=== PATIENT | female | born 1960 | race Caucasian/White ===

== ENCOUNTER 2022-03-31 12:00 | Inpatient (IN) | payer MEDICARE ==
[2022-03-31] MEDS ORDERED: SODIUM CHLORIDE 0.9% 1,000 ML IV STA (12:16)
--- NOTE | 2022-03-31 12:26 | ED ---
SOB HPI - General Chief Complaint: Shortness of Breath Stated Complaint: SOB Time Seen by Provider: 03/31/22 12:00 Source: patient, EMS, RN notes reviewed Mode of arrival: EMS Limitations: no limitations - History of Present Illness Initial Comments: 62-year-old female history of CHF COPD lymphedema of her lower extremities who started developing shortness of breath today. There are people in her household have it once and pneumonia. She also had a fever today. She was brought in by EMS she was given oral steroids as well as nebulizer treatment. She feels slightly better. She was noted be hypoxemic per paramedics. No overt chest pain no other complains modifying factors at this time MD Complaint: shortness of breath, cough - Related Data Home Medications Medication Instructions Recorded Confirmed Aspirin EC [Ecotrin Low Dose] 81 mg PO DAILY 03/31/22 03/31/22 Cholecalciferol [Vitamin D3 (25 25 mcg PO DAILY 03/31/22 03/31/22 Mcg = 1000 Iu)] Cinnamon Bark [Cinnamon] 500 mg PO BID 03/31/22 03/31/22 Clopidogrel [Plavix] 75 mg PO DAILY 03/31/22 03/31/22 Cyclobenzaprine [Flexeril] 5 mg PO BID 03/31/22 03/31/22 Furosemide [Lasix] 40 mg PO BID 03/31/22 03/31/22 HYDROcodone/APAP 10-325MG [[place] 1 tab PO TID 03/31/22 03/31/22 10-325] Losartan [Cozaar] 25 mg PO DAILY 03/31/22 03/31/22 Metoprolol Tartrate [Lopressor] 25 mg PO BID 03/31/22 03/31/22 Stacy-3 Fatty Acids [Stacy-3] 1,000 mg PO TID 03/31/22 03/31/22 Pioglitazone [Actos] 30 mg PO DAILY 03/31/22 03/31/22 Potassium Chloride ER [K-Dur 20] 20 meq PO DAILY 03/31/22 03/31/22 glipiZIDE [Glucotrol] 5 mg PO BID 03/31/22 03/31/22 traMADol HCL [traMADol HCL ER] 200 mg PO DAILY 03/31/22 03/31/22 Allergies Allergy/AdvReac Type Severity Reaction Status Date / Time latex Allergy Rash/Hives Verified 12/22/22 13:47 Penicillins Allergy Rash/Hives Verified 03/31/22 13:47 Sulfa (Sulfonamide Allergy Rash/Hives Verified 03/31/22 13:47 Antibiotics) Review of Systems ROS Statement: Those systems with pertinent positive or pertinent negative responses have been documented in the HPI. ROS Other: All systems not noted in ROS Statement are negative. Past Medical History Past Medical History: Heart Failure, COPD, Hypertension, Osteoarthritis (OA), Skin Disorder Additional Past Medical History / Comment(s): CHF, Chrohn's Disease, Chronic Hives History of Any Multi-Drug Resistant Organisms: MRSA Additional Past Surgical History / Comment(s): Fistula in buttocks, twice. Past Psychological History: No Psychological Hx Reported Smoking Status: Former smoker Past Alcohol Use History: None Reported Past Drug Use History: None Reported General Exam - General Exam Comments Initial Comments: This is a well-developed well-nourished awake alert oriented 3 female she is demonstrating evidence of respiratory distress with tachypnea Limitations: no limitations General appearance: alert, in distress Head exam: Present: atraumatic, normocephalic, normal inspection Eye exam: Present: normal appearance, PERRL, EOMI. Absent: scleral icterus, conjunctival injection, periorbital swelling ENT exam: Present: mucous membranes dry Neck exam: Present: normal inspection, full ROM, other (Stridor JVD or bruits). Absent: tenderness, meningismus, lymphadenopathy Respiratory exam: Present: normal lung sounds bilaterally. Absent: respiratory distress, wheezes, rales, rhonchi, stridor Cardiovascular Exam: Present: normal rhythm, tachycardia, normal heart sounds. Absent: systolic murmur, diastolic murmur, rubs, gallop, clicks GI/Abdominal exam: Present: soft, normal bowel sounds. Absent: distended, tenderness, guarding, rebound, rigid Extremities exam: Present: full ROM, normal capillary refill, pedal edema. Absent: tenderness, joint swelling, calf tenderness Back exam: Present: normal inspection Neurological exam: Present: alert, oriented X3, CN II-XII intact Psychiatric exam: Present: normal affect, normal mood Skin exam: Present: warm, dry, intact, normal color. Absent: rash Course Vital Signs 03/31/22 03/31/22 03/31/22 12:08 12:10 14:08 Temperature 100.3 F H 100.4 F H Pulse Rate 133 H 131 H Respiratory 24 26 H 22 Rate Blood Pressure 146/70 109/56 O2 Sat by Pulse 100 97 Oximetry Fraction of Inspired Oxygen (FIO2) 03/31/22 03/31/22 03/31/22 14:58 15:06 15:30 Temperature 101.3 F H Pulse Rate 120 H 158 H Respiratory 22 28 H Rate Blood Pressure 119/64 121/61 O2 Sat by Pulse 100 68 L Oximetry Fraction of Inspired Oxygen (FIO2) 03/31/22 03/31/22 03/31/22 15:35 15:44 15:56 Temperature Pulse Rate 156 H 149 H Respiratory 18 Rate Blood Pressure 183/121 179/92 O2 Sat by Pulse 97 88 L Oximetry Fraction of 100 Inspired Oxygen (FIO2) 03/31/22 03/31/22 03/31/22 16:09 16:23 16:32 Temperature Pulse Rate 140 H 135 H 133 H Respiratory 20 16 16 Rate Blood Pressure 125/92 122/56 110/67 O2 Sat by Pulse 97 97 96 Oximetry Fraction of Inspired Oxygen (FIO2) 03/31/22 03/31/22 16:33 16:34 Temperature Pulse Rate Respiratory Rate Blood Pressure O2 Sat by Pulse Oximetry Fraction of 100 100 Inspired Oxygen (FIO2) - Reevaluation(s) Reevaluation #1: 03/31/22 16:42 Reevaluation the patient reveals that she is having increased dyspnea and does demonstrate hypoxemia and impending respiratory failure. Patient will require oral tracheal intubation. Procedures - Intubation Paralytic: Succinylcholine Mg Given: 150 Laryngoscope: fiber optic video scope Size: 4 ET Tube Size: 8 ET Tube Uncuffed: No (cuffed) Tube Secured Depth (cm): 23 Tube Secured Location: lips Patient Tolerated Procedure: well Intubation Complications: difficult intubation Medical Decision Making - Medical Decision Making Patient did present with complaints of shortness of breath fever with known exposure to influenza pneumonia. Patient during her stay in the emergency department decompensated became more dyspneic hypoxemic with impending respiratory failure. She will require oral tracheal intubation which was performed by me. I did discuss the case initially with Dr. Brown later with Dr. Hatch. Patient will be admitted to the intensive care unit he respiratory failure influenza type A febrile illness respiratory failure she'll be placed on antibiotics as well as Tamiflu. - Lab Data Result diagrams: 03/31/22 12:42 03/31/22 12:42 Lab Results 03/31/22 03/31/22 03/31/22 Range/Units 12:42 12:42 12:42 WBC 5.3 (3.8-10.6) k/uL RBC 2.65 L (3.80-5.40) m/uL Hgb 8.5 L (11.4-16.0) gm/dL Hct 26.1 L (34.0-46.0) % MCV 98.7 (80.0-100.0) fL MCH 32.0 (25.0-35.0) pg MCHC 32.4 (31.0-37.0) g/dL RDW 17.3 H (11.5-15.5) % Plt Count 183 (150-450) k/uL MPV 7.5 Neutrophils % 87 % Lymphocytes % 5 % Monocytes % 4 % Eosinophils % 2 % Basophils % 1 % Neutrophils # 4.6 (1.3-7.7) k/uL Lymphocytes # 0.2 L (1.0-4.8) k/uL Monocytes # 0.2 (0-1.0) k/uL Eosinophils # 0.1 (0-0.7) k/uL Basophils # 0.0 (0-0.2) k/uL Hypochromasia Moderate Poikilocytosis Marked Anisocytosis Slight Macrocytosis Slight PT 10.3 (9.0-12.0) sec INR 1.0 (<1.2) APTT 25.4 (22.0-30.0) sec D-Dimer 1.04 H (<0.60) mg/L FEU Sodium 137 (137-145) mmol/L Potassium 3.6 (3.5-5.1) mmol/L Chloride 95 L (98-107) mmol/L Carbon Dioxide 40 H (22-30) mmol/L Anion Gap 2 mmol/L BUN 21 H (7-17) mg/dL Creatinine 0.76 (0.52-1.04) mg/dL Est GFR (CKD-EPI)AfAm >90 (>60 ml/min/1.73 sqM) Est GFR (CKD-EPI)NonAf 84 (>60 ml/min/1.73 sqM) Glucose 139 H (74-99) mg/dL Plasma Lactic Acid Jameson (0.7-2.0) mmol/L Calcium 8.5 (8.4-10.2) mg/dL Magnesium 1.5 L (1.6-2.3) mg/dL Total Bilirubin 0.8 (0.2-1.3) mg/dL AST 17 (14-36) U/L ALT 15 (4-34) U/L Alkaline Phosphatase 74 (38-126) U/L Troponin I (0.000-0.034) ng/mL NT-Pro-B Natriuret Pep pg/mL Total Protein 6.3 (6.3-8.2) g/dL Albumin 3.5 (3.5-5.0) g/dL Coronavirus (PCR) (Not Detectd) Influenza Type A RNA (Not Detectd) Influenza Type B (PCR) (Not Detectd) 03/31/22 03/31/22 03/31/22 Range/Units 12:42 12:42 12:42 WBC (3.8-10.6) k/uL RBC (3.80-5.40) m/uL Hgb (11.4-16.0) gm/dL Hct (34.0-46.0) % MCV (80.0-100.0) fL MCH (25.0-35.0) pg MCHC (31.0-37.0) g/dL RDW (11.5-15.5) % Plt Count (150-450) k/uL MPV Neutrophils % % Lymphocytes % % Monocytes % % Eosinophils % % Basophils % % Neutrophils # (1.3-7.7) k/uL Lymphocytes # (1.0-4.8) k/uL Monocytes # (0-1.0) k/uL Eosinophils # (0-0.7) k/uL Basophils # (0-0.2) k/uL Hypochromasia Poikilocytosis Anisocytosis Macrocytosis PT (9.0-12.0) sec INR (<1.2) APTT (22.0-30.0) sec D-Dimer (<0.60) mg/L FEU Sodium (137-145) mmol/L Potassium (3.5-5.1) mmol/L Chloride (98-107) mmol/L Carbon Dioxide (22-30) mmol/L Anion Gap mmol/L BUN (7-17) mg/dL Creatinine (0.52-1.04) mg/dL Est GFR (CKD-EPI)AfAm (>60 ml/min/1.73 sqM) Est GFR (CKD-EPI)NonAf (>60 ml/min/1.73 sqM) Glucose (74-99) mg/dL Plasma Lactic Acid Jameson 0.9 (0.7-2.0) mmol/L Calcium (8.4-10.2) mg/dL Magnesium (1.6-2.3) mg/dL Total Bilirubin (0.2-1.3) mg/dL AST (14-36) U/L ALT (4-34) U/L Alkaline Phosphatase (38-126) U/L Troponin I 0.015 (0.000-0.034) ng/mL NT-Pro-B Natriuret Pep 892 pg/mL Total Protein (6.3-8.2) g/dL Albumin (3.5-5.0) g/dL Coronavirus (PCR) (Not Detectd) Influenza Type A RNA (Not Detectd) Influenza Type B (PCR) (Not Detectd) 03/31/22 03/31/22 Range/Units 12:42 12:42 WBC (3.8-10.6) k/uL RBC (3.80-5.40) m/uL Hgb (11.4-16.0) gm/dL Hct (34.0-46.0) % MCV (80.0-100.0) fL MCH (25.0-35.0) pg MCHC (31.0-37.0) g/dL RDW (11.5-15.5) % Plt Count (150-450) k/uL MPV Neutrophils % % Lymphocytes % % Monocytes % % Eosinophils % % Basophils % % Neutrophils # (1.3-7.7) k/uL Lymphocytes # (1.0-4.8) k/uL Monocytes # (0-1.0) k/uL Eosinophils # (0-0.7) k/uL Basophils # (0-0.2) k/uL Hypochromasia Poikilocytosis Anisocytosis Macrocytosis PT (9.0-12.0) sec INR (<1.2) APTT (22.0-30.0) sec D-Dimer (<0.60) mg/L FEU Sodium (137-145) mmol/L Potassium (3.5-5.1) mmol/L Chloride (98-107) mmol/L Carbon Dioxide (22-30) mmol/L Anion Gap mmol/L BUN (7-17) mg/dL Creatinine (0.52-1.04) mg/dL Est GFR (CKD-EPI)AfAm (>60 ml/min/1.73 sqM) Est GFR (CKD-EPI)NonAf (>60 ml/min/1.73 sqM) Glucose (74-99) mg/dL Plasma Lactic Acid Jameson (0.7-2.0) mmol/L Calcium (8.4-10.2) mg/dL Magnesium (1.6-2.3) mg/dL Total Bilirubin (0.2-1.3) mg/dL AST (14-36) U/L ALT (4-34) U/L Alkaline Phosphatase (38-126) U/L Troponin I (0.000-0.034) ng/mL NT-Pro-B Natriuret Pep pg/mL Total Protein (6.3-8.2) g/dL Albumin (3.5-5.0) g/dL Coronavirus (PCR) Not Detected (Not Detectd) Influenza Type A RNA Detected H (Not Detectd) Influenza Type B (PCR) Not Detected (Not Detectd) - Radiology Data Interpreted by me: I did evaluate interpreted the x-ray shows evidence of increased vomiting or vascular congestion. Critical Care Time Critical Care Time: Yes Total Critical Care Time: 45 Critical Care Time: Crackle care time includes initial presentation with discussed with paramedics on arrival history physical labs x-rays multiple reevaluation the patient to responsive therapy. This does not include the intubation time. This does include discussion multiple physicians as well as admission orders and documen tation the above. Disposition Clinical Impression: Acute respiratory failure, Influenza due to influenza virus, type A, human, Febrile illness, acute, Hypomagnesemia, Chronic anemia Disposition: ADMITTED IP TO THIS [facility] Condition: Critical Referrals: Vernell Bernal DO [Primary Care Provider] - 1-2 days Decision Date: 03/31/22 Decision Time: 16:00
--- NOTE | 2022-03-31 12:44 | XR ---
EXAMINATION TYPE: XR chest 2V DATE OF EXAM: 03/31/2022 COMPARISON: NONE HISTORY: Shortness of breath TECHNIQUE: Frontal and lateral views of the chest are obtained. FINDINGS: Scattered senescent parenchymal changes noted. Cardiomegaly with pulmonary venous congestion and perihilar infiltrates as well as interstitial proctor es likely reflective of congestive failure although no sizable effusion seen. Infiltrates of other et iology difficult to exclude. Correlate clinically. Mediastinal structures are stable and grossly unremarkable. No evidence for hilar prominence. Degenerative changes dorsal spine. IMPRESSION: 1. Cardiomegaly with pulmonary venous congestion and perihilar infiltrates as well as interstitial ch anges likely reflective of congestive failure although no sizable effusion seen. Infiltrates of other etiology difficult to exclude. Correlate clinically.
[2022-03-31 13:00] LABS: Anisocytosis Slight; Basophils % (A) 1 %; Eosinophils # (A) 0.1 k/uL (0-0.7); Eosinophils % (A) 2 %; HCT 26.1 % (34.0-46.0); HGB 8.5 gm/dL (11.4-16.0); Hypochromasia Moderate; Lymphocytes # (A) 0.2 k/uL (1.0-4.8); Lymphocytes % (A) 5 %; MCHC 32.4 g/dL (31.0-37.0); MCV 98.7 fL (80.0-100.0); Macrocytosis Slight; Mean Platelet Volume 7.5; Monocytes # (A) 0.2 k/uL (0-1.0); Monocytes % (A) 4 %; Neutrophils # (A) 4.6 k/uL (1.3-7.7); Neutrophils % (A) 87 %; Platelet Count 183 k/uL (150-450); Poikilocytosis Marked; RBC 2.65 m/uL (3.80-5.40); RDW 17.3 % (11.5-15.5); WBC 5.3 k/uL (3.8-10.6)
[2022-03-31 13:11] LABS: ALT 15 U/L (4-34); AST 17 U/L (14-36); African American GFR (CKD) >90 (>60 ml/min/1.73 sqM); Albumin 3.5 g/dL (3.5-5.0); Alkaline Phosphatase 74 U/L (38-126); Anion Gap 2 mmol/L; Blood Urea Nitrogen 21 mg/dL (7-17); Calcium 8.5 mg/dL (8.4-10.2); Carbon Dioxide 40 mmol/L (22-30); Chloride 95 mmol/L (98-107); Glucose 139 mg/dL (74-99); Magnesium 1.5 mg/dL (1.6-2.3); Non-African American GFR(CKD) 84 (>60 ml/min/1.73 sqM); Potassium 3.6 mmol/L (3.5-5.1); Sodium 137 mmol/L (137-145); Total Bilirubin 0.8 mg/dL (0.2-1.3); Total Protein 6.3 g/dL (6.3-8.2)
[2022-03-31 13:22] LABS: Partial Thromboplastin Time 25.4 sec (22.0-30.0); Prothrombin Time 10.3 sec (9.0-12.0)
[2022-03-31] MEDS ORDERED: ACETAMINOPHEN TAB 325 MG TAB PO STA (14:10)
[2022-03-31] MEDS ORDERED: HYDROmorphone 1 MG/ML 1 ML SYRINGE IVP STA (14:36)
[2022-03-31] MEDS ORDERED: IPRATROPIUM-ALBUTEROL 3 ML NEB INHALATION STA (15:28)
[2022-03-31] MEDS ORDERED: LORazepam 2 MG/ML INJ IV STA (15:33)
[2022-03-31] MEDS ORDERED: FUROSEMIDE 10 MG/ML 4 ML VIAL IV STA (15:35)
[2022-03-31] MEDS ORDERED: Potassium Replacement Protocol 1 EACH MISC MISCELLANE PRN (15:48)
[2022-03-31] MEDS ORDERED: Magnesium Replacement Protocol 1 EACH MISC MISCELLANE PRN (15:48)
[2022-03-31] MEDS ORDERED: NON FORMULARY DRUG (Omega-3 Fatty Acids [Omega-3] 1,000 MG Capsule) PO SCH (16:00)
[2022-03-31] MEDS: HYDROcodone/APAP 10-325MG 1 EACH TAB PO SCH ×2 (16:01→21:09)
[2022-03-31] MEDS ORDERED: SUCCINYLCHOLINE CHLORIDE 200 MG/10 ML VIAL IV ONE (16:11)
[2022-03-31] MEDS ORDERED: MIDAZOLAM 1 MG/ML 5 ML VIAL IV STA (16:45)
[2022-03-31] MEDS ORDERED: NALOXONE 0.4 MG/ML 1 ML VIAL IV PRN (16:52)
[2022-03-31] MEDS ORDERED: cefTRIAXone IN SWFI 1,000 MG/10 ML SYRINGE IVP STA (16:54)
[2022-03-31] MEDS ORDERED: AZITHROMYCIN 500 MG in SODIUM CHLORIDE 0.9% 250 ML IVPB STA (16:55)
[2022-03-31 17:03] LABS: ABG Base Excess 6.5 mmol/L; ABG HCO3 35 mmol/L (21-25); ABG Oxygen Saturation 99.8 % (94-97); ABG PO2 164 mmHg (83-108); ABG TCO2 38 mmol/L (19-24); Allen Test Performed? Yes
[2022-03-31 17:10] LABS: Anisocytosis Slight; Basophils % (A) 0 %; Eosinophils % (A) 0 %; HCT 30.6 % (34.0-46.0); HGB 9.9 gm/dL (11.4-16.0); Hypochromasia Marked; Lymphocytes # (A) 0.2 k/uL (1.0-4.8); Lymphocytes % (A) 2 %; MCH 32.8 pg (25.0-35.0); MCHC 32.4 g/dL (31.0-37.0); MCV 101.2 fL (80.0-100.0); Macrocytosis Slight; Mean Platelet Volume 7.3; Monocytes # (A) 0.2 k/uL (0-1.0); Monocytes % (A) 1 %; Neutrophils # (A) 11.1 k/uL (1.3-7.7); Neutrophils % (A) 96 %; Platelet Count 236 k/uL (150-450); Poikilocytosis Moderate; RBC 3.02 m/uL (3.80-5.40); RDW 16.8 % (11.5-15.5); WBC 11.5 k/uL (3.8-10.6)
[2022-03-31] MEDS: MAGNESIUM SULFATE-D5W PMX 1 GM in DEXTROSE/WATER 1 100ML.BAG IVPB SCH ×2 (17:13→20:56)
[2022-03-31 17:14] LABS: ABG PCO2 93 mmHg (35-45); ABG PH 7.18 (7.35-7.45)
[2022-03-31 17:15] LABS: Appearance,Urine Cloudy (Clear); Bilirubin,Urine Negative (Negative); Blood,Urine Negative (Negative); Color,Urine Yellow; Glucose,Urine (UA) Negative (Negative); Ketones,Urine 1+ (Negative); Leukocyte Esterase,Urine Negative (Negative); Mucus,Urine Moderate /hpf; Nitrite,Urine Negative (Negative); PH, Urine 5.5 (5.0-8.0); Protein,Urine 1+ (Negative); RBC,Urine 2 /hpf (0-5); Specific Gravity,Urine 1.023 (1.001-1.035); Squamous Epithelial Cell,Urine <1 /hpf (0-4); Urobilinogen,Urine <2.0 mg/dL (<2.0); WBC,Urine 3 /hpf (0-5)
[2022-03-31 17:21] LABS: Calcium 8.6 mg/dL (8.4-10.2); Potassium 4.7 mmol/L (3.5-5.1)
--- NOTE | 2022-03-31 17:47 | XR ---
EXAMINATION TYPE: XR chest 1V confirm line [place] DATE OF EXAM: 03/31/2022 COMPARISON: 03/31/2022 earlier exam INDICATION: ET and OG tube placement TECHNIQUE: Single frontal view of the chest is obtained. FINDINGS: The heart size is moderately prominent. The pulmonary vasculature is prominent. Diffuse increased lung opacification is present bilaterally greater on the right mid and lower lung f ield. Correlate for pulmonary edema. Pneumonia should be considered. Follow-up is recommended. Endotracheal tube is in place with the tip 5 centimeters above the paola. Nasogastric tube transvers es the field of view. IMPRESSION: 1. Worsening bilateral lung infiltrates greater at the right perihilar region. 2. Placement of a nasogastric tube and endotracheal tube discussed above
[2022-03-31] MEDS ORDERED: SODIUM CHLORIDE 0.9% 500 ML 500 ML IV ONE (17:50)
--- NOTE | 2022-03-31 18:00 | CT ---
CT CHEST FOR PULMONARY EMBOLISM. EXAMINATION TYPE: CT angio chest DATE OF EXAM: 03/31/2022 INDICATION: SOB, COPD, CHF CT DLP: 1062.3 mGycm, Automated exposure control for dose reduction was used. CONTRAST: Patient injected with 100 mL of Isovue 370. COMPARISON: None TECHNIQUE: CT of the chest is performed on a spiral scan at 2 mm thick sections. Study is performed with intravenous contrast timed for evaluation for pulmonary embolism. This will limit additional po rtions of the evaluation. 3-D MIP images reconstructed by the technologist are reviewed on the compu ter in the coronal and sagittal planes. Beam hardening artifact is present due to patient body habitu s. FINDINGS: Patient is intubated, with tip of the endotracheal tube is above the paola. Nasogastric tu be is present and transverses the thorax with the tip in the left upper quadrant of the abdomen. No persistent filling defects are evident to suggest an acute pulmonary embolism. No mediastinal or hilar adenopathy enlarged by CT criteria is evident. The ascending aorta diameter at the level of the main pulmonary artery is 3.9 cm. The main pulmonary artery diameter at the bifur cation is 4.2 cm. Correlate for pulmonary hypertension. Moderate pericardial effusion is present. Small bilateral pleural effusions are present. Compressive atelectasis or bibasilar pneumonia may be present. Limited CT section through the upper abdomen are unremarkable. IMPRESSIONS: 1. No definite pulmonary embolism. Exam is limited due to patient habitus. 2. Small bilateral pleural effusions. Bibasilar atelectasis or pneumonia may be present. 3. Moderate pericardial effusion
[2022-03-31] MEDS ORDERED: SODIUM CHLORIDE 0.9% 1,000 ML IV ONE (19:12)
[2022-03-31] MEDS: OSELTAMIVIR 60 MG/10 ML ORAL SYRINGE OG-TUBE SCH (19:13)
[2022-03-31 19:49] LABS: Glucose,Whole Blood 334 mg/dL (70-110)
[2022-03-31] MEDS: CHLORHEXIDINE GLUCONATE 15 ML CUP MUCOUS MEM SCH (20:56)
[2022-03-31] MEDS: HEPARIN SODIUM,PORCINE/PF 5,000 UNIT/0.5 ML SYRINGE SQ SCH (20:56)
[2022-03-31] MEDS: glipiZIDE 5 MG TAB PO SCH (20:57)
[2022-03-31] MEDS: METOPROLOL TARTRATE 25 MG TAB PO SCH (20:57)
[2022-03-31] MEDS: CYCLOBENZAPRINE 5 MG TAB PO SCH (20:57)
[2022-03-31] MEDS ORDERED: NON FORMULARY DRUG (Cinnamon Bark [Cinnamon] 500 MG Capsule) PO SCH (21:00)
[2022-03-31] MEDS ORDERED: DEXTROSE 50% SYRINGE 50 ML IVP PRN ×2 (21:00)
[2022-03-31] MEDS ORDERED: INSULIN ASPART (NovoLOG) 100 UNIT/ML VIAL SQ SCH (21:00)
[2022-03-31] MEDS ORDERED: IPRATROPIUM-ALBUTEROL 3 ML NEB INHALATION PRN (21:09)
--- NOTE | 2022-03-31 21:58 | XR ---
EXAMINATION TYPE: XR abdomen 1V DATE OF EXAM: 03/31/2022 COMPARISON: None INDICATION: Nasogastric tube placement TECHNIQUE: Single view abdomen supine view FINDINGS: Nasogastric tube transverses the thorax with the tip in the midline. Note is made of cardiomegaly. Sm all effusion may be present on the left. Abdomen is limited evaluation. IMPRESSION: 1. Nasogastric tube tip within the midline of the abdomen
[2022-03-31] MEDS: ACETAMINOPHEN TAB 500 MG TAB PO PRN (22:22)
[2022-03-31] MEDS: ALPRAZolam 0.25 MG TAB PO PRN (22:23)
--- NOTE | 2022-03-31 23:29 | HP ---
HISTORY AND PHYSICAL CHIEF COMPLAINT: Shortness of breath. HISTORY OF PRESENT ILLNESS: This 62-year-old woman with a past medical history of COPD, hypertension, and multiple medical problems, was complaining of cough and sputum, multiple children at the household is positive for flu according to her, and the patient came to [facility], was found to have flu A positive and also some perihilar infiltrate also. There is no history of any fever, rigors, or chills. There is no history of any headache, loss of consciousness, or seizures. PAST MEDICAL HISTORY: Reviewed and include COPD. The rest of the history and rest of the chart is also reviewed. HOME MEDICATIONS: Reviewed and include omega-3. Dose and rest of medications reviewed. ALLERGIES: Reviewed and include latex. FAMILY HISTORY: No history of heart disease or strokes in the family. SOCIAL HISTORY: Previous history of smoking. REVIEW OF SYSTEMS: A 14-point review of systems is negative except as mentioned earlier. PHYSICAL EXAMINATION: VITAL SIGNS: Pulse is 158, blood pressure 120/66, respirations 28. HEENT: Conjunctivae normal. NECK: No JVD. CARDIOVASCULAR: S1, S2. Tachycardic. RESPIRATION: Breath sounds diminished at the bases. Bilateral scattered rhonchi and crackles. ABDOMEN: Soft, obese, nontender. LEGS: No edema. NERVOUS SYSTEM: Nonfocal. SKIN: No ulcer, rash, or bleeding. JOINTS: No active deforming arthropathy. LABORATORY DATA: Hemoglobin 8.2. The rest of the labs are noted. ASSESSMENT: 1. Acute influenza A with acute influenza pneumonia, bilateral. 2. Elevated D-dimer. 3. Chronic obstructive pulmonary disease. 4. Hypertension. 5. Degenerative joint disease. 6. Tachycardia. RECOMMENDATIONS: In this 62-year-old woman, who presented with multiple complex medical issues, we will monitor the patient closely. Continue with current medications and symptomatic treatment. We will initiate Tamiflu, broad-spectrum antibiotics. Infectious Disease and Pulmonary consultations. Bronchodilators. Prognosis is guarded because of multiple complex medical issues. Further recommendations to follow. CT angio of the chest also will be obtained. The patient is extremely sick and will require more than 24 hours of hospital stay. See orders for further details. DVT prophylaxis and proton pump inhibitors also will be ordered. MMODL / IJN: [id number] /
[2022-03-31 23:31] LABS: Glucose,Whole Blood 262 mg/dL (70-110)
[2022-03-31] MEDS: FUROSEMIDE 10 MG/ML 4 ML VIAL IV SCH (23:42)
[2022-03-31] MEDS: INSULIN ASPART (NovoLOG) 100 UNIT/ML VIAL SQ SCH (23:42)
[2022-04-01] MEDS: IPRATROPIUM-ALBUTEROL 3 ML NEB INHALATION SCH ×6 (00:55→20:01)
[2022-04-01] MEDS: HYDROcodone/APAP 5-325MG 1 EACH TAB PO PRN (01:40)
[2022-04-01 04:22] LABS: Anisocytosis Slight; Basophils % (A) 0 %; Eosinophils # (A) 0.1 k/uL (0-0.7); Eosinophils % (A) 1 %; HCT 23.7 % (34.0-46.0); Hypochromasia Moderate; Lymphocytes # (A) 0.2 k/uL (1.0-4.8); Lymphocytes % (A) 3 %; MCH 34.1 pg (25.0-35.0); MCHC 34.9 g/dL (31.0-37.0); MCV 97.8 fL (80.0-100.0); Macrocytosis Slight; Mean Platelet Volume 7.5; Monocytes # (A) 0.3 k/uL (0-1.0); Monocytes % (A) 4 %; Neutrophils # (A) 7.7 k/uL (1.3-7.7); Neutrophils % (A) 92 %; Platelet Count 195 k/uL (150-450); Poikilocytosis Moderate; RBC 2.43 m/uL (3.80-5.40); RDW 16.7 % (11.5-15.5); WBC 8.4 k/uL (3.8-10.6)
[2022-04-01 04:37] LABS: Calcium 8.3 mg/dL (8.4-10.2); Magnesium 2.1 mg/dL (1.6-2.3); Potassium 3.5 mmol/L (3.5-5.1)
[2022-04-01 04:53] LABS: HGB 8.3 gm/dL (11.4-16.0)
[2022-04-01] MEDS: NOREPINEPHRINE 4 MG in SODIUM CHLORIDE 0.9% 250 ML IV SCH ×2 (05:04→22:29)
[2022-04-01 05:50] LABS: ABG Base Excess 13.6 mmol/L; ABG HCO3 38 mmol/L (21-25); ABG Oxygen Saturation 96.8 % (94-97); ABG PCO2 60 mmHg (35-45); ABG PH 7.41 (7.35-7.45); ABG PO2 76 mmHg (83-108); ABG TCO2 40 mmol/L (19-24); Allen Test Performed? Yes
[2022-04-01 06:00] LABS: Glucose,Whole Blood 106 mg/dL (70-110)
[2022-04-01] MEDS: INSULIN ASPART (NovoLOG) 100 UNIT/ML VIAL SQ SCH ×3 (06:01→18:04)
[2022-04-01] MEDS: ACETAMINOPHEN TAB 500 MG TAB PO PRN (06:02)
[2022-04-01] MEDS: POTASSIUM BICARBONATE/CIT AC 20 MEQ TABLET.EFF NG-TUBE SCH ×2 (06:02→06:40)
[2022-04-01] MEDS: PANTOPRAZOLE 40 MG TABLET PO SCH (06:02)
[2022-04-01] MEDS: traMADol 50 MG TAB PO SCH ×4 (06:03→22:45)
[2022-04-01] MEDS: OSELTAMIVIR 60 MG/10 ML ORAL SYRINGE OG-TUBE SCH (06:39)
[2022-04-01] MEDS: FUROSEMIDE 10 MG/ML 4 ML VIAL IV SCH ×3 (08:26→22:44)
[2022-04-01] MEDS: HEPARIN SODIUM,PORCINE/PF 5,000 UNIT/0.5 ML SYRINGE SQ SCH ×2 (08:26→20:05)
[2022-04-01] MEDS: CHLORHEXIDINE GLUCONATE 15 ML CUP MUCOUS MEM SCH (08:26)
[2022-04-01] MEDS: HYDROcodone/APAP 10-325MG 1 EACH TAB PO SCH ×3 (08:27→22:44)
[2022-04-01] MEDS: CLOPIDOGREL 75 MG TAB PO SCH (08:27)
[2022-04-01] MEDS: CYCLOBENZAPRINE 5 MG TAB PO SCH ×2 (08:27→20:05)
[2022-04-01] MEDS: glipiZIDE 5 MG TAB PO SCH ×2 (08:27→20:05)
[2022-04-01] MEDS: CHOLECALCIFEROL 25 MCG (1000 IU) TABLET PO SCH (08:28)
[2022-04-01] MEDS: ASPIRIN 81 MG PO SCH (08:29)
[2022-04-01] MEDS: POTASSIUM CHLORIDE ER 20 MEQ TAB.ER PO SCH (08:29)
[2022-04-01] MEDS: PIOGLITAZONE 30 MG TAB PO SCH (08:29)
[2022-04-01] MEDS: METOPROLOL TARTRATE 25 MG TAB PO SCH ×2 (08:29→20:05)
--- NOTE | 2022-04-01 08:38 | XR ---
EXAMINATION TYPE: XR chest 1V portable DATE OF EXAM: 04/01/2022 COMPARISON: NONE HISTORY: SOB, Follow Up FINDINGS: Indwelling tubes and catheters are unchanged. Interval improvement in perihilar and basilar infiltrates. Continued cardiomegaly with pulmonary veno us congestion. Stable appearance of the cardio-mediastinal structures at this time. Pleural effusion unchanged. IMPRESSION: 1. Interval improvement as noted above. Correlate for improving congestive failure and/or pneumonia.
[2022-04-01] MEDS: LOSARTAN 25 MG TAB PO SCH (08:50)
[2022-04-01] MEDS ORDERED: FUROSEMIDE 40 MG TAB PO SCH (09:00)
--- NOTE | 2022-04-01 09:44 | P.CRDCN ---
History of Present Illness History of present illness: HISTORY OF PRESENTING ILLNESS Patient is a pleasant 62-year-old female with history of COPD hypertension congestive heart failure diabetes mellitus type 2 obesity, lymphedema. Patient currently intubated and sedated and history is supplied by chart. Patient apparently had been at [facility] for heart failure and COPD and had been intubated. He was discharged home and then unfortunately was exposed to family members with influenza and brought to the emergency department with increased shortness of breath and was intubated and sedated. There were no complaints of any chest pain or pressure. She was intubated and sedated and is on low-dose norepinephrine appears more related to sedation. Has been receiving metoprolol. Overnight had brief runs of SVT for Chest CTA showed no definitive pulmonary embolism with small bilateral pleural effusions and mention of moderate pericardial effusion. EKG read out as atrial flutter/tachycardia however appears to be sinus tachycardia with normal axis with nonspecific ST depressions lateral leads. REVIEW OF SYSTEMS At the time of my exam: Unable to perform PHYSICAL EXAMINATION Vital signs reviewed. CONSTITUTIONAL: No apparent distress, sedated and intubated. HEENT: Head is normocephalic. Pupils are equal, round. Sclerae anicteric. Mucous membranes of the mouth are moist. No JVD. No carotid bruit. CHEST EXAMINATION: Lungs are clear to auscultation. No chest wall tenderness is noted on palpation or with deep breathing. HEART EXAMINATION: Regular rate and rhythm. S1, S2 heard. No murmurs, gallops or rub. ABDOMEN: Soft, nontender. Positive bowel sounds. EXTREMITIES: 2+ peripheral pulses, no lower extremity edema and no calf tenderness. NEUROLOGIC EXAMINATION: Patient is sedated ASSESSMENT 1. Acute on chronic respiratory failure 2. Acute on chronic diastolic heart failure 3. Influenza A pneumonia 4. History of COPD 5. Non-STEMI likely type II mechanism related to influenza 6. Report of moderate pericardial effusion by CT 7. Diabetes mellitus type 2 8. History of hypertension, mildly hypotensive on mild vasopressors likely related to sedation, sepsis 9. Brief runs of SVT, asymptomatic PLAN Patient's main decompensation appears related to influenza. Continue Lasix and monitor response. Continue aspirin for non-STEMI however monitor hemoglobin closely. Check 2-D echo for pericardial effusion as well as for left ventricular function given non-STEMI Continue beta zhane as able with mild hypotension. Past Medical History Past Medical History: Heart Failure, COPD, Diabetes Mellitus, Hypertension, Osteoarthritis (OA), Skin Disorder Additional Past Medical History / Comment(s): CHF, Chrohn's Disease, Chronic Hives History of Any Multi-Drug Resistant Organisms: None Reported Additional Past Surgical History / Comment(s): Fistula in buttocks. Past Anesthesia/Blood Transfusion Reactions: No Reported Reaction Past Psychological History: No Psychological Hx Reported Smoking Status: Former smoker Past Alcohol Use History: None Reported Past Drug Use History: None Reported Medications and Allergies Home Medications Medication Instructions Recorded Confirmed Type Aspirin EC [Ecotrin Low Dose] 81 mg PO DAILY 03/31/22 03/31/22 History Cholecalciferol [Vitamin D3 (25 25 mcg PO DAILY 03/31/22 03/31/22 History Mcg = 1000 Iu)] Cinnamon Bark [Cinnamon] 500 mg PO BID 03/31/22 03/31/22 History Clopidogrel [Plavix] 75 mg PO DAILY 03/31/22 03/31/22 History Cyclobenzaprine [Flexeril] 5 mg PO BID 03/31/22 03/31/22 History Furosemide [Lasix] 40 mg PO BID 03/31/22 03/31/22 History HYDROcodone/APAP 10-325MG [[place] 1 tab PO TID 03/31/22 03/31/22 History 10-325] Losartan [Cozaar] 25 mg PO DAILY 03/31/22 03/31/22 History Metoprolol Tartrate [Lopressor] 25 mg PO BID 03/31/22 03/31/22 History [place]-3 Fatty Acids [[place]-3] 1,000 mg PO TID 03/31/22 03/31/22 History Pioglitazone [Actos] 30 mg PO DAILY 03/31/22 03/31/22 History Potassium Chloride ER [K-Dur 20] 20 meq PO DAILY 03/31/22 03/31/22 History glipiZIDE [Glucotrol] 5 mg PO BID 03/31/22 03/31/22 History traMADol HCL [traMADol HCL ER] 200 mg PO DAILY 03/31/22 03/31/22 History Allergies Allergy/AdvReac Type Severity Reaction Status Date / Time latex Allergy Rash/Hives Verified 03/31/22 13:47 Penicillins Allergy Rash/Hives Verified 03/31/22 13:47 Sulfa (Sulfonamide Allergy Rash/Hives Verified 03/31/22 13:47 Antibiotics) Physical Exam Vitals: Vital Signs Temp Pulse Pulse Resp BP BP Pulse Ox 04/01/22 09:25 04/01/22 09:15 93 24 110/53 98 04/01/22 09:00 101 H 24 107/48 98 04/01/22 08:45 102 H 24 104/49 98 04/01/22 08:30 103 H 24 110/47 98 04/01/22 08:15 105 H 24 108/52 98 04/01/22 08:00 99.6 F 102 H 92 24 104/54 98 04/01/22 07:45 105 H 24 108/48 98 04/01/22 07:30 110 H 24 106/50 99 04/01/22 07:15 111 H 24 107/46 99 04/01/22 07:00 110 H 24 97/53 99 04/01/22 06:45 111 H 24 109/54 98 04/01/22 06:30 107 H 27 H 118/53 100 04/01/22 06:15 101 H 24 118/54 100 04/01/22 06:00 105 H 24 124/65 100 04/01/22 05:45 98 24 105/59 94 L 04/01/22 05:30 105 H 24 94/56 94 L 04/01/22 05:15 94 24 96 04/01/22 05:00 99 24 91/45 92 L 04/01/22 04:16 04/01/22 04:00 99.6 F 100 24 99/47 96 04/01/22 03:00 99 24 109/57 97 04/01/22 02:00 99 24 109/57 95 04/01/22 01:10 88 04/01/22 01:00 85 24 104/58 96 04/01/22 00:55 87 04/01/22 00:51 04/01/22 00:00 99.0 F 87 24 109/60 98 03/31/22 23:00 90 24 121/65 100 03/31/22 22:00 89 24 95/52 100 03/31/22 21:42 98.5 F 92 24 95/52 100 03/31/22 21:00 91 24 109/62 98 03/31/22 20:00 98.5 F 95 24 112/63 98 03/31/22 19:26 93 18 107/62 99 03/31/22 19:23 03/31/22 19:11 97.7 F 93 18 107/50 100 03/31/22 18:59 03/31/22 18:55 102 H 18 99/50 100 03/31/22 18:30 105 H 18 95/40 98 03/31/22 18:19 106 H 20 94/44 98 03/31/22 17:48 106 H 22 89/39 98 03/31/22 17:44 109 H 24 105/41 99 03/31/22 17:30 111 H 20 90/43 98 03/31/22 17:00 98.0 F 119 H 16 102/40 97 03/31/22 16:45 118 H 17 112/44 97 03/31/22 16:34 03/31/22 16:32 133 H 16 110/67 96 03/31/22 16:23 135 H 16 122/56 97 03/31/22 16:09 140 H 20 125/92 97 03/31/22 15:56 149 H 18 179/92 88 L 03/31/22 15:44 156 H 183/121 97 03/31/22 15:35 03/31/22 15:30 158 H 28 H 121/61 68 L 03/31/22 15:06 101.3 F H 03/31/22 14:58 120 H 22 119/64 100 03/31/22 14:08 100.4 F H 131 H 22 109/56 97 03/31/22 12:10 26 H 03/31/22 12:08 100.3 F H 133 H 24 146/70 100 FiO2 04/01/22 09:25 60 04/01/22 09:15 04/01/22 09:00 04/01/22 08:45 04/01/22 08:30 04/01/22 08:15 04/01/22 08:00 60 04/01/22 07:45 04/01/22 07:30 04/01/22 07:15 04/01/22 07:00 04/01/22 06:45 04/01/22 06:30 04/01/22 06:15 04/01/22 06:00 04/01/22 05:45 04/01/22 05:30 04/01/22 05:15 04/01/22 05:00 04/01/22 04:16 60 04/01/22 04:00 60 04/01/22 03:00 04/01/22 02:00 04/01/22 01:10 04/01/22 01:00 04/01/22 00:55 04/01/22 00:51 60 04/01/22 00:00 60 03/31/22 23:00 70 03/31/22 22:00 03/31/22 21:42 80 03/31/22 21:00 03/31/22 20:00 80 03/31/22 19:26 03/31/22 19:23 80 03/31/22 19:11 03/31/22 18:59 80 03/31/22 18:55 03/31/22 18:30 03/31/22 18:19 03/31/22 17:48 03/31/22 17:44 03/31/22 17:30 03/31/22 17:00 03/31/22 16:45 03/31/22 16:34 100 03/31/22 16:32 03/31/22 16:23 03/31/22 16:09 03/31/22 15:56 03/31/22 15:44 03/31/22 15:35 100 03/31/22 15:30 03/31/22 15:06 03/31/22 14:58 03/31/22 14:08 03/31/22 12:10 03/31/22 12:08 Intake and Output 03/31/22 04/01/22 04/01/22 22:59 06:59 14:59 Intake Total 167.469 511.369 184.17 Output Total 530 655 120 Balance -362.531 -143.631 64.17 Intake: IV 60 140 60 Sodium Chloride 0.9% 1, 60 140 60 000 ml @ 20 mls/hr IV . Q24H [facility] Rx#:[id number] Intake, IV Titration 107.469 271.369 124.17 Amount Norepinephrine 4 mg In 40.34 Sodium Chloride 0.9% 250 ml @ 0.03 MCG/KG/MIN 17. 797 mls/hr IV .[id number] [facility] Rx#:[id number] propofoL 1,000 mg In 107.469 271.369 83.83 Empty Bag 1 bag @ 15 MCG/ KG/MIN 13.594 mls/hr IV . Q7H22M [facility] Rx#:[id number] Other 100 Output: Urine 530 655 120 Other: Voiding Method Indwelling Catheter Indwelling Catheter Indwelling Catheter Weight 151.046 kg 155.7 kg 155.7 kg Results 04/01/22 03:59 04/01/22 03:59 Cardiac Enzymes 03/31/22 03/31/22 04/01/22 Range/Units 12:42 12:42 06:07 AST 17 (14-36) U/L Troponin I 0.015 0.298 H* (0.000-0.034) ng/mL Coagulation 03/31/22 Range/Units 12:42 PT 10.3 (9.0-12.0) sec APTT 25.4 (22.0-30.0) sec CBC 03/31/22 03/31/22 04/01/22 Range/Units 12:42 16:42 03:59 WBC 5.3 11.5 H 8.4 (3.8-10.6) k/uL RBC 2.65 L 3.02 L 2.43 L (3.80-5.40) m/uL Hgb 8.5 L 9.9 L 8.3 L D (11.4-16.0) gm/dL Hct 26.1 L 30.6 L 23.7 L (34.0-46.0) % Plt Count 183 236 195 (150-450) k/uL Comprehensive Metabolic Panel 03/31/22 03/31/22 04/01/22 Range/Units 12:42 16:42 03:59 Sodium 137 135 L 136 L (137-145) mmol/L Potassium 3.6 4.7 3.5 (3.5-5.1) mmol/L Chloride 95 L 94 L 96 L (98-107) mmol/L Carbon Dioxide 40 H 34 H 35 H (22-30) mmol/L BUN 21 H 24 H 26 H (7-17) mg/dL Creatinine 0.76 0.92 0.82 (0.52-1.04) mg/dL Glucose 139 H 348 H 119 H (74-99) mg/dL Calcium 8.5 8.6 8.3 L (8.4-10.2) mg/dL AST 17 (14-36) U/L ALT 15 (4-34) U/L Alkaline Phosphatase 74 (38-126) U/L Total Protein 6.3 (6.3-8.2) g/dL Albumin 3.5 (3.5-5.0) g/dL Current Medications Generic Name Dose Route Start Last Admin Trade Name Freq PRN Reason Stop Dose Admin Acetaminophen 500 mg 03/31/22 15:36 04/01/22 06:02 Acetaminophen Tab 500 Mg Tab PO 500 mg Q6HR PRN Administration Fever and/ or Pain Hydrocodone Bitart/Acetaminophen 1 each 03/31/22 15:36 04/01/22 01:40 Hydrocodone/Apap 5-325mg 1 Each Tab PO 1 each Q6HR PRN Administration Pain Hydrocodone Bitart/Acetaminophen 1 each 03/31/22 16:00 04/01/22 08:27 Hydrocodone/Apap 10-325mg 1 Each Tab PO 1 each TID [facility] Administration Albuterol/Ipratropium 3 ml 03/31/22 21:09 Ipratropium-Albuterol 3 Ml Neb INHALATION RT-Q2H PRN Shortness Of Breath Or Wheezing Albuterol/Ipratropium 3 ml 04/01/22 00:00 04/01/22 09:30 Ipratropium-Albuterol 3 Ml Neb INHALATION 3 ml RT-Q4H [facility] Administration Alprazolam 0.25 mg 03/31/22 15:36 03/31/22 22:23 Alprazolam 0.25 Mg Tab PO 0.25 mg TID PRN Administration Anxiety Aspirin 81 mg 04/01/22 09:00 04/01/22 08:29 Aspirin 81 Mg PO 81 mg DAILY [facility] Administration Chlorhexidine Gluconate 15 ml 03/31/22 21:00 04/01/22 08:26 Chlorhexidine Gluconate 15 Ml Cup MUCOUS MEM 15 ml BID [facility] Administration Cholecalciferol 25 mcg 04/01/22 09:00 04/01/22 08:28 Cholecalciferol 25 Mcg (1000 Iu) Tablet PO 25 mcg DAILY [facility] Administration Clopidogrel Bisulfate 75 mg 04/01/22 09:00 04/01/22 08:27 Clopidogrel 75 Mg Tab PO 75 mg DAILY [facility] Administration Cyclobenzaprine HCl 5 mg 03/31/22 21:00 04/01/22 08:27 Cyclobenzaprine 5 Mg Tab PO 5 mg BID [facility] Administration Dextrose/Water 25 ml 03/31/22 21:00 Dextrose 50% Syringe 50 Ml IVP PER PROTOCOL PRN Hypoglycemia Protocol Dextrose/Water 50 ml 03/31/22 21:00 Dextrose 50% Syringe 50 Ml IVP PER PROTOCOL PRN Hypoglycemia Protocol Furosemide 40 mg 04/01/22 00:00 04/01/22 08:26 Furosemide 10 Mg/Ml 4 Ml Vial IV 40 mg Q8HR [facility] Administration Glipizide 5 mg 03/31/22 21:00 04/01/22 08:27 Glipizide 5 Mg Tab PO 5 mg BID [facility] Administration Heparin Sodium (Porcine) 5,000 unit 03/31/22 21:00 04/01/22 08:26 Heparin Sodium,Porcine/Pf 5,000 Unit/0.5 Ml Syringe SQ 5,000 unit Q12HR [facility] Administration Sodium Chloride 1,000 mls @ 20 mls/hr 03/31/22 12:16 03/31/22 12:46 Saline 0.9% IV 04/01/22 12:15 20 mls/hr .Q24H [facility] Administration Propofol 1,000 mg/ IV Solution 100 mls @ 13.594 mls/hr 03/31/22 16:30 04/01/22 09:22 IV 15 mcg/kg/min .Q7H22M [facility] 13.594 mls/hr Titration Protocol 15 MCG/KG/MIN Norepinephrine Bitartrate 4 mg 254 mls @ 17.797 mls/hr 04/01/22 05:00 04/01/22 07:20 / Sodium Chloride IV 0.02 mcg/kg/min .[id number] [facility] 11.864 mls/hr Titration Protocol 0.03 MCG/KG/MIN Ceftriaxone Sodium 2 gm/ 50 mls @ 100 mls/hr 04/01/22 17:00 Sodium Chloride IVPB Q24H [facility] Protocol Azithromycin 500 mg/ Sodium 250 mls @ 250 mls/hr 04/01/22 18:00 Chloride IVPB 04/03/22 18:59 Q24H [facility] Protocol Insulin Aspart 0 unit 04/01/22 00:00 04/01/22 06:01 Insulin Aspart (Novolog) 100 Unit/Ml Vial SQ Not Given Q6H [facility] Protocol Losartan Potassium 25 mg 04/01/22 09:00 04/01/22 08:50 Losartan 25 Mg Tab PO 25 mg DAILY [facility] Administration Metoprolol Tartrate 25 mg 03/31/22 21:00 04/01/22 08:29 Metoprolol Tartrate 25 Mg Tab PO 25 mg BID [facility] Administration Miscellaneous Information 1 each 03/31/22 15:48 Magnesium Replacement Protocol 1 Each Misc MISCELLANE DAILY PRN Per Protocol Protocol Miscellaneous Information 1 each 03/31/22 15:48 Potassium Replacement Protocol 1 Each Misc MISCELLANE DAILY PRN Per Protocol Protocol Naloxone HCl 0.2 mg 03/31/22 16:52 Naloxone 0.4 Mg/Ml 1 Ml Vial IV Q2M PRN Opioid Reversal Oseltamivir Phosphate 75 mg 03/31/22 17:30 04/01/22 06:39 Oseltamivir 60 Mg/10 Ml Oral Syringe OG-TUBE 04/05/22 07:31 75 mg AC-BID [facility] Administration Protocol Pantoprazole Sodium 40 mg 04/01/22 07:30 04/01/22 06:02 Pantoprazole 40 Mg Tablet PO 40 mg [id number] [facility] Administration Pioglitazone HCl 30 mg 04/01/22 09:00 04/01/22 08:29 Pioglitazone 30 Mg Tab PO 30 mg DAILY [facility] Administration Potassium Chloride 20 meq 04/01/22 09:00 04/01/22 08:29 Potassium Chloride Er 20 Meq Tab.Er PO 20 meq DAILY [facility] Administration Tramadol HCl 50 mg 04/01/22 07:00 04/01/22 06:03 Tramadol 50 Mg Tab PO 50 mg Q6HR [facility] Administration Intake and Output 03/31/22 04/01/22 04/01/22 22:59 06:59 14:59 Intake Total 167.469 511.369 184.17 Output Total 530 655 120 Balance -362.531 -143.631 64.17 Intake: IV 60 140 60 Sodium Chloride 0.9% 1, 60 140 60 000 ml @ 20 mls/hr IV . Q24H [facility] Rx#:[id number] Intake, IV Titration 107.469 271.369 124.17 Amount Norepinephrine 4 mg In 40.34 Sodium Chloride 0.9% 250 ml @ 0.03 MCG/KG/MIN 17. 797 mls/hr IV .[id number] [facility] Rx#:[id number] propofoL 1,000 mg In 107.469 271.369 83.83 Empty Bag 1 bag @ 15 MCG/ KG/MIN 13.594 mls/hr IV . Q7H22M [facility] Rx#:[id number] Other 100 Output: Urine 530 655 120 Other: Voiding Method Indwelling Catheter Indwelling Catheter Indwelling Catheter Weight 151.046 kg 155.7 kg 155.7 kg Patient Weight 04/02/22 06:59 Weight 155.7 kg 04/01/22 03:59 04/01/22 03:59
[2022-04-01] MEDS: ALPRAZolam 0.25 MG TAB PO PRN (11:00)
--- NOTE | 2022-04-01 12:07 | P.CNPUL ---
History of Present Illness Consult date: 04/01/22 Requesting physician: Chuck Brown Reason for consult: other (Acute hypoxic and hypercapnic respiratory failure) Chief complaint: Shortness of breath and fever History of present illness: This is a 62-year-old female with history of morbid obesity, COPD, hypertension, previous smoking history, patient presented to the ER yesterday with a few days' history of increased shortness of breath, productive cough with thick yellow phlegm, apparently the patient had multiple children in the household with similar symptoms. Upon arrival to the ER, patient was hypoxic, and she was placed on a nonrebreather mask. She tested positive for influenza A, and the patient was started on Tamiflu. Chest x-ray showed evidence of cardiomegaly, pulmonary venous congestion, diffuse perihilar infiltrates, findings are suspicious for congestive heart failure or viral type of pneumonia. CT angiogram of the chest showed no evidence of pulmonary embolism, bilateral pleural effusions, and moderate pericardial effusion as well as interstitial infiltrates bilaterally while in the ER, the patient seems to have decompensated, and developed significant worsening shortness of breath, and she required intubation and mechanical ventilation by the ER physician. Immediate ABG post intubation showed a pO2 of 164, pCO2 of 93 pH of 7.18, implying that the patient was developing significant worsening hypercapnic respiratory failure requiring intubation and mechanical ventilation. Follow-up ABG showed a pO2 of 76 he CO2 of 60 pH of 7.41, continues to have hypercapnia with metabolic compensation for her respiratory acidosis, and that implies that the patient does have chronic hypercapnia. At any rate patient was intubated, placed on mechanical ventilation and I was made aware of this patient, transfer patient to the ICU at night. While in the ICU the patient has been receiving antibiotics empirically, Tamiflu, and she was also receiving diuretics. Patient received significant amount of fluid boluses while in the ER because of relatively low blood pressure. During my evaluation, the patient was on assist control rate of 24 tidal volume of 400 FiO2 40% and PEEP of 5. ABG showed a pO2 of 76 pCO2 of 60 pH of 7.41. Patient was kept on norepinephrine at 0.02 mcg/kg/m for now, I gave the patient a weaning trial while I was at bedside, patient was given a trial of pressure support of 10 and CPAP, and she tolerated that quite well for about one hour hence I recommended extubating the patient to BiPAP. IV fluid is cut down to KVO, patient has been receiving Lasix early this morning, and she is responding well to diuretics. Review of Systems ROS unobtainable: due to endotracheal tube Past Medical History Past Medical History: Heart Failure, COPD, Diabetes Mellitus, Hypertension, Osteoarthritis (OA), Skin Disorder Additional Past Medical History / Comment(s): CHF, Chrohn's Disease, Chronic Hives History of Any Multi-Drug Resistant Organisms: None Reported Additional Past Surgical History / Comment(s): Fistula in buttocks. Past Anesthesia/Blood Transfusion Reactions: No Reported Reaction Past Psychological History: No Psychological Hx Reported Smoking Status: Former smoker Past Alcohol Use History: None Reported Past Drug Use History: None Reported Medications and Allergies Home Medications Medication Instructions Recorded Confirmed Type Aspirin EC [Ecotrin Low Dose] 81 mg PO DAILY 03/31/22 03/31/22 History Cholecalciferol [Vitamin D3 (25 25 mcg PO DAILY 03/31/22 03/31/22 History Mcg = 1000 Iu)] Cinnamon Bark [Cinnamon] 500 mg PO BID 03/31/22 03/31/22 History Clopidogrel [Plavix] 75 mg PO DAILY 03/31/22 03/31/22 History Cyclobenzaprine [Flexeril] 5 mg PO BID 03/31/22 03/31/22 History Furosemide [Lasix] 40 mg PO BID 03/31/22 03/31/22 History HYDROcodone/APAP 10-325MG [[place] 1 tab PO TID 03/31/22 03/31/22 History 10-325] Losartan [Cozaar] 25 mg PO DAILY 03/31/22 03/31/22 History Metoprolol Tartrate [Lopressor] 25 mg PO BID 03/31/22 03/31/22 History [place]-3 Fatty Acids [[place]-3] 1,000 mg PO TID 03/31/22 03/31/22 History Pioglitazone [Actos] 30 mg PO DAILY 03/31/22 03/31/22 History Potassium Chloride ER [K-Dur 20] 20 meq PO DAILY 03/31/22 03/31/22 History glipiZIDE [Glucotrol] 5 mg PO BID 03/31/22 03/31/22 History traMADol HCL [traMADol HCL ER] 200 mg PO DAILY 03/31/22 03/31/22 History Allergies Allergy/AdvReac Type Severity Reaction Status Date / Time latex Allergy Rash/Hives Verified 03/31/22 13:47 Penicillins Allergy Rash/Hives Verified 03/31/22 13:47 Sulfa (Sulfonamide Allergy Rash/Hives Verified 03/31/22 13:47 Antibiotics) Physical Exam Vitals: Vital Signs Temp Pulse Pulse Resp BP BP Pulse Ox 04/01/22 11:33 92 L 04/01/22 11:32 04/01/22 11:15 92 21 99/45 97 04/01/22 11:00 93 24 95/48 94 L 04/01/22 10:45 89 15 97/44 97 04/01/22 10:30 92 17 91/46 96 04/01/22 10:15 89 15 105/46 95 04/01/22 10:00 88 18 101/44 94 L 04/01/22 09:50 04/01/22 09:46 87 04/01/22 09:45 88 21 96/50 91 L 04/01/22 09:30 86 24 116/75 98 04/01/22 09:25 04/01/22 09:15 93 24 110/53 98 04/01/22 09:00 101 H 24 107/48 98 04/01/22 08:45 102 H 24 104/49 98 04/01/22 08:30 103 H 24 110/47 98 04/01/22 08:15 105 H 24 108/52 98 04/01/22 08:00 99.6 F 102 H 92 24 104/54 98 04/01/22 07:45 105 H 24 108/48 98 04/01/22 07:30 110 H 24 106/50 99 04/01/22 07:15 111 H 24 107/46 99 04/01/22 07:00 110 H 24 97/53 99 04/01/22 06:45 111 H 24 109/54 98 04/01/22 06:30 107 H 27 H 118/53 100 04/01/22 06:15 101 H 24 118/54 100 04/01/22 06:00 105 H 24 124/65 100 04/01/22 05:45 98 24 105/59 94 L 04/01/22 05:30 105 H 24 94/56 94 L 04/01/22 05:15 94 24 96 04/01/22 05:00 99 24 91/45 92 L 04/01/22 04:16 04/01/22 04:00 99.6 F 100 24 99/47 96 04/01/22 03:00 99 24 109/57 97 04/01/22 02:00 99 24 109/57 95 04/01/22 01:10 88 04/01/22 01:00 85 24 104/58 96 04/01/22 00:55 87 04/01/22 00:51 04/01/22 00:00 99.0 F 87 24 109/60 98 03/31/22 23:00 90 24 121/65 100 03/31/22 22:00 89 24 95/52 100 03/31/22 21:42 98.5 F 92 24 95/52 100 03/31/22 21:00 91 24 109/62 98 03/31/22 20:00 98.5 F 95 24 112/63 98 03/31/22 19:26 93 18 107/62 99 03/31/22 19:23 03/31/22 19:11 97.7 F 93 18 107/50 100 03/31/22 18:59 03/31/22 18:55 102 H 18 99/50 100 03/31/22 18:30 105 H 18 95/40 98 03/31/22 18:19 106 H 20 94/44 98 03/31/22 17:48 106 H 22 89/39 98 03/31/22 17:44 109 H 24 105/41 99 03/31/22 17:30 111 H 20 90/43 98 03/31/22 17:00 98.0 F 119 H 16 102/40 97 03/31/22 16:45 118 H 17 112/44 97 03/31/22 16:34 03/31/22 16:32 133 H 16 110/67 96 03/31/22 16:23 135 H 16 122/56 97 03/31/22 16:09 140 H 20 125/92 97 03/31/22 15:56 149 H 18 179/92 88 L 03/31/22 15:44 156 H 183/121 97 03/31/22 15:35 03/31/22 15:30 158 H 28 H 121/61 68 L 03/31/22 15:06 101.3 F H 03/31/22 14:58 120 H 22 119/64 100 03/31/22 14:08 100.4 F H 131 H 22 109/56 97 03/31/22 12:10 26 H 03/31/22 12:08 100.3 F H 133 H 24 146/70 100 FiO2 04/01/22 11:33 28 04/01/22 11:32 28 04/01/22 11:15 04/01/22 11:00 04/01/22 10:45 04/01/22 10:30 04/01/22 10:15 04/01/22 10:00 04/01/22 09:50 40 04/01/22 09:46 04/01/22 09:45 04/01/22 09:30 04/01/22 09:25 40 04/01/22 09:15 04/01/22 09:00 04/01/22 08:45 04/01/22 08:30 04/01/22 08:15 04/01/22 08:00 60 04/01/22 07:45 04/01/22 07:30 04/01/22 07:15 04/01/22 07:00 04/01/22 06:45 04/01/22 06:30 04/01/22 06:15 04/01/22 06:00 04/01/22 05:45 04/01/22 05:30 04/01/22 05:15 04/01/22 05:00 04/01/22 04:16 60 04/01/22 04:00 60 04/01/22 03:00 04/01/22 02:00 04/01/22 01:10 04/01/22 01:00 04/01/22 00:55 04/01/22 00:51 60 04/01/22 00:00 60 03/31/22 23:00 70 03/31/22 22:00 03/31/22 21:42 80 03/31/22 21:00 03/31/22 20:00 80 03/31/22 19:26 03/31/22 19:23 80 03/31/22 19:11 03/31/22 18:59 80 03/31/22 18:55 03/31/22 18:30 03/31/22 18:19 03/31/22 17:48 03/31/22 17:44 03/31/22 17:30 03/31/22 17:00 03/31/22 16:45 03/31/22 16:34 100 03/31/22 16:32 03/31/22 16:23 03/31/22 16:09 03/31/22 15:56 03/31/22 15:44 03/31/22 15:35 100 03/31/22 15:30 03/31/22 15:06 03/31/22 14:58 03/31/22 14:08 03/31/22 12:10 03/31/22 12:08 Intake and Output 03/31/22 04/01/22 04/01/22 22:59 06:59 14:59 Intake Total 167.469 511.369 269.361 Output Total 530 655 545 Balance -362.531 -143.631 -275.639 Intake: IV 60 140 100 Sodium Chloride 0.9% 1, 60 140 100 000 ml @ 20 mls/hr IV . Q24H [facility] Rx#:[id number] Intake, IV Titration 107.469 271.369 169.361 Amount Norepinephrine 4 mg In 76.921 Sodium Chloride 0.9% 250 ml @ 0.03 MCG/KG/MIN 17. 797 mls/hr IV .[id number] [facility] Rx#:[id number] propofoL 1,000 mg In 107.469 271.369 92.44 Empty Bag 1 bag @ 15 MCG/ KG/MIN 13.594 mls/hr IV . Q7H22M [facility] Rx#:[id number] Other 100 Output: Urine 530 655 545 Other: Voiding Method Indwelling Catheter Indwelling Catheter Indwelling Catheter Weight 151.046 kg 155.7 kg 155.7 kg CONSTITUTIONAL: Revealed a 62-year-old female, obese, intubated, mechanically ventilated, however the patient is awake, follows simple instructions and she is on 10 mcg/kg off propofol. Head: Atraumatic, normocephalic. Endotracheal tube and orogastric tube are intact. HEENT: Pupils are equal, round. Sclerae anicteric. Mucous membranes of the mouth are moist. No JVD. No carotid bruit. CHEST EXAMINATION: Symmetrical chest expansion, crackles at the bases no rhonchi no wheezes. HEART EXAMINATION: Distant S1 and S2, no S3 gallop, no murmur ABDOMEN: Obese, Soft, nontender. Positive bowel sounds. EXTREMITIES: No clubbing edema or cyanosis, good pulses bilaterally. NEUROLOGIC EXAMINATION: Patient is on propofol, however she is arousable, follows simple instructions, no gross focal neurologic deficits. Psychiatric: Normal mood, affect and normal mental status examination. Skin: No rashes. Results - Laboratory Findings CBC and BMP: 04/01/22 03:59 04/01/22 03:59 ABG ABG pH 7.41 (7.35-7.45) 04/01/22 05:45 ABG pCO2 60 mmHg (35-45) H 04/01/22 05:45 ABG pO2 76 mmHg (83-108) L 04/01/22 05:45 ABG O2 Saturation 96.8 % (94-97) 04/01/22 05:45 PT/INR, D-dimer PT 10.3 sec (9.0-12.0) 03/31/22 12:42 INR 1.0 (<1.2) 03/31/22 12:42 D-Dimer 1.04 mg/L FEU (<0.60) H 03/31/22 12:42 Abnormal lab findings: Abnormal Labs 03/31/22 03/31/22 03/31/22 12:42 12:42 12:42 WBC RBC 2.65 L Hgb 8.5 L Hct 26.1 L MCV RDW 17.3 H Neutrophils # Lymphocytes # 0.2 L D-Dimer 1.04 H ABG pH ABG pCO2 ABG pO2 ABG HCO3 ABG Total CO2 ABG O2 Saturation Sodium Chloride 95 L Carbon Dioxide 40 H BUN 21 H Glucose 139 H POC Glucose (mg/dL) Calcium Magnesium 1.5 L Troponin I Urine Appearance Urine Protein Urine Ketones Urine Mucus Influenza Type A RNA 03/31/22 03/31/22 03/31/22 12:42 16:42 16:42 WBC 11.5 H RBC 3.02 L Hgb 9.9 L Hct 30.6 L MCV 101.2 H RDW 16.8 H Neutrophils # 11.1 H Lymphocytes # 0.2 L D-Dimer ABG pH ABG pCO2 ABG pO2 ABG HCO3 ABG Total CO2 ABG O2 Saturation Sodium 135 L Chloride 94 L Carbon Dioxide 34 H BUN 24 H Glucose 348 H POC Glucose (mg/dL) Calcium Magnesium Troponin I Urine Appearance Urine Protein Urine Ketones Urine Mucus Influenza Type A RNA Detected H 03/31/22 03/31/22 03/31/22 16:42 17:00 19:47 WBC RBC Hgb Hct MCV RDW Neutrophils # Lymphocytes # D-Dimer ABG pH 7.18 L* ABG pCO2 93 H* ABG pO2 164 H ABG HCO3 35 H ABG Total CO2 38 H ABG O2 Saturation 99.8 H Sodium Chloride Carbon Dioxide BUN Glucose POC Glucose (mg/dL) 334 H Calcium Magnesium Troponin I Urine Appearance Cloudy H Urine Protein 1+ H Urine Ketones 1+ H Urine Mucus Moderate H Influenza Type A RNA 03/31/22 04/01/22 04/01/22 23:30 03:59 03:59 WBC RBC 2.43 L Hgb 8.3 L D Hct 23.7 L MCV RDW 16.7 H Neutrophils # Lymphocytes # 0.2 L D-Dimer ABG pH ABG pCO2 ABG pO2 ABG HCO3 ABG Total CO2 ABG O2 Saturation Sodium 136 L Chloride 96 L Carbon Dioxide 35 H BUN 26 H Glucose 119 H POC Glucose (mg/dL) 262 H Calcium 8.3 L Magnesium Troponin I Urine Appearance Urine Protein Urine Ketones Urine Mucus Influenza Type A RNA 04/01/22 04/01/22 05:45 06:07 WBC RBC Hgb Hct MCV RDW Neutrophils # Lymphocytes # D-Dimer ABG pH ABG pCO2 60 H ABG pO2 76 L ABG HCO3 38 H ABG Total CO2 40 H ABG O2 Saturation Sodium Chloride Carbon Dioxide BUN Glucose POC Glucose (mg/dL) Calcium Magnesium Troponin I 0.298 H* Urine Appearance Urine Protein Urine Ketones Urine Mucus Influenza Type A RNA - Diagnostic Findings Chest x-ray: image reviewed (Chest x-ray as noted in HPI) Additional studies: CT angiogram of the chest as noted in HPI Assessment and Plan Assessment: Impression: Acute hypoxic and acute on chronic hypercapnic respiratory failure, multifactorial. Acute on chronic diastolic heart failure Influenza A pneumonia/infection Acute exacerbation of COPD Possible superimposed bacterial pneumonia Acute non-ST elevation myocardial infarction with elevated troponin, being addressed by cardiology. Moderate pericardial effusion seen on CT of the chest, echocardiogram is pending Benign essential hypertension Paroxysmal supraventricular tachycardia History of underlying COPD Morbid obesity Sepsis, possible septic shock. With hypotension requiring norepinephrine after no response noted to fluid bolus History of degenerative joint disease. Elevated d-dimer but negative CT angiogram of the chest. Recommendation: Continue ventilatory support for now, however considering the patient's clinical status at this point, I am inclined to consider a weaning trial and possibly extubate the patient to BiPAP. Continue empiric antibiotics. Patient is on Levaquin. She has ALLERGIES to sulfa and penicillin. Continue bronchodilators. Continue steroids. Continue Tamiflu. Continue diuretics. Titrate and possibly discontinue norepinephrine. Continue GI and DVT prophylaxis. Consider enteral feeding if the patient is not extubated. Hemodynamic support as needed. Cut down IV fluids to KVO and diurese the patient. Will continue to follow. Critical care time is over 30 minutes Time with Patient: Greater than 30
[2022-04-01 12:24] LABS: African American GFR (CKD) >90 (>60 ml/min/1.73 sqM); Anion Gap 4 mmol/L; Blood Urea Nitrogen 26 mg/dL (7-17); Calcium 8.2 mg/dL (8.4-10.2); Carbon Dioxide 36 mmol/L (22-30); Chloride 96 mmol/L (98-107); Glucose 113 mg/dL (74-99); Non-African American GFR(CKD) 82 (>60 ml/min/1.73 sqM); Potassium 3.6 mmol/L (3.5-5.1); Sodium 136 mmol/L (137-145)
[2022-04-01 12:30] LABS: Glucose,Whole Blood 120 mg/dL (70-110)
--- NOTE | 2022-04-01 16:52 | CDI ---
Documentation Clarification Form Date: 04/01/2022 From: Adri Negron RN, CCDS Admit Date: 03/31/2022 04:52:00 PM Patient Name: Sheela Echeverria Visit Number: [id number] Discharge Date: ATTENTION: The Clinical Documentation Specialists (CDI) and [facility] Coding Staff appreciate your assistance in clarifying documentation. Please respond to the clarification below the line at the bottom and electronically sign. The CDI & [facility] Coding staff will review the response and follow-up if needed. Please note: Queries are made part of the Legal Health Record. If you have any questions, please contact the author of this message via ITS. Dr. Chuck Brown The patient presented with the following clinical indicators. Additional clarification regarding the etiology/cause of the clinical indicators is requested. 04/01 Cardiology consult: Increased shortness of breath intubated and sedated. History of hypertension, mildly hypotensive on mild vasopressors likely related to sedation, sepsis 04/01 Pulmonary consult: Sepsis, possible septic shock. With hypotension requiring norepinephrine after no response noted to fluid bolus. History/Risk Factors: Heart failure, COPD, Hypertension, Crohn's Disease Clinical Indicators: 62-year-old female present with shortness of breath, fever, evidence of respiratory distress with tachypnea. 03/31 Vital signs: 146/70 133 24 100.3, 109 131 22 100.4 03/31@17:44 90/43 111 20 Mechanical ventilation Labs: WBC 5.3, HGB 8.5 HCT 26.1, CO2 40, BUN 21, CR 0.76 Troponin I 0.015, BNP 892, Influenza A Detected 03/31 CXR: Cardiomegaly with pulmonary venous congestion and perihilar infiltrate, interstitial changes likely reflective of congestive failure 03/31 Lactic acid: 0.9 03/31 Blood cultures: Pending, No growth after 24 hours Treatment: ICU/Telemetry monitoring Antibiotics: Azithromycin 500MG IVBP Q 24 HRS, Rocephin 2 GM IVPB Q 24HRS 03/31 IV Bolus: .9NS 1, 00 ML, 500 ML 03/31 Levophed drip 4 MG IV (per orders) 03/31 Lasix 40MG IV Q8 HRS In your professional opinion, please clarify if these findings signify one of the following conditions: [ ] Sepsis POA [ ] Sepsis ruled out [ ] Septic Shock [ ] Other, please specify [ ] Unable to determine SIRS Criteria: 2 or more of the following may indicate SIRS -Temperature < 96.8F (36C) or > 101.0F (38.3C) -Heart Rate > 90 bpm -Respiratory Rate > 20 breaths/min or PaCO2 < 32 mmHg -White Blood Cell Count > 12,000 or < 4,000 cells/mm3 or > 10% bands (Template Last Reviewed: May 2020) Unable to determine MTDD
[2022-04-01] MEDS: OSELTAMIVIR 75 MG CAP PO SCH (17:55)
[2022-04-01] MEDS: AZITHROMYCIN 500 MG in SODIUM CHLORIDE 0.9% 250 ML IVPB SCH (17:55)
[2022-04-01 18:04] LABS: Glucose,Whole Blood 118 mg/dL (70-110)
[2022-04-01 19:58] LABS: Glucose,Whole Blood 225 mg/dL (70-110)
--- NOTE | 2022-04-01 21:44 | P.CONS ---
History of Present Illness - Reason for Consult Consult date: 04/01/22 flu, pneumonia Requesting physician: Chuck Brown - History of Present Illness Patient is a 62-year-old female with multiple comorbidities including COPD hypertension morbid obesity presenting to the ER yesterday for evaluation of increasing shortness of breath apparent has been getting worse for the last few days before presentation to the hospital patient did have worsening respiratory distress and the patient up getting intubated in the ER and was subsequently admitted to ICU, patient of presentation hospital did have a fever of 101F, patient did have a positive influenza A PCR covid testing was negative, Patient did have a normal white count on presentation subsequently white count was 11.5 with a left shift, the patient creatinine was normal. Liver enzymes were normal troponin is mildly elevated pro calcitonin was mildly elevated patient did have a chest x-ray mostly currently medically with the pulmonary vascular congestion and interstitial infiltrate, patient did have a CT angiogram of the chest that was negative for PE did show small bilateral effusion and bibasilar atelectasis or pneumonia patient was started on Tamiflu Rocephin and Zithromax infectious disease was consulted for further management of antibiotic therapy patient has been extubated this morning and is currently on a BiPAP making communication slightly harder so most information has been obtained from review the chart and talking nursing staff Review of Systems Positive points has been mentioned in HPI complete review could not be obtained because of his underlying mental status Past Medical History Past Medical History: Heart Failure, COPD, Diabetes Mellitus, Hypertension, Osteoarthritis (OA), Skin Disorder Additional Past Medical History / Comment(s): CHF, Chrohn's Disease, Chronic Hives History of Any Multi-Drug Resistant Organisms: None Reported Additional Past Surgical History / Comment(s): Fistula in buttocks. Past Anesthesia/Blood Transfusion Reactions: No Reported Reaction Past Psychological History: No Psychological Hx Reported Smoking Status: Former smoker Past Alcohol Use History: None Reported Past Drug Use History: None Reported Medications and Allergies Home Medications Medication Instructions Recorded Confirmed Type Aspirin EC [Ecotrin Low Dose] 81 mg PO DAILY 03/31/22 03/31/22 History Cholecalciferol [Vitamin D3 (25 25 mcg PO DAILY 03/31/22 03/31/22 History Mcg = 1000 Iu)] Cinnamon Bark [Cinnamon] 500 mg PO BID 03/31/22 03/31/22 History Clopidogrel [Plavix] 75 mg PO DAILY 03/31/22 03/31/22 History Cyclobenzaprine [Flexeril] 5 mg PO BID 03/31/22 03/31/22 History Furosemide [Lasix] 40 mg PO BID 03/31/22 03/31/22 History HYDROcodone/APAP 10-325MG [[place] 1 tab PO TID 03/31/22 03/31/22 History 10-325] Losartan [Cozaar] 25 mg PO DAILY 03/31/22 03/31/22 History Metoprolol Tartrate [Lopressor] 25 mg PO BID 03/31/22 03/31/22 History [place]-3 Fatty Acids [[place]-3] 1,000 mg PO TID 03/31/22 03/31/22 History Pioglitazone [Actos] 30 mg PO DAILY 03/31/22 03/31/22 History Potassium Chloride ER [K-Dur 20] 20 meq PO DAILY 03/31/22 03/31/22 History glipiZIDE [Glucotrol] 5 mg PO BID 03/31/22 03/31/22 History traMADol HCL [traMADol HCL ER] 200 mg PO DAILY 03/31/22 03/31/22 History Allergies Allergy/AdvReac Type Severity Reaction Status Date / Time latex Allergy Rash/Hives Verified 03/31/22 13:47 Penicillins Allergy Rash/Hives Verified 03/31/22 13:47 Sulfa (Sulfonamide Allergy Rash/Hives Verified 03/31/22 13:47 Antibiotics) Physical Exam Vitals: Vital Signs Temp Pulse Pulse Resp BP BP Pulse Ox 04/01/22 11:19 04/01/22 11:15 92 21 99/45 97 04/01/22 11:00 93 24 95/48 94 L 04/01/22 10:45 89 15 97/44 97 04/01/22 10:30 92 17 91/46 96 04/01/22 10:15 89 15 105/46 95 04/01/22 10:00 88 18 101/44 94 L 04/01/22 09:50 04/01/22 09:46 87 04/01/22 09:45 88 21 96/50 91 L 04/01/22 09:30 86 24 116/75 98 04/01/22 09:25 04/01/22 09:15 93 24 110/53 98 04/01/22 09:00 101 H 24 107/48 98 04/01/22 08:45 102 H 24 104/49 98 04/01/22 08:30 103 H 24 110/47 98 04/01/22 08:15 105 H 24 108/52 98 04/01/22 08:00 99.6 F 102 H 92 24 104/54 98 04/01/22 07:45 105 H 24 108/48 98 04/01/22 07:30 110 H 24 106/50 99 04/01/22 07:15 111 H 24 107/46 99 04/01/22 07:00 110 H 24 97/53 99 04/01/22 06:45 111 H 24 109/54 98 04/01/22 06:30 107 H 27 H 118/53 100 04/01/22 06:15 101 H 24 118/54 100 04/01/22 06:00 105 H 24 124/65 100 04/01/22 05:45 98 24 105/59 94 L 04/01/22 05:30 105 H 24 94/56 94 L 04/01/22 05:15 94 24 96 04/01/22 05:00 99 24 91/45 92 L 04/01/22 04:16 04/01/22 04:00 99.6 F 100 24 99/47 96 04/01/22 03:00 99 24 109/57 97 04/01/22 02:00 99 24 109/57 95 04/01/22 01:10 88 04/01/22 01:00 85 24 104/58 96 04/01/22 00:55 87 04/01/22 00:51 04/01/22 00:00 99.0 F 87 24 109/60 98 03/31/22 23:00 90 24 121/65 100 03/31/22 22:00 89 24 95/52 100 03/31/22 21:42 98.5 F 92 24 95/52 100 03/31/22 21:00 91 24 109/62 98 03/31/22 20:00 98.5 F 95 24 112/63 98 03/31/22 19:26 93 18 107/62 99 03/31/22 19:23 03/31/22 19:11 97.7 F 93 18 107/50 100 03/31/22 18:59 03/31/22 18:55 102 H 18 99/50 100 03/31/22 18:30 105 H 18 95/40 98 03/31/22 18:19 106 H 20 94/44 98 03/31/22 17:48 106 H 22 89/39 98 03/31/22 17:44 109 H 24 105/41 99 03/31/22 17:30 111 H 20 90/43 98 03/31/22 17:00 98.0 F 119 H 16 102/40 97 03/31/22 16:45 118 H 17 112/44 97 03/31/22 16:34 03/31/22 16:32 133 H 16 110/67 96 03/31/22 16:23 135 H 16 122/56 97 03/31/22 16:09 140 H 20 125/92 97 03/31/22 15:56 149 H 18 179/92 88 L 03/31/22 15:44 156 H 183/121 97 03/31/22 15:35 03/31/22 15:30 158 H 28 H 121/61 68 L 03/31/22 15:06 101.3 F H 03/31/22 14:58 120 H 22 119/64 100 03/31/22 14:08 100.4 F H 131 H 22 109/56 97 03/31/22 12:10 26 H 03/31/22 12:08 100.3 F H 133 H 24 146/70 100 FiO2 04/01/22 11:19 40 04/01/22 11:15 04/01/22 11:00 04/01/22 10:45 04/01/22 10:30 04/01/22 10:15 04/01/22 10:00 04/01/22 09:50 40 04/01/22 09:46 04/01/22 09:45 04/01/22 09:30 04/01/22 09:25 40 04/01/22 09:15 04/01/22 09:00 04/01/22 08:45 04/01/22 08:30 04/01/22 08:15 04/01/22 08:00 60 04/01/22 07:45 04/01/22 07:30 04/01/22 07:15 04/01/22 07:00 04/01/22 06:45 04/01/22 06:30 04/01/22 06:15 04/01/22 06:00 04/01/22 05:45 04/01/22 05:30 04/01/22 05:15 04/01/22 05:00 04/01/22 04:16 60 04/01/22 04:00 60 04/01/22 03:00 04/01/22 02:00 04/01/22 01:10 04/01/22 01:00 04/01/22 00:55 04/01/22 00:51 60 04/01/22 00:00 60 03/31/22 23:00 70 03/31/22 22:00 03/31/22 21:42 80 03/31/22 21:00 03/31/22 20:00 80 03/31/22 19:26 03/31/22 19:23 80 03/31/22 19:11 03/31/22 18:59 80 03/31/22 18:55 03/31/22 18:30 03/31/22 18:19 03/31/22 17:48 03/31/22 17:44 03/31/22 17:30 03/31/22 17:00 03/31/22 16:45 03/31/22 16:34 100 03/31/22 16:32 03/31/22 16:23 03/31/22 16:09 03/31/22 15:56 03/31/22 15:44 03/31/22 15:35 100 03/31/22 15:30 03/31/22 15:06 03/31/22 14:58 03/31/22 14:08 03/31/22 12:10 03/31/22 12:08 Intake and Output 03/31/22 04/01/22 04/01/22 22:59 06:59 14:59 Intake Total 167.469 511.369 269.361 Output Total 530 655 545 Balance -362.531 -143.631 -275.639 Intake: IV 60 140 100 Sodium Chloride 0.9% 1, 60 140 100 000 ml @ 20 mls/hr IV . Q24H STA Rx#:[id number] Intake, IV Titration 107.469 271.369 169.361 Amount Norepinephrine 4 mg In 76.921 Sodium Chloride 0.9% 250 ml @ 0.03 MCG/KG/MIN 17. 797 mls/hr IV .[id number] [facility]ERY Rx#:[id number] propofoL 1,000 mg In 107.469 271.369 92.44 Empty Bag 1 bag @ 15 MCG/ KG/MIN 13.594 mls/hr IV . Q7H22M [facility]ERY Rx#:[id number] Other 100 Output: Urine 530 655 545 Other: Voiding Method Indwelling Catheter Indwelling Catheter Indwelling Catheter Weight 151.046 kg 155.7 kg 155.7 kg GENERAL DESCRIPTION: Middle-aged female lying in bed on a BiPAP. No tachypnea or accessory muscle of respiration use. HEENT: Shows Pallor , no scleral icterus. Oral mucous membrane is dry. NECK: Trachea central, no thyromegaly. LUNGS: Unlabored breathing. decreased intensity of breath sounds No wheeze or crackle. HEART: S1, S2, regular rate and rhythm. No loud murmur ABDOMEN: Soft, no tenderness , guarding or rigidity, no organomegaly EXTREMITIES: No edema of feet. SKIN: No rash, no masses palpable. NEUROLOGICAL: The patient is awake, alert, mood and affect normal. Results CBC & Chem 7: 04/01/22 03:59 04/01/22 11:40 Labs: Abnormal Lab Results - Last 24 Hours (Table) 03/31/22 03/31/22 03/31/22 Range/Units 12:42 12:42 12:42 WBC (3.8-10.6) k/uL RBC 2.65 L (3.80-5.40) m/uL Hgb 8.5 L (11.4-16.0) gm/dL Hct 26.1 L (34.0-46.0) % MCV (80.0-100.0) fL RDW 17.3 H (11.5-15.5) % Neutrophils # (1.3-7.7) k/uL Lymphocytes # 0.2 L (1.0-4.8) k/uL D-Dimer 1.04 H (<0.60) mg/L FEU ABG pH (7.35-7.45) ABG pCO2 (35-45) mmHg ABG pO2 (83-108) mmHg ABG HCO3 (21-25) mmol/L ABG Total CO2 (19-24) mmol/L ABG O2 Saturation (94-97) % Sodium (137-145) mmol/L Chloride 95 L (98-107) mmol/L Carbon Dioxide 40 H (22-30) mmol/L BUN 21 H (7-17) mg/dL Glucose 139 H (74-99) mg/dL POC Glucose (mg/dL) (70-110) mg/dL Calcium (8.4-10.2) mg/dL Magnesium 1.5 L (1.6-2.3) mg/dL Troponin I (0.000-0.034) ng/mL Urine Appearance (Clear) Urine Protein (Negative) Urine Ketones (Negative) Urine Mucus (None) /hpf Influenza Type A RNA (Not Detectd) 03/31/22 03/31/22 03/31/22 Range/Units 12:42 16:42 16:42 WBC 11.5 H (3.8-10.6) k/uL RBC 3.02 L (3.80-5.40) m/uL Hgb 9.9 L (11.4-16.0) gm/dL Hct 30.6 L (34.0-46.0) % MCV 101.2 H (80.0-100.0) fL RDW 16.8 H (11.5-15.5) % Neutrophils # 11.1 H (1.3-7.7) k/uL Lymphocytes # 0.2 L (1.0-4.8) k/uL D-Dimer (<0.60) mg/L FEU ABG pH (7.35-7.45) ABG pCO2 (35-45) mmHg ABG pO2 (83-108) mmHg ABG HCO3 (21-25) mmol/L ABG Total CO2 (19-24) mmol/L ABG O2 Saturation (94-97) % Sodium 135 L (137-145) mmol/L Chloride 94 L (98-107) mmol/L Carbon Dioxide 34 H (22-30) mmol/L BUN 24 H (7-17) mg/dL Glucose 348 H (74-99) mg/dL POC Glucose (mg/dL) (70-110) mg/dL Calcium (8.4-10.2) mg/dL Magnesium (1.6-2.3) mg/dL Troponin I (0.000-0.034) ng/mL Urine Appearance (Clear) Urine Protein (Negative) Urine Ketones (Negative) Urine Mucus (None) /hpf Influenza Type A RNA Detected H (Not Detectd) 03/31/22 03/31/22 03/31/22 Range/Units 16:42 17:00 19:47 WBC (3.8-10.6) k/uL RBC (3.80-5.40) m/uL Hgb (11.4-16.0) gm/dL Hct (34.0-46.0) % MCV (80.0-100.0) fL RDW (11.5-15.5) % Neutrophils # (1.3-7.7) k/uL Lymphocytes # (1.0-4.8) k/uL D-Dimer (<0.60) mg/L FEU ABG pH 7.18 L* (7.35-7.45) ABG pCO2 93 H* (35-45) mmHg ABG pO2 164 H (83-108) mmHg ABG HCO3 35 H (21-25) mmol/L ABG Total CO2 38 H (19-24) mmol/L ABG O2 Saturation 99.8 H (94-97) % Sodium (137-145) mmol/L Chloride (98-107) mmol/L Carbon Dioxide (22-30) mmol/L BUN (7-17) mg/dL Glucose (74-99) mg/dL POC Glucose (mg/dL) 334 H (70-110) mg/dL Calcium (8.4-10.2) mg/dL Magnesium (1.6-2.3) mg/dL Troponin I (0.000-0.034) ng/mL Urine Appearance Cloudy H (Clear) Urine Protein 1+ H (Negative) Urine Ketones 1+ H (Negative) Urine Mucus Moderate H (None) /hpf Influenza Type A RNA (Not Detectd) 03/31/22 04/01/22 04/01/22 Range/Units 23:30 03:59 03:59 WBC (3.8-10.6) k/uL RBC 2.43 L (3.80-5.40) m/uL Hgb 8.3 L D (11.4-16.0) gm/dL Hct 23.7 L (34.0-46.0) % MCV (80.0-100.0) fL RDW 16.7 H (11.5-15.5) % Neutrophils # (1.3-7.7) k/uL Lymphocytes # 0.2 L (1.0-4.8) k/uL D-Dimer (<0.60) mg/L FEU ABG pH (7.35-7.45) ABG pCO2 (35-45) mmHg ABG pO2 (83-108) mmHg ABG HCO3 (21-25) mmol/L ABG Total CO2 (19-24) mmol/L ABG O2 Saturation (94-97) % Sodium 136 L (137-145) mmol/L Chloride 96 L (98-107) mmol/L Carbon Dioxide 35 H (22-30) mmol/L BUN 26 H (7-17) mg/dL Glucose 119 H (74-99) mg/dL POC Glucose (mg/dL) 262 H (70-110) mg/dL Calcium 8.3 L (8.4-10.2) mg/dL Magnesium (1.6-2.3) mg/dL Troponin I (0.000-0.034) ng/mL Urine Appearance (Clear) Urine Protein (Negative) Urine Ketones (Negative) Urine Mucus (None) /hpf Influenza Type A RNA (Not Detectd) 04/01/22 04/01/22 Range/Units 05:45 06:07 WBC (3.8-10.6) k/uL RBC (3.80-5.40) m/uL Hgb (11.4-16.0) gm/dL Hct (34.0-46.0) % MCV (80.0-100.0) fL RDW (11.5-15.5) % Neutrophils # (1.3-7.7) k/uL Lymphocytes # (1.0-4.8) k/uL D-Dimer (<0.60) mg/L FEU ABG pH (7.35-7.45) ABG pCO2 60 H (35-45) mmHg ABG pO2 76 L (83-108) mmHg ABG HCO3 38 H (21-25) mmol/L ABG Total CO2 40 H (19-24) mmol/L ABG O2 Saturation (94-97) % Sodium (137-145) mmol/L Chloride (98-107) mmol/L Carbon Dioxide (22-30) mmol/L BUN (7-17) mg/dL Glucose (74-99) mg/dL POC Glucose (mg/dL) (70-110) mg/dL Calcium (8.4-10.2) mg/dL Magnesium (1.6-2.3) mg/dL Troponin I 0.298 H* (0.000-0.034) ng/mL Urine Appearance (Clear) Urine Protein (Negative) Urine Ketones (Negative) Urine Mucus (None) /hpf Influenza Type A RNA (Not Detectd) Microbiology - Last 24 Hours (Table) 03/31/22 16:42 Sputum Culture - Preliminary Sputum Assessment and Plan (1) Febrile illness, acute Current Visit: Yes Status: Acute Code(s): R50.9 - FEVER, UNSPECIFIED SNOMED Code(s): 892917484 (2) Influenza due to influenza virus, type A, human Current Visit: Yes Status: Acute Code(s): J10.1 - FLU DUE TO OTH IDENT INFLUENZA VIRUS W OTH RESP MANIFEST SNOMED Code(s): 306681751 Plan: 1patient presented to hospital with acute respiratory failure which is likely multifactorial in this patient tested positive for acute influenza A and possible component of COPD the patient with regular bronchitis versus early pneumonia. 2Patient with multiple antibiotic ALLERGIES that would limit the number of antibiotic safe to use. 3patient to continue with the Tamiflu Rocephin and Zithromax while waiting for the condition to stabilize and cultures to finalize. We will follow on clinical condition and cultures to further adjust medication if needed Thank you for this consultation will follow this patient with you
[2022-04-02] MEDS: IPRATROPIUM-ALBUTEROL 3 ML NEB INHALATION SCH ×6 (00:27→20:20)
[2022-04-02] MEDS: INSULIN ASPART (NovoLOG) 100 UNIT/ML VIAL SQ SCH ×4 (01:21→17:34)
[2022-04-02 05:29] LABS: Glucose,Whole Blood 105 mg/dL (70-110)
--- NOTE | 2022-04-02 06:30 | XR ---
EXAMINATION TYPE: XR chest 1V portable DATE OF EXAM: 04/02/2022 CLINICAL HISTORY: Difficulty breathing progress study. TECHNIQUE: Single AP portable upright view of the chest is obtained. COMPARISON: Chest x-ray from one day earlier and older studies. FINDINGS: Interval extubation with removal of endotracheal and orogastric tubes. Persistent cardiomegaly with persistent but improved central vascular congestion. Small bilateral ple ural effusions redemonstrated. Osseous structures are intact. IMPRESSION: Interval extubation. Cardiomegaly with small bilateral pleural effusions and mild interst itial edema consistent with CHF exacerbation remains present. Findings slightly improved from one day earlier.
[2022-04-02] MEDS: traMADol 50 MG TAB PO SCH ×4 (06:44→23:34)
[2022-04-02] MEDS: OSELTAMIVIR 75 MG CAP PO SCH ×2 (06:46→18:29)
[2022-04-02] MEDS: PANTOPRAZOLE 40 MG TABLET PO SCH (06:46)
[2022-04-02 07:08] LABS: Anisocytosis Slight; Basophils % (A) 0 %; Eosinophils # (A) 0.1 k/uL (0-0.7); Eosinophils % (A) 3 %; HCT 22.9 % (34.0-46.0); HGB 7.6 gm/dL (11.4-16.0); Hypochromasia Marked; Lymphocytes # (A) 0.4 k/uL (1.0-4.8); Lymphocytes % (A) 9 %; MCHC 33.2 g/dL (31.0-37.0); MCV 99.4 fL (80.0-100.0); Macrocytosis Slight; Mean Platelet Volume 7.6; Monocytes # (A) 0.3 k/uL (0-1.0); Monocytes % (A) 6 %; Neutrophils # (A) 3.4 k/uL (1.3-7.7); Neutrophils % (A) 80 %; Platelet Count 174 k/uL (150-450); Poikilocytosis Marked; RDW 16.9 % (11.5-15.5); WBC 4.3 k/uL (3.8-10.6)
--- NOTE | 2022-04-02 07:24 | PN ---
PROGRESS NOTE DATE OF SERVICE: 04/01/2022 SUBJECTIVE: This 62-year-old woman, who was admitted with acute influenza A with possible acute bilateral influenza pneumonia, The patient mechanically intubated and continue to monitored at this time. The chest x-ray this morning, which was personally reviewed by me showed some interval improvement. Multiple consults following the patient closely. The patient is on empiric antibiotics and as well as Tamiflu. PAST MEDICAL HISTORY: Reviewed. REVIEW OF SYSTEMS: Could not be taken, the patient on mechanical ventilation patient is much more awake. CURRENT MEDICATIONS: Reviewed include Tylenol doses are reviewed. PHYSICAL EXAMINATION: VITAL SIGNS: Pulse is 86, blood pressure respirations 16. HEENT: Conjunctivae normal. NECK: No JVD. CARDIOVASCULAR: S1, S2. RESPIRATION:n ABDOMEN: Soft nontender Mechanical vent settings are noted. LABS: Reviewed personally. Troponin ntd and 0.181. ASSESSMENT: 1. Acute influenza A with acute influenza pneumonia bilateral. 2. Troponin 0.128. 3. Elevated D-dimer. 4. Chronic obstructive pulmonary disease. 5. Hypertension. 6. Degenerative joint disease. 7. Tachycardia. DISCUSSION AND RECOMMENDATIONS: I recommend to continue current medications. Otherwise, I would also recommend cardiologic evaluation, 2D echo with Doppler. Other than that, continue the rest of the medications and the prognosis guarded because of multiple medical problems and further weaning and vent management per Dr. SANTAMARIA / ADEOLA: [id number] / [facility]
[2022-04-02 07:25] LABS: ALT 13 U/L (4-34); AST 18 U/L (14-36); African American GFR (CKD) >90 (>60 ml/min/1.73 sqM); Alkaline Phosphatase 56 U/L (38-126); Anion Gap 3 mmol/L; Blood Urea Nitrogen 26 mg/dL (7-17); Calcium 7.8 mg/dL (8.4-10.2); Carbon Dioxide 39 mmol/L (22-30); Chloride 94 mmol/L (98-107); Glucose 101 mg/dL (74-99); Non-African American GFR(CKD) 82 (>60 ml/min/1.73 sqM); Potassium 3.5 mmol/L (3.5-5.1); Sodium 136 mmol/L (137-145); Total Bilirubin 0.6 mg/dL (0.2-1.3); Total Protein 5.8 g/dL (6.3-8.2)
[2022-04-02] MEDS: FUROSEMIDE 10 MG/ML 4 ML VIAL IV SCH ×3 (08:21→23:34)
[2022-04-02] MEDS: CYCLOBENZAPRINE 5 MG TAB PO SCH ×2 (08:22→21:14)
[2022-04-02] MEDS: POTASSIUM CHLORIDE ER 20 MEQ TAB.ER PO SCH ×3 (08:22→10:56)
[2022-04-02] MEDS: ASPIRIN 81 MG PO SCH (08:22)
[2022-04-02] MEDS: CHOLECALCIFEROL 25 MCG (1000 IU) TABLET PO SCH (08:22)
[2022-04-02] MEDS: CLOPIDOGREL 75 MG TAB PO SCH (08:22)
[2022-04-02] MEDS: HYDROcodone/APAP 10-325MG 1 EACH TAB PO SCH ×3 (08:23→21:14)
[2022-04-02] MEDS: glipiZIDE 5 MG TAB PO SCH ×2 (08:23→21:14)
[2022-04-02] MEDS: LOSARTAN 25 MG TAB PO SCH (08:23)
[2022-04-02] MEDS: HEPARIN SODIUM,PORCINE/PF 5,000 UNIT/0.5 ML SYRINGE SQ SCH ×2 (08:23→21:13)
[2022-04-02] MEDS: PIOGLITAZONE 30 MG TAB PO SCH (08:23)
[2022-04-02] MEDS: METOPROLOL TARTRATE 25 MG TAB PO SCH ×2 (08:23→21:14)
[2022-04-02] MEDS: NOREPINEPHRINE 4 MG in SODIUM CHLORIDE 0.9% 250 ML IV SCH (09:31)
--- NOTE | 2022-04-02 11:42 | CA ---
Transthoracic Echo Report Name: Sheela Echeverria Age: 62 Gender: F : 1960 Exam Date: 04/02/2022 09:43 Exam Location: [facility] Ht (in): 66 Wt (lb): 341 Ordering Physician: Chuck Brown MD Attending/Referring Phys: [employer] Operator Yomaira Mir RDCS Procedure CPT: Indications: high trops Cardiac Hx: Technical Quality: Fair Contrast 1: Total Dose (mL): Contrast 2: Total Dose (mL): MEASUREMENTS (Male / Female) Normal Values 2D ECHO LV Diastolic Diameter PLAX 4.4 cm 4.2 - 5.9 / 3.9 - 5.3 cm LV Systolic Diameter PLAX 3.2 cm IVS Diastolic Thickness 1.7 cm 0.6 - 1.0 / 0.6 - 0.9 cm LVPW Diastolic Thickness 1.6 cm 0.6 - 1.0 / 0.6 - 0.9 cm LV Relative Wall Thickness 0.8 LVOT Diameter 2.1 cm M-MODE Aortic Root Diameter MM 3.4 cm LA Systolic Diameter MM 4.9 cm LA Ao Ratio MM 1.4 AV Cusp Separation MM 1.4 cm DOPPLER AV Peak Velocity 290.8 cm/s AV Peak Gradient 33.8 mmHg AV Mean Velocity 208.0 cm/s AV Mean Gradient 19.6 mmHg AV Velocity Time Integral 60.9 cm LVOT Peak Velocity 167.1 cm/s LVOT Peak Gradient 11.2 mmHg LVOT Velocity Time Integral 31.2 cm LVOT Stroke Volume 104.0 cm??? LVOT Stroke Volume Index 41.4 ml/m??? LVOT Cardiac Index 3626.7 cm???/min???m??? AV Area Cont Eq vti 1.7 cm??? AV Area Cont Eq pk 1.9 cm??? MV Peak Velocity 161.7 cm/s MV Peak Gradient 10.5 mmHg MV Mean Velocity 123.6 cm/s MV Mean Gradient 6.5 mmHg MV Velocity Time Integral 42.3 cm MV Area PHT 2.5 cm??? Mitral E Point Velocity 139.0 cm/s Mitral A Point Velocity 166.9 cm/s Mitral E to A Ratio 0.8 MV Deceleration Time 240.5 ms TR Peak Velocity 320.9 cm/s TR Peak Gradient 41.2 mmHg Right Ventricular Systolic Press 46.2 mmHg FINDINGS Left Ventricle Severely increased septal wall thickness. Severely increased posterior wall thickness. Normal left ventricular systolic function with no obvious regional wall motion abnormalities. Left ventricular ejection fraction is estimated at 55 %. Right Ventricle Normal right ventricular size and function. Mild pulmonary hypertension. Right Atrium Normal right atrial size. Left Atrium Mildly increased left atrial area. Mitral Valve Moderate mitral annular calcification. Mild mitral stenosis. Aortic Valve No aortic regurgitation. Mild aortic stenosis with a peak gradient of 34 mmHg and a mean gradient of 20 mmHg. Tricuspid Valve Structurally normal tricuspid valve. [id number] tricuspid regurgitation. Pulmonic Valve Pulmonic valve not well visualized. Pericardium Small pericardial effusion. Aorta Normal size aortic root and proximal ascending aorta. CONCLUSIONS Concentric left ventricular hypertrophy with normal LV systolic function with an ejection fraction of 55% Moderate aortic stenosis Mild to moderate tricuspid regurgitation Previewed by: Dr. Ming Stern MD (Electronically Signed) Final Date: 02 April 2022 11:41
[2022-04-02 11:47] LABS: Glucose,Whole Blood 232 mg/dL (70-110)
--- NOTE | 2022-04-02 12:24 | PN ---
PROGRESS NOTE HISTORY OF PRESENT ILLNESS: Sheela is a 62-year-old lady with history of pneumonia, respiratory failure, hypertension, congestive heart failure, chronic lymphedema, who presented to hospital with acute respiratory failure and had to be intubated and vented. The patient apparently has recently been discharged from [facility] who was exposed to family members with flu and developed flu herself and had been intubated. She had a CT scan of the chest that is negative for pulmonary embolism. This morning she is extubated, remains in sinus rhythm and hemodynamically stable. CURRENT MEDICATIONS: 1. Aspirin. 2. Antibiotics. 3. Plavix. 4. Lasix. 5. Cozaar. 6. Lopressor 25 b.i.d. 7. Tamiflu. 8. Protonix. 9. Actos. 10.K-Dur. PHYSICAL EXAMINATION: GENERAL: On exam, comfortable at rest. VITAL SIGNS: Stable. NECK: There is no jugular venous distention. Carotid upstroke is normal. There is no bruit. CHEST: Reveals diminished air entry at the bases. I do not hear any crackles or rhonchi. HEART: Reveals first and second heart sounds. No gallop, no murmur. ABDOMEN: Soft. EXTREMITIES: Reveal bilateral nonpitting edema. LABORATORY DATA: Labs show a hemoglobin of 7.6, platelet count is 174, potassium is 3.5, creatinine is 0.78. Echocardiogram that I reviewed at bedside, showed normal LV systolic function with mild aortic stenosis and mild mitral regurgitation. ASSESSMENT AND PLAN: 1. Respiratory failure. 2. Acute exacerbation of chronic diastolic heart failure. 3. Influenza A. 4. Non-STEMI type 2 mechanism. 5. Small pericardial effusion. PLAN: I will continue the patient on current medications. MMODL / IJN: [id number] /
--- NOTE | 2022-04-02 12:38 | P.PN ---
Subjective Progress Note Date: 04/02/22 Principal diagnosis: Acute hypoxic and acute on chronic hypercapnic respiratory failure, multifactorial. This is a 62-year-old female with history of morbid obesity, COPD, hypertension, previous smoking history, patient presented to the ER yesterday with a few days' history of increased shortness of breath, productive cough with thick yellow phlegm, apparently the patient had multiple children in the household with similar symptoms. Upon arrival to the ER, patient was hypoxic, and she was placed on a nonrebreather mask. She tested positive for influenza A, and the patient was started on Tamiflu. Chest x-ray showed evidence of cardiomegaly, pulmonary venous congestion, diffuse perihilar infiltrates, findings are suspicious for congestive heart failure or viral type of pneumonia. CT angiogram of the chest showed no evidence of pulmonary embolism, bilateral pleural effusions, and moderate pericardial effusion as well as interstitial infiltrates bilaterally while in the ER, the patient seems to have decompensated, and developed significant worsening shortness of breath, and she required intubation and mechanical ventilation by the ER physician. Immediate ABG post intubation showed a pO2 of 164, pCO2 of 93 pH of 7.18, implying that the patient was developing significant worsening hypercapnic respiratory failure requiring intubation and mechanical ventilation. Follow-up ABG showed a pO2 of 76 he CO2 of 60 pH of 7.41, continues to have hypercapnia with metabolic compensation for her respiratory acidosis, and that implies that the patient does have chronic hypercapnia. At any rate patient was intubated, placed on mechanical ventilation and I was made aware of this patient, transfer patient to the ICU at night. While in the ICU the patient has been receiving antibiotics empirically, Tamiflu, and she was also receiving diuretics. Patient received s ignificant amount of fluid boluses while in the ER because of relatively low blood pressure. During my evaluation, the patient was on assist control rate of 24 tidal volume of 400 FiO2 40% and PEEP of 5. ABG showed a pO2 of 76 pCO2 of 60 pH of 7.41. Patient was kept on norepinephrine at 0.02 mcg/kg/m for now, I gave the patient a weaning trial while I was at bedside, patient was given a trial of pressure support of 10 and CPAP, and she tolerated that quite well for about one hour hence I recommended extubating the patient to BiPAP. IV fluid is cut down to KVO, patient has been receiving Lasix early this morning, and she is responding well to diuretics. Reevaluated today on 03/29/22, patient remains in the ICU, she tolerated extubation well, I saw this lady yesterday, and she was extubated to BiPAP. Eventually the patient was transitioned to a nasal cannula, and she remains on nasal cannula at present she is on 5 L/m, does not seem to be in distress, she is having intermittent cough, able to clear secretions.chest x-ray today continues to show evidence of interstitial edema, however it is improved compared to the chest x-ray on her admission and from yesterday.WBC count today is 4.3 hemoglobin 7.6 electrolytes are normal renal profile is normal bicarb is 39, blood sugar is 232 Objective - Vital Signs Vital signs: Vital Signs Temp 98.0 F 04/02/22 08:00 Pulse 88 04/02/22 11:39 Resp 16 04/02/22 11:39 BP 121/63 04/02/22 11:00 Pulse Ox 96 04/02/22 11:00 FiO2 28 04/02/22 08:42 Intake & Output 04/01/22 04/02/22 04/02/22 18:59 06:59 18:59 Intake Total 538.388 455.833 400 Output Total 1445 1360 370 Balance -906.612 -904.167 30 Weight 155 kg 155.5 kg Intake: IV 240 0 Sodium Chloride 0.9% 1, 240 0 000 ml @ 20 mls/hr IV . Q24H [facility] Rx#:[id number] Intake, IV Titration 298.388 5.833 Amount Norepinephrine 4 mg In 205.948 5.833 Sodium Chloride 0.9% 250 ml @ 0.03 MCG/KG/MIN 17. 797 mls/hr IV .[id number] [facility] Rx#:[id number] propofoL 1,000 mg In 92.44 Empty Bag 1 bag @ 15 MCG/ KG/MIN 13.594 mls/hr IV . Q7H22M [facility] Rx#:[id number] Oral 450 400 Output: Urine 1445 1360 370 Other: Voiding Method Indwelling Catheter Indwelling Catheter Indwelling Catheter - Exam CONSTITUTIONAL: Revealed a 62-year-old female, obese,in no distress, sitting in her recliner,on nasal cannula at 3 L, O2 sats is 96% Head: Atraumatic, normocephalic. HEENT: Pupils are equal, round. Sclerae anicteric. Mucous membranes of the mouth are moist. No JVD. No carotid bruit. CHEST EXAMINATION: Symmetrical chest expansion, minimal crackles persist at the bases. HEART EXAMINATION: Distant S1 and S2, no S3 gallop, no murmur ABDOMEN: Obese, Soft, nontender. Positive bowel sounds. EXTREMITIES: No clubbing edema or cyanosis, good pulses bilaterally. NEUROLOGIC EXAMINATION: alert and oriented 3 focal neurologic deficits. Psychiatric: Normal mood, affect and normal mental status examination. Skin: No rashes. - Labs CBC & Chem 7: 04/02/22 06:40 04/02/22 06:40 Labs: Abnormal Lab Results - Last 24 Hours (Table) 03/31/22 04/01/22 04/01/22 Range/Units 16:42 11:35 18:02 RBC (3.80-5.40) m/uL Hgb (11.4-16.0) gm/dL Hct (34.0-46.0) % RDW (11.5-15.5) % Lymphocytes # (1.0-4.8) k/uL Sodium (137-145) mmol/L Chloride (98-107) mmol/L Carbon Dioxide (22-30) mmol/L BUN (7-17) mg/dL Glucose (74-99) mg/dL POC Glucose (mg/dL) 118 H (70-110) mg/dL Calcium (8.4-10.2) mg/dL Troponin I 0.181 H* (0.000-0.034) ng/mL Total Protein (6.3-8.2) g/dL Albumin (3.5-5.0) g/dL Procalcitonin 0.11 H (0.02-0.09) ng/mL 04/01/22 04/02/22 04/02/22 Range/Units 19:57 06:40 06:40 RBC 2.30 L (3.80-5.40) m/uL Hgb 7.6 L (11.4-16.0) gm/dL Hct 22.9 L (34.0-46.0) % RDW 16.9 H (11.5-15.5) % Lymphocytes # 0.4 L (1.0-4.8) k/uL Sodium 136 L (137-145) mmol/L Chloride 94 L (98-107) mmol/L Carbon Dioxide 39 H (22-30) mmol/L BUN 26 H (7-17) mg/dL Glucose 101 H (74-99) mg/dL POC Glucose (mg/dL) 225 H (70-110) mg/dL Calcium 7.8 L (8.4-10.2) mg/dL Troponin I (0.000-0.034) ng/mL Total Protein 5.8 L (6.3-8.2) g/dL Albumin 3.0 L (3.5-5.0) g/dL Procalcitonin (0.02-0.09) ng/mL 04/02/22 Range/Units 11:45 RBC (3.80-5.40) m/uL Hgb (11.4-16.0) gm/dL Hct (34.0-46.0) % RDW (11.5-15.5) % Lymphocytes # (1.0-4.8) k/uL Sodium (137-145) mmol/L Chloride (98-107) mmol/L Carbon Dioxide (22-30) mmol/L BUN (7-17) mg/dL Glucose (74-99) mg/dL POC Glucose (mg/dL) 232 H (70-110) mg/dL Calcium (8.4-10.2) mg/dL Troponin I (0.000-0.034) ng/mL Total Protein (6.3-8.2) g/dL Albumin (3.5-5.0) g/dL Procalcitonin (0.02-0.09) ng/mL Microbiology - Last 24 Hours (Table) 03/31/22 16:42 Gram Stain - Final Sputum Sputum Culture - Final 03/31/22 16:42 Blood Culture - Preliminary Blood No Growth after 24 hours 03/31/22 12:42 Blood Culture - Preliminary Blood No Growth after 24 hours Assessment and Plan Assessment: Impression: Acute hypoxic and acute on chronic hypercapnic respiratory failure, multifactorial. Acute on chronic diastolic heart failure Influenza A pneumonia/infection Acute exacerbation of COPD Possible superimposed bacterial pneumonia Acute non-ST elevation myocardial infarction with elevated troponin, being addressed by cardiology. Moderate pericardial effusion seen on CT of the chest, echocardiogram is pending Benign essential hypertension Paroxysmal supraventricular tachycardia History of underlying COPD Morbid obesity Sepsis, possible septic shock. With hypotension requiring norepinephrine after no response noted to fluid bolus History of degenerative joint disease. Elevated d-dimer but negative CT angiogram of the chest. Recommendation: patient was extubated uneventfully on 04/01/22, tolerated the extubation well. She is now on nasal cannula. Continue empiric antibiotics.patient is on Rocephin and Zithromax.her pro calcitonin level wasminimally elevated, will likely discontinue antibiotics S1 as a chest x-ray shows further improvement Continue bronchodilators. Continue steroids. Continue Tamiflu. Continue diuretics. Continue GI and DVT prophylaxis. advanced diet as tolerated. we'll continue to monitor in the ICU for the next 24 hours. Repeat chest x-ray in a.m. Will continue to follow. Time with Patient: Less than 30
--- NOTE | 2022-04-02 13:17 | P.PN ---
Subjective Progress Note Date: 04/02/22 Principal diagnosis: Flu and pneumonia Patient is a 62-year-old female with multiple comorbidities including COPD hypertension morbid obesity presenting to the ER yesterday for evaluation of increasing shortness of breath apparent has been getting worse for the last few days before presentation to the hospital patient did have worsening respiratory distress and the patient up getting intubated in the ER and was subsequently admitted to ICU, patient has been subsequently extubated on 04/01/2022 On today's evaluation that is 04/02/2022, the patient denies having any fever or any chills, the patient is breathing comfortably on nasal cannula oxygen, the patient denies having any chest pain she did have some cough occasionally hemoptysis no abdominal pain no diarrhea Objective - Vital Signs Vital signs: Vital Signs Temp 98.0 F 04/02/22 08:00 Pulse 88 04/02/22 11:39 Resp 16 04/02/22 11:39 BP 121/63 04/02/22 11:00 Pulse Ox 96 04/02/22 11:00 FiO2 28 04/02/22 08:42 Intake & Output 04/01/22 04/02/22 04/02/22 18:59 06:59 18:59 Intake Total 538.388 455.833 400 Output Total 1445 1360 370 Balance -906.612 -904.167 30 Weight 155 kg 155.5 kg Intake: IV 240 0 Sodium Chloride 0.9% 1, 240 0 000 ml @ 20 mls/hr IV . Q24H [facility] Rx#:[id number] Intake, IV Titration 298.388 5.833 Amount Norepinephrine 4 mg In 205.948 5.833 Sodium Chloride 0.9% 250 ml @ 0.03 MCG/KG/MIN 17. 797 mls/hr IV .[id number] [facility] Rx#:[id number] propofoL 1,000 mg In 92.44 Empty Bag 1 bag @ 15 MCG/ KG/MIN 13.594 mls/hr IV . Q7H22M [facility] Rx#:[id number] Oral 450 400 Output: Urine 1445 1360 370 Other: Voiding Method Indwelling Catheter Indwelling Catheter Indwelling Catheter - Exam GENERAL DESCRIPTION: A middle-age female up in the chair in no distress RESPIRATORY SYSTEM: Unlabored breathing , coarse breath sounds bilaterally HEART: S1 S2 regular rate and rhythm , ABDOMEN: Soft , no tenderness EXTREMITIES: No edema feet - Labs CBC & Chem 7: 04/02/22 06:40 04/02/22 06:40 Labs: Abnormal Lab Results - Last 24 Hours (Table) 03/31/22 04/01/22 04/01/22 Range/Units 16:42 11:35 18:02 RBC (3.80-5.40) m/uL Hgb (11.4-16.0) gm/dL Hct (34.0-46.0) % RDW (11.5-15.5) % Lymphocytes # (1.0-4.8) k/uL Sodium (137-145) mmol/L Chloride (98-107) mmol/L Carbon Dioxide (22-30) mmol/L BUN (7-17) mg/dL Glucose (74-99) mg/dL POC Glucose (mg/dL) 118 H (70-110) mg/dL Calcium (8.4-10.2) mg/dL Troponin I 0.181 H* (0.000-0.034) ng/mL Total Protein (6.3-8.2) g/dL Albumin (3.5-5.0) g/dL Procalcitonin 0.11 H (0.02-0.09) ng/mL 04/01/22 04/02/22 04/02/22 Range/Units 19:57 06:40 06:40 RBC 2.30 L (3.80-5.40) m/uL Hgb 7.6 L (11.4-16.0) gm/dL Hct 22.9 L (34.0-46.0) % RDW 16.9 H (11.5-15.5) % Lymphocytes # 0.4 L (1.0-4.8) k/uL Sodium 136 L (137-145) mmol/L Chloride 94 L (98-107) mmol/L Carbon Dioxide 39 H (22-30) mmol/L BUN 26 H (7-17) mg/dL Glucose 101 H (74-99) mg/dL POC Glucose (mg/dL) 225 H (70-110) mg/dL Calcium 7.8 L (8.4-10.2) mg/dL Troponin I (0.000-0.034) ng/mL Total Protein 5.8 L (6.3-8.2) g/dL Albumin 3.0 L (3.5-5.0) g/dL Procalcitonin (0.02-0.09) ng/mL 04/02/22 Range/Units 11:45 RBC (3.80-5.40) m/uL Hgb (11.4-16.0) gm/dL Hct (34.0-46.0) % RDW (11.5-15.5) % Lymphocytes # (1.0-4.8) k/uL Sodium (137-145) mmol/L Chloride (98-107) mmol/L Carbon Dioxide (22-30) mmol/L BUN (7-17) mg/dL Glucose (74-99) mg/dL POC Glucose (mg/dL) 232 H (70-110) mg/dL Calcium (8.4-10.2) mg/dL Troponin I (0.000-0.034) ng/mL Total Protein (6.3-8.2) g/dL Albumin (3.5-5.0) g/dL Procalcitonin (0.02-0.09) ng/mL Microbiology - Last 24 Hours (Table) 03/31/22 16:42 Gram Stain - Final Sputum Sputum Culture - Final 03/31/22 16:42 Blood Culture - Preliminary Blood No Growth after 24 hours 03/31/22 12:42 Blood Culture - Preliminary Blood No Growth after 24 hours Assessment and Plan (1) Febrile illness, acute Current Visit: Yes Status: Acute Code(s): R50.9 - FEVER, UNSPECIFIED SNOMED Code(s): 604090931 (2) Influenza due to influenza virus, type A, human Current Visit: Yes Status: Acute Code(s): J10.1 - FLU DUE TO OTH IDENT INFLUENZA VIRUS W OTH RESP MANIFEST SNOMED Code(s): 700471857 Plan: 1patient presented to hospital with acute respiratory failure which is likely multifactorial in this patient tested positive for acute influenza A and possible component of COPD the patient with regular bronchitis versus early pneumonia. 2Patient with multiple antibiotic ALLERGIES that would limit the number of antibiotic safe to use. 3patient to continue with the Tamiflu Rocephin and Zithromax while waiting for cultures to finalize and monitor clinical course closely. Time with Patient: Less than 30
[2022-04-02 17:35] LABS: Glucose,Whole Blood 91 mg/dL (70-110)
[2022-04-02] MEDS: AZITHROMYCIN 500 MG in SODIUM CHLORIDE 0.9% 250 ML IVPB SCH (18:23)
[2022-04-02 23:21] LABS: Glucose,Whole Blood 114 mg/dL (70-110)
[2022-04-03 02:19] LABS: Glucose,Whole Blood 122 mg/dL (70-110)
[2022-04-03 04:18] LABS: Anisocytosis Slight; Basophils % (A) 1 %; Eosinophils # (A) 0.2 k/uL (0-0.7); Eosinophils % (A) 6 %; HCT 23.1 % (34.0-46.0); HGB 7.7 gm/dL (11.4-16.0); Hypochromasia Marked; Lymphocytes # (A) 0.4 k/uL (1.0-4.8); Lymphocytes % (A) 12 %; MCH 32.6 pg (25.0-35.0); MCHC 33.2 g/dL (31.0-37.0); MCV 98.3 fL (80.0-100.0); Macrocytosis Slight; Mean Platelet Volume 7.6; Monocytes # (A) 0.2 k/uL (0-1.0); Monocytes % (A) 5 %; Neutrophils # (A) 2.5 k/uL (1.3-7.7); Neutrophils % (A) 74 %; Platelet Count 179 k/uL (150-450); Poikilocytosis Marked; RBC 2.35 m/uL (3.80-5.40); RDW 16.9 % (11.5-15.5); WBC 3.4 k/uL (3.8-10.6)
[2022-04-03 04:34] LABS: Calcium 8.1 mg/dL (8.4-10.2); Potassium 4.1 mmol/L (3.5-5.1)
[2022-04-03 06:27] LABS: Glucose,Whole Blood 96 mg/dL (70-110)
[2022-04-03] MEDS: traMADol 50 MG TAB PO SCH ×4 (06:36→23:50)
[2022-04-03] MEDS: OSELTAMIVIR 75 MG CAP PO SCH ×2 (06:37→18:19)
[2022-04-03] MEDS: PANTOPRAZOLE 40 MG TABLET PO SCH (06:37)
[2022-04-03] MEDS: INSULIN ASPART (NovoLOG) 100 UNIT/ML VIAL SQ SCH ×5 (06:38→23:59)
[2022-04-03] MEDS ORDERED: diphenhydrAMINE 50 MG CAP PO PRN (06:48)
[2022-04-03] MEDS: ASPIRIN 81 MG PO SCH (08:42)
[2022-04-03] MEDS: CLOPIDOGREL 75 MG TAB PO SCH (08:42)
[2022-04-03] MEDS: HEPARIN SODIUM,PORCINE/PF 5,000 UNIT/0.5 ML SYRINGE SQ SCH ×2 (08:42→20:39)
[2022-04-03] MEDS: IPRATROPIUM-ALBUTEROL 3 ML NEB INHALATION SCH ×4 (08:42→20:41)
[2022-04-03] MEDS: CHOLECALCIFEROL 25 MCG (1000 IU) TABLET PO SCH (08:42)
[2022-04-03] MEDS: METOPROLOL TARTRATE 25 MG TAB PO SCH ×2 (08:43→20:39)
[2022-04-03] MEDS: LOSARTAN 25 MG TAB PO SCH (08:43)
[2022-04-03] MEDS: FUROSEMIDE 10 MG/ML 4 ML VIAL IV SCH ×3 (08:43→23:50)
[2022-04-03] MEDS: HYDROcodone/APAP 10-325MG 1 EACH TAB PO SCH ×3 (08:43→22:18)
[2022-04-03] MEDS: CYCLOBENZAPRINE 5 MG TAB PO SCH ×2 (08:44→20:38)
[2022-04-03] MEDS: glipiZIDE 5 MG TAB PO SCH ×2 (08:44→20:38)
[2022-04-03] MEDS: PIOGLITAZONE 30 MG TAB PO SCH (08:44)
[2022-04-03] MEDS: POTASSIUM CHLORIDE ER 20 MEQ TAB.ER PO SCH (08:44)
--- NOTE | 2022-04-03 09:08 | XR ---
EXAMINATION TYPE: XR chest 1V portable DATE OF EXAM: 04/03/2022 Comparison: 04/02/2022 Clinical History: 62-year-old female Tube placement Findings: Ongoing moderate cardiomegaly. Diffuse interstitial densities persist along with trace pleural effusi ons. Impression: Ongoing moderate cardiomegaly with interstitial pulmonary edema and trace effusions. No tubes seen.
--- NOTE | 2022-04-03 11:26 | P.PN ---
Subjective Progress Note Date: 04/03/22 Principal diagnosis: Acute hypoxic and acute on chronic hypercapnic respiratory failure, multifactorial. This is a 62-year-old female with history of morbid obesity, COPD, hypertension, previous smoking history, patient presented to the ER yesterday with a few days' history of increased shortness of breath, productive cough with thick yellow phlegm, apparently the patient had multiple children in the household with similar symptoms. Upon arrival to the ER, patient was hypoxic, and she was placed on a nonrebreather mask. She tested positive for influenza A, and the patient was started on Tamiflu. Chest x-ray showed evidence of cardiomegaly, pulmonary venous congestion, diffuse perihilar infiltrates, findings are suspicious for congestive heart failure or viral type of pneumonia. CT angiogram of the chest showed no evidence of pulmonary embolism, bilateral pleural effusions, and moderate pericardial effusion as well as interstitial infiltrates bilaterally while in the ER, the patient seems to have decompensated, and developed significant worsening shortness of breath, and she required intubation and mechanical ventilation by the ER physician. Immediate ABG post intubation showed a pO2 of 164, pCO2 of 93 pH of 7.18, implying that the patient was developing significant worsening hypercapnic respiratory failure requiring intubation and mechanical ventilation. Follow-up ABG showed a pO2 of 76 he CO2 of 60 pH of 7.41, continues to have hypercapnia with metabolic compensation for her respiratory acidosis, and that implies that the patient does have chronic hypercapnia. At any rate patient was intubated, placed on mechanical ventilation and I was made aware of this patient, transfer patient to the ICU at night. While in the ICU the patient has been receiving antibiotics empirically, Tamiflu, and she was also receiving diuretics. Patient received s ignificant amount of fluid boluses while in the ER because of relatively low blood pressure. During my evaluation, the patient was on assist control rate of 24 tidal volume of 400 FiO2 40% and PEEP of 5. ABG showed a pO2 of 76 pCO2 of 60 pH of 7.41. Patient was kept on norepinephrine at 0.02 mcg/kg/m for now, I gave the patient a weaning trial while I was at bedside, patient was given a trial of pressure support of 10 and CPAP, and she tolerated that quite well for about one hour hence I recommended extubating the patient to BiPAP. IV fluid is cut down to KVO, patient has been receiving Lasix early this morning, and she is responding well to diuretics. Reevaluated today on 03/29/22, patient remains in the ICU, she tolerated extubation well, I saw this lady yesterday, and she was extubated to BiPAP. Eventually the patient was transitioned to a nasal cannula, and she remains on nasal cannula at present she is on 5 L/m, does not seem to be in distress, she is having intermittent cough, able to clear secretions.chest x-ray today continues to show evidence of interstitial edema, however it is improved compared to the chest x-ray on her admission and from yesterday.WBC count today is 4.3 hemoglobin 7.6 electrolytes are normal renal profile is normal bicarb is 39, blood sugar is 232 Reevaluated today on 04/03/22, patient continues to do well, continues to tolerate the extubation well, she is now on few liters nasal cannula, sitting in a bedside chair, doing great, relatively asymptomatic, chest x-ray is showing significant improvement.WBC count is 3.4 hemoglobin 7.7. Electrolytes and renal profile are normal bicarb is 39.chest x-ray continues to show mild interstitial edema and trace of the effusions. But improved compared to her initial chest x- ray on admission. Objective - Vital Signs Vital signs: Vital Signs Temp 97.8 F 04/03/22 08:00 Pulse 90 04/03/22 09:00 Resp 14 04/03/22 09:00 BP 129/53 04/03/22 09:00 Pulse Ox 98 04/03/22 08:00 FiO2 28 04/02/22 08:42 Intake & Output 04/02/22 04/03/22 04/03/22 18:59 06:59 18:59 Intake Total 650 250 250 Output Total 1250 865 90 Balance -600 -615 160 Weight 155.5 kg Intake: Intake, IV Titration 50 250 Amount Azithromycin 500 mg In 250 Sodium Chloride 0.9% 250 ml @ 250 mls/hr IVPB Q24H [facility] Rx#:[id number] cefTRIAXone 2 gm In 50 Sodium Chloride 0.9% 50 ml @ 100 mls/hr IVPB Q24H [facility] Rx#:[id number] Oral 600 250 Output: Urine 1250 865 90 Other: Voiding Method Indwelling Catheter Indwelling Catheter Indwelling Catheter # Bowel Movements 1 - Exam CONSTITUTIONAL: Revealed a 62-year-old female, obese,in no distress, sitting in her recliner,on nasal cannula at 3 L, O2 sats is 96% Head: Atraumatic, normocephalic. HEENT: Pupils are equal, round. Sclerae anicteric. Mucous membranes of the mouth are moist. No JVD. No carotid bruit. CHEST EXAMINATION: Symmetrical chest expansion, minimal crackles persist at the bases. HEART EXAMINATION: Distant S1 and S2, no S3 gallop, no murmur ABDOMEN: Obese, Soft, nontender. Positive bowel sounds. EXTREMITIES: No clubbing edema or cyanosis, good pulses bilaterally. NEUROLOGIC EXAMINATION: alert and oriented 3 focal neurologic deficits. Psychiatric: Normal mood, affect and normal mental status examination. Skin: No rashes. - Labs CBC & Chem 7: 04/03/22 03:42 04/03/22 03:42 Labs: Abnormal Lab Results - Last 24 Hours (Table) 04/02/22 04/02/22 04/03/22 Range/Units 11:45 23:18 02:18 WBC (3.8-10.6) k/uL RBC (3.80-5.40) m/uL Hgb (11.4-16.0) gm/dL Hct (34.0-46.0) % RDW (11.5-15.5) % Lymphocytes # (1.0-4.8) k/uL Sodium (137-145) mmol/L Chloride (98-107) mmol/L Carbon Dioxide (22-30) mmol/L BUN (7-17) mg/dL Glucose (74-99) mg/dL POC Glucose (mg/dL) 232 H 114 H 122 H (70-110) mg/dL Calcium (8.4-10.2) mg/dL 04/03/22 04/03/22 Range/Units 03:42 03:42 WBC 3.4 L (3.8-10.6) k/uL RBC 2.35 L (3.80-5.40) m/uL Hgb 7.7 L (11.4-16.0) gm/dL Hct 23.1 L (34.0-46.0) % RDW 16.9 H (11.5-15.5) % Lymphocytes # 0.4 L (1.0-4.8) k/uL Sodium 136 L (137-145) mmol/L Chloride 93 L (98-107) mmol/L Carbon Dioxide 39 H (22-30) mmol/L BUN 29 H (7-17) mg/dL Glucose 106 H (74-99) mg/dL POC Glucose (mg/dL) (70-110) mg/dL Calcium 8.1 L (8.4-10.2) mg/dL Microbiology - Last 24 Hours (Table) 03/31/22 16:42 Blood Culture - Preliminary Blood No Growth after 48 hours 03/31/22 12:42 Blood Culture - Preliminary Blood No Growth after 48 hours 03/31/22 16:42 Gram Stain - Final Sputum Sputum Culture - Final Assessment and Plan Assessment: Impression: Acute hypoxic and acute on chronic hypercapnic respiratory failure, multifactorial. Acute on chronic diastolic heart failure Influenza A pneumonia/infection Acute exacerbation of COPD Possible superimposed bacterial pneumonia Acute non-ST elevation myocardial infarction with elevated troponin, being addressed by cardiology. small pericardial effusion noted on echocardiogram Benign essential hypertension Paroxysmal supraventricular tachycardia History of underlying COPD Morbid obesity Sepsis, possible septic shock.resolved. History of degenerative joint disease. Elevated d-dimer but negative CT angiogram of the chest. Recommendation: continue oxygen and titrate accordingly Transfer patient out of the ICU to regular medical floor/cardiac floor procalcitonin is borderline, could consider stopping antibiotics. Continue bronchodilators. Continue steroids. Continue Tamiflu. Continue diuretics. Continue GI and DVT prophylaxis. advanced diet as tolerated. Will continue to follow. Time with Patient: Less than 30
--- NOTE | 2022-04-03 11:43 | PN ---
PROGRESS NOTE DATE OF SERVICE: 04/02/2022 SUBJECTIVE: This is a 62-year-old woman who was admitted with influenza A and assess possible acute interstitial pneumonia, also suspected to have CHF. Also the patient is closely monitored. Chest x-ray was reviewed personally by me. The 2D echo read by Cardiology showed ejection fraction 55% and moderate aortic stenosis and also, the patient is extubated, sitting near the bedside at this time. Dr. Hatch in Cardiology is following the patient closely. PAST MEDICAL HISTORY: Reviewed. REVIEW OF SYSTEMS: A 14-point review is negative as mentioned earlier. CURRENT MEDICATIONS: Reviewed include DuoNeb, dose and rest of medications noted. PHYSICAL EXAMINATION: VITAL SIGNS: Pulse is 85, blood pressure 120/60, and respirations 18. HEENT: Conjunctivae normal. NECK: No jugular venous distention. CARDIOVASCULAR: S1, S2 muffled. RESPIRATIONS: A few scattered rhonchi, no crackles. ABDOMEN: Soft. NERVOUS SYSTEM: No focal deficits. LABS: Hemoglobin 7.6, rest of the labs reviewed. ASSESSMENT: 1. Acute influenza A with acute influenza pneumonia bilateral. 2. Congestive heart failure acute exacerbation, acute on chronic diastolic dysfunction, on mechanical ventilation with acute hypoxic respiratory failure. 3. Moderate aortic stenosis. 4. Troponin 0.128. 5. Elevated D-dimer. 6. Chronic obstructive pulmonary disease. 7. Hypertension. 8. Degenerative joint disease. 9. Tachycardia. 10.Multiple medical issues. RECOMMENDATIONS: Recommended to continue current symptomatic treatment, otherwise at this time I recommend to continue the bronchodilators, continue with Tamiflu. Continue with cautious diuretics. The patient is on Lasix 40 IV q.8. We will monitor the CBC, BMP, creatinine, and ensure oxygenation. Closely follow with multiple consultants. Further recommendations to follow. Prognosis guarded. MMODL / IJN: [id number] /
[2022-04-03 12:04] LABS: Glucose,Whole Blood 170 mg/dL (70-110)
--- NOTE | 2022-04-03 13:59 | P.PN ---
Subjective Progress Note Date: 04/03/22 Principal diagnosis: Flu and pneumonia Patient is a 62-year-old female with multiple comorbidities including COPD hypertension morbid obesity presenting to the ER yesterday for evaluation of increasing shortness of breath apparent has been getting worse for the last few days before presentation to the hospital patient did have worsening respiratory distress and the patient up getting intubated in the ER and was subsequently admitted to ICU, patient has been subsequently extubated on 04/01/2022 On today's evaluation that is 04/03/2022, the patient remains to be afebrile, the patient is breathing comfortably on 3 L nasal cannula oxygen, the patient denies having any chest pain , the patient continued to have a cough and no worsening occasional sputum no nausea no vomiting no abdominal pain no diarrhea Objective - Vital Signs Vital signs: Vital Signs Temp 98.2 F 04/03/22 12:00 Pulse 84 04/03/22 13:13 Resp 19 04/03/22 12:00 BP 114/59 04/03/22 12:00 Pulse Ox 95 04/03/22 12:00 FiO2 28 04/02/22 08:42 Intake & Output 04/02/22 04/03/22 04/03/22 18:59 06:59 18:59 Intake Total 650 250 500 Output Total 9212 848 3710 Balance -600 -615 -690 Weight 155.5 kg Intake: Intake, IV Titration 50 250 Amount Azithromycin 500 mg In 250 Sodium Chloride 0.9% 250 ml @ 250 mls/hr IVPB Q24H [facility] Rx#:[id number] cefTRIAXone 2 gm In 50 Sodium Chloride 0.9% 50 ml @ 100 mls/hr IVPB Q24H [facility] Rx#:[id number] Oral 600 500 Output: Urine 5844 164 9334 Other: Voiding Method Indwelling Catheter Indwelling Catheter Indwelling Catheter # Bowel Movements 1 - Exam GENERAL DESCRIPTION: A middle-age female up in the chair in no distress RESPIRATORY SYSTEM: Unlabored breathing , coarse breath sounds at the bases bilaterally HEART: S1 S2 regular rate and rhythm , ABDOMEN: Soft , no tenderness EXTREMITIES: No edema feet - Labs CBC & Chem 7: 04/03/22 03:42 04/03/22 03:42 Labs: Abnormal Lab Results - Last 24 Hours (Table) 04/02/22 04/03/22 04/03/22 Range/Units 23:18 02:18 03:42 WBC 3.4 L (3.8-10.6) k/uL RBC 2.35 L (3.80-5.40) m/uL Hgb 7.7 L (11.4-16.0) gm/dL Hct 23.1 L (34.0-46.0) % RDW 16.9 H (11.5-15.5) % Lymphocytes # 0.4 L (1.0-4.8) k/uL Sodium (137-145) mmol/L Chloride (98-107) mmol/L Carbon Dioxide (22-30) mmol/L BUN (7-17) mg/dL Glucose (74-99) mg/dL POC Glucose (mg/dL) 114 H 122 H (70-110) mg/dL Calcium (8.4-10.2) mg/dL 04/03/22 04/03/22 Range/Units 03:42 11:52 WBC (3.8-10.6) k/uL RBC (3.80-5.40) m/uL Hgb (11.4-16.0) gm/dL Hct (34.0-46.0) % RDW (11.5-15.5) % Lymphocytes # (1.0-4.8) k/uL Sodium 136 L (137-145) mmol/L Chloride 93 L (98-107) mmol/L Carbon Dioxide 39 H (22-30) mmol/L BUN 29 H (7-17) mg/dL Glucose 106 H (74-99) mg/dL POC Glucose (mg/dL) 170 H (70-110) mg/dL Calcium 8.1 L (8.4-10.2) mg/dL Microbiology - Last 24 Hours (Table) 03/31/22 16:42 Blood Culture - Preliminary Blood No Growth after 48 hours 03/31/22 12:42 Blood Culture - Preliminary Blood No Growth after 48 hours 03/31/22 16:42 Gram Stain - Final Sputum Sputum Culture - Final Assessment and Plan (1) Febrile illness, acute Current Visit: Yes Status: Acute Code(s): R50.9 - FEVER, UNSPECIFIED SNOMED Code(s): 490303918 (2) Influenza due to influenza virus, type A, human Current Visit: Yes Status: Acute Code(s): J10.1 - FLU DUE TO OTH IDENT INFLUENZA VIRUS W OTH RESP MANIFEST SNOMED Code(s): 855512597 Plan: 1patient presented to hospital with acute respiratory failure which is likely multifactorial in this patient tested positive for acute influenza A and possible component of COPD the patient with regular bronchitis versus early pneumonia. 2Patient with multiple antibiotic ALLERGIES that would limit the number of antibiotic safe to use. 3patient seemed to have shown clinical improvement, patient will continue with the Tamiflu Rocephin and Zithromax and monitor clinical course closely. Time with Patient: Less than 30
[2022-04-03 17:19] LABS: Glucose,Whole Blood 208 mg/dL (70-110)
[2022-04-03] MEDS: AZITHROMYCIN 500 MG in SODIUM CHLORIDE 0.9% 250 ML IVPB SCH (20:38)
--- NOTE | 2022-04-03 21:55 | PN ---
PROGRESS NOTE SUBJECTIVE: Sheela is a 62-year-old lady with history of pneumonia, respiratory failure, hypertension, and chronic lymphedema, who was admitted to hospital with acute onset respiratory failure, intubated and vented. This morning, she is feeling much better. OBJECTIVE: VITAL SIGNS: Heart rate is 90 beats per minute, blood pressure is 130/50, respiratory rate is 18. CHEST: Reveals diminished air entry at the bases. HEART: Reveals first and second heart sounds. No gallop. EXTREMITIES: Exam of extremities reveals bilateral nonpitting edema. MEDICATIONS: She is currently on: 1. Lasix 40 IV q.8. 2. Losartan. 3. Lopressor. 4. Aspirin. 5. Antibiotics. 6. K-Dur. ASSESSMENT: 1. Acute respiratory failure, probably related to influenza. 2. Chronic obstructive pulmonary disease and congestive heart failure exacerbations. PLAN: I will continue the patient on IV Lasix. The patient will be transferred out of ICU. HINA / ADEOLA: [id number] /
[2022-04-03] MEDS: HYDROcodone/APAP 5-325MG 1 EACH TAB PO PRN (22:10)
[2022-04-03] MEDS: diphenhydrAMINE 25 MG CAP PO PRN (22:14)
[2022-04-03 23:43] LABS: Glucose,Whole Blood 193 mg/dL (70-110)
[2022-04-04 01:27] LABS: Glucose,Whole Blood 133 mg/dL (70-110)
--- NOTE | 2022-04-04 02:40 | PN ---
PROGRESS NOTE DATE OF SERVICE: 04/03/2022 SUBJECTIVE: This is a 62-year-old woman, who was admitted with acute influenza A, also has possible acute interstitial pneumonia. The patient had acute respiratory failure. The patient is mechanically intubated, extubated. The patient is feeling slightly better. The patient monitored in ICU. Chest x-ray which was personally reviewed by me showed ongoing cardiomegaly and interstitial pulmonary lesions also. PAST MEDICAL HISTORY: Reviewed. REVIEW OF SYSTEMS: A 14-point review is negative except as mentioned earlier. CURRENT MEDICATIONS: Reviewed include DuoNeb, dose and rest of medications noted. PHYSICAL EXAMINATION: VITAL SIGNS: Pulse is 90, blood pressure 114/59, respirations 19. HEENT: Conjunctivae normal. NECK: No jugular venous distention. CARDIOVASCULAR: S1 and S2 muffled. RESPIRATORY: Breath sounds diminished at the bases. ABDOMEN: Soft. NERVOUS SYSTEM: No focal deficits. LABORATORY DATA: Hemoglobin 7.7. ASSESSMENT: 1. Acute influenza A with acute influenza pneumonia, bilateral. 2. Congestive heart failure acute exacerbation, acute on chronic diastolic dysfunction, status post mechanical ventilation, acute hypoxic respiratory failure. 3. Moderate aortic stenosis. 4. Troponin 0.128. 5. Elevated D-dimer. 6. Leukopenia. 7. Anemia. 8. Chronic obstructive pulmonary disease. 9. Hypertension. 10.Degenerative joint disease. 11.Tachycardia. 12.Multiple medical issues. RECOMMENDATIONS: Recommend to continue current medications, continue symptomatic treatment. Repeat labs. Otherwise, continue with antibiotics, antivirals. Prognosis guarded because of multiple complex medical issues. Further recommendations to follow. See orders for further details. MMODL / IJN: [id number] /
[2022-04-04 04:56] LABS: Anisocytosis Slight; Basophils % (A) 1 %; Eosinophils # (A) 0.2 k/uL (0-0.7); Eosinophils % (A) 6 %; HCT 23.2 % (34.0-46.0); HGB 7.6 gm/dL (11.4-16.0); Hypochromasia Marked; Lymphocytes # (A) 0.4 k/uL (1.0-4.8); Lymphocytes % (A) 10 %; MCH 31.5 pg (25.0-35.0); MCHC 32.7 g/dL (31.0-37.0); MCV 96.3 fL (80.0-100.0); Macrocytosis Slight; Mean Platelet Volume 7.7; Monocytes # (A) 0.2 k/uL (0-1.0); Monocytes % (A) 4 %; Neutrophils # (A) 2.9 k/uL (1.3-7.7); Neutrophils % (A) 76 %; Platelet Count 202 k/uL (150-450); Poikilocytosis Marked; RBC 2.41 m/uL (3.80-5.40); RDW 17.1 % (11.5-15.5); WBC 3.8 k/uL (3.8-10.6)
[2022-04-04 05:24] LABS: Calcium 8.8 mg/dL (8.4-10.2); Potassium 4.3 mmol/L (3.5-5.1)
[2022-04-04] MEDS: INSULIN ASPART (NovoLOG) 100 UNIT/ML VIAL SQ SCH ×4 (05:56→20:35)
--- NOTE | 2022-04-04 07:02 | XR ---
EXAMINATION TYPE: XR chest 1V portable DATE OF EXAM: 04/04/2022 6:31 AM COMPARISON: Chest radiograph from one day prior. TECHNIQUE: XR chest 1V portable Portable AP radiograph of the chest. CLINICAL INDICATION:Female, 62 years old with history of Tube placement; FINDINGS: Lungs/Pleura: There is no evidence of pleural effusion, focal consolidation, or pneumothorax. Pulmonary vascularity: Mild pulmonary vascular congestion. Heart/mediastinum: Cardiomediastinal silhouette is enlarged and stable. Musculoskeletal: No acute osseous pathology. Other findings: None Lines/Tubes: No evidence of endotracheal tube. IMPRESSION: Multifocal airspace opacities concerning for pneumonia.
[2022-04-04] MEDS: traMADol 50 MG TAB PO SCH ×3 (07:15→18:06)
[2022-04-04] MEDS: IPRATROPIUM-ALBUTEROL 3 ML NEB INHALATION SCH ×4 (07:56→20:22)
[2022-04-04] MEDS: CLOPIDOGREL 75 MG TAB PO SCH (10:36)
[2022-04-04] MEDS: PANTOPRAZOLE 40 MG TABLET PO SCH (10:36)
[2022-04-04] MEDS: HYDROcodone/APAP 10-325MG 1 EACH TAB PO SCH ×2 (10:36→16:22)
[2022-04-04] MEDS: FUROSEMIDE 10 MG/ML 4 ML VIAL IV SCH ×2 (10:36→20:33)
[2022-04-04] MEDS: HEPARIN SODIUM,PORCINE/PF 5,000 UNIT/0.5 ML SYRINGE SQ SCH ×2 (10:36→20:34)
[2022-04-04] MEDS: ASPIRIN 81 MG PO SCH (10:36)
[2022-04-04] MEDS: CHOLECALCIFEROL 25 MCG (1000 IU) TABLET PO SCH (10:36)
[2022-04-04] MEDS: OSELTAMIVIR 75 MG CAP PO SCH ×2 (10:37→18:06)
[2022-04-04] MEDS: POTASSIUM CHLORIDE ER 20 MEQ TAB.ER PO SCH (10:40)
[2022-04-04] MEDS: METOPROLOL TARTRATE 25 MG TAB PO SCH ×2 (10:40→20:33)
[2022-04-04] MEDS: LOSARTAN 25 MG TAB PO SCH (10:41)
[2022-04-04] MEDS: CYCLOBENZAPRINE 5 MG TAB PO SCH ×2 (10:41→20:33)
[2022-04-04] MEDS: glipiZIDE 5 MG TAB PO SCH ×2 (10:41→20:33)
[2022-04-04] MEDS: PIOGLITAZONE 30 MG TAB PO SCH (10:41)
[2022-04-04 11:24] LABS: Glucose,Whole Blood 222 mg/dL (70-110)
--- NOTE | 2022-04-04 13:01 | PN ---
PROGRESS NOTE SUBJECTIVE: This is a 62-year-old lady with history of pneumonia, respiratory failure, chronic lymphedema, and aortic stenosis. She has been extubated, remains in sinus rhythm, feeling better, and denies any symptoms. She is waiting to be transferred out of ICU. OBJECTIVE: GENERAL: Comfortable at rest. VITAL SIGNS: Stable. CHEST: Reveals diffuse bilateral rhonchi. HEART: Reveals first and second heart sounds. Grade 3/6 ejection systolic murmur in the aortic area. ABDOMEN: Soft. EXTREMITIES: Exam of extremities reveals bilateral nonpitting edema. ASSESSMENT: 1. Vent-requiring respiratory failure secondary to pneumonia. 2. Moderate aortic stenosis. 3. Acute exacerbation of chronic diastolic heart failure. PLAN: The patient is doing better. I will switch the Lasix to p.o. HINA / ESEN: [id number] /
--- NOTE | 2022-04-04 13:16 | P.PN ---
Subjective Progress Note Date: 04/04/22 Principal diagnosis: Acute hypoxic and acute on chronic hypercapnic respiratory failure, multifactorial. This is a 62-year-old female with history of morbid obesity, COPD, hypertension, previous smoking history, patient presented to the ER yesterday with a few days' history of increased shortness of breath, productive cough with thick yellow phlegm, apparently the patient had multiple children in the household with similar symptoms. Upon arrival to the ER, patient was hypoxic, and she was placed on a nonrebreather mask. She tested positive for influenza A, and the patient was started on Tamiflu. Chest x-ray showed evidence of cardiomegaly, pulmonary venous congestion, diffuse perihilar infiltrates, findings are suspicious for congestive heart failure or viral type of pneumonia. CT angiogram of the chest showed no evidence of pulmonary embolism, bilateral pleural effusions, and moderate pericardial effusion as well as interstitial infiltrates bilaterally while in the ER, the patient seems to have decompensated, and developed significant worsening shortness of breath, and she required intubation and mechanical ventilation by the ER physician. Immediate ABG post intubation showed a pO2 of 164, pCO2 of 93 pH of 7.18, implying that the patient was developing significant worsening hypercapnic respiratory failure requiring intubation and mechanical ventilation. Follow-up ABG showed a pO2 of 76 he CO2 of 60 pH of 7.41, continues to have hypercapnia with metabolic compensation for her respiratory acidosis, and that implies that the patient does have chronic hypercapnia. At any rate patient was intubated, placed on mechanical ventilation and I was made aware of this patient, transfer patient to the ICU at night. While in the ICU the patient has been receiving antibiotics empirically, Tamiflu, and she was also receiving diuretics. Patient received s ignificant amount of fluid boluses while in the ER because of relatively low blood pressure. During my evaluation, the patient was on assist control rate of 24 tidal volume of 400 FiO2 40% and PEEP of 5. ABG showed a pO2 of 76 pCO2 of 60 pH of 7.41. Patient was kept on norepinephrine at 0.02 mcg/kg/m for now, I gave the patient a weaning trial while I was at bedside, patient was given a trial of pressure support of 10 and CPAP, and she tolerated that quite well for about one hour hence I recommended extubating the patient to BiPAP. IV fluid is cut down to KVO, patient has been receiving Lasix early this morning, and she is responding well to diuretics. Reevaluated today on 03/29/22, patient remains in the ICU, she tolerated extubation well, I saw this lady yesterday, and she was extubated to BiPAP. Eventually the patient was transitioned to a nasal cannula, and she remains on nasal cannula at present she is on 5 L/m, does not seem to be in distress, she is having intermittent cough, able to clear secretions.chest x-ray today continues to show evidence of interstitial edema, however it is improved compared to the chest x-ray on her admission and from yesterday.WBC count today is 4.3 hemoglobin 7.6 electrolytes are normal renal profile is normal bicarb is 39, blood sugar is 232 Reevaluated today on 04/03/22, patient continues to do well, continues to tolerate the extubation well, she is now on few liters nasal cannula, sitting in a bedside chair, doing great, relatively asymptomatic, chest x-ray is showing significant improvement.WBC count is 3.4 hemoglobin 7.7. Electrolytes and renal profile are normal bicarb is 39.chest x-ray continues to show mild interstitial edema and trace of the effusions. But improved compared to her initial chest x- ray on admission. Reevaluated today on 04/04/22, patient remains in the ICU, she is doing well. She tolerated the extubation a few days ago, continues to do well remains on Lasix 40 mg 3 times a day and I cut down to 40 mg twice a day. Patient had a negative fluid balance of 1.2 L in the last 24 hours. She is now on nasal cannula at 3 L/m, overall the patient is doing better than expected. Hence I plan to transfer the patient out of the ICU to a monitor bed on .WBC count is 3.8 hemoglobin is 7.6, basic metabolic profile is normal, renal profile is normal, bicarb is 40.chest x-ray continues to show multifocal airspace opacities, but significantly improved compared to her initial baseline chest x- ray when she was intubated upon presentation. Objective - Vital Signs Vital signs: Vital Signs Temp 98.1 F 04/04/22 10:00 Pulse 112 H 04/04/22 10:00 Resp 17 04/04/22 10:00 BP 109/50 04/04/22 10:00 Pulse Ox 97 04/04/22 10:00 FiO2 28 04/02/22 08:42 Intake & Output 04/03/22 04/04/22 04/04/22 18:59 06:59 18:59 Intake Total 500 200 Output Total 1190 Balance -690 200 Weight 155.7 kg Intake: Oral 500 200 Output: Urine 1190 Other: Voiding Method Indwelling Catheter Toilet Toilet # Voids 1 - Exam CONSTITUTIONAL: Revealed a 62-year-old female, obese,in no distress, sitting in her recliner,on nasal cannula at 3 L, O2 sats is 96% Head: Atraumatic, normocephalic. HEENT: Pupils are equal, round. Sclerae anicteric. Mucous membranes of the mouth are moist. No JVD. No carotid bruit. CHEST EXAMINATION: Symmetrical chest expansion, minimal crackles persist at the bases. HEART EXAMINATION: Distant S1 and S2, no S3 gallop, no murmur ABDOMEN: Obese, Soft, nontender. Positive bowel sounds. EXTREMITIES: No clubbing edema or cyanosis, good pulses bilaterally. NEUROLOGIC EXAMINATION: alert and oriented 3 focal neurologic deficits. Psychiatric: Normal mood, affect and normal mental status examination. Skin: No rashes. - Labs CBC & Chem 7: 04/04/22 04:31 04/04/22 04:31 Labs: Abnormal Lab Results - Last 24 Hours (Table) 04/03/22 04/03/22 04/04/22 Range/Units 17:18 23:41 01:25 RBC (3.80-5.40) m/uL Hgb (11.4-16.0) gm/dL Hct (34.0-46.0) % RDW (11.5-15.5) % Lymphocytes # (1.0-4.8) k/uL Sodium (137-145) mmol/L Chloride (98-107) mmol/L Carbon Dioxide (22-30) mmol/L BUN (7-17) mg/dL POC Glucose (mg/dL) 208 H 193 H 133 H (70-110) mg/dL 04/04/22 04/04/22 04/04/22 Range/Units 04:31 04:31 11:22 RBC 2.41 L (3.80-5.40) m/uL Hgb 7.6 L (11.4-16.0) gm/dL Hct 23.2 L (34.0-46.0) % RDW 17.1 H (11.5-15.5) % Lymphocytes # 0.4 L (1.0-4.8) k/uL Sodium 135 L (137-145) mmol/L Chloride 93 L (98-107) mmol/L Carbon Dioxide 40 H (22-30) mmol/L BUN 31 H (7-17) mg/dL POC Glucose (mg/dL) 222 H (70-110) mg/dL Microbiology - Last 24 Hours (Table) 03/31/22 16:42 Blood Culture - Preliminary Blood No Growth after 72 hours 03/31/22 12:42 Blood Culture - Preliminary Blood No Growth after 72 hours Assessment and Plan Assessment: Impression: Acute hypoxic and acute on chronic hypercapnic respiratory failure, multifact orial. Acute on chronic diastolic heart failure Influenza A pneumonia/infection Acute exacerbation of COPD Possible superimposed bacterial pneumonia Acute non-ST elevation myocardial infarction with elevated troponin, being addressed by cardiology. small pericardial effusion noted on echocardiogram Benign essential hypertension Paroxysmal supraventricular tachycardia History of underlying COPD Morbid obesity Sepsis, possible septic shock.resolved. History of degenerative joint disease. Elevated d-dimer but negative CT angiogram of the chest. Recommendation: continue oxygen and titrate accordingly Will transfer the patient to a monitor bed on selective today. procalcitonin is borderline, could consider stopping antibiotics. Continue bronchodilators. Continue steroids. Continue Tamiflu. Continue diuretics.however I'm cutting down Lasix to 40 mg twice a day instead of 3 times a day. Continue GI and DVT prophylaxis. Will continue to follow. Time with Patient: Less than 30
--- NOTE | 2022-04-04 13:51 | P.PN ---
Subjective Progress Note Date: 04/04/22 Principal diagnosis: Flu and pneumonia Patient is a 62-year-old female with multiple comorbidities including COPD hypertension morbid obesity presenting to the ER yesterday for evaluation of increasing shortness of breath apparent has been getting worse for the last few days before presentation to the hospital patient did have worsening respiratory distress and the patient up getting intubated in the ER and was subsequently admitted to ICU, patient has been subsequently extubated on 04/01/2022 On today's evaluation that is 04/04/2022, the patient continues to be afebrile, the patient is breathing comfortably on 3 L nasal cannula oxygen, the patient denies having any chest pain , the patient cough is decreased intensity and no worsening sputum production or hemoptysis, no abdominal pain no diarrhea Objective - Vital Signs Vital signs: Vital Signs Temp 98.1 F 04/04/22 10:00 Pulse 112 H 04/04/22 10:00 Resp 17 04/04/22 10:00 BP 109/50 04/04/22 10:00 Pulse Ox 97 04/04/22 10:00 FiO2 28 04/02/22 08:42 Intake & Output 04/03/22 04/04/22 04/04/22 18:59 06:59 18:59 Intake Total 500 200 Output Total 1190 Balance -690 200 Weight 155.7 kg Intake: Oral 500 200 Output: Urine 1190 Other: Voiding Method Indwelling Catheter Toilet Toilet # Voids 1 - Exam GENERAL DESCRIPTION: A middle-age female up in the chair in no distress RESPIRATORY SYSTEM: Unlabored breathing , coarse breath sounds at the bases bilaterally HEART: S1 S2 regular rate and rhythm , ABDOMEN: Soft , no tenderness EXTREMITIES: No edema feet - Labs CBC & Chem 7: 04/04/22 04:31 04/04/22 04:31 Labs: Abnormal Lab Results - Last 24 Hours (Table) 04/03/22 04/03/22 04/04/22 Range/Units 17:18 23:41 01:25 RBC (3.80-5.40) m/uL Hgb (11.4-16.0) gm/dL Hct (34.0-46.0) % RDW (11.5-15.5) % Lymphocytes # (1.0-4.8) k/uL Sodium (137-145) mmol/L Chloride (98-107) mmol/L Carbon Dioxide (22-30) mmol/L BUN (7-17) mg/dL POC Glucose (mg/dL) 208 H 193 H 133 H (70-110) mg/dL 04/04/22 04/04/22 04/04/22 Range/Units 04:31 04:31 11:22 RBC 2.41 L (3.80-5.40) m/uL Hgb 7.6 L (11.4-16.0) gm/dL Hct 23.2 L (34.0-46.0) % RDW 17.1 H (11.5-15.5) % Lymphocytes # 0.4 L (1.0-4.8) k/uL Sodium 135 L (137-145) mmol/L Chloride 93 L (98-107) mmol/L Carbon Dioxide 40 H (22-30) mmol/L BUN 31 H (7-17) mg/dL POC Glucose (mg/dL) 222 H (70-110) mg/dL Microbiology - Last 24 Hours (Table) 03/31/22 16:42 Blood Culture - Preliminary Blood No Growth after 72 hours 03/31/22 12:42 Blood Culture - Preliminary Blood No Growth after 72 hours Assessment and Plan (1) Febrile illness, acute Current Visit: Yes Status: Acute Code(s): R50.9 - FEVER, UNSPECIFIED SNOMED Code(s): 401201874 (2) Influenza due to influenza virus, type A, human Current Visit: Yes Status: Acute Code(s): J10.1 - FLU DUE TO OTH IDENT INFLUENZA VIRUS W OTH RESP MANIFEST SNOMED Code(s): 375409896 Plan: 1patient presented to hospital with acute respiratory failure which is likely multifactorial in this patient tested positive for acute influenza A and possible component of COPD the patient with regular bronchitis versus early pneumonia. 2Patient with multiple antibiotic ALLERGIES that would limit the number of antibiotic safe to use. 3patient has shown clinical improvement chest x-ray still show multifocal infiltrate , patientsputum has been negative for resistant pathogen blood culture negative continue with Rocephin and monitor clinical course closely Time with Patient: Less than 30
[2022-04-04 16:36] LABS: Glucose,Whole Blood 178 mg/dL (70-110)
[2022-04-04 20:18] LABS: Glucose,Whole Blood 192 mg/dL (70-110)
[2022-04-05] MEDS: traMADol 50 MG TAB PO SCH ×5 (00:37→23:45)
[2022-04-05] MEDS: HYDROcodone/APAP 10-325MG 1 EACH TAB PO SCH ×4 (00:38→21:11)
--- NOTE | 2022-04-05 01:07 | PN ---
PROGRESS NOTE DATE OF SERVICE: 04/04/2022 SUBJECTIVE: This is a 62-year-old woman who was admitted with acute influenza A, also had CHF exacerbation, extubated. The patient is feeling much better. Multiple consultants are following the patient closely. PAST MEDICAL HISTORY: Reviewed. REVIEW OF SYSTEMS: A 14-point review is negative except as mentioned earlier. CURRENT MEDICATIONS: Reviewed include [place]. Dose and rest of medication noted. PHYSICAL EXAMINATION: VITAL SIGNS: Pulse is 94, blood pressure 115/68, respirations 21. HEENT: Conjunctivae normal. NECK: No JVD. CARDIOVASCULAR: S1, S2. RESPIRATIONS: A few scattered rhonchi and crackles. ABDOMEN: Soft. LEGS: No edema. LABORATORY DATA: Reviewed. ASSESSMENT: 1. Acute influenza A with acute influenza pneumonia, bilateral. 2. Congestive heart failure with acute exacerbation, acute on chronic diastolic dysfunction, status post mechanical ventilation with acute hypoxic respiratory failure. 3. Moderate aortic stenosis. 4. Troponin 0.128. 5. Elevated D-dimer. 6. Leukopenia. 7. Anemia. 8. Chronic obstructive pulmonary disease. 9. Hypertension. 10.Degenerative joint disease. 11.Tachycardia. 12.Multiple medical issues. RECOMMENDATIONS: Recommend to continue current medications and treatment. Otherwise closely follow up with Cardiology, Pulmonology and monitor closely. Antibiotics per Infectious Disease. See orders for details. Further recommendations to follow. MMODL / IJN: [id number] /
[2022-04-05 02:22] LABS: Glucose,Whole Blood 194 mg/dL (70-110)
[2022-04-05] MEDS: INSULIN ASPART (NovoLOG) 100 UNIT/ML VIAL SQ SCH ×5 (02:40→20:24)
[2022-04-05] MEDS: ALPRAZolam 0.25 MG TAB PO PRN (02:47)
[2022-04-05 06:36] LABS: Glucose,Whole Blood 153 mg/dL (70-110)
--- NOTE | 2022-04-05 08:00 | XR ---
EXAMINATION TYPE: XR chest 1V portable DATE OF EXAM: 04/05/2022 5:31 AM COMPARISON: Chest radiographs from 04/04/2022 TECHNIQUE: XR chest 1V portable Frontal view of the chest. CLINICAL INDICATION:Female, 62 years old with history of Tube placement; FINDINGS: Lungs/Pleura: Small bilateral pleural effusions. No focal consolidation or pneumothorax. Pulmonary vascularity: Pulmonary vascular congestion. Heart/mediastinum: Cardiomediastinal silhouette is enlarged and stable. Musculoskeletal: No acute osseous pathology. Other: No endotracheal tube identified. IMPRESSION: Persistent cardiomegaly with small bilateral pleural effusions and pulmonary vascular congestion. Fin dings again suggest CHF exacerbation.
[2022-04-05] MEDS: METOPROLOL TARTRATE 25 MG TAB PO SCH ×3 (08:14→21:12)
[2022-04-05] MEDS: PANTOPRAZOLE 40 MG TABLET PO SCH (08:14)
[2022-04-05] MEDS: CLOPIDOGREL 75 MG TAB PO SCH (08:14)
[2022-04-05] MEDS: ASPIRIN 81 MG PO SCH (08:14)
[2022-04-05] MEDS: POTASSIUM CHLORIDE ER 20 MEQ TAB.ER PO SCH (08:15)
[2022-04-05] MEDS: CHOLECALCIFEROL 25 MCG (1000 IU) TABLET PO SCH (08:15)
[2022-04-05] MEDS: LOSARTAN 25 MG TAB PO SCH (08:15)
[2022-04-05] MEDS: PIOGLITAZONE 30 MG TAB PO SCH (08:16)
[2022-04-05] MEDS: OSELTAMIVIR 75 MG CAP PO SCH (08:16)
[2022-04-05] MEDS: CYCLOBENZAPRINE 5 MG TAB PO SCH ×2 (08:16→22:47)
[2022-04-05] MEDS: glipiZIDE 5 MG TAB PO SCH ×2 (08:16→20:24)
[2022-04-05] MEDS ORDERED: METOPROLOL TARTRATE 25 MG TAB PO SCH (09:00)
--- NOTE | 2022-04-05 09:23 | PN ---
PROGRESS NOTE Mrs. Echeverria developed influenza A. She also has some diastolic heart failure and pneumonia. She is doing better today. She is slightly tachycardic, maintaining sinus rhythm, hemodynamically stable, having decent urine output. PHYSICAL EXAMINATION: VITAL SIGNS: Stable. NECK: JVD is 1 cm. No carotid bruit. CARDIAC: S1, S2 with tachycardia. No significant murmurs. LUNGS: Reveal fair air entry bilaterally in lung lopez. ABDOMEN: Unchanged. LOWER EXTREMITIES: Unchanged. I am recommending that we increase the Lopressor to 25 mg t.i.d., and based on clinical course, I will make further recommendations. However, her pulmonary status also seems to be improving today. MMODL / IJN: [id number] /
[2022-04-05] MEDS: IPRATROPIUM-ALBUTEROL 3 ML NEB INHALATION SCH ×4 (09:29→19:58)
--- NOTE | 2022-04-05 10:09 | P.PN ---
Subjective Progress Note Date: 04/05/22 Principal diagnosis: Influenza A infection, acute hypoxic respiratory failure This is a 62-year-old female with history of morbid obesity, COPD, hypertension, previous smoking history, patient presented to the ER yesterday with a few days' history of increased shortness of breath, productive cough with thick yellow phlegm, apparently the patient had multiple children in the household with similar symptoms. Upon arrival to the ER, patient was hypoxic, and she was placed on a nonrebreather mask. She tested positive for influenza A, and the patient was started on Tamiflu. Chest x-ray showed evidence of cardiomegaly, pulmonary venous congestion, diffuse perihilar infiltrates, findings are suspicious for congestive heart failure or viral type of pneumonia. CT angiogram of the chest showed no evidence of pulmonary embolism, bilateral pleural effusions, and moderate pericardial effusion as well as interstitial infiltrates bilaterally while in the ER, the patient seems to have decompensated, and developed significant worsening shortness of breath, and she required intubation and mechanical ventilation by the ER physician. Immediate ABG post intubation showed a pO2 of 164, pCO2 of 93 pH of 7.18, implying that the patient was developing significant worsening hypercapnic respiratory failure requiring intubation and mechanical ventilation. Follow-up ABG showed a pO2 of 76 he CO2 of 60 pH of 7.41, continues to have hypercapnia with metabolic compensation for her respiratory acidosis, and that implies that the patient does have chronic hypercapnia. At any rate patient was intubated, placed on mechanical ventilation and I was made aware of this patient, transfer patient to the ICU at night. While in the ICU the patient has been receiving antibiotics empirically, Tamiflu, and she was also receiving diuretics. Patient received significant amount of fluid boluses while in the ER because of relatively low blood pressure. During my evaluation, the patient was on assist control rate of 24 tidal volume of 400 FiO2 40% and PEEP of 5. ABG showed a pO2 of 76 pCO2 of 60 pH of 7.41. Patient was kept on norepinephrine at 0.02 mcg/kg/m for now, I gave the patient a weaning trial while I was at bedside, patient was given a trial of pressure support of 10 and CPAP, and she tolerated that quite well for about one hour hence I recommended extubating the patient to BiPAP. IV fluid is cut down to KVO, patient has been receiving Lasix early this morning, and she is responding well to diuretics. Reevaluated today on 03/29/22, patient remains in the ICU, she tolerated extubation well, I saw this lady yesterday, and she was extubated to BiPAP. Eventually the patient was transitioned to a nasal cannula, and she remains on nasal cannula at present she is on 5 L/m, does not seem to be in distress, she is having intermittent cough, able to clear secretions.chest x-ray today continues to show evidence of interstitial edema, however it is improved compar ed to the chest x-ray on her admission and from yesterday.WBC count today is 4.3 hemoglobin 7.6 electrolytes are normal renal profile is normal bicarb is 39, blood sugar is 232 Reevaluated today on 04/03/22, patient continues to do well, continues to tolerate the extubation well, she is now on few liters nasal cannula, sitting in a bedside chair, doing great, relatively asymptomatic, chest x-ray is showing significant improvement.WBC count is 3.4 hemoglobin 7.7. Electrolytes and renal profile are normal bicarb is 39.chest x-ray continues to show mild interstitial edema and trace of the effusions. But improved compared to her initial chest x- ray on admission. Reevaluated today on 04/04/22, patient remains in the ICU, she is doing well. She tolerated the extubation a few days ago, continues to do well remains on Lasix 40 mg 3 times a day and I cut down to 40 mg twice a day. Patient had a negative fluid balance of 1.2 L in the last 24 hours. She is now on nasal cannula at 3 L/m, overall the patient is doing better than expected. Hence I plan to transfer the patient out of the ICU to a monitor bed on .WBC count is 3.8 hemoglobin is 7.6, basic metabolic profile is normal, renal profile is normal, bicarb is 40.chest x-ray continues to show multifocal airspace opacities, but significantly improved compared to her initial baseline chest x- ray when she was intubated upon presentation. patient is being reevaluated today on 04/05/2022, in the ICU as a 3 S. overflow. She was originally admitted on 03/31 with shortness of breath, fever, influenza A infection. patient did require intubation on 03/31/2022 for acute hypoxic respiratory failure and was extubated the following day on 04/01/2022. Patient is currently resting comfortably in chair 3 L nasal cannula. She is not receiving any IV fluids. she denies shortness of breath, cough, chest pain, fever. a repeat chest x-ray from today showed persistent cardiomegaly with small bilateral pleural effusions and some pulmonary vascular congestion. she continues to receive Lasix twice a day. her fluid balance for the last 24 hours is 0.5 L. An echocardiogram from 04/02/2022 shows a preserved ejection fraction 55%, some moderate aortic stenosis, and left ventricular hypertrophy. sputum and blood cultures remain negative. no new labs to review today. CBC from 04/04/2020 to show no leukocytosis. she has completed her course of Tamiflu. she is receiving ceftriaxone for empiric antibiotic therapy. she is also maintained on DuoNeb inhalation. She is receiving Protonix for GI prophylaxis and heparin for DVT prophylaxis. Objective - Vital Signs Vital signs: Vital Signs Temp 98.0 F 04/05/22 04:00 Pulse 103 H 04/05/22 09:41 Resp 22 04/05/22 08:00 BP 140/75 04/05/22 08:00 Pulse Ox 100 04/05/22 09:32 FiO2 28 04/02/22 08:42 Intake & Output 04/04/22 04/05/22 04/05/22 18:59 06:59 18:59 Intake Total 1100 Output Total 1300 Balance -200 Weight 155.7 kg 155 kg Intake: Oral 1100 Output: Urine 1300 Other: Voiding Method Toilet Toilet # Voids 1 # Bowel Movements 2 - Exam CONSTITUTIONAL: Revealed a 62-year-old female, obese, in no distress, sitting in her recliner,on nasal cannula at 3 L Head: Atraumatic, normocephalic. HEENT: Pupils are equal, round. Mucous membranes of the mouth are moist. No JVD. No carotid bruit. CHEST EXAMINATION: Symmetrical chest expansion, minimal crackles persist at the bases. HEART EXAMINATION: Distant S1 and S2, no S3 gallop, no murmur ABDOMEN: Obese, Soft, nontender. Positive bowel sounds. EXTREMITIES: No clubbing or cyanosis, good pulses bilaterally. there is some bilateral lower extremity edema 1+ NEUROLOGIC EXAMINATION: alert and oriented 3 focal neurologic deficits. Psychiatric: Normal mood, affect and normal mental status examination. Skin: No rashes. - Labs CBC & Chem 7: 04/04/22 04:31 04/04/22 04:31 Labs: Abnormal Lab Results - Last 24 Hours (Table) 04/04/22 04/04/22 04/04/22 Range/Units 11:22 16:35 20:15 POC Glucose (mg/dL) 222 H 178 H 192 H (70-110) mg/dL 04/05/22 04/05/22 Range/Units 02:20 06:34 POC Glucose (mg/dL) 194 H 153 H (70-110) mg/dL Microbiology - Last 24 Hours (Table) 03/31/22 16:42 Blood Culture - Preliminary Blood No Growth after 96 hours 03/31/22 12:42 Blood Culture - Preliminary Blood No Growth after 96 hours Assessment and Plan Assessment: Acute hypoxic and acute on chronic hypercapnic respiratory failure, multifactorial. Acute on chronic diastolic heart failure Influenza A pneumonia/infection Acute exacerbation of COPD Possible superimposed bacterial pneumonia Acute non-ST elevation myocardial infarction with elevated troponin, being addressed by cardiology. small pericardial effusion noted on echocardiogram Benign essential hypertension Paroxysmal supraventricular tachycardia History of underlying COPD Morbid obesity Sepsis, possible septic shock.resolved. History of degenerative joint disease. Elevated d-dimer but negative CT angiogram of the chest. Plan: continue oxygen supplementation 3 L nasal cannula as needed to maintain oxygen saturation 92% or greater. Will transfer the patient to a medical surgical floor with telemetry. we'll recheck procalcitonin today, and consider discontinuation of antibiotics if negative. Continue bronchodilators. course of Tamiflu completed continue IV diuresis with Lasix 40 mg twice a day. Continue GI and DVT prophylaxis. Will continue to follow. I have personally seen and examined the patient, performed the documentation and the assessment and plan as written. Number of minutes spent on the visit: 10. Time with Patient: Less than 30
[2022-04-05] MEDS ORDERED: IOPAMIDOL CONTRAST (ORAL USE) VIAL PO PRN (10:38)
[2022-04-05] MEDS: FUROSEMIDE 10 MG/ML 4 ML VIAL IV SCH ×2 (10:44→20:38)
[2022-04-05 11:26] LABS: Glucose,Whole Blood 166 mg/dL (70-110)
--- NOTE | 2022-04-05 12:22 | P.GSCN ---
History of Present Illness Consult date: 04/05/22 History of present illness: CHIEF COMPLAINT: Shortness of breath Reason for consult abdominal pain, hard umbilical hernia HISTORY OF PRESENT ILLNESS: This is a 62-year-old female who presented with worsening shortness of breath and was found to have evidence of acute hypoxic respiratory failure with influenza positive, COPD exacerbation and CHF exacerbation. Patient did require mechanical ventilation during this admission. She is currently on 3 L of oxygen satting at 100%. Yesterday patient started complaining of abdominal pain and constipation. She has had an umbilical hernia for about 3 years. She reports that the hernia is hard and firm which started yesterday. She has been having constipation. She's only had liquidy very small stool early yesterday morning. Since then no stools and her flatus has stopped as well. She denies any nausea or vomiting. Denies any prior abdominal surgical history. She is on Plavix. Computed tomography scan of the abdomen and pelvis was ordered today for further evaluation of patient's abdominal pain and umbilical hernia. However, patient cannot lay flat to have testing done. PAST MEDICAL HISTORY: Heart Failure, COPD, Hypertension, Osteoarthritis (OA), Skin Disorder, Crohn's disease PAST SURGICAL HISTORY: See below MEDICATIONS: See below ALLERGIES: See below SOCIAL HISTORY: No illicit drug use. REVIEW OF SYSTEMS: CONSTITUTIONAL: Denies fever or chills. HEENT: Denies blurred vision, vision changes, or eye pain. Denies hemoptysis CARDIOVASCULAR: Denies chest pain or pressure. RESPIRATORY: No shortness of breath. GASTROINTESTINAL: See HPI for pertinent findings HEMATOLOGIC: Denies bleeding disorders. GENITOURINARY: Denies any blood in urine or increased urinary frequency. SKIN: Denies pruitis. Denies rash. PHYSICAL EXAM: VITAL SIGNS: Reviewed GENERAL: Well-developed in no acute distress. HEENT: No sclera icterus. Extraocular movements grossly intact. Moist buccal mucosa. Head is atraumatic, normocephalic. No nasal drainage. ABDOMEN: Soft. Obese. Hard and firm umbilical hernia. Unable to reduce. Tender with palpation. NEUROLOGIC: Alert and oriented. Cranial nerves II through XII grossly intact. LABORATORY DATA: WBC is 3.8 Hgb 7.6 platelets 202 sodium is 135 potassium 4.3 creatinine 0.8 IMAGING: ASSESSMENT: 1. Incarcerated umbilical hernia 2. Acute respiratory failure with influenza, COPD and CHF exacerbation PLAN: -Patient scheduled for repair of incarcerated umbilical hernia today with Dr. solis -Keep patient nothing by mouth -Continue supportive care Thank you for this consultation Physician [employer] note has been reviewed by physician. Signing provider agrees with the documented findings, assessment, and plan of care. Past Medical History Past Medical History: Heart Failure, COPD, Diabetes Mellitus, Hypertension, Osteoarthritis (OA), Skin Disorder Additional Past Medical History / Comment(s): CHF, Chrohn's Disease, Chronic Hives History of Any Multi-Drug Resistant Organisms: None Reported Additional Past Surgical History / Comment(s): Fistula in buttocks. Past Anesthesia/Blood Transfusion Reactions: No Reported Reaction Past Psychological History: No Psychological Hx Reported Smoking Status: Former smoker Past Alcohol Use History: None Reported Past Drug Use History: None Reported Medications and Allergies Home Medications Medication Instructions Recorded Confirmed Type Aspirin EC [Ecotrin Low Dose] 81 mg PO DAILY 03/31/22 03/31/22 History Cholecalciferol [Vitamin D3 (25 25 mcg PO DAILY 03/31/22 03/31/22 History Mcg = 1000 Iu)] Cinnamon Bark [Cinnamon] 500 mg PO BID 03/31/22 03/31/22 History Clopidogrel [Plavix] 75 mg PO DAILY 03/31/22 03/31/22 History Cyclobenzaprine [Flexeril] 5 mg PO BID 03/31/22 03/31/22 History Furosemide [Lasix] 40 mg PO BID 03/31/22 03/31/22 History HYDROcodone/APAP 10-325MG [[place] 1 tab PO TID 03/31/22 03/31/22 History 10-325] Losartan [Cozaar] 25 mg PO DAILY 03/31/22 03/31/22 History Metoprolol Tartrate [Lopressor] 25 mg PO BID 03/31/22 03/31/22 History [place]-3 Fatty Acids [[place]-3] 1,000 mg PO TID 03/31/22 03/31/22 History Pioglitazone [Actos] 30 mg PO DAILY 03/31/22 03/31/22 History Potassium Chloride ER [K-Dur 20] 20 meq PO DAILY 03/31/22 03/31/22 History glipiZIDE [Glucotrol] 5 mg PO BID 03/31/22 03/31/22 History traMADol HCL [traMADol HCL ER] 200 mg PO DAILY 03/31/22 03/31/22 History Allergies Allergy/AdvReac Type Severity Reaction Status Date / Time latex Allergy Rash/Hives Verified 03/31/22 13:47 Penicillins Allergy Rash/Hives Verified 03/31/22 13:47 Sulfa (Sulfonamide Allergy Rash/Hives Verified 03/31/22 13:47 Antibiotics) Surgical - Exam Vital Signs Temp Pulse Resp BP Pulse Ox 100.3 F H 133 H 24 146/70 100 03/31/22 12:08 03/31/22 12:08 03/31/22 12:08 03/31/22 12:08 03/31/22 12:08 Results - Labs 04/04/22 04:31 04/04/22 04:31 Abnormal Lab Results - Last 24 Hours (Table) 04/04/22 04/04/22 04/05/22 Range/Units 16:35 20:15 02:20 POC Glucose (mg/dL) 178 H 192 H 194 H (70-110) mg/dL 04/05/22 04/05/22 Range/Units 06:34 11:25 POC Glucose (mg/dL) 153 H 166 H (70-110) mg/dL Microbiology - Last 24 Hours (Table) 03/31/22 16:42 Blood Culture - Preliminary Blood No Growth after 96 hours 03/31/22 12:42 Blood Culture - Preliminary Blood No Growth after 96 hours
[2022-04-05] MEDS: HEPARIN SODIUM,PORCINE/PF 5,000 UNIT/0.5 ML SYRINGE SQ SCH ×2 (12:37→20:38)
[2022-04-05] MEDS: HYDROmorphone 0.5 MG/0.5 ML SYRINGE IVP PRN ×3 (13:08→19:53)
[2022-04-05 16:09] LABS: Glucose,Whole Blood 94 mg/dL (70-110)
[2022-04-05] MEDS ORDERED: LACTATED RINGERS 1,000 ML IV ONE (16:13)
[2022-04-05] MEDS ORDERED: BUPIVACAIN-EPI 0.25%-1:200,000 30 ML VIAL SQ ONE (16:25)
[2022-04-05] MEDS ORDERED: PROPOFOL 10 MG/ML 20 ML VIAL IV ONE (16:29)
[2022-04-05] MEDS ORDERED: LIDOCAINE 2% INJ 20 MG/ML (2 ML VIAL) ONE (16:29)
[2022-04-05] MEDS ORDERED: SUCCINYLCHOLINE CHLORIDE 200 MG/10 ML VIAL IV ONE (16:29)
[2022-04-05] MEDS ORDERED: ROCURONIUM 10 MG/ML (5 ML VIAL) IV ONE (16:29)
[2022-04-05] MEDS ORDERED: fentaNYL (PF) 50 MCG/ML 2 ML AMP ONE (16:29)
[2022-04-05] MEDS ORDERED: MIDAZOLAM 2 MG/2 ML VIAL ONE (16:29)
--- NOTE | 2022-04-05 17:22 | P.OP ---
Date of Procedure: 04/05/22 Preoperative Diagnosis: incarcerated ventral hernia Postoperative Diagnosis: incarcerated ventral hernia Procedure(s) Performed: open repair of incarcerated ventral hernia Partial omentectomy Anesthesia: [place] Surgeon: Arnol Guerrero Estimated Blood Loss (ml): 20 Pathology: other (omentum in hernia sac) Condition: stable Disposition: PACU Description of Procedure: the patient's placed on the operative table in supine position. She received general endotracheal anesthesia. Her abdomen was prepped and draped usual fashion. The skin over the hernia was incised. Subcutaneous tissue divided away. Then the hernia sac was opened. The hernia sac contained incarcerated small bowel. The neck of the hernia was then opened. And the small bowel obstruction was relieved. The bowel appeared viable. The bowels placed back into the Cavity. The omentum was visualized. There was a portion of omentum which was nonviable. This was transected with the LigaSure device. The specimens of pathology. The hernia sac was dissected free. The resectoscope to pathology. The fascial defect measured approximately 8 x 8 cm was located above the umbilicus. The fascial repair was then performed using 0 Ethibond [id number] suture. Once the fascia was repaired. It was decided not to place an onlay mesh due to risk of infection.a ANTONY drain is placed in subcutaneous space and brought through separate stab incision. Skin was closed graciela. Patient top she will sent back to the ICU intubated in stable condition.
[2022-04-05 18:36] LABS: Glucose,Whole Blood 86 mg/dL (70-110)
[2022-04-05] MEDS: HYDROmorphone 1 MG/ML 1 ML SYRINGE IVP PRN ×2 (18:41→22:31)
[2022-04-05 20:13] LABS: Glucose,Whole Blood 133 mg/dL (70-110)
[2022-04-05] MEDS ORDERED: CHLORHEXIDINE GLUCONATE 15 ML CUP MUCOUS MEM SCH (21:00)
--- NOTE | 2022-04-05 22:09 | P.PN ---
Subjective Progress Note Date: 04/05/22 Principal diagnosis: Flu and pneumonia Patient is a 62-year-old female with multiple comorbidities including COPD hypertension morbid obesity presenting to the ER yesterday for evaluation of increasing shortness of breath apparent has been getting worse for the last few days before presentation to the hospital patient did have worsening respiratory distress and the patient up getting intubated in the ER and was subsequently admitted to ICU, patient has been subsequently extubated on 04/01/2022 On today's evaluation that is 04/05/2022, the patient remains to be afebrile, the patient is breathing comfortably on 3 L nasal cannula oxygen, the patient denies having any chest pain , the patient cough is decreased intensity and not begin any sputum patient had been complaining of abdominal pain and distention and no bowel movement for the last 2 days Objective - Vital Signs Vital signs: Vital Signs Temp 98.0 F 04/05/22 04:00 Pulse 103 H 04/05/22 09:41 Resp 22 04/05/22 08:00 BP 140/75 04/05/22 08:00 Pulse Ox 100 04/05/22 09:32 FiO2 28 04/02/22 08:42 Intake & Output 04/04/22 04/05/22 04/05/22 18:59 06:59 18:59 Intake Total 1100 Output Total 1300 Balance -200 Weight 155.7 kg 155 kg Intake: Oral 1100 Output: Urine 1300 Other: Voiding Method Toilet Toilet Toilet # Voids 1 # Bowel Movements 2 - Exam GENERAL DESCRIPTION: A middle-age female up in the chair in no distress RESPIRATORY SYSTEM: Unlabored breathing , coarse breath sounds at the bases bilaterally HEART: S1 S2 regular rate and rhythm , ABDOMEN: Soft , mild distention and tenderness EXTREMITIES: No edema feet - Labs CBC & Chem 7: 04/04/22 04:31 04/04/22 04:31 Labs: Abnormal Lab Results - Last 24 Hours (Table) 04/04/22 04/04/22 04/05/22 Range/Units 16:35 20:15 02:20 POC Glucose (mg/dL) 178 H 192 H 194 H (70-110) mg/dL 04/05/22 04/05/22 Range/Units 06:34 11:25 POC Glucose (mg/dL) 153 H 166 H (70-110) mg/dL Microbiology - Last 24 Hours (Table) 03/31/22 16:42 Blood Culture - Preliminary Blood No Growth after 96 hours 03/31/22 12:42 Blood Culture - Preliminary Blood No Growth after 96 hours Assessment and Plan (1) Febrile illness, acute Current Visit: Yes Status: Acute Code(s): R50.9 - FEVER, UNSPECIFIED SNOMED Code(s): 468871089 (2) Influenza due to influenza virus, type A, human Current Visit: Yes Status: Acute Code(s): J10.1 - FLU DUE TO OTH IDENT INFLUENZA VIRUS W OTH RESP MANIFEST SNOMED Code(s): 578719649 Plan: 1patient presented to hospital with acute respiratory failure which is likely multifactorial in this patient tested positive for acute influenza A and possible component of COPD the patient with regular bronchitis versus early pneumonia. 2Patient with multiple antibiotic ALLERGIES that would limit the number of antibiotic safe to use. 3patient now with concern for possible incarcerated hernia and is scheduled for surgery antibiotic will be switched over to cefepime and Flagyl and monitor clinical course closely Time with Patient: Less than 30
[2022-04-05] MEDS: CEFEPIME 2 GM in SODIUM CHLORIDE 0.9% 100 ML IVPB SCH (22:48)
[2022-04-06] MEDS: HYDROmorphone 0.5 MG/0.5 ML SYRINGE IVP PRN ×4 (01:10→14:27)
[2022-04-06] MEDS: metroNIDAZOLE-NS PMX 500 MG in SALINE 1 100ML.BAG IVPB SCH ×4 (01:12→23:03)
[2022-04-06 02:33] LABS: Glucose,Whole Blood 202 mg/dL (70-110)
[2022-04-06] MEDS: HYDROmorphone 1 MG/ML 1 ML SYRINGE IVP PRN (02:59)
[2022-04-06] MEDS: INSULIN ASPART (NovoLOG) 100 UNIT/ML VIAL SQ SCH ×5 (03:00→20:43)
--- NOTE | 2022-04-06 03:47 | PN ---
PROGRESS NOTE DATE OF SERVICE: 04/05/2022 SUBJECTIVE: This is a 62-year-old woman who was admitted with acute influenza A, also complaining of abdominal pain. The patient is slated to undergo repair of incarcerated umbilical hernia. No chest pain. No palpitations. No fever. REVIEW OF SYSTEMS: 14-point review of systems is negative. CURRENT MEDICATIONS: Reviewed. OBJECTIVE: VITAL SIGNS: Pulse is 91, blood pressure 115/60, respirations 16. CHEST: A few scattered rhonchi. ABDOMEN: Soft. Umbilical hernia present. NERVOUS SYSTEM: No focal deficits. LABORATORY DATA: Reviewed. ASSESSMENT: 1. Acute influenza A with acute influenza pneumonia, bilateral. 2. Congestive heart failure with acute exacerbation, [id number] diastolic dysfunction, status post mechanical ventilation. 3. Acute hypoxic respiratory failure. 4. Incarcerated umbilical hernia for repair. 5. Moderate aortic stenosis. 6. Troponin 0.128. 7. Elevated D-dimer. 8. Leukopenia. 9. Anemia. 10.Chronic obstructive pulmonary disease. 11.Hypertension. 12.Degenerative joint disease. 13.Tachycardia. 14.Multiple medical issues. RECOMMENDATIONS: Recommend to continue current medications, symptomatic treatment. Otherwise, at this time, I recommend bronchodilators. Surgical evaluation. Closely follow. Prognosis is guarded. Further recommendations to follow. The patient also had multiple medical issues as mentioned earlier, which might need some outpatient followup, also discussed with the patient and we will closely follow with Surgery and consult Pulmonary. Further condition to follow. MMSTEPHANIEL / ADEOLA: [id number] /
[2022-04-06 06:08] LABS: Anisocytosis Slight; Basophils % (A) 0 %; Eosinophils # (A) 0.1 k/uL (0-0.7); Eosinophils % (A) 2 %; HCT 20.2 % (34.0-46.0); Hypochromasia Marked; Lymphocytes # (A) 0.3 k/uL (1.0-4.8); Lymphocytes % (A) 5 %; MCH 32.1 pg (25.0-35.0); MCV 97.4 fL (80.0-100.0); Macrocytosis Slight; Mean Platelet Volume 7.6; Monocytes # (A) 0.3 k/uL (0-1.0); Monocytes % (A) 5 %; Neutrophils # (A) 5.4 k/uL (1.3-7.7); Neutrophils % (A) 87 %; Platelet Count 254 k/uL (150-450); Poikilocytosis Marked; RBC 2.08 m/uL (3.80-5.40); WBC 6.2 k/uL (3.8-10.6)
[2022-04-06 06:29] LABS: African American GFR (CKD) >90 (>60 ml/min/1.73 sqM); Anion Gap 1 mmol/L; Blood Urea Nitrogen 21 mg/dL (7-17); Carbon Dioxide 40 mmol/L (22-30); Chloride 93 mmol/L (98-107); Glucose 145 mg/dL (74-99); Non-African American GFR(CKD) 84 (>60 ml/min/1.73 sqM); Potassium 4.8 mmol/L (3.5-5.1); Sodium 134 mmol/L (137-145)
[2022-04-06 06:42] LABS: HGB 6.7 gm/dL (11.4-16.0)
[2022-04-06 06:53] LABS: Glucose,Whole Blood 142 mg/dL (70-110)
[2022-04-06] MEDS: traMADol 50 MG TAB PO SCH ×4 (06:54→23:02)
[2022-04-06] MEDS: PANTOPRAZOLE 40 MG TABLET PO SCH (06:55)
[2022-04-06] MEDS: CEFEPIME 2 GM in SODIUM CHLORIDE 0.9% 100 ML IVPB SCH ×2 (07:00→15:38)
[2022-04-06] MEDS: HYDROcodone/APAP 10-325MG 1 EACH TAB PO SCH ×3 (08:46→20:52)
[2022-04-06] MEDS: METOPROLOL TARTRATE 25 MG TAB PO SCH ×3 (08:47→21:19)
[2022-04-06] MEDS: ASPIRIN 81 MG PO SCH (09:33)
[2022-04-06] MEDS: CHOLECALCIFEROL 25 MCG (1000 IU) TABLET PO SCH (09:33)
[2022-04-06] MEDS: CYCLOBENZAPRINE 5 MG TAB PO SCH ×2 (09:33→20:42)
[2022-04-06] MEDS: PIOGLITAZONE 30 MG TAB PO SCH (09:33)
[2022-04-06] MEDS: glipiZIDE 5 MG TAB PO SCH ×2 (09:33→20:43)
[2022-04-06] MEDS: POTASSIUM CHLORIDE ER 20 MEQ TAB.ER PO SCH (09:33)
[2022-04-06] MEDS: LOSARTAN 25 MG TAB PO SCH (09:33)
[2022-04-06] MEDS: IPRATROPIUM-ALBUTEROL 3 ML NEB INHALATION SCH ×4 (10:17→19:37)
--- NOTE | 2022-04-06 10:48 | PN ---
PROGRESS NOTE SUBJECTIVE: Ms. Echeverria has influenza A. Her hemoglobin is quite low today under 7. She is receiving 2 units of packed RBCs, slightly tachycardic because of probable hypovolemia. I am going to continue metoprolol 25 mg t.i.d. with transfusion. Hopefully, the heart rate will come up. She is currently getting a PICC line. OBJECTIVE: HEART: Revealed S1, S2 with a short systolic murmur. LUNGS: Reveal fair air entry. ABDOMEN: Unchanged. LOWER EXTREMITIES: Unchanged. MMODL / IJN: [id number] /
[2022-04-06 12:01] LABS: Glucose,Whole Blood 165 mg/dL (70-110)
[2022-04-06] MEDS: ACETAMINOPHEN IV (For NPO) 1,000 MG in EMPTY BAG 1 BAG IVPB SCH ×3 (12:08→23:02)
--- NOTE | 2022-04-06 12:21 | P.PN ---
Subjective Progress Note Date: 04/06/22 Principal diagnosis: Influenza A infection, acute hypoxic respiratory failure This is a 62-year-old female with history of morbid obesity, COPD, hypertension, previous smoking history, patient presented to the ER yesterday with a few days' history of increased shortness of breath, productive cough with thick yellow phlegm, apparently the patient had multiple children in the household with similar symptoms. Upon arrival to the ER, patient was hypoxic, and she was placed on a nonrebreather mask. She tested positive for influenza A, and the patient was started on Tamiflu. Chest x-ray showed evidence of cardiomegaly, pulmonary venous congestion, diffuse perihilar infiltrates, findings are suspicious for congestive heart failure or viral type of pneumonia. CT angiogram of the chest showed no evidence of pulmonary embolism, bilateral pleural effusions, and moderate pericardial effusion as well as interstitial infiltrates bilaterally while in the ER, the patient seems to have decompensated, and developed significant worsening shortness of breath, and she required intubation and mechanical ventilation by the ER physician. Immediate ABG post intubation showed a pO2 of 164, pCO2 of 93 pH of 7.18, implying that the patient was developing significant worsening hypercapnic respiratory failure requiring intubation and mechanical ventilation. Follow-up ABG showed a pO2 of 76 he CO2 of 60 pH of 7.41, continues to have hypercapnia with metabolic compensation for her respiratory acidosis, and that implies that the patient does have chronic hypercapnia. At any rate patient was intubated, placed on mechanical ventilation and I was made aware of this patient, transfer patient to the ICU at night. While in the ICU the patient has been receiving antibiotics empirically, Tamiflu, and she was also receiving diuretics. Patient received significant amount of fluid boluses while in the ER because of relatively low blood pressure. During my evaluation, the patient was on assist control rate of 24 tidal volume of 400 FiO2 40% and PEEP of 5. ABG showed a pO2 of 76 pCO2 of 60 pH of 7.41. Patient was kept on norepinephrine at 0.02 mcg/kg/m for now, I gave the patient a weaning trial while I was at bedside, patient was given a trial of pressure support of 10 and CPAP, and she tolerated that quite well for about one hour hence I recommended extubating the patient to BiPAP. IV fluid is cut down to KVO, patient has been receiving Lasix early this morning, and she is responding well to diuretics. Reevaluated today on 03/29/22, patient remains in the ICU, she tolerated extubation well, I saw this lady yesterday, and she was extubated to BiPAP. Eventually the patient was transitioned to a nasal cannula, and she remains on nasal cannula at present she is on 5 L/m, does not seem to be in distress, she is having intermittent cough, able to clear secretions.chest x-ray today continues to show evidence of interstitial edema, however it is improved compar ed to the chest x-ray on her admission and from yesterday.WBC count today is 4.3 hemoglobin 7.6 electrolytes are normal renal profile is normal bicarb is 39, blood sugar is 232 Reevaluated today on 04/03/22, patient continues to do well, continues to tolerate the extubation well, she is now on few liters nasal cannula, sitting in a bedside chair, doing great, relatively asymptomatic, chest x-ray is showing significant improvement.WBC count is 3.4 hemoglobin 7.7. Electrolytes and renal profile are normal bicarb is 39.chest x-ray continues to show mild interstitial edema and trace of the effusions. But improved compared to her initial chest x- ray on admission. Reevaluated today on 04/04/22, patient remains in the ICU, she is doing well. She tolerated the extubation a few days ago, continues to do well remains on Lasix 40 mg 3 times a day and I cut down to 40 mg twice a day. Patient had a negative fluid balance of 1.2 L in the last 24 hours. She is now on nasal cannula at 3 L/m, overall the patient is doing better than expected. Hence I plan to transfer the patient out of the ICU to a monitor bed on .WBC count is 3.8 hemoglobin is 7.6, basic metabolic profile is normal, renal profile is normal, bicarb is 40.chest x-ray continues to show multifocal airspace opacities, but significantly improved compared to her initial baseline chest x- ray when she was intubated upon presentation. patient is being reevaluated today on 04/05/2022, in the ICU as a 3 S. overflow. She was originally admitted on 03/31 with shortness of breath, fever, influenza A infection. patient did require intubation on 03/31/2022 for acute hypoxic respiratory failure and was extubated the following day on 04/01/2022. Patient is currently resting comfortably in chair 3 L nasal cannula. She is not receiving any IV fluids. she denies shortness of breath, cough, chest pain, fever. a repeat chest x-ray from today showed persistent cardiomegaly with small bilateral pleural effusions and some pulmonary vascular congestion. she continues to receive Lasix twice a day. her fluid balance for the last 24 hours is 0.5 L. An echocardiogram from 04/02/2022 shows a preserved ejection fraction 55%, some moderate aortic stenosis, and left ventricular hypertrophy. sputum and blood cultures remain negative. no new labs to review today. CBC from 04/04/2020 to show no leukocytosis. she has completed her course of Tamiflu. she is receiving ceftriaxone for empiric antibiotic therapy. she is also maintained on DuoNeb inhalation. She is receiving Protonix for GI prophylaxis and heparin for DVT prophylaxis. Patient is being reevaluated today on 04/06/2022 in ICU. Patient did undergo surgery yesterday, with Dr. Guerrero, for an open repair of an incarcerated ventral hernia. The patient is currently laying in bed, fairly comfortable, on 3 L nasal cannula. Postoperatively, the patient's vital signs had remained fairly stable. Patient does have a marginal blood pressure 90s over 40s. And is currently receiving her first unit of 2 PRBCs ordered. She has not required any vasopressors at this time. Normal saline is infusing at 20 ML's per hour. Estimated blood loss from the procedure was documented as only 20 mL. Patient's hemoglobin is down from 7.6 to 6.7 g/dL today. CBC from today shows hematocrit 20, WBC count of 6.2, platelets 240,000. BMP from today shows sodium of 134, potassium 4.8, chloride 93, serum CO2 40, BUN 21, creatinine 0.76, glucose 145. Patient is mildly febrile today with a temperature max of 100F. Final sputum culture was negative, and blood cultures negative at 120 hours. Patient is being managed with empiric antibiotics in the form of Flagyl and cefepime. Patient is also receiving twice a day Lasix. Fluid balance is -800 and the last 24 hours. She is receiving Protonix for GI prophylaxis. Objective - Vital Signs Vital signs: Vital Signs Temp 98.4 F 04/06/22 11:00 Pulse 93 04/06/22 11:00 Resp 16 04/06/22 11:00 BP 90/45 04/06/22 11:00 Pulse Ox 97 04/06/22 11:00 FiO2 100 04/05/22 17:48 Intake & Output 04/05/22 04/06/22 04/06/22 18:59 06:59 18:59 Intake Total 200 400 160 Output Total 50 1345 125 Balance 150 -945 35 Intake: IV 200 400 160 0.9@20 200 60 Cefepime 2 gm In Sodium 100 Chloride 0.9% 100 ml @ 25 mls/hr IVPB Q8H [facility] Rx#: [id number] metroNIDAZOLE-NS PMX 500 100 100 mg In Saline 1 100ml.bag @ 100 mls/hr IVPB Q8HR [facility] Rx#:[id number] Blood Product 0 Rc Pheresis As-3 Unit 0 [id number] Output: Drainage 120 Upper Medial Abdomen 120 Urine 1225 125 Estimated Blood Loss 50 Other: Voiding Method Toilet Indwelling Catheter - Exam CONSTITUTIONAL: Revealed a 62-year-old female, obese, in no distress, sitting in her recliner,on nasal cannula at 3 L Head: Atraumatic, normocephalic. HEENT: Pupils are equal, round. Mucous membranes of the mouth are moist. No JVD. No carotid bruit. CHEST EXAMINATION: Symmetrical chest expansion, minimal crackles persist at the bases. HEART EXAMINATION: Distant S1 and S2, no S3 gallop, no murmur ABDOMEN: Obese, Soft, slightly tender with palpation. There is a midline surgical dressing with some outlined shadowing at the inferior portion. Bowel sounds are absent. EXTREMITIES: No clubbing or cyanosis, good pulses bilaterally. there is some bilateral lower extremity edema 1+ NEUROLOGIC EXAMINATION: alert and oriented 3 focal neurologic deficits. Psychiatric: Normal mood, affect and normal mental status examination. Skin: No rashes. - Labs CBC & Chem 7: 04/06/22 05:25 04/06/22 05:25 Labs: Abnormal Lab Results - Last 24 Hours (Table) 04/05/22 04/05/22 04/06/22 Range/Units 09:52 20:11 02:30 RBC (3.80-5.40) m/uL Hgb (11.4-16.0) gm/dL Hct (34.0-46.0) % RDW (11.5-15.5) % Lymphocytes # (1.0-4.8) k/uL Sodium (137-145) mmol/L Chloride (98-107) mmol/L Carbon Dioxide (22-30) mmol/L BUN (7-17) mg/dL Glucose (74-99) mg/dL POC Glucose (mg/dL) 133 H 202 H (70-110) mg/dL Calcium (8.4-10.2) mg/dL Procalcitonin 0.16 H (0.02-0.09) ng/mL Crossmatch 04/06/22 04/06/22 04/06/22 Range/Units 05:25 05:25 06:51 RBC 2.08 L (3.80-5.40) m/uL Hgb 6.7 L* (11.4-16.0) gm/dL Hct 20.2 L (34.0-46.0) % RDW 17.0 H (11.5-15.5) % Lymphocytes # 0.3 L (1.0-4.8) k/uL Sodium 134 L (137-145) mmol/L Chloride 93 L (98-107) mmol/L Carbon Dioxide 40 H (22-30) mmol/L BUN 21 H (7-17) mg/dL Glucose 145 H (74-99) mg/dL POC Glucose (mg/dL) 142 H (70-110) mg/dL Calcium 8.0 L (8.4-10.2) mg/dL Procalcitonin (0.02-0.09) ng/mL Crossmatch 04/06/22 04/06/22 Range/Units 06:58 12:00 RBC (3.80-5.40) m/uL Hgb (11.4-16.0) gm/dL Hct (34.0-46.0) % RDW (11.5-15.5) % Lymphocytes # (1.0-4.8) k/uL Sodium (137-145) mmol/L Chloride (98-107) mmol/L Carbon Dioxide (22-30) mmol/L BUN (7-17) mg/dL Glucose (74-99) mg/dL POC Glucose (mg/dL) 165 H (70-110) mg/dL Calcium (8.4-10.2) mg/dL Procalcitonin (0.02-0.09) ng/mL Crossmatch See Detail Microbiology - Last 24 Hours (Table) 03/31/22 16:42 Blood Culture - Preliminary Blood No Growth after 120 hours 03/31/22 12:42 Blood Culture - Preliminary Blood No Growth after 120 hours Assessment and Plan Assessment: Acute hypoxic and acute on chronic hypercapnic respiratory failure, multifactorial. Postop day #1 for an open repair of a ventral incarcerated hernia Acute postoperative anemia Acute on chronic diastolic heart failure Influenza A pneumonia/infection Acute exacerbation of COPD Possible superimposed bacterial pneumonia Acute non-ST elevation myocardial infarction with elevated troponin, being addressed by cardiology. small pericardial effusion noted on echocardiogram Benign essential hypertension Paroxysmal supraventricular tachycardia History of underlying COPD Morbid obesity Sepsis, possible septic shock.resolved. History of degenerative joint disease. Elevated d-dimer but negative CT angiogram of the chest. Plan: continue oxygen supplementation 3 L nasal cannula as needed to maintain oxygen saturation 92% or greater. Transfuse 2 units PRBCs for postoperative anemia Encourage incentive spirometer use Continue empiric antibiotics in the form of cefepime and Flagyl Continue bronchodilators. course of Tamiflu completed continue IV diuresis with Lasix 40 mg twice a day. Continue GI and DVT prophylaxis. Will continue to follow. I have personally seen and examined the patient, performed the documentation and the assessment and plan as written. Number of minutes spent on the visit: 20. Time with Patient: Greater than 30
[2022-04-06 13:38] VITALS: BMI 55.1
[2022-04-06] MEDS ORDERED: LIDOCAINE 1% INJ 10MG/ML (5 ML VIAL-PF) SQ ONE ×2 (13:54→14:34)
--- NOTE | 2022-04-06 14:08 | P.PN ---
Subjective Progress Note Date: 04/06/22 Principal diagnosis: Flu and pneumonia Patient is a 62-year-old female with multiple comorbidities including COPD hypertension morbid obesity presenting to the ER yesterday for evaluation of increasing shortness of breath apparent has been getting worse for the last few days before presentation to the hospital patient did have worsening respiratory distress and the patient up getting intubated in the ER and was subsequently admitted to ICU, patient has been subsequently extubated on 04/01/2022, patient is status post open repair of incarcerated ventral hernia but no ischemic bowel and partial omentectomy completed on 04/05/2022 On today's evaluation that is 04/06/2022, the patient continues to be afebrile, the patient is breathing comfortably on 3 L nasal cannula oxygen, the patient denies having any chest pain , the patient denies any worsening cough or sputum production, patient has been complaining of abdominal pain however some controlled with pain medication no vomiting Objective - Vital Signs Vital signs: Vital Signs Temp 98.6 F 04/06/22 11:50 Pulse 96 04/06/22 12:33 Resp 21 04/06/22 12:33 BP 81/53 04/06/22 11:50 Pulse Ox 97 04/06/22 12:34 FiO2 100 04/05/22 17:48 Intake & Output 04/05/22 04/06/22 04/06/22 18:59 06:59 18:59 Intake Total 200 400 492 Output Total 50 1345 125 Balance 150 -945 367 Intake: IV 200 400 160 0.9@20 200 60 Cefepime 2 gm In Sodium 100 Chloride 0.9% 100 ml @ 25 mls/hr IVPB Q8H [facility] Rx#: [id number] metroNIDAZOLE-NS PMX 500 100 100 mg In Saline 1 100ml.bag @ 100 mls/hr IVPB Q8HR [facility] Rx#:[id number] Blood Product 282 Rc Pheresis 2 As3 Unit 0 [id number] Rc Pheresis As-3 Unit 282 [id number] Other 50 Rc Pheresis As-3 Unit 50 [id number] Output: Drainage 120 Upper Medial Abdomen 120 Urine 1225 125 Estimated Blood Loss 50 Other: Voiding Method Toilet Indwelling Catheter - Exam GENERAL DESCRIPTION: A middle-age female up in the chair in no distress RESPIRATORY SYSTEM: Unlabored breathing , coarse breath sounds at the bases bilaterally HEART: S1 S2 regular rate and rhythm , ABDOMEN: Soft , mild distention and tenderness EXTREMITIES: No edema feet - Labs CBC & Chem 7: 04/06/22 05:25 04/06/22 05:25 Labs: Abnormal Lab Results - Last 24 Hours (Table) 04/05/22 04/05/22 04/06/22 Range/Units 09:52 20:11 02:30 RBC (3.80-5.40) m/uL Hgb (11.4-16.0) gm/dL Hct (34.0-46.0) % RDW (11.5-15.5) % Lymphocytes # (1.0-4.8) k/uL Sodium (137-145) mmol/L Chloride (98-107) mmol/L Carbon Dioxide (22-30) mmol/L BUN (7-17) mg/dL Glucose (74-99) mg/dL POC Glucose (mg/dL) 133 H 202 H (70-110) mg/dL Calcium (8.4-10.2) mg/dL Procalcitonin 0.16 H (0.02-0.09) ng/mL Crossmatch 04/06/22 04/06/22 04/06/22 Range/Units 05:25 05:25 06:51 RBC 2.08 L (3.80-5.40) m/uL Hgb 6.7 L* (11.4-16.0) gm/dL Hct 20.2 L (34.0-46.0) % RDW 17.0 H (11.5-15.5) % Lymphocytes # 0.3 L (1.0-4.8) k/uL Sodium 134 L (137-145) mmol/L Chloride 93 L (98-107) mmol/L Carbon Dioxide 40 H (22-30) mmol/L BUN 21 H (7-17) mg/dL Glucose 145 H (74-99) mg/dL POC Glucose (mg/dL) 142 H (70-110) mg/dL Calcium 8.0 L (8.4-10.2) mg/dL Procalcitonin (0.02-0.09) ng/mL Crossmatch 04/06/22 04/06/22 Range/Units 06:58 12:00 RBC (3.80-5.40) m/uL Hgb (11.4-16.0) gm/dL Hct (34.0-46.0) % RDW (11.5-15.5) % Lymphocytes # (1.0-4.8) k/uL Sodium (137-145) mmol/L Chloride (98-107) mmol/L Carbon Dioxide (22-30) mmol/L BUN (7-17) mg/dL Glucose (74-99) mg/dL POC Glucose (mg/dL) 165 H (70-110) mg/dL Calcium (8.4-10.2) mg/dL Procalcitonin (0.02-0.09) ng/mL Crossmatch See Detail Microbiology - Last 24 Hours (Table) 03/31/22 16:42 Blood Culture - Preliminary Blood No Growth after 120 hours 03/31/22 12:42 Blood Culture - Preliminary Blood No Growth after 120 hours Assessment and Plan (1) Febrile illness, acute Current Visit: Yes Status: Acute Code(s): R50.9 - FEVER, UNSPECIFIED SNOMED Code(s): 021768940 (2) Influenza due to influenza virus, type A, human Current Visit: Yes Status: Acute Code(s): J10.1 - FLU DUE TO OTH IDENT INFLUENZA VIRUS W OTH RESP MANIFEST SNOMED Code(s): 670426737 Plan: 1patient presented to hospital with acute respiratory failure which is likely multifactorial in this patient tested positive for acute influenza A and possible component of COPD the patient with regular bronchitis versus early pneumonia. 2Patient with multiple antibiotic ALLERGIES that would limit the number of antibiotic safe to use. 3patient is status post laparotomy for incarcerated hernia and repair but no evidence of ischemic bowel and partial omentectomy, patient to continue with cefepime and Flagyl and monitor clinical course closely Time with Patient: Less than 30
--- NOTE | 2022-04-06 14:13 | P.PN ---
Subjective Progress Note Date: 04/06/22 CHIEF COMPLAINT: Incarcerated ventral hernia HISTORY OF PRESENT ILLNESS: Patient is in the ICU with respiratory failure with influenza A, COPD exacerbation and CHF exacerbation. Patient is postop day #1 s tatus post open repair of incarcerated ventral hernia and partial omentectomy. Patient complaining of abdominal pain. She did lose IV access. She has a new midline placed. IV pain medication has been restarted. Patient's hemoglobin did drop to 6.7 from 7.6 she is scheduled to receive 2 units of blood. Her Plavix and subcu heparin are currently on hold. She did have a low-grade temp of 100 this morning. She has been hypotensive and had been tachycardic. She is currently on 3 L of oxygen satting at 94%. WBC 6.2H she be 6.7 platelets 254 sodium is 134 potassium is 4.8 creatinine 0.76 PHYSICAL EXAM: VITAL SIGNS: Reviewed. GENERAL: Well-developed in no acute distress. HEENT: No sclera icterus. Extraocular movements grossly intact. Moist buccal mucosa. Head is atraumatic, normocephalic. ABDOMEN: Soft. obese. Tenderness at incision site. Incisional dressing bloody saturation noted at the distal aspect. ANTONY drain 120ml sanguinous output NEUROLOGIC: Alert and oriented. Cranial nerves II through XII grossly intact. ASSESSMENT: 1. Incarcerated ventral hernia status post open repair and partial omentectomy PLAN: -Agree with blood transfusion -PICC line ordered for IV access -Continue pain management -IV Tylenol scheduled added for pain control -Continue to hold Plavix and subcu heparin -Continue ICU management -Continue supportive care -Continue to monitor incision site Physician [employer] note has been reviewed by physician. Signing provider agrees with the documented findings, assessment, and plan of care. Objective - Vital Signs Vital signs: Vital Signs Temp 98.4 F 04/06/22 12:00 Pulse 96 04/06/22 13:00 Resp 15 04/06/22 13:00 BP 84/42 04/06/22 13:00 Pulse Ox 94 L 04/06/22 13:00 FiO2 100 04/05/22 17:48 Intake & Output 04/05/22 04/06/22 04/06/22 18:59 06:59 18:59 Intake Total 200 400 702 Output Total 50 1345 160 Balance 150 -945 542 Intake: IV 200 400 270 0.9@20 200 70 ACETAMINOPHEN IV (For NPO 100 ) 1,000 mg In Empty Bag 1 bag @ 400 mls/hr IVPB Q6HR COUNT INCLUDES THE [facility] Rx#:[id number] Cefepime 2 gm In Sodium 100 Chloride 0.9% 100 ml @ 25 mls/hr IVPB Q8H [facility] Rx#: [id number] metroNIDAZOLE-NS PMX 500 100 100 mg In Saline 1 100ml.bag @ 100 mls/hr IVPB Q8HR [facility] Rx#:[id number] Oral 100 Blood Product 282 Rc Pheresis 2 As3 Unit 0 [id number] Rc Pheresis As-3 Unit 282 [id number] Other 50 Rc Pheresis As-3 Unit 50 [id number] Output: Drainage 120 Upper Medial Abdomen 120 Urine 1225 160 Estimated Blood Loss 50 Other: Voiding Method Toilet Indwelling Catheter - Labs CBC & Chem 7: 04/06/22 05:25 04/06/22 05:25 Labs: Abnormal Lab Results - Last 24 Hours (Table) 04/05/22 04/05/22 04/06/22 Range/Units 09:52 20:11 02:30 RBC (3.80-5.40) m/uL Hgb (11.4-16.0) gm/dL Hct (34.0-46.0) % RDW (11.5-15.5) % Lymphocytes # (1.0-4.8) k/uL Sodium (137-145) mmol/L Chloride (98-107) mmol/L Carbon Dioxide (22-30) mmol/L BUN (7-17) mg/dL Glucose (74-99) mg/dL POC Glucose (mg/dL) 133 H 202 H (70-110) mg/dL Calcium (8.4-10.2) mg/dL Procalcitonin 0.16 H (0.02-0.09) ng/mL Crossmatch 04/06/22 04/06/22 04/06/22 Range/Units 05:25 05:25 06:51 RBC 2.08 L (3.80-5.40) m/uL Hgb 6.7 L* (11.4-16.0) gm/dL Hct 20.2 L (34.0-46.0) % RDW 17.0 H (11.5-15.5) % Lymphocytes # 0.3 L (1.0-4.8) k/uL Sodium 134 L (137-145) mmol/L Chloride 93 L (98-107) mmol/L Carbon Dioxide 40 H (22-30) mmol/L BUN 21 H (7-17) mg/dL Glucose 145 H (74-99) mg/dL POC Glucose (mg/dL) 142 H (70-110) mg/dL Calcium 8.0 L (8.4-10.2) mg/dL Procalcitonin (0.02-0.09) ng/mL Crossmatch 04/06/22 04/06/22 Range/Units 06:58 12:00 RBC (3.80-5.40) m/uL Hgb (11.4-16.0) gm/dL Hct (34.0-46.0) % RDW (11.5-15.5) % Lymphocytes # (1.0-4.8) k/uL Sodium (137-145) mmol/L Chloride (98-107) mmol/L Carbon Dioxide (22-30) mmol/L BUN (7-17) mg/dL Glucose (74-99) mg/dL POC Glucose (mg/dL) 165 H (70-110) mg/dL Calcium (8.4-10.2) mg/dL Procalcitonin (0.02-0.09) ng/mL Crossmatch See Detail Microbiology - Last 24 Hours (Table) 03/31/22 16:42 Blood Culture - Preliminary Blood No Growth after 120 hours 03/31/22 12:42 Blood Culture - Preliminary Blood No Growth after 120 hours
[2022-04-06] MEDS: ALPRAZolam 0.25 MG TAB PO PRN (14:27)
--- NOTE | 2022-04-06 15:04 | XR ---
EXAMINATION TYPE: XR chest 1V DATE OF EXAM: 04/06/2022 COMPARISON: 04/06/2022 INDICATION: PICC linea TECHNIQUE: Single frontal view of the chest is obtained in the semiupright view. FINDINGS: The heart size is enlarged.. The pulmonary vasculature is normal. Some mild diffuse increased lung markings are present likely on the basis of pulmonary edema. Clinica l correlation recommended. Left-sided PICC line is present with the tip in the distal superior vena cava region. IMPRESSION: 1. Clinical correlation recommended for mild diffuse pulmonary edema. 2. Cardiomegaly. 3. Placement of a left-sided PICC line with tip in distal superior vena cava region.
--- NOTE | 2022-04-06 15:06 | XR ---
EXAMINATION TYPE: XR chest 1V DATE OF EXAM: 04/06/2022 COMPARISON: 04/05/2022 INDICATION: PICC line placement TECHNIQUE: Single frontal view of the chest is obtained. FINDINGS: The heart size is enlarged. The pulmonary vasculature is normal. Mild diffuse increased lung markings may be related to pulmonary edema. PICC line enters on the left is directed superiorly out of the field of view in the neck. Subsequent study demonstrates readjustment of the PICC line tip in better position. IMPRESSION: 1. Placement of a PICC line on the left with the tip directed superiorly into the region of the neck out of the field of view.
--- NOTE | 2022-04-06 15:53 | IR ---
PICC LINE PLACEMENT: HISTORY: Infection requiring long-term antibiotic therapy PROCEDURE: Ultrasound guidance of PICC line placement. PHLEBOTOMIST MEDICAL LAB ASSISTANT: Dr. Trevino COMPLICATIONS: None ANESTHESIA: 1. 1% Lidocaine locally. FINDINGS/TECHNIQUE: The procedure was explained to the patient. The risks, complications, benefits and alternatives were discussed and any questions were answered. Informed consent was obtained. The patient was placed supine on the fluoroscopic table and prepped and draped in the usual sterile fash ion. Utilizing a 21 gauge needle and sonographic guidance, access in the left basilic vein was achi eved and there is placement of a 0.018 guidewire. The vein is patent. A 5-F. sheath was placed over the guidewire. The guidewire and dilator were removed and a 5-F. Double lumen PICC line was placed through the sheath with the chest x-ray confirming the tip at the level of the SVC. Initial chest x-r ay showed the catheter coursing up the left internal jugular vein. Subsequent repositioning demonstra nir placement in the SVC. The sheath was removed, the catheter was flushed and secured into position. The patient was stable throughout the procedure. The vein puncture was patent under ultrasound. A marte scale image was obtained to document patency of the vein punctured. All elements of the maximal barrier technique were utilized. IMPRESSION: 1. Successful PICC line placement under ultrasound performed bedside within the ICU.
[2022-04-06 16:30] LABS: Glucose,Whole Blood 143 mg/dL (70-110)
[2022-04-06] MEDS: diphenhydrAMINE 25 MG CAP PO PRN ×2 (17:11→23:31)
[2022-04-06] MEDS: FUROSEMIDE 10 MG/ML 4 ML VIAL IV SCH ×2 (17:12→21:25)
[2022-04-06 20:31] LABS: Glucose,Whole Blood 140 mg/dL (70-110)
--- NOTE | 2022-04-06 21:15 | PN ---
PROGRESS NOTE DATE OF SERVICE: 04/06/2022 SUBJECTIVE: This is a 62-year-old woman who was admitted with acute influenza as well as pneumonia, is on mechanical ventilator. With subsequent improvement, the patient is complaining of abdominal pain. Dr. Guerrero performed open repair of incarcerated ventral hernia and partial omentectomy. The patient was closely monitored. No chest pain. PAST MEDICAL HISTORY: Reviewed. REVIEW OF SYSTEMS: Could not be taken, the patient is sedated. CURRENT MEDICATIONS: Reviewed include Tylenol, doses and rest of medications noted. PHYSICAL EXAMINATION: VITAL SIGNS: Pulse is 101, blood pressure 90/40, respirations 20. HEENT: Conjunctivae normal. NECK: No JVD. CARDIOVASCULAR: S1,S2. RESPIRATIONS: A few scattered rhonchi. ABDOMEN: Soft, status post surgery. LABS: Hemoglobin 6.7. The rest of the labs are noted. ASSESSMENT: 1. Acute influenza with acute influenza pneumonia bilateral, status post mechanical ventilation. 2. Congestive heart failure acute exacerbation, acute on chronic diastolic dysfunction. 3. Incarcerated umbilical hernia, status post repair. 4. Anemia. 5. Multifactorial. 6. Acute hypoxic respiratory failure. 7. Moderate aortic stenosis. 8. Troponin 0.128. 9. Elevated D-dimer. 10.Leukopenia. 11.Multiple medical issues. RECOMMENDATIONS: This is a 62-year-old woman who presented with multiple complex medical issues, we will monitor the patient closely. Continue the current medications and continue symptomatic treatment. Otherwise, I would recommend to monitor blood sugars closely. Continue the bronchodilators. The patient is on Flagyl and cefepime. We will continue to monitor. Cultures are negative so far. Repeat labs to be ordered tomorrow. Prognosis guarded. Further recommendations to follow. MMODL / IJN: [id number] /
[2022-04-06 21:19] LABS: Anisocytosis Slight; HGB 7.1 gm/dL (11.4-16.0); Hypochromasia Marked; MCH 32.1 pg (25.0-35.0); MCHC 33.9 g/dL (31.0-37.0); MCV 94.7 fL (80.0-100.0); Macrocytosis Slight; Mean Platelet Volume 7.3; Platelet Count 231 k/uL (150-450); Poikilocytosis Marked; RBC 2.21 m/uL (3.80-5.40); RDW 17.4 % (11.5-15.5); WBC 5.7 k/uL (3.8-10.6)
[2022-04-07] MEDS: HYDROcodone/APAP 5-325MG 1 EACH TAB PO PRN (00:21)
[2022-04-07] MEDS: CEFEPIME 2 GM in SODIUM CHLORIDE 0.9% 100 ML IVPB SCH ×4 (00:21→21:50)
[2022-04-07 01:59] LABS: Glucose,Whole Blood 157 mg/dL (70-110)
[2022-04-07] MEDS: INSULIN ASPART (NovoLOG) 100 UNIT/ML VIAL SQ SCH ×5 (01:59→20:56)
[2022-04-07] MEDS: ACETAMINOPHEN IV (For NPO) 1,000 MG in EMPTY BAG 1 BAG IVPB SCH (05:11)
[2022-04-07] MEDS: traMADol 50 MG TAB PO SCH ×3 (05:11→17:34)
[2022-04-07 05:45] LABS: Anisocytosis Slight; Basophils % (A) 1 %; Eosinophils # (A) 0.2 k/uL (0-0.7); Eosinophils % (A) 4 %; HCT 22.1 % (34.0-46.0); HGB 7.2 gm/dL (11.4-16.0); Hypochromasia Marked; Lymphocytes # (A) 0.4 k/uL (1.0-4.8); Lymphocytes % (A) 7 %; MCH 31.2 pg (25.0-35.0); MCHC 32.7 g/dL (31.0-37.0); MCV 95.3 fL (80.0-100.0); Macrocytosis Slight; Mean Platelet Volume 7.5; Monocytes # (A) 0.3 k/uL (0-1.0); Monocytes % (A) 6 %; Neutrophils % (A) 80 %; Platelet Count 233 k/uL (150-450); Poikilocytosis Marked; RBC 2.32 m/uL (3.80-5.40); RDW 17.4 % (11.5-15.5)
[2022-04-07 06:01] LABS: Glucose,Whole Blood 124 mg/dL (70-110)
[2022-04-07 06:08] LABS: Albumin 2.6 g/dL (3.5-5.0); Potassium 4.1 mmol/L (3.5-5.1); Total Bilirubin 0.4 mg/dL (0.2-1.3); Total Protein 5.3 g/dL (6.3-8.2)
[2022-04-07] MEDS: PANTOPRAZOLE 40 MG TABLET PO SCH (06:36)
[2022-04-07] MEDS: metroNIDAZOLE-NS PMX 500 MG in SALINE 1 100ML.BAG IVPB SCH ×2 (08:09→15:36)
[2022-04-07] MEDS: FUROSEMIDE 10 MG/ML 4 ML VIAL IV SCH ×2 (08:10→21:50)
[2022-04-07] MEDS: CHOLECALCIFEROL 25 MCG (1000 IU) TABLET PO SCH (08:20)
[2022-04-07] MEDS: ASPIRIN 81 MG PO SCH (08:20)
[2022-04-07] MEDS: POTASSIUM CHLORIDE ER 20 MEQ TAB.ER PO SCH (08:20)
[2022-04-07] MEDS: glipiZIDE 5 MG TAB PO SCH ×2 (08:20→18:57)
[2022-04-07] MEDS: HYDROcodone/APAP 10-325MG 1 EACH TAB PO SCH ×3 (08:23→21:50)
[2022-04-07] MEDS: PIOGLITAZONE 30 MG TAB PO SCH (08:26)
[2022-04-07] MEDS: CYCLOBENZAPRINE 5 MG TAB PO SCH ×2 (08:26→21:50)
[2022-04-07] MEDS: diphenhydrAMINE 25 MG CAP PO PRN ×2 (08:30→22:01)
[2022-04-07] MEDS: METOPROLOL TARTRATE 25 MG TAB PO SCH ×4 (08:31→21:53)
[2022-04-07] MEDS: LOSARTAN 25 MG TAB PO SCH (08:32)
[2022-04-07] MEDS: IPRATROPIUM-ALBUTEROL 3 ML NEB INHALATION SCH ×4 (08:57→20:52)
[2022-04-07 11:32] LABS: Glucose,Whole Blood 78 mg/dL (70-110)
--- NOTE | 2022-04-07 12:10 | P.PN ---
Subjective Progress Note Date: 04/07/22 Principal diagnosis: Influenza A infection, acute hypoxic respiratory failure This is a 62-year-old female with history of morbid obesity, COPD, hypertension, previous smoking history, patient presented to the ER yesterday with a few days' history of increased shortness of breath, productive cough with thick yellow phlegm, apparently the patient had multiple children in the household with similar symptoms. Upon arrival to the ER, patient was hypoxic, and she was placed on a nonrebreather mask. She tested positive for influenza A, and the patient was started on Tamiflu. Chest x-ray showed evidence of cardiomegaly, pulmonary venous congestion, diffuse perihilar infiltrates, findings are suspicious for congestive heart failure or viral type of pneumonia. CT angiogram of the chest showed no evidence of pulmonary embolism, bilateral pleural effusions, and moderate pericardial effusion as well as interstitial infiltrates bilaterally while in the ER, the patient seems to have decompensated, and developed significant worsening shortness of breath, and she required intubation and mechanical ventilation by the ER physician. Immediate ABG post intubation showed a pO2 of 164, pCO2 of 93 pH of 7.18, implying that the patient was developing significant worsening hypercapnic respiratory failure requiring intubation and mechanical ventilation. Follow-up ABG showed a pO2 of 76 he CO2 of 60 pH of 7.41, continues to have hypercapnia with metabolic compensation for her respiratory acidosis, and that implies that the patient does have chronic hypercapnia. At any rate patient was intubated, placed on mechanical ventilation and I was made aware of this patient, transfer patient to the ICU at night. While in the ICU the patient has been receiving antibiotics empirically, Tamiflu, and she was also receiving diuretics. Patient received significant amount of fluid boluses while in the ER because of relatively low blood pressure. During my evaluation, the patient was on assist control rate of 24 tidal volume of 400 FiO2 40% and PEEP of 5. ABG showed a pO2 of 76 pCO2 of 60 pH of 7.41. Patient was kept on norepinephrine at 0.02 mcg/kg/m for now, I gave the patient a weaning trial while I was at bedside, patient was given a trial of pressure support of 10 and CPAP, and she tolerated that quite well for about one hour hence I recommended extubating the patient to BiPAP. IV fluid is cut down to KVO, patient has been receiving Lasix early this morning, and she is responding well to diuretics. Reevaluated today on 03/29/22, patient remains in the ICU, she tolerated extubation well, I saw this lady yesterday, and she was extubated to BiPAP. Eventually the patient was transitioned to a nasal cannula, and she remains on nasal cannula at present she is on 5 L/m, does not seem to be in distress, she is having intermittent cough, able to clear secretions.chest x-ray today continues to show evidence of interstitial edema, however it is improved compar ed to the chest x-ray on her admission and from yesterday.WBC count today is 4.3 hemoglobin 7.6 electrolytes are normal renal profile is normal bicarb is 39, blood sugar is 232 Reevaluated today on 04/03/22, patient continues to do well, continues to tolerate the extubation well, she is now on few liters nasal cannula, sitting in a bedside chair, doing great, relatively asymptomatic, chest x-ray is showing significant improvement.WBC count is 3.4 hemoglobin 7.7. Electrolytes and renal profile are normal bicarb is 39.chest x-ray continues to show mild interstitial edema and trace of the effusions. But improved compared to her initial chest x- ray on admission. Reevaluated today on 04/04/22, patient remains in the ICU, she is doing well. She tolerated the extubation a few days ago, continues to do well remains on Lasix 40 mg 3 times a day and I cut down to 40 mg twice a day. Patient had a negative fluid balance of 1.2 L in the last 24 hours. She is now on nasal cannula at 3 L/m, overall the patient is doing better than expected. Hence I plan to transfer the patient out of the ICU to a monitor bed on .WBC count is 3.8 hemoglobin is 7.6, basic metabolic profile is normal, renal profile is normal, bicarb is 40.chest x-ray continues to show multifocal airspace opacities, but significantly improved compared to her initial baseline chest x- ray when she was intubated upon presentation. patient is being reevaluated today on 04/05/2022, in the ICU as a 3 S. overflow. She was originally admitted on 03/31 with shortness of breath, fever, influenza A infection. patient did require intubation on 03/31/2022 for acute hypoxic respiratory failure and was extubated the following day on 04/01/2022. Patient is currently resting comfortably in chair 3 L nasal cannula. She is not receiving any IV fluids. she denies shortness of breath, cough, chest pain, fever. a repeat chest x-ray from today showed persistent cardiomegaly with small bilateral pleural effusions and some pulmonary vascular congestion. she continues to receive Lasix twice a day. her fluid balance for the last 24 hours is 0.5 L. An echocardiogram from 04/02/2022 shows a preserved ejection fraction 55%, some moderate aortic stenosis, and left ventricular hypertrophy. sputum and blood cultures remain negative. no new labs to review today. CBC from 04/04/2020 to show no leukocytosis. she has completed her course of Tamiflu. she is receiving ceftriaxone for empiric antibiotic therapy. she is also maintained on DuoNeb inhalation. She is receiving Protonix for GI prophylaxis and heparin for DVT prophylaxis. Patient is being reevaluated today on 04/06/2022 in ICU. Patient did undergo surgery yesterday, with Dr. Guerrero, for an open repair of an incarcerated ventral hernia. The patient is currently laying in bed, fairly comfortable, on 3 L nasal cannula. Postoperatively, the patient's vital signs had remained fairly stable. Patient does have a marginal blood pressure 90s over 40s. And is currently receiving her first unit of 2 PRBCs ordered. She has not required any vasopressors at this time. Normal saline is infusing at 20 ML's per hour. Estimated blood loss from the procedure was documented as only 20 mL. Patient's hemoglobin is down from 7.6 to 6.7 g/dL today. CBC from today shows hematocrit 20, WBC count of 6.2, platelets 240,000. BMP from today shows sodium of 134, potassium 4.8, chloride 93, serum CO2 40, BUN 21, creatinine 0.76, glucose 145. Patient is mildly febrile today with a temperature max of 100F. Final sputum culture was negative, and blood cultures negative at 120 hours. Patient is being managed with empiric antibiotics in the form of Flagyl and cefepime. Patient is also receiving twice a day Lasix. Fluid balance is -800 and the last 24 hours. She is receiving Protonix for GI prophylaxis. I'm reevaluating this patient today on 04/07/2022 in ICU. Patient is postop day #2 following a repair of incarcerated ventral hernia and omentectomy with Dr. Guerrero. Patient is currently lying up in bed, fairly comfortable, on 2 L nasal cannula. Patient denies any significant respiratory distress, cooperative, fever. Normal saline is using KVO through a left upper arm PICC line was inserted 03/29/2022. Patient did receive 2 units of PRBCs yesterday for postoperative anemia. Hemoglobin is up to 7.2 g/dL this morning, hematocrit 22, WBCs 5, platelets 233,000. No overt signs of bleeding noted, ANTONY drain remains in place and had about of 20 mL of serosanguineous output overnight. Postsurgical dressing remains in place, with some outlined shadowing. BMP from today shows sodium 134, potassium 4.1, chloride 93, serum CO2 40, UN 23, renin 0.85, glucose 101. Most recent chest x-ray from 04/06/2022 shows cardiomegaly with mild diffuse markings, normal pulmonary vasculature, and a left-sided PICC line with the distal tip in the superior vena cava. Vital signs remained stable. Objective - Vital Signs Vital signs: Vital Signs Temp 97.7 F 04/07/22 08:00 Pulse 79 04/07/22 10:00 Resp 14 04/07/22 10:00 BP 108/53 04/07/22 10:00 Pulse Ox 99 04/07/22 10:00 FiO2 100 04/05/22 17:48 Intake & Output 04/06/22 04/07/22 04/07/22 18:59 06:59 18:59 Intake Total 1677 540 20 Output Total 675 740 45 Balance 1002 -200 -25 Weight 155 kg Intake: IV 670 540 20 0.9@20 170 240 20 ACETAMINOPHEN IV (For NPO 200 100 ) 1,000 mg In Empty Bag 1 bag @ 400 mls/hr IVPB Q6HR [facility] Rx#:[id number] Cefepime 2 gm In Sodium 100 100 Chloride 0.9% 100 ml @ 25 mls/hr IVPB Q8H [facility] Rx#: [id number] metroNIDAZOLE-NS PMX 500 200 100 mg In Saline 1 100ml.bag @ 100 mls/hr IVPB Q8HR [facility] Rx#:[id number] Oral 340 Blood Product 567 Rc Pheresis 2 As3 Unit 285 [id number] Rc Pheresis As-3 Unit 282 [id number] Other 100 Rc Pheresis 2 As3 Unit 50 [id number] Rc Pheresis As-3 Unit 50 [id number] Output: Drainage 20 Upper Medial Abdomen 20 Urine 675 720 45 Other: Voiding Method Indwelling Catheter Indwelling Catheter Indwelling Catheter - Exam CONSTITUTIONAL: Revealed a 62-year-old female, obese, in no distress, sitting in her recliner,on nasal cannula at 3 L Head: Atraumatic, normocephalic. HEENT: Pupils are equal, round. Mucous membranes of the mouth are moist. No JVD. No carotid bruit. CHEST EXAMINATION: Symmetrical chest expansion, minimal crackles persist at the bases. HEART EXAMINATION: Distant S1 and S2, no S3 gallop, no murmur ABDOMEN: Obese, Soft, slightly tender with palpation. There is a midline surgical dressing with some outlined shadowing at the inferior portion. Bowel sounds are hypoactive. EXTREMITIES: No clubbing or cyanosis, good pulses bilaterally. there is some bilateral lower extremity edema 1+ NEUROLOGIC EXAMINATION: alert and oriented 3 focal neurologic deficits. Psychiatric: Normal mood, affect and normal mental status examination. Skin: No rashes. - Labs CBC & Chem 7: 04/07/22 04:57 04/07/22 04:57 Labs: Abnormal Lab Results - Last 24 Hours (Table) 04/06/22 04/06/22 04/06/22 Range/Units 06:58 12:00 16:28 RBC (3.80-5.40) m/uL Hgb (11.4-16.0) gm/dL Hct (34.0-46.0) % RDW (11.5-15.5) % Lymphocytes # (1.0-4.8) k/uL Sodium (137-145) mmol/L Chloride (98-107) mmol/L Carbon Dioxide (22-30) mmol/L BUN (7-17) mg/dL Glucose (74-99) mg/dL POC Glucose (mg/dL) 165 H 143 H (70-110) mg/dL Calcium (8.4-10.2) mg/dL Total Protein (6.3-8.2) g/dL Albumin (3.5-5.0) g/dL Crossmatch See Detail 04/06/22 04/06/22 04/07/22 Range/Units 20:29 21:06 01:57 RBC 2.21 L (3.80-5.40) m/uL Hgb 7.1 L (11.4-16.0) gm/dL Hct 21.0 L (34.0-46.0) % RDW 17.4 H (11.5-15.5) % Lymphocytes # (1.0-4.8) k/uL Sodium (137-145) mmol/L Chloride (98-107) mmol/L Carbon Dioxide (22-30) mmol/L BUN (7-17) mg/dL Glucose (74-99) mg/dL POC Glucose (mg/dL) 140 H 157 H (70-110) mg/dL Calcium (8.4-10.2) mg/dL Total Protein (6.3-8.2) g/dL Albumin (3.5-5.0) g/dL Crossmatch 04/07/22 04/07/22 04/07/22 Range/Units 04:57 04:57 05:59 RBC 2.32 L (3.80-5.40) m/uL Hgb 7.2 L (11.4-16.0) gm/dL Hct 22.1 L (34.0-46.0) % RDW 17.4 H (11.5-15.5) % Lymphocytes # 0.4 L (1.0-4.8) k/uL Sodium 134 L (137-145) mmol/L Chloride 93 L (98-107) mmol/L Carbon Dioxide 40 H (22-30) mmol/L BUN 23 H (7-17) mg/dL Glucose 101 H (74-99) mg/dL POC Glucose (mg/dL) 124 H (70-110) mg/dL Calcium 8.0 L (8.4-10.2) mg/dL Total Protein 5.3 L (6.3-8.2) g/dL Albumin 2.6 L (3.5-5.0) g/dL Crossmatch Microbiology - Last 24 Hours (Table) 03/31/22 16:42 Blood Culture - Final Blood No Growth after 144 hours 03/31/22 12:42 Blood Culture - Final Blood No Growth after 144 hours Assessment and Plan Assessment: Acute hypoxic and acute on chronic hypercapnic respiratory failure, multifactorial. Postop day # 2 for an open repair of a ventral incarcerated hernia and partial omentectomy Acute postoperative anemia. received 2 units PRBCs Acute on chronic diastolic heart failure Influenza A pneumonia/infection Acute exacerbation of COPD Possible superimposed bacterial pneumonia Acute non-ST elevation myocardial infarction with elevated troponin, being addressed by cardiology. small pericardial effusion noted on echocardiogram Benign essential hypertension Paroxysmal supraventricular tachycardia History of underlying COPD Morbid obesity Sepsis, possible septic shock.resolved. History of degenerative joint disease. Elevated d-dimer but negative CT angiogram of the chest. Plan: continue oxygen supplementation 2 L nasal cannula as needed to maintain oxygen saturation 92% or greater. Post-PRBC transfusion, hemoglobin this morning 7.2 g/dL. No overt signs of bleeding. Encourage incentive spirometer use Continue empiric antibiotics in the form of cefepime and Flagyl Continue bronchodilators. course of Tamiflu completed continue IV diuresis with Lasix 40 mg twice a day. Continue GI and DVT prophylaxis. Will downgrade patient to [facility] without telemetry. I have personally seen and examined the patient, performed the documentation and the assessment and plan as written. Number of minutes spent on the visit: 10 Time with Patient: Less than 30
--- NOTE | 2022-04-07 13:09 | P.PN ---
Subjective Progress Note Date: 04/07/22 CHIEF COMPLAINT: Incarcerated ventral hernia HISTORY OF PRESENT ILLNESS: Patient is in the ICU with respiratory failure with influenza A, COPD exacerbation and CHF exacerbation. Patient is postop day #2 s tatus post open repair of incarcerated ventral hernia and partial omentectomy. Patient is status post 2 units of blood. Her hemoglobin on lab from 6.7 to 7.2. Patient reporting that her abdominal pain is better controlled. She denies any nausea or vomiting. Patient denies any flatus. Afebrile. Blood pressures are better but still on the lower side. Tachycardia resolved. WBC is 5 Hgb 7.2 p latelets 233 sodium 134 potassium 4.1 creatinine 0.85 patient status post PICC line placement. Patient has been downgraded to [facility] with telemetry PHYSICAL EXAM: VITAL SIGNS: Reviewed. GENERAL: Well-developed in no acute distress. HEENT: No sclera icterus. Extraocular movements grossly intact. Moist buccal mucosa. Head is atraumatic, normocephalic. ABDOMEN: Soft. obese. Mild tenderness at incision site. Incision site clean dry and intact. ANTONY drain 20 ml sanguinous output NEUROLOGIC: Alert and oriented. Cranial nerves II through XII grossly intact. ASSESSMENT: 1. Incarcerated ventral hernia status post open repair and partial omentectomy PLAN: -Advance diet to clear liquids -Change abdominal dressing to optifoam silver -Continue to monitor hemoglobin -Continue to hold Plavix and subcu heparin -Continue supportive care Physician Segment Producer note has been reviewed by physician. Signing provider agrees with the documented findings, assessment, and plan of care. Objective - Vital Signs Vital signs: Vital Signs Temp 97.7 F 04/07/22 08:00 Pulse 80 04/07/22 12:06 Resp 14 04/07/22 10:00 BP 108/53 04/07/22 10:00 Pulse Ox 99 04/07/22 10:00 FiO2 100 04/05/22 17:48 Intake & Output 04/06/22 04/07/22 04/07/22 18:59 06:59 18:59 Intake Total 9002 540 20 Output Total 675 740 45 Balance 1002 -200 -25 Weight 155 kg Intake: IV 670 540 20 0.9@20 170 240 20 ACETAMINOPHEN IV (For NPO 200 100 ) 1,000 mg In Empty Bag 1 bag @ 400 mls/hr IVPB Q6HR [facility] Rx#:[id number] Cefepime 2 gm In Sodium 100 100 Chloride 0.9% 100 ml @ 25 mls/hr IVPB Q8H [facility] Rx#: [id number] metroNIDAZOLE-NS PMX 500 200 100 mg In Saline 1 100ml.bag @ 100 mls/hr IVPB Q8HR [facility] Rx#:[id number] Oral 340 Blood Product 567 Rc Pheresis 2 As3 Unit 285 [id number] Rc Pheresis As-3 Unit 282 [id number] Other 100 Rc Pheresis 2 As3 Unit 50 [id number] Rc Pheresis As-3 Unit 50 [id number] Output: Drainage 20 Upper Medial Abdomen 20 Urine 675 720 45 Other: Voiding Method Indwelling Catheter Indwelling Catheter Indwelling Catheter - Labs CBC & Chem 7: 04/07/22 04:57 04/07/22 04:57 Labs: Abnormal Lab Results - Last 24 Hours (Table) 04/06/22 04/06/22 04/06/22 Range/Units 06:58 16:28 20:29 RBC (3.80-5.40) m/uL Hgb (11.4-16.0) gm/dL Hct (34.0-46.0) % RDW (11.5-15.5) % Lymphocytes # (1.0-4.8) k/uL Sodium (137-145) mmol/L Chloride (98-107) mmol/L Carbon Dioxide (22-30) mmol/L BUN (7-17) mg/dL Glucose (74-99) mg/dL POC Glucose (mg/dL) 143 H 140 H (70-110) mg/dL Calcium (8.4-10.2) mg/dL Total Protein (6.3-8.2) g/dL Albumin (3.5-5.0) g/dL Crossmatch See Detail 04/06/22 04/07/22 04/07/22 Range/Units 21:06 01:57 04:57 RBC 2.21 L 2.32 L (3.80-5.40) m/uL Hgb 7.1 L 7.2 L (11.4-16.0) gm/dL Hct 21.0 L 22.1 L (34.0-46.0) % RDW 17.4 H 17.4 H (11.5-15.5) % Lymphocytes # 0.4 L (1.0-4.8) k/uL Sodium (137-145) mmol/L Chloride (98-107) mmol/L Carbon Dioxide (22-30) mmol/L BUN (7-17) mg/dL Glucose (74-99) mg/dL POC Glucose (mg/dL) 157 H (70-110) mg/dL Calcium (8.4-10.2) mg/dL Total Protein (6.3-8.2) g/dL Albumin (3.5-5.0) g/dL Crossmatch 04/07/22 04/07/22 Range/Units 04:57 05:59 RBC (3.80-5.40) m/uL Hgb (11.4-16.0) gm/dL Hct (34.0-46.0) % RDW (11.5-15.5) % Lymphocytes # (1.0-4.8) k/uL Sodium 134 L (137-145) mmol/L Chloride 93 L (98-107) mmol/L Carbon Dioxide 40 H (22-30) mmol/L BUN 23 H (7-17) mg/dL Glucose 101 H (74-99) mg/dL POC Glucose (mg/dL) 124 H (70-110) mg/dL Calcium 8.0 L (8.4-10.2) mg/dL Total Protein 5.3 L (6.3-8.2) g/dL Albumin 2.6 L (3.5-5.0) g/dL Crossmatch Microbiology - Last 24 Hours (Table) 03/31/22 16:42 Blood Culture - Final Blood No Growth after 144 hours 03/31/22 12:42 Blood Culture - Final Blood No Growth after 144 hours
--- NOTE | 2022-04-07 14:30 | P.PN ---
Subjective Progress Note Date: 04/07/22 Principal diagnosis: Flu and pneumonia Patient is a 62-year-old female with multiple comorbidities including COPD hypertension morbid obesity presenting to the ER yesterday for evaluation of increasing shortness of breath apparent has been getting worse for the last few days before presentation to the hospital patient did have worsening respiratory distress and the patient up getting intubated in the ER and was subsequently admitted to ICU, patient has been subsequently extubated on 04/01/2022, patient is status post open repair of incarcerated ventral hernia but no ischemic bowel and partial omentectomy completed on 04/05/2022 On today's evaluation that is 04/07/2022, the patient remains to be afebrile, the patient is breathing comfortably on 3 L nasal cannula oxygen, the patient denies having any chest pain , the patient did have occasional dry cough, soraida ent is still complaining of abdominal pain however no worsening and no vomiting Objective - Vital Signs Vital signs: Vital Signs Temp 97.7 F 04/07/22 08:00 Pulse 80 04/07/22 12:06 Resp 16 04/07/22 12:00 BP 94/44 04/07/22 12:00 Pulse Ox 100 04/07/22 12:00 FiO2 100 04/05/22 17:48 Intake & Output 04/06/22 04/07/22 04/07/22 18:59 06:59 18:59 Intake Total 1677 540 20 Output Total 675 740 45 Balance 1002 -200 -25 Weight 155 kg Intake: IV 670 540 20 0.9@20 170 240 20 ACETAMINOPHEN IV (For NPO 200 100 ) 1,000 mg In Empty Bag 1 bag @ 400 mls/hr IVPB Q6HR [facility] Rx#:[id number] Cefepime 2 gm In Sodium 100 100 Chloride 0.9% 100 ml @ 25 mls/hr IVPB Q8H [facility] Rx#: [id number] metroNIDAZOLE-NS PMX 500 200 100 mg In Saline 1 100ml.bag @ 100 mls/hr IVPB Q8HR [facility] Rx#:[id number] Oral 340 Blood Product 567 Rc Pheresis 2 As3 Unit 285 [id number] Rc Pheresis As-3 Unit 282 [id number] Other 100 Rc Pheresis 2 As3 Unit 50 [id number] Rc Pheresis As-3 Unit 50 [id number] Output: Drainage 20 Upper Medial Abdomen 20 Urine 675 720 45 Other: Voiding Method Indwelling Catheter Indwelling Catheter Indwelling Catheter - Exam GENERAL DESCRIPTION: A middle-age female up in the chair in no distress RESPIRATORY SYSTEM: Unlabored breathing , coarse breath sounds at the bases bilaterally HEART: S1 S2 regular rate and rhythm , ABDOMEN: Soft , mild distention and tenderness EXTREMITIES: No edema feet - Labs CBC & Chem 7: 04/07/22 04:57 04/07/22 04:57 Labs: Abnormal Lab Results - Last 24 Hours (Table) 04/06/22 04/06/22 04/06/22 Range/Units 06:58 16:28 20:29 RBC (3.80-5.40) m/uL Hgb (11.4-16.0) gm/dL Hct (34.0-46.0) % RDW (11.5-15.5) % Lymphocytes # (1.0-4.8) k/uL Sodium (137-145) mmol/L Chloride (98-107) mmol/L Carbon Dioxide (22-30) mmol/L BUN (7-17) mg/dL Glucose (74-99) mg/dL POC Glucose (mg/dL) 143 H 140 H (70-110) mg/dL Calcium (8.4-10.2) mg/dL Total Protein (6.3-8.2) g/dL Albumin (3.5-5.0) g/dL Crossmatch See Detail 04/06/22 04/07/22 04/07/22 Range/Units 21:06 01:57 04:57 RBC 2.21 L 2.32 L (3.80-5.40) m/uL Hgb 7.1 L 7.2 L (11.4-16.0) gm/dL Hct 21.0 L 22.1 L (34.0-46.0) % RDW 17.4 H 17.4 H (11.5-15.5) % Lymphocytes # 0.4 L (1.0-4.8) k/uL Sodium (137-145) mmol/L Chloride (98-107) mmol/L Carbon Dioxide (22-30) mmol/L BUN (7-17) mg/dL Glucose (74-99) mg/dL POC Glucose (mg/dL) 157 H (70-110) mg/dL Calcium (8.4-10.2) mg/dL Total Protein (6.3-8.2) g/dL Albumin (3.5-5.0) g/dL Crossmatch 04/07/22 04/07/22 Range/Units 04:57 05:59 RBC (3.80-5.40) m/uL Hgb (11.4-16.0) gm/dL Hct (34.0-46.0) % RDW (11.5-15.5) % Lymphocytes # (1.0-4.8) k/uL Sodium 134 L (137-145) mmol/L Chloride 93 L (98-107) mmol/L Carbon Dioxide 40 H (22-30) mmol/L BUN 23 H (7-17) mg/dL Glucose 101 H (74-99) mg/dL POC Glucose (mg/dL) 124 H (70-110) mg/dL Calcium 8.0 L (8.4-10.2) mg/dL Total Protein 5.3 L (6.3-8.2) g/dL Albumin 2.6 L (3.5-5.0) g/dL Crossmatch Microbiology - Last 24 Hours (Table) 03/31/22 16:42 Blood Culture - Final Blood No Growth after 144 hours 03/31/22 12:42 Blood Culture - Final Blood No Growth after 144 hours Assessment and Plan (1) Febrile illness, acute Current Visit: Yes Status: Acute Code(s): R50.9 - FEVER, UNSPECIFIED SNOMED Code(s): 273461268 (2) Influenza due to influenza virus, type A, human Current Visit: Yes Status: Acute Code(s): J10.1 - FLU DUE TO OTH IDENT INFLUENZA VIRUS W OTH RESP MANIFEST SNOMED Code(s): 334161047 Plan: 1patient presented to hospital with acute respiratory failure which is likely multifactorial in this patient tested positive for acute influenza A and possible component of COPD the patient with regular bronchitis versus early pneumonia. 2Patient with multiple antibiotic ALLERGIES that would limit the number of antibiotic safe to use. 3patient is status post laparotomy for incarcerated hernia and repair but no evidence of ischemic bowel or bowel resection and partial omentectomy 4- patient to continue with cefepime and Flagyl and continue supportive care Time with Patient: Less than 30
--- NOTE | 2022-04-07 16:04 | PN ---
PROGRESS NOTE SUBJECTIVE: This lady had an incarcerated hernia repair on April 05. Her hemoglobin was low. She received 2 units of blood. It still remains low at 7.2, but she is in sinus rhythm, hemodynamically stable. OBJECTIVE: HEART: S1 and S2 heard normally. Short systolic murmur is audible. LUNGS: Bilateral air entry is fair in the lungs. ABDOMEN: Deferred. Rest of physical exam, unchanged. I will continue to see the patient as needed. MMODL / IJN: [id number] /
[2022-04-07 16:30] LABS: Glucose,Whole Blood 76 mg/dL (70-110)
[2022-04-07] MEDS: CLOPIDOGREL 75 MG TAB PO SCH (18:43)
[2022-04-07] MEDS: HEPARIN SODIUM,PORCINE/PF 5,000 UNIT/0.5 ML SYRINGE SQ SCH (18:43)
[2022-04-07 19:03] LABS: Glucose,Whole Blood 182 mg/dL (70-110)
[2022-04-07 20:20] LABS: Glucose,Whole Blood 124 mg/dL (70-110)
[2022-04-07] MEDS: FERROUS SULFATE 325 MG TAB PO SCH (21:51)
[2022-04-07] MEDS ORDERED: diphenhydrAMINE 25 MG CAP PO SCH (22:00)
--- NOTE | 2022-04-07 22:17 | P.PN ---
Subjective This is a pleasant 62 years old female with multiple medical problems presented initially with influenza A pneumonia and she finished a course of Tamiflu with some evidence of acute heart failure related to non-STEMI, she is not on a blood thinner, actually her Plavix on subcutaneous heparin R hold still appeared by surgery team because of her postop anemia that required 2 units of blood transfusion yesterday and hemoglobin today is 7.2 with no active bleeding. Surgery team following closely and she is with incarcerated ventral hernia status post partial omentectomy on 04/05. Today is postoperative day #2. She has acute hypoxic respiratory failure improved Echocardiogram showed ejection fraction 55% with moderate aortic stenosis and moderate pericardial effusion. Patient currently On cefepime and by mouth Flagyl for her abdominal infection. She is currently saturating 99% on room air, she is fully awake and oriented and looks tired but no specific complaints while at rest Review of systems CONSTITUTIONAL: No fever, no malaise, no fatigue. HEENT: No recent visual problems or hearing problems. Denied any sore throat. CARDIOVASCULAR: No orthopnea, PND, no palpitations, no syncope. NEUROLOGICAL: No headaches, no weakness, no numbness. HEMATOLOGICAL: Denies any bleeding or petechiae. GENITOURINARY: Denies any burning micturition, frequency, or urgency. MUSCULOSKELETAL/RHEUMATOLOGICAL: Denies any joint pain, swelling, or any muscle pain. ENDOCRINE: Denies any polyuria or polydipsia. Active Medications Generic Name Dose Route Start Last Admin Trade Name Freq PRN Reason Stop Dose Admin Acetaminophen 500 mg 03/31/22 15:36 04/01/22 06:02 Acetaminophen Tab 500 Mg Tab PO 500 mg Q6HR PRN Administration Fever and/ or Pain Hydrocodone Bitart/Acetaminophen 1 each 03/31/22 15:36 04/07/22 00:21 Hydrocodone/Apap 5-325mg 1 Each Tab PO 1 each Q6HR PRN Administration Pain Hydrocodone Bitart/Acetaminophen 1 each 03/31/22 16:00 04/07/22 15:35 Hydrocodone/Apap 10-325mg 1 Each Tab PO 1 each TID [facility] Administration Albuterol/Ipratropium 3 ml 03/31/22 21:09 04/02/22 08:42 Ipratropium-Albuterol 3 Ml Neb INHALATION 3 ml RT-Q2H PRN Administration Shortness Of Breath Or Wheezing Albuterol/Ipratropium 3 ml 04/02/22 12:00 04/07/22 20:52 Ipratropium-Albuterol 3 Ml Neb INHALATION 3 ml RT-QID [facility] Administration Alprazolam 0.25 mg 03/31/22 15:36 04/06/22 14:27 Alprazolam 0.25 Mg Tab PO 0.25 mg TID PRN Administration Anxiety Aspirin 81 mg 04/01/22 09:00 04/07/22 08:20 Aspirin 81 Mg PO 81 mg DAILY [facility] Administration Cholecalciferol 25 mcg 04/01/22 09:00 04/07/22 08:20 Cholecalciferol 25 Mcg (1000 Iu) Tablet PO 25 mcg DAILY [facility] Administration Cyclobenzaprine HCl 5 mg 03/31/22 21:00 04/07/22 08:26 Cyclobenzaprine 5 Mg Tab PO 5 mg BID [facility] Administration Dextrose/Water 25 ml 03/31/22 21:00 Dextrose 50% Syringe 50 Ml IVP PER PROTOCOL PRN Hypoglycemia Protocol Dextrose/Water 50 ml 03/31/22 21:00 Dextrose 50% Syringe 50 Ml IVP PER PROTOCOL PRN Hypoglycemia Protocol Diphenhydramine HCl 50 mg 04/07/22 17:36 Diphenhydramine 25 Mg Cap PO TID PRN Itching Ferrous Sulfate 325 mg 04/07/22 21:15 Ferrous Sulfate 325 Mg Tab PO BID-W/MEALS [facility] Furosemide 40 mg 04/04/22 09:00 04/07/22 08:10 Furosemide 10 Mg/Ml 4 Ml Vial IV 40 mg Q12HR [facility] Administration Glipizide 5 mg 03/31/22 21:00 04/07/22 18:57 Glipizide 5 Mg Tab PO Not Given BID [facility] Hydromorphone HCl 0.5 mg 04/05/22 12:47 04/06/22 14:27 Hydromorphone 0.5 Mg/0.5 Ml Syringe IVP 0.5 mg Q3HR PRN Administration Pain Hydromorphone HCl 1 mg 04/05/22 17:22 04/06/22 02:59 Hydromorphone 1 Mg/Ml 1 Ml Syringe IVP 1 mg Q1HR PRN Administration Severe Pain (Scale 7 to 10) Cefepime HCl 2 gm/ Sodium 100 mls @ 25 mls/hr 04/05/22 23:00 04/07/22 15:36 Chloride IVPB 25 mls/hr Q8H [facility] Administration Protocol Metronidazole 500 mg/ IV 100 mls @ 100 mls/hr 04/06/22 00:00 04/07/22 15:36 Solution IVPB 100 mls/hr Q8HR [facility] Administration Protocol Insulin Aspart 0 unit 04/04/22 17:30 04/07/22 20:56 Insulin Aspart (Novolog) 100 Unit/Ml Vial SQ Not Given [id number] [facility] Protocol Losartan Potassium 25 mg 04/01/22 09:00 04/07/22 08:32 Losartan 25 Mg Tab PO Not Given DAILY [facility] Metoprolol Tartrate 25 mg 04/05/22 16:00 04/07/22 15:36 Metoprolol Tartrate 25 Mg Tab PO 25 mg TID [facility] Administration Miscellaneous Information 1 each 03/31/22 15:48 Magnesium Replacement Protocol 1 Each Misc MISCELLANE DAILY PRN Per Protocol Protocol Miscellaneous Information 1 each 03/31/22 15:48 Potassium Replacement Protocol 1 Each Misc MISCELLANE DAILY PRN Per Protocol Protocol Naloxone HCl 0.2 mg 03/31/22 16:52 Naloxone 0.4 Mg/Ml 1 Ml Vial IV Q2M PRN Opioid Reversal Pantoprazole Sodium 40 mg 04/01/22 07:30 04/07/22 06:36 Pantoprazole 40 Mg Tablet PO 40 mg [id number] [facility] Administration Pioglitazone HCl 30 mg 04/01/22 09:00 04/07/22 08:26 Pioglitazone 30 Mg Tab PO 30 mg DAILY [facility] Administration Potassium Chloride 20 meq 04/01/22 09:00 04/07/22 08:20 Potassium Chloride Er 20 Meq Tab.Er PO 20 meq DAILY [facility] Administration Tramadol HCl 50 mg 04/01/22 07:00 04/07/22 17:34 Tramadol 50 Mg Tab PO 50 mg Q6HR [facility] Administration Objective - Vital Signs Vital signs: Vital Signs Temp 97.7 F 04/07/22 08:00 Pulse 79 04/07/22 10:00 Resp 14 04/07/22 10:00 BP 108/53 04/07/22 10:00 Pulse Ox 99 04/07/22 10:00 FiO2 100 04/05/22 17:48 Intake & Output 04/06/22 04/07/22 04/07/22 18:59 06:59 18:59 Intake Total 1677 540 20 Output Total 675 740 45 Balance 1002 -200 -25 Weight 155 kg Intake: IV 670 540 20 0.9@20 170 240 20 ACETAMINOPHEN IV (For NPO 200 100 ) 1,000 mg In Empty Bag 1 bag @ 400 mls/hr IVPB Q6HR [facility] Rx#:[id number] Cefepime 2 gm In Sodium 100 100 Chloride 0.9% 100 ml @ 25 mls/hr IVPB Q8H [facility] Rx#: [id number] metroNIDAZOLE-NS PMX 500 200 100 mg In Saline 1 100ml.bag @ 100 mls/hr IVPB Q8HR [facility] Rx#:[id number] Oral 340 Blood Product 567 Rc Pheresis 2 As3 Unit 285 [id number] Rc Pheresis As-3 Unit 282 [id number] Other 100 Rc Pheresis 2 As3 Unit 50 [id number] Rc Pheresis As-3 Unit 50 [id number] Output: Drainage 20 Upper Medial Abdomen 20 Urine 675 720 45 Other: Voiding Method Indwelling Catheter Indwelling Catheter Indwelling Catheter - Exam -GENERAL: The patient is alert and oriented x3, patient looks tired not in any acute distress. Well developed, well nourished. HEENT: Pupils are round and equally reacting to light. EOMI. No scleral icterus. No conjunctival pallor. Normocephalic, atraumatic. No pharyngeal erythema. No thyromegaly. CARDIOVASCULAR: S1 and S2 present. No murmurs, rubs, or gallops. -PULMONARY: Chest is clear to auscultation, no wheezing . Mild bilateral crackles. -ABDOMEN: Soft, nontender, nondistended, normoactive bowel sounds. No palpable organomegaly. Surgical abdominal wound with a dressing and a Place Travon of exam is deferred to surgery team MUSCULOSKELETAL: No joint swelling or deformity. EXTREMITIES: No cyanosis, clubbing, or pedal edema. NEUROLOGICAL: Gross neurological examination did not reveal any focal deficits. SKIN: No rashes. no petechiae. - Labs CBC & Chem 7: 04/07/22 04:57 04/07/22 04:57 Labs: Abnormal Lab Results - Last 24 Hours (Table) 04/06/22 04/06/22 04/06/22 Range/Units 06:58 12:00 16:28 RBC (3.80-5.40) m/uL Hgb (11.4-16.0) gm/dL Hct (34.0-46.0) % RDW (11.5-15.5) % Lymphocytes # (1.0-4.8) k/uL Sodium (137-145) mmol/L Chloride (98-107) mmol/L Carbon Dioxide (22-30) mmol/L BUN (7-17) mg/dL Glucose (74-99) mg/dL POC Glucose (mg/dL) 165 H 143 H (70-110) mg/dL Calcium (8.4-10.2) mg/dL Total Protein (6.3-8.2) g/dL Albumin (3.5-5.0) g/dL Crossmatch See Detail 04/06/22 04/06/22 04/07/22 Range/Units 20:29 21:06 01:57 RBC 2.21 L (3.80-5.40) m/uL Hgb 7.1 L (11.4-16.0) gm/dL Hct 21.0 L (34.0-46.0) % RDW 17.4 H (11.5-15.5) % Lymphocytes # (1.0-4.8) k/uL Sodium (137-145) mmol/L Chloride (98-107) mmol/L Carbon Dioxide (22-30) mmol/L BUN (7-17) mg/dL Glucose (74-99) mg/dL POC Glucose (mg/dL) 140 H 157 H (70-110) mg/dL Calcium (8.4-10.2) mg/dL Total Protein (6.3-8.2) g/dL Albumin (3.5-5.0) g/dL Crossmatch 04/07/22 04/07/22 04/07/22 Range/Units 04:57 04:57 05:59 RBC 2.32 L (3.80-5.40) m/uL Hgb 7.2 L (11.4-16.0) gm/dL Hct 22.1 L (34.0-46.0) % RDW 17.4 H (11.5-15.5) % Lymphocytes # 0.4 L (1.0-4.8) k/uL Sodium 134 L (137-145) mmol/L Chloride 93 L (98-107) mmol/L Carbon Dioxide 40 H (22-30) mmol/L BUN 23 H (7-17) mg/dL Glucose 101 H (74-99) mg/dL POC Glucose (mg/dL) 124 H (70-110) mg/dL Calcium 8.0 L (8.4-10.2) mg/dL Total Protein 5.3 L (6.3-8.2) g/dL Albumin 2.6 L (3.5-5.0) g/dL Crossmatch Microbiology - Last 24 Hours (Table) 03/31/22 16:42 Blood Culture - Final Blood No Growth after 144 hours 03/31/22 12:42 Blood Culture - Final Blood No Growth after 144 hours Assessment and Plan Assessment: Acute influenza pneumonia Incarcerated ventral hernia status post open repair and partial omentectomy 04/05 Acute on Chronic diastolic heart failure with ejection fraction 55% Postoperative anemia requiring 2 units of blood transfusion None STEMI Pericardial effusion Moderate aortic stenosis with mild to moderate tricuspid regurgitation Paroxysmal atrial tachycardia Diabetes mellitus Hypertension Plan: Continue with antibiotics cefepime and by mouth Flagyl Continue with IV Lasix 40 mg twice a day Keep holding Plavix and subcutaneous heparin until cleared by surgery team Several consultants on the case including pulmonary/critical care team, surgical team, production line worker and infectious disease team Labs and medication were reviewed.. Continue same treatment. Continue with symptomatic treatment. Resume home medication. Monitor lytes and vitals. DVT and GI prophylaxis. Further recommendations as per clinical course of the patient DVT prophylaxis: Subcutaneous heparin, on hold for anemia GI Prophylaxis: Ppi PT/OT: Pending Prognosis is guarded
[2022-04-08] MEDS: metroNIDAZOLE-NS PMX 500 MG in SALINE 1 100ML.BAG IVPB SCH ×3 (01:32→17:16)
[2022-04-08] MEDS: traMADol 50 MG TAB PO SCH ×4 (01:33→18:24)
[2022-04-08 02:28] LABS: Glucose,Whole Blood 173 mg/dL (70-110)
[2022-04-08] MEDS: INSULIN ASPART (NovoLOG) 100 UNIT/ML VIAL SQ SCH ×5 (05:58→21:49)
[2022-04-08] MEDS: FERROUS SULFATE 325 MG TAB PO SCH ×2 (06:00→10:04)
[2022-04-08] MEDS: PANTOPRAZOLE 40 MG TABLET PO SCH (06:02)
[2022-04-08] MEDS: CEFEPIME 2 GM in SODIUM CHLORIDE 0.9% 100 ML IVPB SCH ×2 (06:03→18:25)
[2022-04-08 06:20] LABS: Glucose,Whole Blood 167 mg/dL (70-110)
[2022-04-08 07:51] LABS: Glucose,Whole Blood 148 mg/dL (70-110)
[2022-04-08 08:30] LABS: Basophils # (A) 0.02 X 10*3/uL (0.00-0.10); Basophils % (A) 0.3 %; Eosinophils % (A) 3.2 %; HCT 25.9 % (37.2-46.3); HGB 7.8 g/dL (12.0-15.0); Lymphocytes # (A) 0.32 X 10*3/uL (0.90-5.00); Lymphocytes % (A) 5.1 %; MCH 30.1 pg (27.0-32.0); MCHC 30.1 g/dL (32.0-37.0); Mean Platelet Volume 9.1 fL (9.5-12.2); Monocytes # (A) 0.46 X 10*3/uL (0.20-1.00); Monocytes % (A) 7.4 %; NRBC Per 100 WBC 0 /100 WBCS (0.0-0.0); Neutrophils # (A) 5.16 X 10*3/uL (1.80-7.70); Platelet Count 268 X 10*3/uL (140-440); RBC 2.59 X 10*6/uL (4.10-5.20); RDW 17.4 % (11.5-14.5); WBC 6.22 X 10*3/uL (4.50-10.00)
[2022-04-08] MEDS: IPRATROPIUM-ALBUTEROL 3 ML NEB INHALATION SCH ×4 (08:33→19:55)
[2022-04-08 08:53] LABS: African American GFR (CKD) 95.8 (60.0-200.0); Anion Gap 8.8 mmol/L (10.00-18.00); BUN/Creat Ratio 22.58 Ratio (12.00-20.00); Blood Urea Nitrogen 17.3 mg/dL (9.0-27.0); Calcium 9.2 mg/dL (8.7-10.3); Carbon Dioxide 37.4 mmol/L (20.0-27.5); Non-African American GFR(CKD) 82.7 (60.0-200.0); Potassium 4.2 mmol/L (3.5-5.5)
--- NOTE | 2022-04-08 10:02 | P.PN ---
Subjective Progress Note Date: 04/08/22 Principal diagnosis: Bowel obstruction Patient doing somewhat better today. She is up in the chair at this time. Says her pain is better. No nausea or vomiting. Tolerating clear liquids. No flatus or bowel movement. Objective - Vital Signs Vital signs: Vital Signs Temp 97.5 F L 04/08/22 07:50 Pulse 88 04/08/22 08:46 Resp 20 04/08/22 07:50 BP 123/70 04/08/22 07:50 Pulse Ox 100 04/08/22 07:50 FiO2 100 04/05/22 17:48 Intake & Output 04/07/22 04/08/22 04/08/22 18:59 06:59 18:59 Intake Total 220 Output Total 970 2400 Balance -750 -2400 Intake: IV 220 0.9@20 220 Output: Drainage 25 Upper Medial Abdomen 25 Urine 945 2400 Other: Voiding Method Indwelling Catheter - Exam Abdomen: Soft, nondistended, dressing clean and dry, mild incisional tenderness - Labs CBC & Chem 7: 04/08/22 05:59 04/08/22 05:59 Labs: Abnormal Lab Results - Last 24 Hours (Table) 04/07/22 04/07/22 04/08/22 Range/Units 19:02 20:15 02:27 RBC (4.10-5.20) X 10*6/uL Hgb (12.0-15.0) g/dL Hct (37.2-46.3) % MCV (80.0-97.0) fL MCHC (32.0-37.0) g/dL RDW (11.5-14.5) % MPV (9.5-12.2) fL Immature Gran # (0.00-0.04) X 10*3/uL Lymphocytes # (0.90-5.00) X 10*3/uL Chloride (96-109) mmol/L Carbon Dioxide (20.0-27.5) mmol/L Anion Gap (10.00-18.00) mmol/L BUN/Creatinine Ratio (12.00-20.00) Ratio Glucose (70-110) mg/dL POC Glucose (mg/dL) 182 H 124 H 173 H (70-110) mg/dL 04/08/22 04/08/22 04/08/22 Range/Units 05:59 05:59 06:19 RBC 2.59 L (4.10-5.20) X 10*6/uL Hgb 7.8 L (12.0-15.0) g/dL Hct 25.9 L (37.2-46.3) % MCV 100.0 H (80.0-97.0) fL MCHC 30.1 L (32.0-37.0) g/dL RDW 17.4 H (11.5-14.5) % MPV 9.1 L (9.5-12.2) fL Immature Gran # 0.06 H (0.00-0.04) X 10*3/uL Lymphocytes # 0.32 L (0.90-5.00) X 10*3/uL Chloride 92 L (96-109) mmol/L Carbon Dioxide 37.4 H (20.0-27.5) mmol/L Anion Gap 8.80 L (10.00-18.00) mmol/L BUN/Creatinine Ratio 22.58 H (12.00-20.00) Ratio Glucose 142 H (70-110) mg/dL POC Glucose (mg/dL) 167 H (70-110) mg/dL 04/08/22 Range/Units 07:46 RBC (4.10-5.20) X 10*6/uL Hgb (12.0-15.0) g/dL Hct (37.2-46.3) % MCV (80.0-97.0) fL MCHC (32.0-37.0) g/dL RDW (11.5-14.5) % MPV (9.5-12.2) fL Immature Gran # (0.00-0.04) X 10*3/uL Lymphocytes # (0.90-5.00) X 10*3/uL Chloride (96-109) mmol/L Carbon Dioxide (20.0-27.5) mmol/L Anion Gap (10.00-18.00) mmol/L BUN/Creatinine Ratio (12.00-20.00) Ratio Glucose (70-110) mg/dL POC Glucose (mg/dL) 148 H (70-110) mg/dL Assessment and Plan (1) Incarcerated ventral hernia Narrative/Plan: Patient gradually improving after open repair incarcerated ventral hernia. Advance diet to full liquids. Discontinue Gonzales catheter. Increase activity with physical therapy. Current Visit: Yes Status: Acute Code(s): K43.6 - OTHER AND UNSP VENTRAL H ERNIA WITH OBSTRUCTION, W/O GANGRENE SNOMED Code(s): 125579775
[2022-04-08] MEDS: HYDROcodone/APAP 10-325MG 1 EACH TAB PO SCH ×2 (10:03→17:16)
[2022-04-08] MEDS: CYCLOBENZAPRINE 5 MG TAB PO SCH ×2 (10:03→21:48)
[2022-04-08] MEDS: PIOGLITAZONE 30 MG TAB PO SCH (10:04)
[2022-04-08] MEDS: FUROSEMIDE 10 MG/ML 4 ML VIAL IV SCH ×2 (10:04→21:49)
[2022-04-08] MEDS: METOPROLOL TARTRATE 25 MG TAB PO SCH ×2 (10:04→17:16)
[2022-04-08] MEDS: ASPIRIN 81 MG PO SCH (10:04)
[2022-04-08] MEDS: glipiZIDE 5 MG TAB PO SCH ×2 (10:04→21:49)
[2022-04-08] MEDS: POTASSIUM CHLORIDE ER 20 MEQ TAB.ER PO SCH (10:04)
[2022-04-08] MEDS: LOSARTAN 25 MG TAB PO SCH (10:04)
[2022-04-08] MEDS: CHOLECALCIFEROL 25 MCG (1000 IU) TABLET PO SCH (10:04)
[2022-04-08 11:28] LABS: Glucose,Whole Blood 144 mg/dL (70-110)
--- NOTE | 2022-04-08 12:36 | P.PN ---
Subjective This is a pleasant 62 years old female with multiple medical problems presented initially with influenza A pneumonia and she finished a course of Tamiflu with some evidence of acute heart failure related to non-STEMI, she is not on a blood thinner, actually her Plavix on subcutaneous heparin R hold still appeared by surgery team because of her postop anemia that required 2 units of blood transfusion yesterday and hemoglobin today is 7.2 with no active bleeding. Surgery team following closely and she is with incarcerated ventral hernia status post partial omentectomy on 04/05. Today is postoperative day #2. She has acute hypoxic respiratory failure improved Echocardiogram showed ejection fraction 55% with moderate aortic stenosis and moderate pericardial effusion. Patient currently On cefepime and by mouth Flagyl for her abdominal infection. She is currently saturating 99% on room air, she is fully awake and oriented and looks tired but no specific complaints while at rest 04/08/2012 patient was lying in bed very weak and lethargic in the morning, however she is awake and alert, she still complaining of from abdominal pain and surgical site which is expected it's, she is on liquid diet and tolerated that well with no vomiting or worsening pain. But had no bowel movement or cancer. No evidence of bleeding from the wound or anywhere else, hemoglobin improved to 7.8 today after iron pills surgery yesterday and received 2 units of blood transfusion. Her Vitas looks stable, saturating 100% on 4 L oxygen. She had a fever of 100 2 days ago but no more fever. Currently she is on cefepime and by mouth Flagyl. Keep holding Plavix on subcutaneous heparin until cleared by surgery team She is also on Lasix 40 mg twice daily Objective - Vital Signs Vital signs: Vital Signs Temp 97.5 F L 04/08/22 07:50 Pulse 100 04/08/22 12:03 Resp 20 04/08/22 07:50 BP 123/70 04/08/22 07:50 Pulse Ox 100 04/08/22 07:50 FiO2 100 04/05/22 17:48 Intake & Output 04/07/22 04/08/22 04/08/22 18:59 06:59 18:59 Intake Total 220 Output Total 970 2400 Balance -750 -2400 Intake: IV 220 0.9@20 220 Output: Drainage 25 Upper Medial Abdomen 25 Urine 945 2400 Other: Voiding Method Indwelling Catheter - Exam -GENERAL: The patient is alert and oriented x3, patient looks tired not in any acute distress. Well developed, well nourished. HEENT: Pupils are round and equally reacting to light. EOMI. No scleral icterus. No conjunctival pallor. Normocephalic, atraumatic. No pharyngeal erythema. No thyromegaly. CARDIOVASCULAR: S1 and S2 present. No murmurs, rubs, or gallops. -PULMONARY: Chest is clear to auscultation, no wheezing . Mild bilateral crackles. -ABDOMEN: Soft, nontender, nondistended, normoactive bowel sounds. No palpable organomegaly. Surgical abdominal wound with a dressing and a Place Travon of exam is deferred to surgery team MUSCULOSKELETAL: No joint swelling or deformity. EXTREMITIES: No cyanosis, clubbing, or pedal edema. NEUROLOGICAL: Gross neurological examination did not reveal any focal deficits. SKIN: No rashes. no petechiae. - Labs CBC & Chem 7: 04/08/22 05:59 04/08/22 05:59 Labs: Abnormal Lab Results - Last 24 Hours (Table) 04/07/22 04/07/22 04/08/22 Range/Units 19:02 20:15 02:27 RBC (4.10-5.20) X 10*6/uL Hgb (12.0-15.0) g/dL Hct (37.2-46.3) % MCV (80.0-97.0) fL MCHC (32.0-37.0) g/dL RDW (11.5-14.5) % MPV (9.5-12.2) fL Immature Gran # (0.00-0.04) X 10*3/uL Lymphocytes # (0.90-5.00) X 10*3/uL Chloride (96-109) mmol/L Carbon Dioxide (20.0-27.5) mmol/L Anion Gap (10.00-18.00) mmol/L BUN/Creatinine Ratio (12.00-20.00) Ratio Glucose (70-110) mg/dL POC Glucose (mg/dL) 182 H 124 H 173 H (70-110) mg/dL 04/08/22 04/08/22 04/08/22 Range/Units 05:59 05:59 06:19 RBC 2.59 L (4.10-5.20) X 10*6/uL Hgb 7.8 L (12.0-15.0) g/dL Hct 25.9 L (37.2-46.3) % MCV 100.0 H (80.0-97.0) fL MCHC 30.1 L (32.0-37.0) g/dL RDW 17.4 H (11.5-14.5) % MPV 9.1 L (9.5-12.2) fL Immature Gran # 0.06 H (0.00-0.04) X 10*3/uL Lymphocytes # 0.32 L (0.90-5.00) X 10*3/uL Chloride 92 L (96-109) mmol/L Carbon Dioxide 37.4 H (20.0-27.5) mmol/L Anion Gap 8.80 L (10.00-18.00) mmol/L BUN/Creatinine Ratio 22.58 H (12.00-20.00) Ratio Glucose 142 H (70-110) mg/dL POC Glucose (mg/dL) 167 H (70-110) mg/dL 04/08/22 04/08/22 Range/Units 07:46 11:27 RBC (4.10-5.20) X 10*6/uL Hgb (12.0-15.0) g/dL Hct (37.2-46.3) % MCV (80.0-97.0) fL MCHC (32.0-37.0) g/dL RDW (11.5-14.5) % MPV (9.5-12.2) fL Immature Gran # (0.00-0.04) X 10*3/uL Lymphocytes # (0.90-5.00) X 10*3/uL Chloride (96-109) mmol/L Carbon Dioxide (20.0-27.5) mmol/L Anion Gap (10.00-18.00) mmol/L BUN/Creatinine Ratio (12.00-20.00) Ratio Glucose (70-110) mg/dL POC Glucose (mg/dL) 148 H 144 H (70-110) mg/dL Assessment and Plan Assessment: Acute influenza pneumonia Incarcerated ventral hernia status post open repair and partial omentectomy 12/27 Acute on Chronic diastolic heart failure with ejection fraction 55% Postoperative anemia requiring 2 units of blood transfusion None STEMI Pericardial effusion Moderate aortic stenosis with mild to moderate tricuspid regurgitation Paroxysmal atrial tachycardia Diabetes mellitus Hypertension Plan: Continue with antibiotics cefepime and by mouth Flagyl Continue with IV Lasix 40 mg twice a day Keep holding Plavix and subcutaneous heparin until cleared by surgery team Several consultants on the case including pulmonary/critical care team, surgical team, ostomy care nurse and infectious disease team Labs and medication were reviewed.. Continue same treatment. Continue with symptomatic treatment. Resume home medication. Monitor lytes and vitals. DVT and GI prophylaxis. Further recommendations as per clinical course of the patient DVT prophylaxis: Subcutaneous heparin, on hold for anemia GI Prophylaxis: Ppi PT/OT: Pending Prognosis is guarded
--- NOTE | 2022-04-08 15:10 | P.PN ---
Subjective Progress Note Date: 04/08/22 This is a 62-year-old female with history of morbid obesity, COPD, hypertension, previous smoking history, patient presented to the ER yesterday with a few days' history of increased shortness of breath, productive cough with thick yellow phlegm, apparently the patient had multiple children in the household with similar symptoms. Upon arrival to the ER, patient was hypoxic, and she was placed on a nonrebreather mask. She tested positive for influenza A, and the patient was started on Tamiflu. Chest x-ray showed evidence of cardiomegaly, pulmonary venous congestion, diffuse perihilar infiltrates, findings are suspicious for congestive heart failure or viral type of pneumonia. CT angiogram of the chest showed no evidence of pulmonary embolism, bilateral pleural effusions, and moderate pericardial effusion as well as interstitial infiltrates bilaterally while in the ER, the patient seems to have decompensated, and developed significant worsening shortness of breath, and she required intubation and mechanical ventilation by the ER physician. Immediate ABG post intubation showed a pO2 of 164, pCO2 of 93 pH of 7.18, implying that the patient was developing significant worsening hypercapnic respiratory failure requiring intubation and mechanical ventilation. Follow-up ABG showed a pO2 of 76 he CO2 of 60 pH of 7.41, continues to have hypercapnia with metabolic compensation for her respiratory acidosis, and that implies that the patient does have chronic hypercapnia. At any rate patient was intubated, placed on mechanical ventilation and I was made aware of this patient, transfer patient to the ICU at night. While in the ICU the patient has been receiving antibiotics empirically, Tamiflu, and she was also receiving diuretics. Patient received significant amount of fluid boluses while in the ER because of relatively low blood pressure. During my evaluation, the patient was on assist control rate of 24 tidal volume of 400 FiO2 40% and PEEP of 5. ABG showed a pO2 of 76 pCO2 of 60 pH of 7.41. Patient was kept on norepinephrine at 0.02 mcg/kg/m for now, I gave the patient a weaning trial while I was at bedside, patient was given a trial of pressure support of 10 and CPAP, and she tolerated that quite well for about one hour hence I recommended extubating the patient to BiPAP. IV fluid is cut down to KVO, patient has been receiving Lasix early this morning, and she is responding well to diuretics. Reevaluated today on 03/29/22, patient remains in the ICU, she tolerated extubation well, I saw this lady yesterday, and she was extubated to BiPAP. Eventually the patient was transitioned to a nasal cannula, and she remains on nasal cannula at present she is on 5 L/m, does not seem to be in distress, she is having intermittent cough, able to clear secretions.chest x-ray today continues to show evidence of interstitial edema, however it is improved compared to the chest x-ray on her admission and from yesterday.WBC count today is 4.3 hemoglobin 7.6 electrolytes are normal renal profile is normal bicarb is 39, blood sugar is 232 Reevaluated today on 04/03/22, patient continues to do well, continues to tolerate the extubation well, she is now on few liters nasal cannula, sitting in a bedside chair, doing great, relatively asymptomatic, chest x-ray is showing significant improvement.WBC count is 3.4 hemoglobin 7.7. Electrolytes and renal profile are normal bicarb is 39.chest x-ray continues to show mild interstitial edema and trace of the effusions. But improved compared to her initial chest x- ray on admission. Reevaluated today on 04/04/22, patient remains in the ICU, she is doing well. She tolerated the extubation a few days ago, continues to do well remains on Lasix 40 mg 3 times a day and I cut down to 40 mg twice a day. Patient had a n egative fluid balance of 1.2 L in the last 24 hours. She is now on nasal cannula at 3 L/m, overall the patient is doing better than expected. Hence I plan to transfer the patient out of the ICU to a monitor bed on .WBC count is 3.8 hemoglobin is 7.6, basic metabolic profile is normal, renal profile is normal, bicarb is 40.chest x-ray continues to show multifocal airspace opacities, but significantly improved compared to her initial baseline chest x- ray when she was intubated upon presentation. patient is being reevaluated today on 04/05/2022, in the ICU as a 3 S. overflow. She was originally admitted on 03/31 with shortness of breath, fever, influenza A infection. patient did require intubation on 03/31/2022 for acute hypoxic respiratory failure and was extubated the following day on 04/01/2022. Patient is currently resting comfortably in chair 3 L nasal cannula. She is not receiving any IV fluids. she denies shortness of breath, cough, chest pain, fever. a repeat chest x-ray from today showed persistent cardiomegaly with small bilateral pleural effusions and some pulmonary vascular congestion. she continues to receive Lasix twice a day. her fluid balance for the last 24 hours is 0.5 L. An echocardiogram from 04/02/2022 shows a preserved ejection fraction 55%, some moderate aortic stenosis, and left ventricular hypertrophy. sputum and blood cultures remain negative. no new labs to review today. CBC from 04/04/2020 to show no leukocytosis. she has completed her course of Tamiflu. she is receiving ceftriaxone for empiric antibiotic therapy. she is also maintained on DuoNeb inhalation. She is receiving Protonix for GI prophylaxis and heparin for DVT prophylaxis. Patient is being reevaluated today on 04/06/2022 in ICU. Patient did undergo surgery yesterday, with Dr. Guerrero, for an open repair of an incarcerated ventral hernia. The patient is currently laying in bed, fairly comfortable, on 3 L nasal cannula. Postoperatively, the patient's vital signs had remained fairly stable. Patient does have a marginal blood pressure 90s over 40s. And is currently receiving her first unit of 2 PRBCs ordered. She has not required any vasopressors at this time. Normal saline is infusing at 20 ML's per hour. Estimated blood loss from the procedure was documented as only 20 mL. Patient's hemoglobin is down from 7.6 to 6.7 g/dL today. CBC from today shows hematocrit 20, WBC count of 6.2, platelets 240,000. BMP from today shows sodium of 134, potassium 4.8, chloride 93, serum CO2 40, BUN 21, creatinine 0.76, glucose 145. Patient is mildly febrile today with a temperature max of 100F. Final sputum culture was negative, and blood cultures negative at 120 hours. Patient is being managed with empiric antibiotics in the form of Flagyl and cefepime. Patient is also receiving twice a day Lasix. Fluid balance is -800 and the last 24 hours. She is receiving Protonix for GI prophylaxis. I'm reevaluating this patient today on 04/07/2022 in ICU. Patient is postop day #2 following a repair of incarcerated ventral hernia and omentectomy with Dr. Guerrero. Patient is currently lying up in bed, fairly comfortable, on 2 L nasal cannula. Patient denies any significant respiratory distress, cooperative, fever. Normal saline is using KVO through a left upper arm PICC line was inserted 03/29/2022. Patient did receive 2 units of PRBCs yesterday for postoperative anemia. Hemoglobin is up to 7.2 g/dL this morning, hematocrit 22, WBCs 5, platelets 233,000. No overt signs of bleeding noted, ANTONY drain remains in place and had about of 20 mL of serosanguineous output overnight. Postsurgical dressing remains in place, with some outlined shadowing. BMP from today shows sodium 134, potassium 4.1, chloride 93, serum CO2 40, UN 23, renin 0.85, glucose 101. Most recent chest x-ray from 04/06/2022 shows cardiomegaly with mild diffuse markings, normal pulmonary vasculature, and a left-sided PICC line with the distal tip in the superior vena cava. Vital signs remained stable. The patient is seen today 04/08/2022 in follow-up on the regular medical floor. She is currently resting comfortably in bed. Awake and alert in no acute distress. She is maintaining good O2 saturations in the 90s on 4 L/m per nasal cannula. She is status post 2 units of packed red blood cells this admission. Blood cultures revealed no growth. Sputum culture revealed no growth. White count 6.2. He was 7.8. Sodium 138. Potassium 4.2. BUN 17. Creatinine 0.8. Glucose 142. She is continued on bronchodilators. Remains on IV diuretics. Currently in a -3 L balance. Continued on cefepime. Continued on Flagyl. Objective - Vital Signs Vital signs: Vital Signs Temp 97.5 F L 04/08/22 07:50 Pulse 100 04/08/22 12:03 Resp 20 04/08/22 08:00 BP 123/70 04/08/22 07:50 Pulse Ox 100 04/08/22 07:50 FiO2 100 04/05/22 17:48 Intake & Output 04/07/22 04/08/22 04/08/22 18:59 06:59 18:59 Intake Total 220 180 Output Total 970 2400 25 Balance -750 -2400 155 Intake: IV 220 0.9@20 220 Oral 180 Output: Drainage 25 25 Upper Medial Abdomen 25 25 Urine 945 2400 Other: Voiding Method Indwelling Catheter Indwelling Catheter - Exam CONSTITUTIONAL: Revealed a 62-year-old female, obese, resting comfortably in bed, on nasal cannula at 4 L Head: Atraumatic, normocephalic. HEENT: Pupils are equal, round. Mucous membranes of the mouth are moist. No JVD. No carotid bruit. CHEST EXAMINATION: Symmetrical chest expansion, minimal crackles persist at the bases. HEART EXAMINATION: Distant S1 and S2, no S3 gallop, no murmur ABDOMEN: Obese, Soft, slightly tender with palpation. There is a midline surgical dressing with some outlined shadowing at the inferior portion. Bowel sounds are present. EXTREMITIES: No clubbing or cyanosis, good pulses bilaterally. there is some bilateral lower extremity edema 1+ NEUROLOGIC EXAMINATION: alert and oriented 3 focal neurologic deficits. Psychiatric: Normal mood, affect and normal mental status examination. - Labs CBC & Chem 7: 04/08/22 05:59 04/08/22 05:59 Labs: Abnormal Lab Results - Last 24 Hours (Table) 04/07/22 04/07/22 04/08/22 Range/Units 19:02 20:15 02:27 RBC (4.10-5.20) X 10*6/uL Hgb (12.0-15.0) g/dL Hct (37.2-46.3) % MCV (80.0-97.0) fL MCHC (32.0-37.0) g/dL RDW (11.5-14.5) % MPV (9.5-12.2) fL Immature Gran # (0.00-0.04) X 10*3/uL Lymphocytes # (0.90-5.00) X 10*3/uL Chloride (96-109) mmol/L Carbon Dioxide (20.0-27.5) mmol/L Anion Gap (10.00-18.00) mmol/L BUN/Creatinine Ratio (12.00-20.00) Ratio Glucose (70-110) mg/dL POC Glucose (mg/dL) 182 H 124 H 173 H (70-110) mg/dL 04/08/22 04/08/22 04/08/22 Range/Units 05:59 05:59 06:19 RBC 2.59 L (4.10-5.20) X 10*6/uL Hgb 7.8 L (12.0-15.0) g/dL Hct 25.9 L (37.2-46.3) % MCV 100.0 H (80.0-97.0) fL MCHC 30.1 L (32.0-37.0) g/dL RDW 17.4 H (11.5-14.5) % MPV 9.1 L (9.5-12.2) fL Immature Gran # 0.06 H (0.00-0.04) X 10*3/uL Lymphocytes # 0.32 L (0.90-5.00) X 10*3/uL Chloride 92 L (96-109) mmol/L Carbon Dioxide 37.4 H (20.0-27.5) mmol/L Anion Gap 8.80 L (10.00-18.00) mmol/L BUN/Creatinine Ratio 22.58 H (12.00-20.00) Ratio Glucose 142 H (70-110) mg/dL POC Glucose (mg/dL) 167 H (70-110) mg/dL 04/08/04/08/22 Range/Units 07:46 11:27 RBC (4.10-5.20) X 10*6/uL Hgb (12.0-15.0) g/dL Hct (37.2-46.3) % MCV (80.0-97.0) fL MCHC (32.0-37.0) g/dL RDW (11.5-14.5) % MPV (9.5-12.2) fL Immature Gran # (0.00-0.04) X 10*3/uL Lymphocytes # (0.90-5.00) X 10*3/uL Chloride (96-109) mmol/L Carbon Dioxide (20.0-27.5) mmol/L Anion Gap (10.00-18.00) mmol/L BUN/Creatinine Ratio (12.00-20.00) Ratio Glucose (70-110) mg/dL POC Glucose (mg/dL) 148 H 144 H (70-110) mg/dL Assessment and Plan Assessment: Acute hypoxic and acute on chronic hypercapnic respiratory failure, multifactorial. Improved and stable on 4 L nasal cannula Postop day # 3 for an open repair of a ventral incarcerated hernia and partial omentectomy Acute postoperative anemia. received 2 units PRBCs had stable current hemoglobin 7.8 Acute on chronic diastolic heart failure Influenza A pneumonia/infection Acute exacerbation of COPD Possible superimposed bacterial pneumonia Acute non-ST elevation myocardial infarction with elevated troponin, being addressed by cardiology. Small pericardial effusion noted on echocardiogram Benign essential hypertension Paroxysmal supraventricular tachycardia History of underlying COPD Morbid obesity Sepsis, possible septic shock.resolved. History of degenerative joint disease. Elevated d-dimer but negative CT angiogram of the chest. Plan: The patient was seen and evaluated Medications and labs reviewed Stable from the pulmonary standpoint We will see as needed I have personally seen and examined the patient, performed the documentation and the assessment and plan as written. Number of minutes spent on the visit: 10.
--- NOTE | 2022-04-08 15:24 | P.PN ---
Subjective Progress Note Date: 04/08/22 Principal diagnosis: Flu and pneumonia Patient is a 62-year-old female with multiple comorbidities including COPD hypertension morbid obesity presenting to the ER yesterday for evaluation of increasing shortness of breath apparent has been getting worse for the last few days before presentation to the hospital patient did have worsening respiratory distress and the patient up getting intubated in the ER and was subsequently admitted to ICU, patient has been subsequently extubated on 04/01/2022, patient is status post open repair of incarcerated ventral hernia but no ischemic bowel and partial omentectomy completed on 04/05/2022 On today's evaluation that is 04/08/2022, the patient continues to be afebrile, the patient is breathing comfortably on 3 L nasal cannula oxygen, the patient denies having any chest pain , the patient did have occasional cough but no sputum production, the patient is still complaining of abdominal pain, some nausea but no vomiting, currently on a clear liquid diet which she is tolerating Objective - Vital Signs Vital signs: Vital Signs Temp 97.5 F L 04/08/22 07:50 Pulse 100 04/08/22 12:03 Resp 20 04/08/22 07:50 BP 123/70 04/08/22 07:50 Pulse Ox 100 04/08/22 07:50 FiO2 100 04/05/22 17:48 Intake & Output 04/07/22 04/08/22 04/08/22 18:59 06:59 18:59 Intake Total 220 Output Total 970 2400 Balance -750 -2400 Intake: IV 220 0.9@20 220 Output: Drainage 25 Upper Medial Abdomen 25 Urine 945 2400 Other: Voiding Method Indwelling Catheter - Exam GENERAL DESCRIPTION: A middle-age female up in the chair in no distress RESPIRATORY SYSTEM: Unlabored breathing , coarse breath sounds at the bases bilaterally HEART: S1 S2 regular rate and rhythm , ABDOMEN: Soft , mild distention and tenderness EXTREMITIES: No edema feet - Labs CBC & Chem 7: 04/08/22 05:59 04/08/22 05:59 Labs: Abnormal Lab Results - Last 24 Hours (Table) 04/07/22 04/07/22 04/08/22 Range/Units 19:02 20:15 02:27 RBC (4.10-5.20) X 10*6/uL Hgb (12.0-15.0) g/dL Hct (37.2-46.3) % MCV (80.0-97.0) fL MCHC (32.0-37.0) g/dL RDW (11.5-14.5) % MPV (9.5-12.2) fL Immature Gran # (0.00-0.04) X 10*3/uL Lymphocytes # (0.90-5.00) X 10*3/uL Chloride (96-109) mmol/L Carbon Dioxide (20.0-27.5) mmol/L Anion Gap (10.00-18.00) mmol/L BUN/Creatinine Ratio (12.00-20.00) Ratio Glucose (70-110) mg/dL POC Glucose (mg/dL) 182 H 124 H 173 H (70-110) mg/dL 04/08/22 04/08/22 04/08/22 Range/Units 05:59 05:59 06:19 RBC 2.59 L (4.10-5.20) X 10*6/uL Hgb 7.8 L (12.0-15.0) g/dL Hct 25.9 L (37.2-46.3) % MCV 100.0 H (80.0-97.0) fL MCHC 30.1 L (32.0-37.0) g/dL RDW 17.4 H (11.5-14.5) % MPV 9.1 L (9.5-12.2) fL Immature Gran # 0.06 H (0.00-0.04) X 10*3/uL Lymphocytes # 0.32 L (0.90-5.00) X 10*3/uL Chloride 92 L (96-109) mmol/L Carbon Dioxide 37.4 H (20.0-27.5) mmol/L Anion Gap 8.80 L (10.00-18.00) mmol/L BUN/Creatinine Ratio 22.58 H (12.00-20.00) Ratio Glucose 142 H (70-110) mg/dL POC Glucose (mg/dL) 167 H (70-110) mg/dL 04/08/22 04/08/22 Range/Units 07:46 11:27 RBC (4.10-5.20) X 10*6/uL Hgb (12.0-15.0) g/dL Hct (37.2-46.3) % MCV (80.0-97.0) fL MCHC (32.0-37.0) g/dL RDW (11.5-14.5) % MPV (9.5-12.2) fL Immature Gran # (0.00-0.04) X 10*3/uL Lymphocytes # (0.90-5.00) X 10*3/uL Chloride (96-109) mmol/L Carbon Dioxide (20.0-27.5) mmol/L Anion Gap (10.00-18.00) mmol/L BUN/Creatinine Ratio (12.00-20.00) Ratio Glucose (70-110) mg/dL POC Glucose (mg/dL) 148 H 144 H (70-110) mg/dL Assessment and Plan (1) Febrile illness, acute Current Visit: Yes Status: Acute Code(s): R50.9 - FEVER, UNSPECIFIED SNOMED Code(s): 155623917 (2) Influenza due to influenza virus, type A, human Current Visit: Yes Status: Acute Code(s): J10.1 - FLU DUE TO OTH IDENT INFLUENZA VIRUS W OTH RESP MANIFEST SNOMED Code(s): 976726374 Plan: 1patient presented to hospital with acute respiratory failure which is likely multifactorial in this patient tested positive for acute influenza A and possible component of COPD the patient with regular bronchitis versus early pneumonia. 2Patient with multiple antibiotic ALLERGIES that would limit the number of antibiotic safe to use. 3patient is status post laparotomy for incarcerated hernia and repair but no evidence of ischemic bowel or bowel resection and partial omentectomy 4- patient is afebrile and the patient white count is normal, patient to continue with cefepime and Flagyl and consider transition to oral antibiotics once her oral intake improved Time with Patient: Less than 30
[2022-04-08 16:57] LABS: Glucose,Whole Blood 180 mg/dL (70-110)
[2022-04-08] MEDS: ONDANSETRON 4 MG/2 ML VIAL IVP PRN (17:16)
[2022-04-08 19:50] LABS: Glucose,Whole Blood 180 mg/dL (70-110)
[2022-04-08] MEDS: HYDROcodone/APAP 5-325MG 1 EACH TAB PO PRN (21:47)
[2022-04-08] MEDS: PROMETHAZINE 25 MG TAB PO PRN (23:58)
[2022-04-09] MEDS: metroNIDAZOLE-NS PMX 500 MG in SALINE 1 100ML.BAG IVPB SCH ×3 (01:00→17:07)
[2022-04-09 02:38] LABS: Glucose,Whole Blood 143 mg/dL (70-110)
[2022-04-09] MEDS: traMADol 50 MG TAB PO SCH ×4 (06:02→17:07)
[2022-04-09] MEDS: CEFEPIME 2 GM in SODIUM CHLORIDE 0.9% 100 ML IVPB SCH ×4 (06:06→21:42)
[2022-04-09] MEDS: PANTOPRAZOLE 40 MG TABLET PO SCH (06:09)
[2022-04-09] MEDS: ONDANSETRON 4 MG/2 ML VIAL IVP PRN ×3 (06:10→17:07)
[2022-04-09] MEDS: INSULIN ASPART (NovoLOG) 100 UNIT/ML VIAL SQ SCH ×5 (06:12→20:33)
[2022-04-09 06:18] LABS: Glucose,Whole Blood 134 mg/dL (70-110)
[2022-04-09] MEDS: PROMETHAZINE 25 MG TAB PO PRN ×2 (06:47→14:26)
[2022-04-09] MEDS: METOPROLOL TARTRATE 25 MG TAB PO SCH ×4 (07:27→21:42)
[2022-04-09] MEDS: HYDROcodone/APAP 10-325MG 1 EACH TAB PO SCH ×4 (07:27→21:42)
[2022-04-09] MEDS: IPRATROPIUM-ALBUTEROL 3 ML NEB INHALATION SCH ×4 (08:36→19:53)
[2022-04-09] MEDS: FERROUS SULFATE 325 MG TAB PO SCH ×2 (09:00→17:07)
[2022-04-09] MEDS: ASPIRIN 81 MG PO SCH (09:01)
[2022-04-09] MEDS: FUROSEMIDE 10 MG/ML 4 ML VIAL IV SCH ×2 (09:01→21:41)
[2022-04-09] MEDS: glipiZIDE 5 MG TAB PO SCH ×2 (09:01→21:42)
[2022-04-09] MEDS: CHOLECALCIFEROL 25 MCG (1000 IU) TABLET PO SCH (09:01)
[2022-04-09] MEDS: CYCLOBENZAPRINE 5 MG TAB PO SCH ×2 (09:01→21:42)
[2022-04-09] MEDS: LOSARTAN 25 MG TAB PO SCH (09:02)
[2022-04-09] MEDS: PIOGLITAZONE 30 MG TAB PO SCH (09:02)
[2022-04-09] MEDS: POTASSIUM CHLORIDE ER 20 MEQ TAB.ER PO SCH (09:15)
[2022-04-09 11:08] LABS: Glucose,Whole Blood 138 mg/dL (70-110)
[2022-04-09 11:26] LABS: African American GFR (CKD) 90.9 (60.0-200.0); Anion Gap 9.3 mmol/L (10.00-18.00); BUN/Creat Ratio 25.63 Ratio (12.00-20.00); Blood Urea Nitrogen 20.5 mg/dL (9.0-27.0); Calcium 9.5 mg/dL (8.7-10.3); Carbon Dioxide 37.7 mmol/L (20.0-27.5); Non-African American GFR(CKD) 78.5 (60.0-200.0); Potassium 4.3 mmol/L (3.5-5.5)
--- NOTE | 2022-04-09 11:54 | P.PN ---
Subjective This is a pleasant 62 years old female with multiple medical problems presented initially with influenza A pneumonia and she finished a course of Tamiflu with some evidence of acute heart failure related to non-STEMI, she is not on a blood thinner, actually her Plavix on subcutaneous heparin R hold still appeared by surgery team because of her postop anemia that required 2 units of blood transfusion yesterday and hemoglobin today is 7.2 with no active bleeding. Surgery team following closely and she is with incarcerated ventral hernia status post partial omentectomy on 04/05. Today is postoperative day #2. She has acute hypoxic respiratory failure improved Echocardiogram showed ejection fraction 55% with moderate aortic stenosis and moderate pericardial effusion. Patient currently On cefepime and by mouth Flagyl for her abdominal infection. She is currently saturating 99% on room air, she is fully awake and oriented and looks tired but no specific complaints while at rest 04/08/2012 patient was lying in bed very weak and lethargic in the morning, however she is awake and alert, she still complaining of from abdominal pain and surgical site which is expected it's, she is on liquid diet and tolerated that well with no vomiting or worsening pain. But had no bowel movement or cancer. No evidence of bleeding from the wound or anywhere else, hemoglobin improved to 7.8 today after iron pills surgery yesterday and received 2 units of blood transfusion. Her Vitas looks stable, saturating 100% on 4 L oxygen. She had a fever of 100 2 days ago but no more fever. Currently she is on cefepime and by mouth Flagyl. Keep holding Plavix on subcutaneous heparin until cleared by surgery team She is also on Lasix 40 mg twice daily 04/09/2022 Patient is improving slowly and gradually. She was transferred to the general medical floor, she is lying in bed very lethargic and weak but she is awake and orientated and mentation at baseline. No much respiratory symptoms at rest, however she is very weak and she required subacute rehab upon discharge. Also her GI symptoms are improving. She is a liquid diet with no nausea vomiting. Her abdominal pain is improving and is minimal today however she did not have bowel movement or passing gas he had but there is no evidence of bleeding. As of yesterday her hemoglobin was improving to 7.8 however hemoglobin from today is still pending. She remains on cefepime and oral Flagyl as well as IV Lasix 40 mg twice daily. Her Plavix on subcu heparin R still on hold per surgery team Objective - Vital Signs Vital signs: Vital Signs Temp 97.8 F 04/09/22 08:00 Pulse 100 04/09/22 08:45 Resp 16 04/09/22 08:00 BP 128/83 04/09/22 08:00 Pulse Ox 100 04/09/22 08:00 FiO2 100 04/05/22 17:48 Intake & Output 04/08/22 04/09/22 04/09/22 18:59 06:59 18:59 Intake Total 360 Output Total 855 2200 Balance -495 -2200 Intake: Oral 360 Output: Drainage 25 Upper Medial Abdomen 25 Urine 830 2200 Other: Voiding Method Indwelling Catheter - Exam -GENERAL: The patient is alert and oriented x3, patient looks tired not in any acute distress. Well developed, well nourished. HEENT: Pupils are round and equally reacting to light. EOMI. No scleral icterus. No conjunctival pallor. Normocephalic, atraumatic. No pharyngeal erythema. No thyromegaly. CARDIOVASCULAR: S1 and S2 present. No murmurs, rubs, or gallops. -PULMONARY: Chest is clear to auscultation, no wheezing . Mild bilateral crackles. -ABDOMEN: Soft, nontender, nondistended, normoactive bowel sounds. No palpable organomegaly. Surgical abdominal wound with a dressing and a Place [place] of exam is deferred to surgery team MUSCULOSKELETAL: No joint swelling or deformity. EXTREMITIES: No cyanosis, clubbing, or pedal edema. NEUROLOGICAL: Gross neurological examination did not reveal any focal deficits. SKIN: No rashes. no petechiae. - Labs CBC & Chem 7: 04/08/22 05:59 04/09/22 06:35 Labs: Abnormal Lab Results - Last 24 Hours (Table) 04/08/22 04/08/22 04/09/22 Range/Units 16:55 19:48 02:33 Chloride (96-109) mmol/L Carbon Dioxide (20.0-27.5) mmol/L Anion Gap (10.00-18.00) mmol/L BUN/Creatinine Ratio (12.00-20.00) Ratio Glucose (70-110) mg/dL POC Glucose (mg/dL) 180 H 180 H 143 H (70-110) mg/dL 04/09/22 04/09/22 04/09/22 Range/Units 06:07 06:35 11:06 Chloride 89 L (96-109) mmol/L Carbon Dioxide 37.7 H (20.0-27.5) mmol/L Anion Gap 9.30 L (10.00-18.00) mmol/L BUN/Creatinine Ratio 25.63 H (12.00-20.00) Ratio Glucose 125 H (70-110) mg/dL POC Glucose (mg/dL) 134 H 138 H (70-110) mg/dL Assessment and Plan Assessment: Acute influenza pneumonia Incarcerated ventral hernia status post open repair and partial omentectomy 04/05 Acute on Chronic diastolic heart failure with ejection fraction 55% Postoperative anemia requiring 2 units of blood transfusion None STEMI Pericardial effusion Moderate aortic stenosis with mild to moderate tricuspid regurgitation Paroxysmal atrial tachycardia Diabetes mellitus Hypertension Plan: Continue with antibiotics cefepime and by mouth Flagyl Continue with IV Lasix 40 mg twice a day Keep holding Plavix and subcutaneous heparin until cleared by surgery team Several consultants on the case including pulmonary/critical care team, surgical team, education supervisor and infectious disease team Labs and medication were reviewed.. Continue same treatment. Continue with symptomatic treatment. Resume home medication. Monitor lytes and vitals. DVT and GI prophylaxis. Further recommendations as per clinical course of the patient DVT prophylaxis: Subcutaneous heparin, on hold for anemia GI Prophylaxis: Ppi PT/OT: Pending Prognosis is guarded
[2022-04-09 12:21] LABS: Basophils # (A) 0.02 X 10*3/uL (0.00-0.10); Basophils % (A) 0.3 %; Eosinophils # (A) 0.29 X 10*3/uL (0.04-0.35); Eosinophils % (A) 4.7 %; HGB 8.4 g/dL (12.0-15.0); Immature Grans, Automated 0.6 %; Lymphocytes # (A) 0.36 X 10*3/uL (0.90-5.00); Lymphocytes % (A) 5.8 %; MCH 30.4 pg (27.0-32.0); MCHC 31.1 g/dL (32.0-37.0); MCV 97.8 fL (80.0-97.0); Mean Platelet Volume 8.8 fL (9.5-12.2); Monocytes # (A) 0.47 X 10*3/uL (0.20-1.00); Monocytes % (A) 7.5 %; NRBC Per 100 WBC 0 /100 WBCS (0.0-0.0); Neutrophils # (A) 5.05 X 10*3/uL (1.80-7.70); Neutrophils % (A) 81.1 %; Platelet Count 377 X 10*3/uL (140-440); RBC 2.76 X 10*6/uL (4.10-5.20); RDW 17.2 % (11.5-14.5); WBC 6.23 X 10*3/uL (4.50-10.00)
--- NOTE | 2022-04-09 12:41 | P.PN ---
Subjective Progress Note Date: 04/09/22 Principal diagnosis: Shortness of breath. Patient is being reevaluated today on 04/06/2022 in ICU. Patient did undergo surgery yesterday, with Dr. Guerrero, for an open repair of an incarcerated ventral hernia. The patient is currently laying in bed, fairly comfortable, on 3 L nasal cannula. Postoperatively, the patient's vital signs had remained fairly stable. Patient does have a marginal blood pressure 90s over 40s. And is currently receiving her first unit of 2 PRBCs ordered. She has not required any vasopressors at this time. Normal saline is infusing at 20 ML's per hour. Estimated blood loss from the procedure was documented as only 20 mL. Patient's hemoglobin is down from 7.6 to 6.7 g/dL today. CBC from today shows hematocrit 20, WBC count of 6.2, platelets 240,000. BMP from today shows sodium of 134, potassium 4.8, chloride 93, serum CO2 40, BUN 21, creatinine 0.76, glucose 145. Patient is mildly febrile today with a temperature max of 100F. Final sputum culture was negative, and blood cultures negative at 120 hours. Patient is being managed with empiric antibiotics in the form of Flagyl and cefepime. Patient is also receiving twice a day Lasix. Fluid balance is -800 and the last 24 hours. She is receiving Protonix for GI prophylaxis. I'm reevaluating this patient today on 04/07/2022 in ICU. Patient is postop day #2 following a repair of incarcerated ventral hernia and omentectomy with Dr. Guerrero. Patient is currently lying up in bed, fairly comfortable, on 2 L nasal cannula. Patient denies any significant respiratory distress, cooperative, fever. Normal saline is using KVO through a left upper arm PICC line was inserted 03/29/2022. Patient did receive 2 units of PRBCs yesterday for postoperative anemia. Hemoglobin is up to 7.2 g/dL this morning, hematocrit 22, WBCs 5, platelets 233,000. No overt signs of bleeding noted, ANTONY drain remains in place and had about of 20 mL of serosanguineous output overnight. Postsurgical dressing remains in place, with some outlined shadowing. BMP from today shows sodium 134, potassium 4.1, chloride 93, serum CO2 40, UN 23, renin 0.85, glucose 101. Most recent chest x-ray from 04/06/2022 shows cardiomegaly with mild diffuse markings, normal pulmonary vasculature, and a left-sided PICC line with the distal tip in the superior vena cava. Vital signs remained stable. The patient is seen today 04/08/2022 in follow-up on the regular medical floor. She is currently resting comfortably in bed. Awake and alert in no acute distress. She is maintaining good O2 saturations in the 90s on 4 L/m per nasal cannula. She is status post 2 units of packed red blood cells this admission. Blood cultures revealed no growth. Sputum culture revealed no growth. White count 6.2. He was 7.8. Sodium 138. Potassium 4.2. BUN 17. Creatinine 0.8. Glucose 142. She is continued on bronchodilators. Remains on IV diuretics. Currently in a -3 L balance. Continued on cefepime. Continued on Flagyl. Progress note dated 04/09/2022. The patient is seen today in room 461. The patient remains on 4 L of oxygen. She's not receiving any IV fluids. She remains on both cefepime and Flagyl. Clinically, she looks stable. The patient has been here now for 9 days. Labs include a white count of 6.2, hemoglobin 8.4, hematocrit 27, and platelet count 377,000. Sodium 136, potassium 4.3, chlorides 89, CO2 38, BUN 21, and creatinine 0.8. Glucose 125. Magnesium 2. Culture data including blood cultures, and sputum, are currently negative. Objective - Vital Signs Vital signs: Vital Signs Temp 97.8 F 04/09/22 08:00 Pulse 100 04/09/22 12:29 Resp 16 04/09/22 08:00 BP 128/83 04/09/22 08:00 Pulse Ox 100 04/09/22 08:00 FiO2 100 04/05/22 17:48 Intake & Output 04/08/22 04/09/22 04/09/22 18:59 06:59 18:59 Intake Total 360 Output Total 855 2200 Balance -495 -2200 Intake: Oral 360 Output: Drainage 25 Upper Medial Abdomen 25 Urine 830 2200 Other: Voiding Method Indwelling Catheter - Exam Obese white female, in no acute distress, oriented 3. Currently on 4 L. No respiratory difficulty or distress. HEENT examination is grossly unremarkable. Neck supple. Full range of motion. No adenopathy thyromegaly or neck vein distention. Cardiovascular examination reveals regular rhythm rate. S1-S2 normal. No S3 or S4. No discernible murmur noted. Heart sounds are distant. Heart rate 92 bpm. Lungs reveal mostly clear breath sounds. Minimal scattered rhonchi. No wheezes or crackles. Saturations are in the high 90s. Abdomen soft, without bowel sounds. No tenderness. Extremities are intact. No cyanosis clubbing or edema. Skin is without rash or lesion. Neurologic examination is brief but nonfocal. - Labs CBC & Chem 7: 04/09/22 06:35 04/09/22 06:35 Labs: Abnormal Lab Results - Last 24 Hours (Table) 04/08/22 04/08/22 04/09/22 Range/Units 16:55 19:48 02:33 RBC (4.10-5.20) X 10*6/uL Hgb (12.0-15.0) g/dL Hct (37.2-46.3) % MCV (80.0-97.0) fL MCHC (32.0-37.0) g/dL RDW (11.5-14.5) % MPV (9.5-12.2) fL Lymphocytes # (0.90-5.00) X 10*3/uL Chloride (96-109) mmol/L Carbon Dioxide (20.0-27.5) mmol/L Anion Gap (10.00-18.00) mmol/L BUN/Creatinine Ratio (12.00-20.00) Ratio Glucose (70-110) mg/dL POC Glucose (mg/dL) 180 H 180 H 143 H (70-110) mg/dL 04/09/22 04/09/22 04/09/22 Range/Units 06:07 06:35 06:35 RBC 2.76 L (4.10-5.20) X 10*6/uL Hgb 8.4 L (12.0-15.0) g/dL Hct 27.0 L (37.2-46.3) % MCV 97.8 H (80.0-97.0) fL MCHC 31.1 L (32.0-37.0) g/dL RDW 17.2 H (11.5-14.5) % MPV 8.8 L (9.5-12.2) fL Lymphocytes # 0.36 L (0.90-5.00) X 10*3/uL Chloride 89 L (96-109) mmol/L Carbon Dioxide 37.7 H (20.0-27.5) mmol/L Anion Gap 9.30 L (10.00-18.00) mmol/L BUN/Creatinine Ratio 25.63 H (12.00-20.00) Ratio Glucose 125 H (70-110) mg/dL POC Glucose (mg/dL) 134 H (70-110) mg/dL 04/09/22 Range/Units 11:06 RBC (4.10-5.20) X 10*6/uL Hgb (12.0-15.0) g/dL Hct (37.2-46.3) % MCV (80.0-97.0) fL MCHC (32.0-37.0) g/dL RDW (11.5-14.5) % MPV (9.5-12.2) fL Lymphocytes # (0.90-5.00) X 10*3/uL Chloride (96-109) mmol/L Carbon Dioxide (20.0-27.5) mmol/L Anion Gap (10.00-18.00) mmol/L BUN/Creatinine Ratio (12.00-20.00) Ratio Glucose (70-110) mg/dL POC Glucose (mg/dL) 138 H (70-110) mg/dL Assessment and Plan Assessment: Acute hypoxic and acute on chronic hypercapnic respiratory failure, multifactorial. Postop day # 4 for an open repair of a ventral incarcerated hernia and partial omentectomy. Acute postoperative anemia. received 2 units PRBCs. Acute on chronic diastolic heart failure. Influenza A pneumonia/infection. Acute exacerbation of COPD. Possible superimposed bacterial pneumonia. Acute non-ST elevation myocardial infarction. Small pericardial effusion. Benign essential hypertension. Paroxysmal supraventricular tachycardia. History of underlying COPD. Morbid obesity. Sepsis, possible septic shock, resolved. History of degenerative joint disease. Negative CT angiogram of the chest. Plan: Plan dated 04/09/2022. The patient was seen, examined, and evaluated, in room 461. Labs, x-rays, and medications are reviewed. The patient remained stable for liters. We will continue to follow make recommendations along the way. We encourage the patient to deep breathing, cough, and clear secretions. We also recommend hourly use of the incentive spirometer. Prognosis is guarded. Time with Patient: Less than 30
--- NOTE | 2022-04-09 15:03 | P.PN ---
Subjective Progress Note Date: 04/09/22 Principal diagnosis: Incarcerated abdominal hernia Patient is a 62-year-old female with multiple comorbidities including COPD hypertension morbid obesity presenting to the ER yesterday for evaluation of increasing shortness of breath apparent has been getting worse for the last few days before presentation to the hospital patient did have worsening respiratory distress and the patient up getting intubated in the ER and was subsequently admitted to ICU, patient has been subsequently extubated on 04/01/2022 On today's evaluation that is 04/09/2022, the patient continues to be afebrile, the patient is breathing comfortably on 3 L nasal cannula oxygen, the patient d enies having any chest pain , the patient did have occasional dry cough patient complaining of some nausea and abdominal pain has been burping did not have any bowel movement Objective - Vital Signs Vital signs: Vital Signs Temp 97.8 F 04/09/22 08:00 Pulse 100 04/09/22 12:42 Resp 16 04/09/22 08:00 BP 128/83 04/09/22 08:00 Pulse Ox 100 04/09/22 08:00 FiO2 100 04/05/22 17:48 Intake & Output 04/08/22 04/09/22 04/09/22 18:59 06:59 18:59 Intake Total 360 Output Total 855 2200 Balance -495 -2200 Intake: Oral 360 Output: Drainage 25 Upper Medial Abdomen 25 Urine 830 2200 Other: Voiding Method Indwelling Catheter - Exam GENERAL DESCRIPTION: A middle-age female up in the chair in no distress RESPIRATORY SYSTEM: Unlabored breathing , coarse breath sounds at the bases bilaterally HEART: S1 S2 regular rate and rhythm , ABDOMEN: Soft , mild distention and tenderness EXTREMITIES: No edema feet - Labs CBC & Chem 7: 04/09/22 06:35 04/09/22 06:35 Labs: Abnormal Lab Results - Last 24 Hours (Table) 04/08/22 04/08/22 04/09/22 Range/Units 16:55 19:48 02:33 RBC (4.10-5.20) X 10*6/uL Hgb (12.0-15.0) g/dL Hct (37.2-46.3) % MCV (80.0-97.0) fL MCHC (32.0-37.0) g/dL RDW (11.5-14.5) % MPV (9.5-12.2) fL Lymphocytes # (0.90-5.00) X 10*3/uL Chloride (96-109) mmol/L Carbon Dioxide (20.0-27.5) mmol/L Anion Gap (10.00-18.00) mmol/L BUN/Creatinine Ratio (12.00-20.00) Ratio Glucose (70-110) mg/dL POC Glucose (mg/dL) 180 H 180 H 143 H (70-110) mg/dL 04/09/22 04/09/22 04/09/22 Range/Units 06:07 06:35 06:35 RBC 2.76 L (4.10-5.20) X 10*6/uL Hgb 8.4 L (12.0-15.0) g/dL Hct 27.0 L (37.2-46.3) % MCV 97.8 H (80.0-97.0) fL MCHC 31.1 L (32.0-37.0) g/dL RDW 17.2 H (11.5-14.5) % MPV 8.8 L (9.5-12.2) fL Lymphocytes # 0.36 L (0.90-5.00) X 10*3/uL Chloride 89 L (96-109) mmol/L Carbon Dioxide 37.7 H (20.0-27.5) mmol/L Anion Gap 9.30 L (10.00-18.00) mmol/L BUN/Creatinine Ratio 25.63 H (12.00-20.00) Ratio Glucose 125 H (70-110) mg/dL POC Glucose (mg/dL) 134 H (70-110) mg/dL 04/09/22 Range/Units 11:06 RBC (4.10-5.20) X 10*6/uL Hgb (12.0-15.0) g/dL Hct (37.2-46.3) % MCV (80.0-97.0) fL MCHC (32.0-37.0) g/dL RDW (11.5-14.5) % MPV (9.5-12.2) fL Lymphocytes # (0.90-5.00) X 10*3/uL Chloride (96-109) mmol/L Carbon Dioxide (20.0-27.5) mmol/L Anion Gap (10.00-18.00) mmol/L BUN/Creatinine Ratio (12.00-20.00) Ratio Glucose (70-110) mg/dL POC Glucose (mg/dL) 138 H (70-110) mg/dL Assessment and Plan (1) Febrile illness, acute Current Visit: Yes Status: Acute Code(s): R50.9 - FEVER, UNSPECIFIED SNOMED Code(s): 724080291 (2) Influenza due to influenza virus, type A, human Current Visit: Yes Status: Acute Code(s): J10.1 - FLU DUE TO OTH IDENT INFLUENZA VIRUS W OTH RESP MANIFEST SNOMED Code(s): 165308433 Plan: 1-patient is status post laparotomy for incarcerated hernia and repair but no evidence of ischemic bowel or bowel resection and partial omentectomy 2- patient is afebrile and the patient white count remains to be normal, patient to continue with cefepime and Flagyl and consider transition to oral antibiotics once her oral intake improved Time with Patient: Less than 30
[2022-04-09 16:43] LABS: Glucose,Whole Blood 101 mg/dL (70-110)
[2022-04-09] MEDS: SCOPOLAMINE 1 MG/72 HR PATCH TRANSDERM SCH (18:07)
--- NOTE | 2022-04-09 19:19 | P.PN ---
Subjective Progress Note Date: 04/09/22 CHIEF COMPLAINT: Incarcerated incisional hernia HISTORY OF PRESENT ILLNESS: The patient is a 62-year-old female status post repair of incarcerated incisional hernia. She is passing flatus. No bowel movem ents. She reports nausea. ROS: No fevers or chills. No new chest pain. No productive sputum. Has morbid obesity, BMI 55.2. Has hypertensive heart disease PHYSICAL EXAM: VITAL SIGNS: Reviewed CONSTITUTIONAL: Well developed and in no acute distress. EYES: Conjuctivae without sclera icterus. Extraocular movements grossly intact. HEAD, EARS, NOSE, THROAT: Moist buccal mucosa. Head is atraumatic, normocephalic. Hears conversational speech. No nasal drainage. RESPIRATORY: Non-labored respirations and equal bilateral excursions. CARDIOVASCULAR: Palpable 2+ radial pulses. ABDOMEN: Dressing intact. No peritonitis. MUSCULOSKELETAL: No gross deformity of the lower extremities noted. No clubbing. No cyanosis. SKIN: Good skin turgor. Well perfused. NEUROLOGIC: Cranial nerves II through XII grossly intact. No focal or lateralizing signs. PSYCH: Appropriate affect. Alert and oriented to person, place and time. CLINICAL LABS: Reviewed. Hgb 8.4 with anemia. WBC normal. ASSESSMENT: 1. Incarcerated incisional hernia 2. Morbid obesity due to excess calories, BMI 55.2 3. Nausea 4. Anemia. PLAN: 1. Recommend scopolamine patch. Monitor nausea. 2. Add fluid bolus 1-L normal saline for nausea and risk of dehydration. 3. Continue liquid diet. Objective - Vital Signs Vital signs: Vital Signs Temp 97.6 F 04/09/22 14:00 Pulse 96 04/09/22 16:52 Resp 18 04/09/22 14:00 BP 100/61 04/09/22 14:00 Pulse Ox 100 04/09/22 14:00 FiO2 100 04/05/22 17:48 Intake & Output 04/09/22 04/09/22 04/10/22 06:59 18:59 06:59 Output Total 2200 25 Balance -2200 -25 Output: Drainage 25 Upper Medial Abdomen 25 Urine 2200 - Labs CBC & Chem 7: 04/10/22 06:42 04/10/22 06:42 Labs: Abnormal Lab Results - Last 24 Hours (Table) 04/08/22 04/09/2222 Range/Units 19:48 02:33 06:07 RBC (4.10-5.20) X 10*6/uL Hgb (12.0-15.0) g/dL Hct (37.2-46.3) % MCV (80.0-97.0) fL MCHC (32.0-37.0) g/dL RDW (11.5-14.5) % MPV (9.5-12.2) fL Lymphocytes # (0.90-5.00) X 10*3/uL Chloride (96-109) mmol/L Carbon Dioxide (20.0-27.5) mmol/L Anion Gap (10.00-18.00) mmol/L BUN/Creatinine Ratio (12.00-20.00) Ratio Glucose (70-110) mg/dL POC Glucose (mg/dL) 180 H 143 H 134 H (70-110) mg/dL 04/09/22 04/09/22 04/09/22 Range/Units 06:35 06:35 11:06 RBC 2.76 L (4.10-5.20) X 10*6/uL Hgb 8.4 L (12.0-15.0) g/dL Hct 27.0 L (37.2-46.3) % MCV 97.8 H (80.0-97.0) fL MCHC 31.1 L (32.0-37.0) g/dL RDW 17.2 H (11.5-14.5) % MPV 8.8 L (9.5-12.2) fL Lymphocytes # 0.36 L (0.90-5.00) X 10*3/uL Chloride 89 L (96-109) mmol/L Carbon Dioxide 37.7 H (20.0-27.5) mmol/L Anion Gap 9.30 L (10.00-18.00) mmol/L BUN/Creatinine Ratio 25.63 H (12.00-20.00) Ratio Glucose 125 H (70-110) mg/dL POC Glucose (mg/dL) 138 H (70-110) mg/dL
[2022-04-09 20:08] LABS: Glucose,Whole Blood 116 mg/dL (70-110)
[2022-04-10] MEDS: traMADol 50 MG TAB PO SCH ×4 (00:41→17:49)
[2022-04-10] MEDS: diphenhydrAMINE 25 MG CAP PO PRN (01:46)
[2022-04-10] MEDS: metroNIDAZOLE-NS PMX 500 MG in SALINE 1 100ML.BAG IVPB SCH ×3 (02:05→15:18)
[2022-04-10 06:34] LABS: Glucose,Whole Blood 45 mg/dL (70-110)
[2022-04-10 07:19] LABS: Glucose,Whole Blood 73 mg/dL (70-110)
[2022-04-10] MEDS: INSULIN ASPART (NovoLOG) 100 UNIT/ML VIAL SQ SCH ×4 (07:33→21:12)
[2022-04-10 07:35] LABS: Anisocytosis Slight; Basophils % (A) 0 %; Eosinophils # (A) 0.3 k/uL (0-0.7); Eosinophils % (A) 4 %; HCT 27.1 % (34.0-46.0); Hypochromasia Marked; Lymphocytes # (A) 0.3 k/uL (1.0-4.8); Lymphocytes % (A) 5 %; MCH 31.5 pg (25.0-35.0); MCHC 32.4 g/dL (31.0-37.0); MCV 97.3 fL (80.0-100.0); Macrocytosis Slight; Mean Platelet Volume 7.5; Monocytes # (A) 0.3 k/uL (0-1.0); Monocytes % (A) 5 %; Neutrophils # (A) 5.7 k/uL (1.3-7.7); Neutrophils % (A) 85 %; Platelet Count 403 k/uL (150-450); Poikilocytosis Marked; RBC 2.78 m/uL (3.80-5.40); RDW 16.8 % (11.5-15.5); WBC 6.7 k/uL (3.8-10.6)
[2022-04-10] MEDS: IPRATROPIUM-ALBUTEROL 3 ML NEB INHALATION SCH ×4 (07:56→20:37)
[2022-04-10 07:59] LABS: HGB 8.8 gm/dL (11.4-16.0)
[2022-04-10 08:03] LABS: African American GFR (CKD) 70 (>60 ml/min/1.73 sqM); Anion Gap 4 mmol/L; Blood Urea Nitrogen 24 mg/dL (7-17); Calcium 8.4 mg/dL (8.4-10.2); Chloride 93 mmol/L (98-107); Glucose 65 mg/dL (74-99); Non-African American GFR(CKD) 61 (>60 ml/min/1.73 sqM); Potassium 4.2 mmol/L (3.5-5.1); Sodium 137 mmol/L (137-145)
[2022-04-10 08:12] LABS: Carbon Dioxide 40 mmol/L (22-30)
[2022-04-10] MEDS: FERROUS SULFATE 325 MG TAB PO SCH ×2 (08:24→15:56)
[2022-04-10] MEDS: FUROSEMIDE 10 MG/ML 4 ML VIAL IV SCH ×2 (08:28→21:24)
[2022-04-10] MEDS: CEFEPIME 2 GM in SODIUM CHLORIDE 0.9% 100 ML IVPB SCH ×3 (09:31→22:48)
[2022-04-10] MEDS: PROMETHAZINE 25 MG TAB PO PRN (09:32)
[2022-04-10] MEDS: HYDROcodone/APAP 10-325MG 1 EACH TAB PO SCH ×3 (09:32→21:24)
[2022-04-10] MEDS: LOSARTAN 25 MG TAB PO SCH (09:32)
[2022-04-10] MEDS: PIOGLITAZONE 30 MG TAB PO SCH (09:32)
[2022-04-10] MEDS: glipiZIDE 5 MG TAB PO SCH (09:32)
[2022-04-10] MEDS: PANTOPRAZOLE 40 MG TABLET PO SCH (09:32)
[2022-04-10] MEDS: ASPIRIN 81 MG PO SCH (09:33)
[2022-04-10] MEDS: CYCLOBENZAPRINE 5 MG TAB PO SCH ×2 (09:33→21:24)
[2022-04-10] MEDS: POTASSIUM CHLORIDE ER 20 MEQ TAB.ER PO SCH (09:33)
[2022-04-10] MEDS: CHOLECALCIFEROL 25 MCG (1000 IU) TABLET PO SCH (09:33)
[2022-04-10] MEDS: METOPROLOL TARTRATE 25 MG TAB PO SCH ×3 (09:33→21:24)
--- NOTE | 2022-04-10 11:37 | P.PN ---
Subjective Progress Note Date: 04/10/22 Principal diagnosis: Shortness of breath. Patient is being reevaluated today on 04/06/2022 in ICU. Patient did undergo surgery yesterday, with Dr. Guerrero, for an open repair of an incarcerated ventral hernia. The patient is currently laying in bed, fairly comfortable, on 3 L nasal cannula. Postoperatively, the patient's vital signs had remained fairly stable. Patient does have a marginal blood pressure 90s over 40s. And is currently receiving her first unit of 2 PRBCs ordered. She has not required any vasopressors at this time. Normal saline is infusing at 20 ML's per hour. Estimated blood loss from the procedure was documented as only 20 mL. Patient's hemoglobin is down from 7.6 to 6.7 g/dL today. CBC from today shows hematocrit 20, WBC count of 6.2, platelets 240,000. BMP from today shows sodium of 134, potassium 4.8, chloride 93, serum CO2 40, BUN 21, creatinine 0.76, glucose 145. Patient is mildly febrile today with a temperature max of 100F. Final sputum culture was negative, and blood cultures negative at 120 hours. Patient is being managed with empiric antibiotics in the form of Flagyl and cefepime. Patient is also receiving twice a day Lasix. Fluid balance is -800 and the last 24 hours. She is receiving Protonix for GI prophylaxis. I'm reevaluating this patient today on 04/07/2022 in ICU. Patient is postop day #2 following a repair of incarcerated ventral hernia and omentectomy with Dr. Guerrero. Patient is currently lying up in bed, fairly comfortable, on 2 L nasal cannula. Patient denies any significant respiratory distress, cooperative, fever. Normal saline is using KVO through a left upper arm PICC line was inserted 03/29/2022. Patient did receive 2 units of PRBCs yesterday for postoperative anemia. Hemoglobin is up to 7.2 g/dL this morning, hematocrit 22, WBCs 5, platelets 233,000. No overt signs of bleeding noted, ANTONY drain remains in place and had about of 20 mL of serosanguineous output overnight. Postsurgical dressing remains in place, with some outlined shadowing. BMP from today shows sodium 134, potassium 4.1, chloride 93, serum CO2 40, UN 23, renin 0.85, glucose 101. Most recent chest x-ray from 04/06/2022 shows cardiomegaly with mild diffuse markings, normal pulmonary vasculature, and a left-sided PICC line with the distal tip in the superior vena cava. Vital signs remained stable. The patient is seen today 04/08/2022 in follow-up on the regular medical floor. She is currently resting comfortably in bed. Awake and alert in no acute distress. She is maintaining good O2 saturations in the 90s on 4 L/m per nasal cannula. She is status post 2 units of packed red blood cells this admission. Blood cultures revealed no growth. Sputum culture revealed no growth. White count 6.2. He was 7.8. Sodium 138. Potassium 4.2. BUN 17. Creatinine 0.8. Glucose 142. She is continued on bronchodilators. Remains on IV diuretics. Currently in a -3 L balance. Continued on cefepime. Continued on Flagyl. Progress note dated 04/09/2022. The patient is seen today in room 461. The patient remains on 4 L of oxygen. She's not receiving any IV fluids. She remains on both cefepime and Flagyl. Clinically, she looks stable. The patient has been here now for 9 days. Labs include a white count of 6.2, hemoglobin 8.4, hematocrit 27, and platelet count 377,000. Sodium 136, potassium 4.3, chlorides 89, CO2 38, BUN 21, and creatinine 0.8. Glucose 125. Magnesium 2. Culture data including blood cultures, and sputum, are currently negative. Progress note dated 04/10/2022. The patient is seen today in room 461. She is resting comfortably. She sitting on a chair, next to her bed. She is on 4 L of oxygen, but I turn her down to 3. She's getting saline at 10 mL an hour. She is feeling well from the pulmonary standpoint. She denies any shortness of breath, cough, wheezing, or phlegm production. White count 6.7, hemoglobin 8.8, hematocrit 27.1, and a normal platelet count. Sodium 137, potassium 4.2, chlorides 93, CO2 40, BUN 24, and creatinine 0.99. Objective - Vital Signs Vital signs: Vital Signs Temp 97.6 F 04/10/22 07:32 Pulse 86 04/10/22 11:09 Resp 21 04/10/22 07:32 BP 118/76 04/10/22 07:32 Pulse Ox 99 04/10/22 07:57 FiO2 100 04/05/22 17:48 Intake & Output 04/09/22 04/10/22 04/10/22 18:59 06:59 18:59 Output Total 25 1230 290 Balance -25 -1230 -290 Output: Drainage 25 30 90 Upper Medial Abdomen 25 30 90 Urine 1200 200 Other: Voiding Method Indwelling Catheter # Voids 1 - Exam Obese white female, in no acute distress, oriented 3. Currently on 3 L. No respiratory difficulty or distress. HEENT examination is grossly unremarkable. Neck supple. Full range of motion. No adenopathy thyromegaly or neck vein distention. Cardiovascular examination reveals regular rhythm rate. S1-S2 normal. No S3 or S4. No discernible murmur noted. Heart sounds are distant. Heart rate 86 bpm. Lungs reveal mostly clear breath sounds. Minimal scattered rhonchi. No wheezes or crackles. Saturations are 98%. Abdomen soft, without bowel sounds. No tenderness. Extremities are intact. No cyanosis clubbing or edema. Skin is without rash or lesion. Neurologic examination is brief but nonfocal. - Labs CBC & Chem 7: 04/10/22 06:42 04/10/22 06:42 Labs: Abnormal Lab Results - Last 24 Hours (Table) 04/09/22 04/09/22 04/10/22 Range/Units 06:35 20:06 06:33 RBC 2.76 L (4.10-5.20) X 10*6/uL Hgb 8.4 L (12.0-15.0) g/dL Hct 27.0 L (37.2-46.3) % MCV 97.8 H (80.0-97.0) fL MCHC 31.1 L (32.0-37.0) g/dL RDW 17.2 H (11.5-14.5) % MPV 8.8 L (9.5-12.2) fL Lymphocytes # 0.36 L (0.90-5.00) X 10*3/uL Chloride (98-107) mmol/L Carbon Dioxide (22-30) mmol/L BUN (7-17) mg/dL Glucose (74-99) mg/dL POC Glucose (mg/dL) 116 H 45 L (70-110) mg/dL 04/10/22 04/10/22 Range/Units 06:42 06:42 RBC 2.78 L (4.10-5.20) X 10*6/uL Hgb 8.8 L D (12.0-15.0) g/dL Hct 27.1 L (37.2-46.3) % MCV (80.0-97.0) fL MCHC (32.0-37.0) g/dL RDW 16.8 H (11.5-14.5) % MPV (9.5-12.2) fL Lymphocytes # 0.3 L (0.90-5.00) X 10*3/uL Chloride 93 L (98-107) mmol/L Carbon Dioxide 40 H (22-30) mmol/L BUN 24 H (7-17) mg/dL Glucose 65 L (74-99) mg/dL POC Glucose (mg/dL) (70-110) mg/dL Assessment and Plan Assessment: Acute hypoxic and acute on chronic hypercapnic respiratory failure, multifactorial. Postop day #5 for an open repair of a ventral incarcerated hernia and partial omentectomy. Acute postoperative anemia. received 2 units PRBCs. Acute on chronic diastolic heart failure. Influenza A pneumonia/infection. Acute exacerbation of COPD. Possible superimposed bacterial pneumonia. Acute non-ST elevation myocardial infarction. Small pericardial effusion. Benign essential hypertension. Paroxysmal supraventricular tachycardia. History of underlying COPD. Morbid obesity. Sepsis, possible septic shock, resolved. History of degenerative joint disease. Negative CT angiogram of the chest. Plan: Plan dated 04/09/2022. The patient was seen, examined, and evaluated, in room 461. Labs, x-rays, and medications are reviewed. The patient remained stable for liters. We will continue to follow make recommendations along the way. We encourage the patient to deep breathing, cough, and clear secretions. We also recommend hourly use of the incentive spirometer. Prognosis is guarded. Plan dated 04/13/2022. The patient is again seen today in room 461. The patient's currently on 4 L, with excellent saturations, so I turn her down to 3 L. Labs, x-rays, and medications are reviewed. She is stable from the pulmonary standpoint. She is not complaining of any shortness breath, cough, wheezing, or phlegm production. She continues to use the incentive spirometer, every hour. In our opinion, the patient could be considered for discharge. Prognosis is guarded. We will continue to follow the patient and make recommendations along the way. Time with Patient: Less than 30
[2022-04-10 12:08] LABS: Glucose,Whole Blood 105 mg/dL (70-110)
--- NOTE | 2022-04-10 12:47 | P.PN ---
Subjective Progress Note Date: 04/10/22 Principal diagnosis: Incarcerated abdominal hernia Patient is a 62-year-old female with multiple comorbidities including COPD hypertension morbid obesity presenting to the ER yesterday for evaluation of increasing shortness of breath apparent has been getting worse for the last few days before presentation to the hospital patient did have worsening respiratory distress and the patient up getting intubated in the ER and was subsequently admitted to ICU, patient has been subsequently extubated on 04/01/2022 On today's evaluation that is 04/10/2022, the patient remains to be afebrile, the patient is breathing comfortably on 4 L nasal cannula oxygen, the patient denies having any chest pain , the patient denies any worsening cough or sputum production, the patient abdominal pain has decreased in intensity no nausea no vomiting mentioned no bowel movement and asking when she can eat Objective - Vital Signs Vital signs: Vital Signs Temp 97.6 F 04/10/22 07:32 Pulse 86 04/10/22 11:09 Resp 21 04/10/22 07:32 BP 118/76 04/10/22 07:32 Pulse Ox 99 04/10/22 07:57 FiO2 100 04/05/22 17:48 Intake & Output 04/09/22 04/10/22 04/10/22 18:59 06:59 18:59 Output Total 25 1230 290 Balance -25 -1230 -290 Output: Drainage 25 30 90 Upper Medial Abdomen 25 30 90 Urine 1200 200 Other: Voiding Method Indwelling Catheter # Voids 1 - Exam GENERAL DESCRIPTION: A middle-age female up in the chair in no distress RESPIRATORY SYSTEM: Unlabored breathing , coarse breath sounds at the bases bilaterally HEART: S1 S2 regular rate and rhythm , ABDOMEN: Soft , mild distention and tenderness EXTREMITIES: No edema feet - Labs CBC & Chem 7: 04/10/22 06:42 04/10/22 06:42 Labs: Abnormal Lab Results - Last 24 Hours (Table) 04/09/22 04/10/22 04/10/22 Range/Units 20:06 06:33 06:42 RBC 2.78 L (3.80-5.40) m/uL Hgb 8.8 L D (11.4-16.0) gm/dL Hct 27.1 L (34.0-46.0) % RDW 16.8 H (11.5-15.5) % Lymphocytes # 0.3 L (1.0-4.8) k/uL Chloride (98-107) mmol/L Carbon Dioxide (22-30) mmol/L BUN (7-17) mg/dL Glucose (74-99) mg/dL POC Glucose (mg/dL) 116 H 45 L (70-110) mg/dL 04/10/22 Range/Units 06:42 RBC (3.80-5.40) m/uL Hgb (11.4-16.0) gm/dL Hct (34.0-46.0) % RDW (11.5-15.5) % Lymphocytes # (1.0-4.8) k/uL Chloride 93 L (98-107) mmol/L Carbon Dioxide 40 H (22-30) mmol/L BUN 24 H (7-17) mg/dL Glucose 65 L (74-99) mg/dL POC Glucose (mg/dL) (70-110) mg/dL Assessment and Plan (1) Febrile illness, acute Current Visit: Yes Status: Acute Code(s): R50.9 - FEVER, UNSPECIFIED SNOMED Code(s): 332879737 (2) Influenza due to influenza virus, type A, human Current Visit: Yes Status: Acute Code(s): J10.1 - FLU DUE TO OTH IDENT INFLUENZA VIRUS W OTH RESP MANIFEST SNOMED Code(s): 583435098 Plan: 1-patient is status post laparotomy for incarcerated hernia and repair but no evidence of ischemic bowel or bowel resection and partial omentectomy 2- patient is afebrile and the patient white count has been be normal, patient currently being treated with cefepime and Flagyl and will transition to oral antibiotics once her oral intake improves and monitoring her course closely Time with Patient: Less than 30
--- NOTE | 2022-04-10 13:07 | P.PN ---
Subjective This is a pleasant 62 years old female with multiple medical problems presented initially with influenza A pneumonia and she finished a course of Tamiflu with some evidence of acute heart failure related to non-STEMI, she is not on a blood thinner, actually her Plavix on subcutaneous heparin R hold still appeared by surgery team because of her postop anemia that required 2 units of blood transfusion yesterday and hemoglobin today is 7.2 with no active bleeding. Surgery team following closely and she is with incarcerated ventral hernia status post partial omentectomy on 04/05. Today is postoperative day #2. She has acute hypoxic respiratory failure improved Echocardiogram showed ejection fraction 55% with moderate aortic stenosis and moderate pericardial effusion. Patient currently On cefepime and by mouth Flagyl for her abdominal infection. She is currently saturating 99% on room air, she is fully awake and oriented and looks tired but no specific complaints while at rest 04/08/2012 patient was lying in bed very weak and lethargic in the morning, however she is awake and alert, she still complaining of from abdominal pain and surgical site which is expected it's, she is on liquid diet and tolerated that well with no vomiting or worsening pain. But had no bowel movement or cancer. No evidence of bleeding from the wound or anywhere else, hemoglobin improved to 7.8 today after iron pills surgery yesterday and received 2 units of blood transfusion. Her Vitas looks stable, saturating 100% on 4 L oxygen. She had a fever of 100 2 days ago but no more fever. Currently she is on cefepime and by mouth Flagyl. Keep holding Plavix on subcutaneous heparin until cleared by surgery team She is also on Lasix 40 mg twice daily 04/09/2022 Patient is improving slowly and gradually. She was transferred to the general medical floor, she is lying in bed very lethargic and weak but she is awake and orientated and mentation at baseline. No much respiratory symptoms at rest, however she is very weak and she required subacute rehab upon discharge. Also her GI symptoms are improving. She is a liquid diet with no nausea vomiting. Her abdominal pain is improving and is minimal today however she did not have bowel movement or passing gas he had but there is no evidence of bleeding. As of yesterday her hemoglobin was improving to 7.8 however hemoglobin from today is still pending. She remains on cefepime and oral Flagyl as well as IV Lasix 40 mg twice daily. Her Plavix on subcu heparin R still on hold per surgery team 04/10/2022 Patient is awake and alert, her abdominal pain is minimal, no more nausea today it was controlled with Phenergan. Also she is on scopolamine patch. She has normal bowel movement yet as she told me this morning. She is on full liquid diet Labs today showing improvement in her hemoglobin up to 8.8. She has low glucose this morning and prior to the glipizide 5 mg twice a day into daily from tomorrow. We ordered bladder scan, also will discuss with surgery team went to resume subcutaneous heparin and Plavix, nurse, medication was sent in this regard. Patient is on cefepime and oral Flagyl. Also she is on IV Lasix 40 mg twice daily Objective - Vital Signs Vital signs: Vital Signs Temp 98.2 F 04/10/22 02:00 Pulse 92 04/10/22 08:10 Resp 17 04/10/22 02:00 BP 110/64 04/10/22 02:00 Pulse Ox 99 04/10/22 07:57 FiO2 100 04/05/22 17:48 Intake & Output 04/09/22 04/10/22 04/10/22 18:59 06:59 18:59 Output Total 25 1230 Balance -25 -1230 Output: Drainage 25 30 Upper Medial Abdomen 25 30 Urine 1200 Other: Voiding Method Indwelling Catheter - Exam -GENERAL: The patient is alert and oriented x3, patient looks tired not in any acute distress. Well developed, well nourished. HEENT: Pupils are round and equally reacting to light. EOMI. No scleral icterus. No conjunctival pallor. Normocephalic, atraumatic. No pharyngeal erythema. No thyromegaly. CARDIOVASCULAR: S1 and S2 present. No murmurs, rubs, or gallops. -PULMONARY: Chest is clear to auscultation, no wheezing . Mild bilateral crackles. -ABDOMEN: Soft, nontender, nondistended, normoactive bowel sounds. No palpable organomegaly. Surgical abdominal wound with a dressing and a Place Travon of exam is deferred to surgery team MUSCULOSKELETAL: No joint swelling or deformity. EXTREMITIES: No cyanosis, clubbing, or pedal edema. NEUROLOGICAL: Gross neurological examination did not reveal any focal deficits. SKIN: No rashes. no petechiae. - Labs CBC & Chem 7: 04/10/22 06:42 04/10/22 06:42 Labs: Abnormal Lab Results - Last 24 Hours (Table) 04/09/22 04/09/22 04/09/22 Range/Units 06:35 06:35 11:06 RBC 2.76 L (4.10-5.20) X 10*6/uL Hgb 8.4 L (12.0-15.0) g/dL Hct 27.0 L (37.2-46.3) % MCV 97.8 H (80.0-97.0) fL MCHC 31.1 L (32.0-37.0) g/dL RDW 17.2 H (11.5-14.5) % MPV 8.8 L (9.5-12.2) fL Lymphocytes # 0.36 L (0.90-5.00) X 10*3/uL Chloride 89 L (96-109) mmol/L Carbon Dioxide 37.7 H (20.0-27.5) mmol/L Anion Gap 9.30 L (10.00-18.00) mmol/L BUN (7-17) mg/dL BUN/Creatinine Ratio 25.63 H (12.00-20.00) Ratio Glucose 125 H (70-110) mg/dL POC Glucose (mg/dL) 138 H (70-110) mg/dL 04/09/22 04/10/22 04/10/22 Range/Units 20:06 06:33 06:42 RBC 2.78 L (4.10-5.20) X 10*6/uL Hgb 8.8 L D (12.0-15.0) g/dL Hct 27.1 L (37.2-46.3) % MCV (80.0-97.0) fL MCHC (32.0-37.0) g/dL RDW 16.8 H (11.5-14.5) % MPV (9.5-12.2) fL Lymphocytes # 0.3 L (0.90-5.00) X 10*3/uL Chloride (96-109) mmol/L Carbon Dioxide (20.0-27.5) mmol/L Anion Gap (10.00-18.00) mmol/L BUN (7-17) mg/dL BUN/Creatinine Ratio (12.00-20.00) Ratio Glucose (70-110) mg/dL POC Glucose (mg/dL) 116 H 45 L (70-110) mg/dL 04/10/22 Range/Units 06:42 RBC (4.10-5.20) X 10*6/uL Hgb (12.0-15.0) g/dL Hct (37.2-46.3) % MCV (80.0-97.0) fL MCHC (32.0-37.0) g/dL RDW (11.5-14.5) % MPV (9.5-12.2) fL Lymphocytes # (0.90-5.00) X 10*3/uL Chloride 93 L (96-109) mmol/L Carbon Dioxide 40 H (20.0-27.5) mmol/L Anion Gap (10.00-18.00) mmol/L BUN 24 H (7-17) mg/dL BUN/Creatinine Ratio (12.00-20.00) Ratio Glucose 65 L (70-110) mg/dL POC Glucose (mg/dL) (70-110) mg/dL Assessment and Plan Assessment: Acute influenza pneumonia Incarcerated ventral hernia status post open repair and partial omentectomy 04/05 Acute on Chronic diastolic heart failure with ejection fraction 55% Postoperative anemia requiring 2 units of blood transfusion None STEMI Pericardial effusion Moderate aortic stenosis with mild to moderate tricuspid regurgitation Paroxysmal atrial tachycardia Diabetes mellitus Hypertension Plan: Continue with antibiotics cefepime and by mouth Flagyl Continue with IV Lasix 40 mg twice a day Keep holding Plavix and subcutaneous heparin until cleared by surgery team Check a bladder scan Lower glipizide and monitor glucose Several consultants on the case including pulmonary/critical care team, surgical team, spraying machine operator and infectious disease team Labs and medication were reviewed.. Continue same treatment. Continue with symptomatic treatment. Resume home medication. Monitor lytes and vitals. DVT and GI prophylaxis. Further recommendations as per clinical course of the patient DVT prophylaxis: Subcutaneous heparin, on hold for anemia GI Prophylaxis: Ppi PT/OT: Pending Prognosis is guarded
[2022-04-10 16:57] LABS: Glucose,Whole Blood 72 mg/dL (70-110)
--- NOTE | 2022-04-10 19:28 | P.PN ---
Subjective Progress Note Date: 04/10/22 CHIEF COMPLAINT: Incarcerated incisional hernia HISTORY OF PRESENT ILLNESS: The patient is a 62-year-old female status post repair of incarcerated incisional hernia. Her nausea is resolved with scopalami ne patch and phenergan upon discussion with her nurse. She is passing flatus and having bowel movements. Family concerned for prolonged hospitalization due to [facility] service for family member in 1 week. Patient is eager to advance diet. ROS: No fevers or chills. No new chest pain. No productive sputum. Has morbid obesity, BMI 55.2. Has hypertensive heart disease PHYSICAL EXAM: VITAL SIGNS: Reviewed CONSTITUTIONAL: Well developed and in no acute distress. EYES: Conjuctivae without sclera icterus. Extraocular movements grossly intact. HEAD, EARS, NOSE, THROAT: Moist buccal mucosa. Head is atraumatic, normocephalic. Hears conversational speech. No nasal drainage. RESPIRATORY: Non-labored respirations and equal bilateral excursions. CARDIOVASCULAR: Palpable 2+ radial pulses. ABDOMEN: Dressing intact. No peritonitis. MUSCULOSKELETAL: No gross deformity of the lower extremities noted. No clubbing. No cyanosis. SKIN: Good skin turgor. Well perfused. NEUROLOGIC: Cranial nerves II through XII grossly intact. No focal or lateralizing signs. PSYCH: Appropriate affect. Alert and oriented to person, place and time. CLINICAL LABS: Reviewed. Hgb 8.4 with anemia up to 8.8. WBC normal. ASSESSMENT: 1. Incarcerated incisional hernia 2. Morbid obesity due to excess calories, BMI 55.2 3. Nausea resolved 4. Anemia. 5. Hypertensive heart disease PLAN: 1. May advance diet 2. Likely with improvement of symptoms, may be discharge in 48 hrs. Objective - Vital Signs Vital signs: Vital Signs Temp 97.6 F 04/10/22 14:30 Pulse 79 04/10/22 14:30 Resp 20 04/10/22 14:30 BP 107/63 04/10/22 14:30 Pulse Ox 91 L 04/10/22 14:30 FiO2 100 04/05/22 17:48 Intake & Output 04/10/22 04/10/22 04/11/22 06:59 18:59 06:59 Intake Total 180 180 Output Total 1230 335 Balance -1230 -155 180 Intake: Oral 180 180 Output: Drainage 30 135 Upper Medial Abdomen 30 135 Urine 1200 200 Other: Voiding Method Indwelling Catheter # Voids 2 - Labs CBC & Chem 7: 04/10/22 06:42 04/10/22 06:42 Labs: Abnormal Lab Results - Last 24 Hours (Table) 04/09/22 04/10/22 04/10/22 Range/Units 20:06 06:33 06:42 RBC 2.78 L (3.80-5.40) m/uL Hgb 8.8 L D (11.4-16.0) gm/dL Hct 27.1 L (34.0-46.0) % RDW 16.8 H (11.5-15.5) % Lymphocytes # 0.3 L (1.0-4.8) k/uL Chloride (98-107) mmol/L Carbon Dioxide (22-30) mmol/L BUN (7-17) mg/dL Glucose (74-99) mg/dL POC Glucose (mg/dL) 116 H 45 L (70-110) mg/dL 04/10/22 Range/Units 06:42 RBC (3.80-5.40) m/uL Hgb (11.4-16.0) gm/dL Hct (34.0-46.0) % RDW (11.5-15.5) % Lymphocytes # (1.0-4.8) k/uL Chloride 93 L (98-107) mmol/L Carbon Dioxide 40 H (22-30) mmol/L BUN 24 H (7-17) mg/dL Glucose 65 L (74-99) mg/dL POC Glucose (mg/dL) (70-110) mg/dL
[2022-04-10 20:50] LABS: Glucose,Whole Blood 72 mg/dL (70-110)
[2022-04-11] MEDS: metroNIDAZOLE-NS PMX 500 MG in SALINE 1 100ML.BAG IVPB SCH ×3 (00:02→16:10)
[2022-04-11] MEDS: traMADol 50 MG TAB PO SCH ×4 (01:12→17:34)
[2022-04-11 03:03] LABS: Glucose,Whole Blood 101 mg/dL (70-110)
[2022-04-11] MEDS: INSULIN ASPART (NovoLOG) 100 UNIT/ML VIAL SQ SCH ×5 (03:03→21:27)
[2022-04-11 06:20] LABS: Glucose,Whole Blood 100 mg/dL (70-110)
[2022-04-11] MEDS: glipiZIDE 5 MG TAB PO SCH (06:30)
[2022-04-11] MEDS: FERROUS SULFATE 325 MG TAB PO SCH ×2 (06:30→16:59)
[2022-04-11] MEDS: CEFEPIME 2 GM in SODIUM CHLORIDE 0.9% 100 ML IVPB SCH ×3 (06:41→21:28)
[2022-04-11] MEDS: PANTOPRAZOLE 40 MG TABLET PO SCH (06:41)
[2022-04-11] MEDS: IPRATROPIUM-ALBUTEROL 3 ML NEB INHALATION SCH ×4 (08:30→21:40)
[2022-04-11] MEDS: HYDROcodone/APAP 10-325MG 1 EACH TAB PO SCH ×3 (08:50→21:27)
[2022-04-11] MEDS: ASPIRIN 81 MG PO SCH (08:51)
[2022-04-11] MEDS: PIOGLITAZONE 30 MG TAB PO SCH (08:51)
[2022-04-11] MEDS: CHOLECALCIFEROL 25 MCG (1000 IU) TABLET PO SCH (08:51)
[2022-04-11] MEDS: POTASSIUM CHLORIDE ER 20 MEQ TAB.ER PO SCH (08:51)
[2022-04-11] MEDS: CYCLOBENZAPRINE 5 MG TAB PO SCH ×2 (08:51→21:28)
[2022-04-11] MEDS: METOPROLOL TARTRATE 25 MG TAB PO SCH ×3 (08:51→21:28)
[2022-04-11] MEDS: LOSARTAN 25 MG TAB PO SCH (08:51)
[2022-04-11 09:00] LABS: Basophils # (A) 0.02 X 10*3/uL (0.00-0.10); Basophils % (A) 0.4 %; Eosinophils # (A) 0.27 X 10*3/uL (0.04-0.35); Eosinophils % (A) 4.8 %; HCT 24.3 % (37.2-46.3); HGB 7.2 g/dL (12.0-15.0); Immature Grans, Automated 0.9 %; Lymphocytes # (A) 0.56 X 10*3/uL (0.90-5.00); Lymphocytes % (A) 9.9 %; MCH 30.3 pg (27.0-32.0); MCHC 29.6 g/dL (32.0-37.0); MCV 102.1 fL (80.0-97.0); Mean Platelet Volume 8.9 fL (9.5-12.2); Monocytes # (A) 0.76 X 10*3/uL (0.20-1.00); Monocytes % (A) 13.5 %; NRBC Per 100 WBC 0 /100 WBCS (0.0-0.0); Neutrophils # (A) 3.99 X 10*3/uL (1.80-7.70); Neutrophils % (A) 70.5 %; Platelet Count 297 X 10*3/uL (140-440); RBC 2.38 X 10*6/uL (4.10-5.20); RDW 17.5 % (11.5-14.5); WBC 5.65 X 10*3/uL (4.50-10.00)
[2022-04-11 09:33] LABS: African American GFR (CKD) 90.9 (60.0-200.0); Anion Gap 3.6 mmol/L (10.00-18.00); Blood Urea Nitrogen 21.6 mg/dL (9.0-27.0); Carbon Dioxide 38.4 mmol/L (20.0-27.5); Magnesium 1.7 mg/dL (1.5-2.4); Non-African American GFR(CKD) 78.5 (60.0-200.0); Potassium 4.6 mmol/L (3.5-5.5)
[2022-04-11] MEDS: FUROSEMIDE 10 MG/ML 4 ML VIAL IV SCH ×3 (09:59→21:26)
[2022-04-11 11:14] LABS: Glucose,Whole Blood 202 mg/dL (70-110)
[2022-04-11] MEDS: NOREPINEPHRINE 4 MG in SODIUM CHLORIDE 0.9% 250 ML IV SCH (14:25)
--- NOTE | 2022-04-11 14:32 | P.PN ---
Subjective Progress Note Date: 04/11/22 Principal diagnosis: Incarcerated abdominal hernia Patient is a 62-year-old female with multiple comorbidities including COPD hypertension morbid obesity presenting to the ER yesterday for evaluation of increasing shortness of breath apparent has been getting worse for the last few days before presentation to the hospital patient did have worsening respiratory distress and the patient up getting intubated in the ER and was subsequently admitted to ICU, patient has been subsequently extubated on 04/01/2022 On today's evaluation that is 04/11/2022, the patient continues to be afebrile, the patient is breathing comfortably on 3 L nasal cannula oxygen, the patient d enies having any chest pain , the patient did have occasional dry cough no sputum production abdominal pain has improved has been tolerating her diet no nausea vomiting however mention didn't have a bowel movement Objective - Vital Signs Vital signs: Vital Signs Temp 97.8 F 04/11/22 14:00 Pulse 94 04/11/22 14:00 Resp 15 04/11/22 14:00 BP 101/64 04/11/22 14:00 Pulse Ox 98 04/11/22 14:00 FiO2 100 04/05/22 17:48 Intake & Output 04/10/22 04/11/22 04/11/22 18:59 06:59 18:59 Intake Total 180 180 Output Total 335 10 Balance -155 170 Weight 155 kg Intake: Oral 180 180 Output: Drainage 135 10 Upper Medial Abdomen 135 10 Urine 200 Other: Voiding Method Indwelling Catheter # Voids 2 2 - Exam GENERAL DESCRIPTION: A middle-age female up in the chair in no distress RESPIRATORY SYSTEM: Unlabored breathing , coarse breath sounds at the bases bilaterally HEART: S1 S2 regular rate and rhythm , ABDOMEN: Soft , mild distention and tenderness EXTREMITIES: No edema feet - Labs CBC & Chem 7: 04/11/22 04:27 04/11/22 04:27 Labs: Abnormal Lab Results - Last 24 Hours (Table) 04/11/22 04/11/22 04/11/22 Range/Units 04:27 04:27 11:12 RBC 2.38 L (4.10-5.20) X 10*6/uL Hgb 7.2 L (12.0-15.0) g/dL Hct 24.3 L (37.2-46.3) % MCV 102.1 H (80.0-97.0) fL MCHC 29.6 L (32.0-37.0) g/dL RDW 17.5 H (11.5-14.5) % MPV 8.9 L (9.5-12.2) fL Immature Gran # 0.05 H (0.00-0.04) X 10*3/uL Lymphocytes # 0.56 L (0.90-5.00) X 10*3/uL Chloride 93 L (96-109) mmol/L Carbon Dioxide 38.4 H (20.0-27.5) mmol/L Anion Gap 3.60 L (10.00-18.00) mmol/L BUN/Creatinine Ratio 27.00 H (12.00-20.00) Ratio POC Glucose (mg/dL) 202 H (70-110) mg/dL Assessment and Plan (1) Febrile illness, acute Current Visit: Yes Status: Acute Code(s): R50.9 - FEVER, UNSPECIFIED SNOMED Code(s): 886210272 (2) Influenza due to influenza virus, type A, human Current Visit: Yes Status: Acute Code(s): J10.1 - FLU DUE TO OTH IDENT INFLUENZA VIRUS W OTH RESP MANIFEST SNOMED Code(s): 527094173 Plan: 1-patient is status post laparotomy for incarcerated hernia and repair but no evidence of ischemic bowel or bowel resection and partial omentectomy 2- patient is afebrile and the patient white count has been be normal, patient to continue with cefepime and Flagyl however will be able to transition to oral antibiotics on discharge Time with Patient: Less than 30
[2022-04-11 16:09] LABS: Glucose,Whole Blood 218 mg/dL (70-110)
--- NOTE | 2022-04-11 17:52 | P.PN ---
Subjective Progress Note Date: 04/11/22 62 years old female with multiple medical problems presented initially with influenza A pneumonia and she finished a course of Tamiflu with some evidence of acute heart failure related to non-STEMI, she is not on a blood thinner, actually her Plavix on subcutaneous heparin R hold still appeared by surgery team because of her postop anemia that required 2 units of blood transfusion yesterday and hemoglobin today is 7.2 with no active bleeding. Surgery team following closely and she is with incarcerated ventral hernia status post partial omentectomy on 04/05. Today is postoperative day #2. She has acute hypoxic respiratory failure improved Echocardiogram showed ejection fraction 55% with moderate aortic stenosis and moderate pericardial effusion. Patient currently On cefepime and by mouth Flagyl for her abdominal infection. She is currently saturating 99% on room air, she is fully awake and oriented and looks tired but no specific complaints while at rest Objective - Vital Signs Vital signs: Vital Signs Temp 97.6 F 04/10/22 20:00 Pulse 82 04/10/22 20:50 Resp 16 04/10/22 20:00 BP 115/74 04/10/22 20:00 Pulse Ox 100 04/10/22 20:00 FiO2 100 04/05/22 17:48 Intake & Output 04/10/22 04/10/22 04/11/22 06:59 18:59 06:59 Intake Total 180 180 Output Total 1230 335 10 Balance -1230 -155 170 Intake: Oral 180 180 Output: Drainage 30 135 10 Upper Medial Abdomen 30 135 10 Urine 1200 200 Other: Voiding Method Indwelling Catheter # Voids 2 - Exam GENERAL: The patient is alert and oriented x3, patient looks tired not in any acute distress. Well developed, well nourished. HEENT: Pupils are round and equally reacting to light. EOMI. No scleral icterus. No conjunctival pallor. Normocephalic, atraumatic. No pharyngeal erythema. No thyromegaly. CARDIOVASCULAR: S1 and S2 present. No murmurs, rubs, or gallops. -PULMONARY: Chest is clear to auscultation, no wheezing . Mild bilateral crackles. -ABDOMEN: Soft, nontender, nondistended, normoactive bowel sounds. No palpable organomegaly. Surgical abdominal wound with a dressing and a Place [place] of exam is deferred to surgery team MUSCULOSKELETAL: No joint swelling or deformity. EXTREMITIES: No cyanosis, clubbing, or pedal edema. NEUROLOGICAL: Gross neurological examination did not reveal any focal deficits. SKIN: No rashes. no petechiae. - Labs CBC & Chem 7: 04/11/22 04:27 04/11/22 04:27 Labs: Abnormal Lab Results - Last 24 Hours (Table) 04/10/22 04/10/22 04/10/22 Range/Units 06:33 06:42 06:42 RBC 2.78 L (3.80-5.40) m/uL Hgb 8.8 L D (11.4-16.0) gm/dL Hct 27.1 L (34.0-46.0) % RDW 16.8 H (11.5-15.5) % Lymphocytes # 0.3 L (1.0-4.8) k/uL Chloride 93 L (98-107) mmol/L Carbon Dioxide 40 H (22-30) mmol/L BUN 24 H (7-17) mg/dL Glucose 65 L (74-99) mg/dL POC Glucose (mg/dL) 45 L (70-110) mg/dL Assessment and Plan Assessment: Acute influenza pneumonia Incarcerated ventral hernia status post open repair and partial omentectomy 04/05 Acute on Chronic diastolic heart failure with ejection fraction 55% Postoperative anemia requiring 2 units of blood transfusion None STEMI Pericardial effusion Moderate aortic stenosis with mild to moderate tricuspid regurgitation Paroxysmal atrial tachycardia Diabetes mellitus Hypertension Plan: Continue with antibiotics cefepime and by mouth Flagyl Continue with IV Lasix 40 mg twice a day Keep holding Plavix and subcutaneous heparin until cleared by surgery team Check a bladder scan Lower glipizide and monitor glucose Several consultants on the case including pulmonary/critical care team, surgical team, purse maker and infectious disease team Labs and medication were reviewed.. Continue same treatment. Continue with symptomatic treatment. Resume home medication. Monitor lytes and vitals. DVT and GI prophylaxis. Further recommendations as per clinical course of the pat ient DVT prophylaxis: Subcutaneous heparin, on hold for anemia GI Prophylaxis: Ppi PT/OT: Pending
--- NOTE | 2022-04-11 21:10 | P.PN ---
Subjective Progress Note Date: 04/11/22 Patient reports no bowel movements and over 1 week. She is passing flatus. She is tolerating regular diet. Patient reports persistent history of Crohn's disease. We'll trial lactulose 1. Likely discharge in 24 hours. Objective - Vital Signs Vital signs: Vital Signs Temp 97.6 F 04/11/22 19:14 Pulse 89 04/11/22 19:14 Resp 18 04/11/22 19:14 BP 101/57 04/11/22 19:14 Pulse Ox 98 04/11/22 19:14 FiO2 100 04/05/22 17:48 Intake & Output 04/11/22 04/11/22 04/12/22 06:59 18:59 06:59 Intake Total 180 450 Output Total 10 40 Balance 170 410 Weight 155 kg Intake: Oral 180 450 Output: Drainage 10 40 Upper Medial Abdomen 10 40 Other: Voiding Method Indwelling Catheter # Voids 2 - Labs CBC & Chem 7: 04/11/22 04:27 04/11/22 04:27 Labs: Abnormal Lab Results - Last 24 Hours (Table) 04/11/22 04/11/22 04/11/22 Range/Units 04:27 04:27 11:12 RBC 2.38 L (4.10-5.20) X 10*6/uL Hgb 7.2 L (12.0-15.0) g/dL Hct 24.3 L (37.2-46.3) % MCV 102.1 H (80.0-97.0) fL MCHC 29.6 L (32.0-37.0) g/dL RDW 17.5 H (11.5-14.5) % MPV 8.9 L (9.5-12.2) fL Immature Gran # 0.05 H (0.00-0.04) X 10*3/uL Lymphocytes # 0.56 L (0.90-5.00) X 10*3/uL Chloride 93 L (96-109) mmol/L Carbon Dioxide 38.4 H (20.0-27.5) mmol/L Anion Gap 3.60 L (10.00-18.00) mmol/L BUN/Creatinine Ratio 27.00 H (12.00-20.00) Ratio POC Glucose (mg/dL) 202 H (70-110) mg/dL 04/11/22 Range/Units 16:08 RBC (4.10-5.20) X 10*6/uL Hgb (12.0-15.0) g/dL Hct (37.2-46.3) % MCV (80.0-97.0) fL MCHC (32.0-37.0) g/dL RDW (11.5-14.5) % MPV (9.5-12.2) fL Immature Gran # (0.00-0.04) X 10*3/uL Lymphocytes # (0.90-5.00) X 10*3/uL Chloride (96-109) mmol/L Carbon Dioxide (20.0-27.5) mmol/L Anion Gap (10.00-18.00) mmol/L BUN/Creatinine Ratio (12.00-20.00) Ratio POC Glucose (mg/dL) 218 H (70-110) mg/dL
[2022-04-11 21:12] LABS: Glucose,Whole Blood 169 mg/dL (70-110)
[2022-04-12] MEDS: traMADol 50 MG TAB PO SCH ×5 (00:08→23:44)
[2022-04-12] MEDS: metroNIDAZOLE-NS PMX 500 MG in SALINE 1 100ML.BAG IVPB SCH ×3 (00:08→16:03)
[2022-04-12 02:26] LABS: Glucose,Whole Blood 112 mg/dL (70-110)
[2022-04-12] MEDS: INSULIN ASPART (NovoLOG) 100 UNIT/ML VIAL SQ SCH ×5 (06:02→22:04)
[2022-04-12 06:26] LABS: Glucose,Whole Blood 127 mg/dL (70-110)
[2022-04-12] MEDS: FERROUS SULFATE 325 MG TAB PO SCH ×2 (06:35→17:08)
[2022-04-12] MEDS: PANTOPRAZOLE 40 MG TABLET PO SCH (06:35)
[2022-04-12] MEDS: glipiZIDE 5 MG TAB PO SCH (06:36)
[2022-04-12] MEDS: CEFEPIME 2 GM in SODIUM CHLORIDE 0.9% 100 ML IVPB SCH ×3 (06:37→23:15)
[2022-04-12] MEDS ORDERED: LACTULOSE 20 GM/30 ML CUP PO ONE (07:00)
[2022-04-12] MEDS: IPRATROPIUM-ALBUTEROL 3 ML NEB INHALATION SCH ×4 (08:28→21:51)
[2022-04-12] MEDS: HYDROcodone/APAP 5-325MG 1 EACH TAB PO PRN ×2 (08:55→17:16)
[2022-04-12] MEDS: FUROSEMIDE 10 MG/ML 4 ML VIAL IV SCH ×2 (08:55→22:04)
[2022-04-12] MEDS: HYDROcodone/APAP 10-325MG 1 EACH TAB PO SCH ×3 (09:43→23:12)
[2022-04-12] MEDS: METOPROLOL TARTRATE 25 MG TAB PO SCH ×3 (09:49→22:03)
[2022-04-12] MEDS: ASPIRIN 81 MG PO SCH (09:49)
[2022-04-12] MEDS: CHOLECALCIFEROL 25 MCG (1000 IU) TABLET PO SCH (09:49)
[2022-04-12] MEDS: LOSARTAN 25 MG TAB PO SCH (09:49)
[2022-04-12] MEDS: PIOGLITAZONE 30 MG TAB PO SCH (09:49)
[2022-04-12] MEDS: CYCLOBENZAPRINE 5 MG TAB PO SCH ×2 (09:49→22:03)
[2022-04-12] MEDS: POTASSIUM CHLORIDE ER 20 MEQ TAB.ER PO SCH (09:49)
[2022-04-12 10:58] LABS: Glucose,Whole Blood 167 mg/dL (70-110)
[2022-04-12] MEDS: DOCUSATE 100 MG CAP PO SCH ×2 (12:25→22:03)
--- NOTE | 2022-04-12 14:17 | P.PN ---
Subjective Progress Note Date: 04/12/22 CHIEF COMPLAINT: Incarcerated ventral hernia HISTORY OF PRESENT ILLNESS: Patient is currently on a regular medical floor. Patient initially was admitted to the hospital with respiratory failure with influenza A, COPD exacerbation and CHF exacerbation. Patient is POD#7 status post open repair of incarcerated ventral hernia and partial omentectomy. Patient is sitting up at bedside chair. She does report having flatus. She reports been over a week since her last bowel movement. She received her first dose of lactulose this morning. She denies any abdominal pain. Denies any nausea or vomiting. Afebrile. No new labs. WBC is 5.62 Hgb is 7.2 magnesium 1.7. ANTONY drain 40 mL output yesterday and 20 mL dark output this morning PHYSICAL EXAM: VITAL SIGNS: Reviewed. GENERAL: Well-developed in no acute distress. HEENT: No sclera icterus. Extraocular movements grossly intact. Moist buccal mucosa. Head is atraumatic, normocephalic. ABDOMEN: Soft. obese. Nondistended. Incision site clean dry and intact. NEUROLOGIC: Alert and oriented. Cranial nerves II through XII grossly intact. ASSESSMENT: 1. Incarcerated ventral hernia status post open repair and partial omentectomy 2. Constipation PLAN: -Continue regular diet -Change surgical dressing to ABD -Continue supportive care -Add Colace -Add MiraLAX -Encouraged patient to increase activity level -Encouraged patient to use incentive spirometer -Recheck CBC in a.m. Physician Drupal Web Developer note has been reviewed by physician. Signing provider agrees with the documented findings, assessment, and plan of care. Objective - Vital Signs Vital signs: Vital Signs Temp 97.7 F 04/12/22 08:00 Pulse 84 04/12/22 12:15 Resp 15 04/12/22 08:00 BP 116/56 04/12/22 08:00 Pulse Ox 100 04/12/22 08:00 FiO2 100 04/05/22 17:48 Intake & Output 04/11/22 04/12/22 04/12/22 18:59 06:59 18:59 Intake Total 450 Output Total 40 20 Balance 410 -20 Weight 155 kg Intake: Oral 450 Output: Drainage 40 20 Upper Medial Abdomen 40 20 Other: Voiding Method Indwelling Catheter # Voids 2 - Labs CBC & Chem 7: 04/11/22 04:27 04/11/22 04:27 Labs: Abnormal Lab Results - Last 24 Hours (Table) 04/11/22 04/11/22 04/12/22 Range/Units 16:08 21:10 02:24 POC Glucose (mg/dL) 218 H 169 H 112 H (70-110) mg/dL 04/12/22 04/12/22 Range/Units 06:24 10:57 POC Glucose (mg/dL) 127 H 167 H (70-110) mg/dL
[2022-04-12] MEDS: polyethylene glycoL 3350 17 GM POWD.PACK PO SCH (15:45)
[2022-04-12 16:44] LABS: Glucose,Whole Blood 157 mg/dL (70-110)
[2022-04-12] MEDS: SCOPOLAMINE 1 MG/72 HR PATCH TRANSDERM SCH (17:08)
[2022-04-12 21:13] LABS: Glucose,Whole Blood 131 mg/dL (70-110)
--- NOTE | 2022-04-12 22:33 | P.PN ---
Subjective Progress Note Date: 04/12/22 62 years old female with multiple medical problems presented initially with influenza A pneumonia and she finished a course of Tamiflu with some evidence of acute heart failure related to non-STEMI, she is not on a blood thinner, actually her Plavix on subcutaneous heparin R hold still appeared by surgery team because of her postop anemia that required 2 units of blood transfusion yesterday and hemoglobin today is 7.2 with no active bleeding. Surgery team following closely and she is with incarcerated ventral hernia status post partial omentectomy on 04/05. Today is postoperative day #2. She has acute hypoxic respiratory failure improved Echocardiogram showed ejection fraction 55% with moderate aortic stenosis and moderate pericardial effusion. Patient currently On cefepime and by mouth Flagyl for her abdominal infection. She is currently saturating 99% on room air, she is fully awake and oriented and looks tired but no specific complaints while at rest 24 hour interval change 04/12/2022 Patient is seen and evaluated in room at bedside Patient is sitting up at bedside chair. She does report having flatus. She reports been over a week since her last bowel movement. She received her first dose of lactulose this morning. She denies any abdominal pain. Denies any nausea or vomiting. Afebrile. No new labs. WBC is 5.62 Hgb is 7.2 magnesium 1.7. ANTONY drain 40 mL output yesterday and 20 mL dark output this morning -Continue regular diet -Add Colace and MiraLAX -Recheck CBC in a.m. Objective - Vital Signs Vital signs: Vital Signs Temp 98.3 F 04/12/22 14:00 Pulse 88 04/12/22 14:00 Resp 15 04/12/22 14:00 BP 119/65 04/12/22 14:00 Pulse Ox 100 04/12/22 14:00 FiO2 100 04/05/22 17:48 Intake & Output 04/11/22 04/12/22 04/12/22 18:59 06:59 18:59 Intake Total 450 Output Total 40 20 Balance 410 -20 Weight 155 kg Intake: Oral 450 Output: Drainage 40 20 Upper Medial Abdomen 40 20 Other: Voiding Method Indwelling Catheter # Voids 2 - Exam GENERAL: The patient is alert and oriented x3, patient looks tired not in any acute distress. Well developed, well nourished. HEENT: Pupils are round and equally reacting to light. EOMI. No scleral icterus. No conjunctival pallor. Normocephalic, atraumatic. No pharyngeal erythema. No thyromegaly. CARDIOVASCULAR: S1 and S2 present. No murmurs, rubs, or gallops. -PULMONARY: Chest is clear to auscultation, no wheezing . Mild bilateral crackles. -ABDOMEN: Soft, nontender, nondistended, normoactive bowel sounds. No palpable organomegaly. Surgical abdominal wound with a dressing and a Place [place] of exam is deferred to surgery team MUSCULOSKELETAL: No joint swelling or deformity. EXTREMITIES: No cyanosis, clubbing, or pedal edema. NEUROLOGICAL: Gross neurological examination did not reveal any focal deficits. SKIN: No rashes. no petechiae. - Labs CBC & Chem 7: 04/11/22 04:27 04/11/22 04:27 Labs: Abnormal Lab Results - Last 24 Hours (Table) 04/11/22 04/11/22 04/12/22 Range/Units 16:08 21:10 02:24 POC Glucose (mg/dL) 218 H 169 H 112 H (70-110) mg/dL 04/12/22 04/12/22 Range/Units 06:24 10:57 POC Glucose (mg/dL) 127 H 167 H (70-110) mg/dL Assessment and Plan Assessment: Acute influenza pneumonia Incarcerated ventral hernia status post open repair and partial omentectomy 04/05 Acute on Chronic diastolic heart failure with ejection fraction 55% Postoperative anemia requiring 2 units of blood transfusion None STEMI Pericardial effusion Moderate aortic stenosis with mild to moderate tricuspid regurgitation Paroxysmal atrial tachycardia Diabetes mellitus Hypertension Plan: Continue with antibiotics cefepime and by mouth Flagyl Continue with IV Lasix 40 mg twice a day Keep holding Plavix and subcutaneous heparin until cleared by surgery team Check a bladder scan Lower glipizide and monitor glucose Several consultants on the case including pulmonary/critical care team, surgical team, kennel aide and infectious disease team Labs and medication were reviewed.. Continue same treatment. Continue with symptomatic treatment. Resume home medication. Monitor lytes and vitals. DVT and GI prophylaxis. Further recommendations as per clinical course of the patient DVT prophylaxis: Subcutaneous heparin, on hold for anemia GI Prophylaxis: Ppi PT/OT: Pending
[2022-04-13] MEDS: metroNIDAZOLE-NS PMX 500 MG in SALINE 1 100ML.BAG IVPB SCH ×2 (00:44→07:44)
[2022-04-13 01:40] LABS: Glucose,Whole Blood 170 mg/dL (70-110)
[2022-04-13 02:10] VITALS: RESP 18
[2022-04-13] MEDS: INSULIN ASPART (NovoLOG) 100 UNIT/ML VIAL SQ SCH ×3 (03:00→11:14)
[2022-04-13] MEDS: traMADol 50 MG TAB PO SCH ×2 (05:30→12:11)
[2022-04-13 06:08] LABS: Glucose,Whole Blood 136 mg/dL (70-110)
[2022-04-13] MEDS: glipiZIDE 5 MG TAB PO SCH (06:35)
[2022-04-13] MEDS: PANTOPRAZOLE 40 MG TABLET PO SCH (06:35)
[2022-04-13] MEDS: FERROUS SULFATE 325 MG TAB PO SCH (06:38)
[2022-04-13] MEDS: CEFEPIME 2 GM in SODIUM CHLORIDE 0.9% 100 ML IVPB SCH (06:38)
[2022-04-13] MEDS: IPRATROPIUM-ALBUTEROL 3 ML NEB INHALATION SCH ×4 (07:10→15:57)
[2022-04-13] MEDS: FUROSEMIDE 10 MG/ML 4 ML VIAL IV SCH (08:08)
[2022-04-13] MEDS: PIOGLITAZONE 30 MG TAB PO SCH (08:08)
[2022-04-13] MEDS: METOPROLOL TARTRATE 25 MG TAB PO SCH ×2 (08:09→16:35)
[2022-04-13] MEDS: ASPIRIN 81 MG PO SCH (08:09)
[2022-04-13] MEDS: CHOLECALCIFEROL 25 MCG (1000 IU) TABLET PO SCH (08:09)
[2022-04-13] MEDS: CYCLOBENZAPRINE 5 MG TAB PO SCH (08:09)
[2022-04-13] MEDS: LOSARTAN 25 MG TAB PO SCH (08:09)
[2022-04-13] MEDS: DOCUSATE 100 MG CAP PO SCH (08:09)
[2022-04-13] MEDS: HYDROcodone/APAP 10-325MG 1 EACH TAB PO SCH ×2 (08:09→16:35)
[2022-04-13] MEDS: POTASSIUM CHLORIDE ER 20 MEQ TAB.ER PO SCH (08:09)
[2022-04-13] MEDS: polyethylene glycoL 3350 17 GM POWD.PACK PO SCH (08:10)
[2022-04-13 08:13] VITALS: BP 111/64; TEMP 97.6
[2022-04-13 08:43] LABS: HCT 23.5 % (37.2-46.3); HGB 7.3 g/dL (12.0-15.0); MCH 30.4 pg (27.0-32.0); MCHC 31.1 g/dL (32.0-37.0); MCV 97.9 fL (80.0-97.0); NRBC Per 100 WBC 0 /100 WBCS (0.0-0.0); Platelet Count 386 X 10*3/uL (140-440); RDW 17.1 % (11.5-14.5); WBC 6.44 X 10*3/uL (4.50-10.00)
[2022-04-13 11:02] LABS: Glucose,Whole Blood 155 mg/dL (70-110)
--- NOTE | 2022-04-13 12:19 | P.PN ---
Subjective Progress Note Date: 04/12/22 Principal diagnosis: Incarcerated abdominal hernia Patient is a 62-year-old female with multiple comorbidities including COPD hypertension morbid obesity presenting to the ER yesterday for evaluation of increasing shortness of breath apparent has been getting worse for the last few days before presentation to the hospital patient did have worsening respiratory distress and the patient up getting intubated in the ER and was subsequently admitted to ICU, patient has been subsequently extubated on 04/01/2022 On today's evaluation that is 04/12/2022, the patient remains to be afebrile, the patient is breathing comfortably on 3 L nasal cannula oxygen, the patient denies chest pain , the patient did have occasional cough but no sputum production abdominal pain has decreased in intensity patient be tolerating her diet but did not have a bowel movement patient has been started on MiraLAX by general surgery Objective - Vital Signs Vital signs: Vital Signs Temp 97.7 F 04/12/22 08:00 Pulse 84 04/12/22 08:38 Resp 15 04/12/22 08:00 BP 116/56 04/12/22 08:00 Pulse Ox 100 04/12/22 08:00 FiO2 100 04/05/22 17:48 Intake & Output 04/11/22 04/12/22 04/12/22 18:59 06:59 18:59 Intake Total 450 Output Total 40 20 Balance 410 -20 Weight 155 kg Intake: Oral 450 Output: Drainage 40 20 Upper Medial Abdomen 40 20 Other: Voiding Method Indwelling Catheter # Voids 2 - Exam GENERAL DESCRIPTION: A middle-age female up in the chair in no distress RESPIRATORY SYSTEM: Unlabored breathing , coarse breath sounds at the bases bilaterally HEART: S1 S2 regular rate and rhythm , ABDOMEN: Soft , mild distention no significant tenderness EXTREMITIES: No edema feet - Labs CBC & Chem 7: 04/13/22 04:57 04/11/22 04:27 Labs: Abnormal Lab Results - Last 24 Hours (Table) 04/11/22 04/11/22 04/11/22 Range/Units 11:12 16:08 21:10 POC Glucose (mg/dL) 202 H 218 H 169 H (70-110) mg/dL 04/12/22 04/12/22 04/12/22 Range/Units 02:24 06:24 10:57 POC Glucose (mg/dL) 112 H 127 H 167 H (70-110) mg/dL Assessment and Plan (1) Febrile illness, acute Current Visit: Yes Status: Acute Code(s): R50.9 - FEVER, UNSPECIFIED SNOMED Code(s): 353625756 (2) Influenza due to influenza virus, type A, human Current Visit: Yes Status: Acute Code(s): J10.1 - FLU DUE TO OTH IDENT INFLUENZA VIRUS W OTH RESP MANIFEST SNOMED Code(s): 638625897 Plan: 1-patient is status post laparotomy for incarcerated hernia and repair but no evidence of ischemic bowel or bowel resection and partial omentectomy 2- patient remains to be afebrile and the patient white count has been be normal, patient will continue with a short course of cefepime and Flagyl and monitor clinical course closely Time with Patient: Less than 30
--- NOTE | 2022-04-13 12:20 | P.PN ---
Subjective Progress Note Date: 04/13/22 Principal diagnosis: Incarcerated abdominal hernia Patient is a 62-year-old female with multiple comorbidities including COPD hypertension morbid obesity presenting to the ER yesterday for evaluation of increasing shortness of breath apparent has been getting worse for the last few days before presentation to the hospital patient did have worsening respiratory distress and the patient up getting intubated in the ER and was subsequently admitted to ICU, patient has been subsequently extubated on 04/01/2022 On today's evaluation that is 04/13/2022, the patient continues to be afebrile, the patient is breathing comfortably on 3 L nasal cannula oxygen, the patient d enies chest pain , the patient with occasional dry cough patient denies abdominal pain no nausea no vomiting has been tolerating her diet Objective - Vital Signs Vital signs: Vital Signs Temp 97.6 F 04/13/22 07:44 Pulse 91 04/13/22 08:00 Resp 18 04/13/22 08:00 BP 111/64 04/13/22 07:44 Pulse Ox 100 04/13/22 07:44 FiO2 100 04/05/22 17:48 Intake & Output 04/12/22 04/13/22 04/13/22 18:59 06:59 18:59 Intake Total 400 Output Total 30 20 Balance 370 -20 Intake: Oral 400 Output: Drainage 30 20 Upper Medial Abdomen 30 20 Other: Voiding Method Toilet Toilet # Voids 2 - Exam GENERAL DESCRIPTION: A middle-age female up in the chair in no distress RESPIRATORY SYSTEM: Unlabored breathing , coarse breath sounds at the bases bilaterally HEART: S1 S2 regular rate and rhythm , ABDOMEN: Soft , mild distention no significant tenderness EXTREMITIES: No edema feet - Labs CBC & Chem 7: 04/13/22 04:57 04/11/22 04:27 Labs: Abnormal Lab Results - Last 24 Hours (Table) 04/12/22 04/12/22 04/12/22 Range/Units 10:57 16:43 21:10 RBC (4.10-5.20) X 10*6/uL Hgb (12.0-15.0) g/dL Hct (37.2-46.3) % MCV (80.0-97.0) fL MCHC (32.0-37.0) g/dL RDW (11.5-14.5) % MPV (9.5-12.2) fL POC Glucose (mg/dL) 167 H 157 H 131 H (70-110) mg/dL 04/13/22 04/13/22 04/13/22 Range/Units 01:37 04:57 06:05 RBC 2.40 L (4.10-5.20) X 10*6/uL Hgb 7.3 L (12.0-15.0) g/dL Hct 23.5 L (37.2-46.3) % MCV 97.9 H (80.0-97.0) fL MCHC 31.1 L (32.0-37.0) g/dL RDW 17.1 H (11.5-14.5) % MPV 9.0 L (9.5-12.2) fL POC Glucose (mg/dL) 170 H 136 H (70-110) mg/dL Assessment and Plan (1) Febrile illness, acute Current Visit: Yes Status: Acute Code(s): R50.9 - FEVER, UNSPECIFIED SNOMED Code(s): 926376074 (2) Influenza due to influenza virus, type A, human Current Visit: Yes Status: Acute Code(s): J10.1 - FLU DUE TO OTH IDENT IN FLUENZA VIRUS W OTH RESP MANIFEST SNOMED Code(s): 372252281 Plan: 1-patient is status post laparotomy for incarcerated hernia and repair but no evidence of ischemic bowel or bowel resection and partial omentectomy 2- patient remains to be afebrile and the patient white count has been be normal, patient has received adequate antibiotic therapy for underlying incarcerated hernia, we will ago ahead and discontinue antibiotics and monitor the patient closely off antibiotic therapy Time with Patient: Less than 30
--- NOTE | 2022-04-13 12:23 | P.PN ---
Subjective Progress Note Date: 04/13/22 On today's evaluation of 04/13/2022, the patient is postop day #8 following her repair of an incarcerated ventral hernia. The patient is on oxygen at 3 L and the patient's pulse ox is 100%. The patient is using the incentive spirometer. She also checked positive for influenza and she was treated accordingly. At this point in time, the patient is on DuoNeb neb blotchiness on the clock, IV Lasix 40 mg every 12 hours, Dilaudid for pain control, and her routine and hypertension and diabetes medications. Most recent blood work shows a daily basic count of 6.4 with a hemoglobin of 7.3 and a platelet count of 386. Renal function has been essentially within normal limits. Objective - Vital Signs Vital signs: Vital Signs Temp 97.6 F 04/13/22 07:44 Pulse 88 04/13/22 12:03 Resp 18 04/13/22 08:00 BP 111/64 04/13/22 07:44 Pulse Ox 100 04/13/22 07:44 FiO2 100 04/05/22 17:48 Intake & Output 04/12/22 04/13/22 04/13/22 18:59 06:59 18:59 Intake Total 400 Output Total 30 20 Balance 370 -20 Intake: Oral 400 Output: Drainage 30 20 Upper Medial Abdomen 30 20 Other: Voiding Method Toilet Toilet # Voids 2 - Exam Obese white female, in no acute distress, oriented 3. Currently on 3 L. No respiratory difficulty or distress. HEENT examination is grossly unremarkable. Neck supple. Full range of motion. No adenopathy thyromegaly or neck vein distention. Cardiovascular examination reveals regular rhythm rate. S1-S2 normal. No S3 or S4. No discernible murmur noted. Heart sounds are distant. Heart rate 86 bpm. Lungs reveal mostly clear breath sounds. Minimal scattered rhonchi. No wheezes or crackles. Saturations are 98%. Abdomen soft, without bowel sounds. No tenderness. Extremities are intact. No cyanosis clubbing or edema. Skin is without rash or lesion. Neurologic examination is brief but nonfocal. - Labs CBC & Chem 7: 04/13/22 04:57 04/11/22 04:27 Labs: Abnormal Lab Results - Last 24 Hours (Table) 04/12/22 04/12/22 04/13/22 Range/Units 16:43 21:10 01:37 RBC (4.10-5.20) X 10*6/uL Hgb (12.0-15.0) g/dL Hct (37.2-46.3) % MCV (80.0-97.0) fL MCHC (32.0-37.0) g/dL RDW (11.5-14.5) % MPV (9.5-12.2) fL POC Glucose (mg/dL) 157 H 131 H 170 H (70-110) mg/dL 04/13/22 04/13/22 04/13/22 Range/Units 04:57 06:05 11:01 RBC 2.40 L (4.10-5.20) X 10*6/uL Hgb 7.3 L (12.0-15.0) g/dL Hct 23.5 L (37.2-46.3) % MCV 97.9 H (80.0-97.0) fL MCHC 31.1 L (32.0-37.0) g/dL RDW 17.1 H (11.5-14.5) % MPV 9.0 L (9.5-12.2) fL POC Glucose (mg/dL) 136 H 155 H (70-110) mg/dL Assessment and Plan Plan: Acute hypoxic and acute on chronic hypercapnic respiratory failure, multifactorial. Negative CT angiogram of the chest. Postop day #8 for an open repair of a ventral incarcerated hernia and partial omentectomy. Acute postoperative anemia. received 2 units PRBCs. Acute on chronic diastolic heart failure. Influenza A pneumonia/infection. Acute exacerbation of COPD. Possible superimposed bacterial pneumonia. Acute non-ST elevation myocardial infarction. Small pericardial effusion. Benign essential hypertension. Paroxysmal supraventricular tachycardia. History of underlying COPD. Morbid obesity. Sepsis, possible septic shock, resolved. History of degenerative joint disease. Plan: Overall pulmonary condition stable and the patient has recovered from her influenza infection. The patient is on oxygen on a chronic basis between 2 and 4 L nasal cannula and she does have home O2. Her condition is stable. She does have lymphedema lower extremities and the patient is still receiving IV Lasix. This will be switched to oral Lasix time of discharge possibly either today or within next 24-48 hours. Pulmonary and critical care services will sign off the case.
--- NOTE | 2022-04-13 13:57 | P.PN ---
Subjective Progress Note Date: 04/13/22 CHIEF COMPLAINT: Incarcerated ventral hernia HISTORY OF PRESENT ILLNESS: Patient is sitting at bedside chair. Patient initially was admitted to the hospital with respiratory failure with influenza A, COPD exacerbation and CHF exacerbation. Patient is POD#8 status post open repair of incarcerated ventral hernia and partial omentectomy. Patient reports having bowel movements and flatus. Denies any abdominal pain. Denies any nausea or vomiting. She is tolerating diet. Afebrile. WBC is 6.4 for Hgb 7.3 platelets 386 ANTONY drain with 30 mL dark output yesterday and 20 mL this morning PHYSICAL EXAM: VITAL SIGNS: Reviewed. GENERAL: Well-developed in no acute distress. HEENT: No sclera icterus. Extraocular movements grossly intact. Moist buccal mucosa. Head is atraumatic, normocephalic. ABDOMEN: Soft. obese. Nondistended. Incision site clean dry and intact. NEUROLOGIC: Alert and oriented. Cranial nerves II through XII grossly intact. ASSESSMENT: 1. Incarcerated ventral hernia status post open repair and partial omentectomy 2. Constipation PLAN: -Patient can be discharged from surgical standpoint -Patient to be discharged with ANTONY drain -Continue a good bowel regimen at home -Continue regular diet Physician Boiler Technician note has been reviewed by physician. Signing provider agrees with the documented findings, assessment, and plan of care. Objective - Vital Signs Vital signs: Vital Signs Temp 97.6 F 04/13/22 07:44 Pulse 88 04/13/22 12:03 Resp 18 04/13/22 08:00 BP 111/64 04/13/22 07:44 Pulse Ox 100 04/13/22 07:44 FiO2 100 04/05/22 17:48 Intake & Output 04/12/22 04/13/22 04/13/22 18:59 06:59 18:59 Intake Total 400 Output Total 30 20 Balance 370 -20 Intake: Oral 400 Output: Drainage 30 20 Upper Medial Abdomen 30 20 Other: Voiding Method Toilet Toilet # Voids 2 - Labs CBC & Chem 7: 04/13/22 04:57 04/11/22 04:27 Labs: Abnormal Lab Results - Last 24 Hours (Table) 04/12/22 04/12/22 04/13/22 Range/Units 16:43 21:10 01:37 RBC (4.10-5.20) X 10*6/uL Hgb (12.0-15.0) g/dL Hct (37.2-46.3) % MCV (80.0-97.0) fL MCHC (32.0-37.0) g/dL RDW (11.5-14.5) % MPV (9.5-12.2) fL POC Glucose (mg/dL) 157 H 131 H 170 H (70-110) mg/dL 04/13/22 04/13/22 04/13/22 Range/Units 04:57 06:05 11:01 RBC 2.40 L (4.10-5.20) X 10*6/uL Hgb 7.3 L (12.0-15.0) g/dL Hct 23.5 L (37.2-46.3) % MCV 97.9 H (80.0-97.0) fL MCHC 31.1 L (32.0-37.0) g/dL RDW 17.1 H (11.5-14.5) % MPV 9.0 L (9.5-12.2) fL POC Glucose (mg/dL) 136 H 155 H (70-110) mg/dL
--- NOTE | 2022-04-13 14:01 | P.DS ---
Providers Date of admission: 03/31/22 16:52 Expected date of discharge: 04/13/22 Attending physician: Chuck Brown Consults: 03/31/22 15:39 Consult Physician Routine Consulting Provider: Manuela Hatch Consult Reason/Comments: copd flu Do you want consulting provider notified?: Yes 03/31/22 15:40 Consult Physician Routine Consulting Provider: Chris Neal Consult Reason/Comments: flu, pneumonia Do you want consulting provider notified?: Yes 04/01/22 07:46 Consult Physician Routine Consulting Provider: Nguyễn Uriostegui Consult Reason/Comments: Elevated Troponin Do you want consulting provider notified?: Yes, Notify in am 04/05/22 10:25 Consult Physician Routine Consulting Provider: Arnol Guerrero Consult Reason/Comments: constipation, abdominal pain, hard umbilical hernia Do you want consulting provider notified?: Yes Primary care physician: Vernell Bernal DO Hospital Course: 62 years old female with multiple medical problems presented initially with influenza A pneumonia and she finished a course of Tamiflu with some evidence of acute heart failure related to non-STEMI, she is not on a blood thinner, actually her Plavix on subcutaneous heparin R hold still appeared by surgery team because of her postop anemia that required 2 units of blood transfusion yesterday and hemoglobin today is 7.2 with no active bleeding. Surgery team following closely and she is with incarcerated ventral hernia status post partial omentectomy on 04/05. Today is postoperative day #2. She has acute hypoxic respiratory failure improved Echocardiogram showed ejection fraction 55% with moderate aortic stenosis and moderate pericardial effusion. Patient currently On cefepime and by mouth Flagyl for her abdominal infection. She is currently saturating 99% on room air, she is fully awake and oriented and looks tired but no specific complaints while at rest Acute influenza pneumonia Incarcerated ventral hernia status post open repair and partial omentectomy Acute on Chronic diastolic heart failure with ejection fraction 55% Postoperative anemia requiring 2 units of blood transfusion None STEMI Pericardial effusion Moderate aortic stenosis with mild to moderate tricuspid regurgitation Paroxysmal atrial tachycardia Diabetes mellitus Hypertension Plan: Continue with antibiotics cefepime and by mouth Flagyl Continue with IV Lasix 40 mg twice a day Keep holding Plavix and subcutaneous heparin until cleared by surgery team Check a bladder scan Lower glipizide and monitor glucose Several consultants on the case including pulmonary/critical care team, surgical team, business support assistant and infectious disease team Labs and medication were reviewed.. Continue same treatment. Continue with symptomatic treatment. Resume home medication. Monitor lytes and vitals. DVT and GI prophylaxis. Further recommendations as per clinical course of the patient DVT prophylaxis: Subcutaneous heparin, on hold for anemia 04/08/2012 patient was lying in bed very weak and lethargic in the morning, however she is awake and alert, she still complaining of from abdominal pain and surgical site which is expected it's, she is on liquid diet and tolerated that well with no vomiting or worsening pain. But had no bowel movement or cancer. No evidence of bleeding from the wound or anywhere else, hemoglobin improved to 7.8 today after iron pills surgery yesterday and received 2 units of blood transfusion. Her Vitas looks stable, saturating 100% on 4 L oxygen. She had a fever of 100 2 days ago but no more fever. Currently she is on cefepime and by mouth Flagyl. Keep holding Plavix on subcutaneous heparin until cleared by surgery team She is also on Lasix 40 mg twice daily 04/09/2022 Patient is improving slowly and gradually. She was transferred to the general medical floor, she is lying in bed very lethargic and weak but she is awake and orientated and mentation at baseline. No much respiratory symptoms at rest, however she is very weak and she required subacute rehab upon discharge. Also her GI symptoms are improving. She is a liquid diet with no nausea vomiting. Her abdominal pain is improving and is minimal today however she did not have bowel movement or passing gas he had but there is no evidence of bleeding. As of yesterday her hemoglobin was improving to 7.8 however hemoglobin from today is still pending. She remains on cefepime and oral Flagyl as well as IV Lasix 40 mg twice daily. Her Plavix on subcu heparin R still on hold per surgery team 04/10/2022 Patient is awake and alert, her abdominal pain is minimal, no more nausea today it was controlled with Phenergan. Also she is on scopolamine patch. She has normal bowel movement yet as she told me this morning. She is on full liquid diet Labs today showing improvement in her hemoglobin up to 8.8. She has low glucose this morning and prior to the glipizide 5 mg twice a day into daily from tomorrow. We ordered bladder scan, also will discuss with surgery team went to resume subcutaneous heparin and Plavix, nurse, medication was sent in this regard. Patient is on cefepime and oral Flagyl. Also she is on IV Lasix 40 mg twice daily 24 hour interval change 04/12/2022 Patient is seen and evaluated in room at bedside Patient is sitting up at bedside chair. She does report having flatus. She reports been over a week since her last bowel movement. She received her first dose of lactulose this morning. She denies any abdominal pain. Denies any nausea or vomiting. Afebrile. No new labs. WBC is 5.62 Hgb is 7.2 magnesium 1.7. ANTONY drain 40 mL output yesterday and 20 mL dark output this morning -Continue regular diet -Add Colace and MiraLAX -Recheck CBC in a.m. 04/13/2022, the patient is postop day #8 following her repair of an incarcerated ventral hernia. The patient is on oxygen at 3 L and the patient's pulse ox is 100%. The patient is using the incentive spirometer. She also checked positive for influenza and she was treated accordingly. At this point in time, the patient is on DuoNeb neb blotchiness on the clock, IV Lasix 40 mg every 12 hours, Dilaudid for pain control, and her routine and hypertension and diabetes medications. Most recent blood work shows a daily basic count of 6.4 with a hemoglobin of 7.3 and a platelet count of 386. Renal function has been es sentially within normal limits. Patient Condition at Discharge: Critical Plan - Discharge Summary New Discharge Prescriptions: New Docusate [Colace] 100 mg PO BID cap Ferrous Sulfate [Iron (65 MG Elemental)] 325 mg PO BID-W/MEALS tab polyethylene glycoL 3350 [Miralax] 17 gm PO DAILY 30 Days #30 packet Pantoprazole [Protonix] 40 mg PO AC-BRKFST 30 Days #30 tab Continue Potassium Chloride ER [K-Dur 20] 20 meq PO DAILY Cholecalciferol [Vitamin D3 (25 Mcg = 1000 Iu)] 25 mcg PO DAILY Losartan [Cozaar] 25 mg PO DAILY Furosemide [Lasix] 40 mg PO BID Cyclobenzaprine [Flexeril] 5 mg PO BID Cinnamon Bark [Cinnamon] 500 mg PO BID [place]-3 Fatty Acids [[place]-3] 1,000 mg PO TID traMADol HCL [traMADol HCL ER] 200 mg PO DAILY Aspirin EC [Ecotrin Low Dose] 81 mg PO DAILY glipiZIDE [Glucotrol] 5 mg PO BID Pioglitazone [Actos] 30 mg PO DAILY Metoprolol Tartrate [Lopressor] 25 mg PO BID HYDROcodone/APAP 10-325MG [[place] 10-325] 1 tab PO TID Clopidogrel [Plavix] 75 mg PO DAILY Discharge Medication List Aspirin EC [Ecotrin Low Dose] 81 mg PO DAILY 03/31/22 [History] Cholecalciferol [Vitamin D3 (25 Mcg = 1000 Iu)] 25 mcg PO DAILY 03/31/22 [History] Cinnamon Bark [Cinnamon] 500 mg PO BID 03/31/22 [History] Clopidogrel [Plavix] 75 mg PO DAILY 03/31/22 [History] Cyclobenzaprine [Flexeril] 5 mg PO BID 03/31/22 [History] Furosemide [Lasix] 40 mg PO BID 03/31/22 [History] HYDROcodone/APAP 10-325MG [[place] 10-325] 1 tab PO TID 03/31/22 [History] Losartan [Cozaar] 25 mg PO DAILY 03/31/22 [History] Metoprolol Tartrate [Lopressor] 25 mg PO BID 03/31/22 [History] [place]-3 Fatty Acids [[place]-3] 1,000 mg PO TID 03/31/22 [History] Pioglitazone [Actos] 30 mg PO DAILY 03/31/22 [History] Potassium Chloride ER [K-Dur 20] 20 meq PO DAILY 03/31/22 [History] glipiZIDE [Glucotrol] 5 mg PO BID 03/31/22 [History] traMADol HCL [traMADol HCL ER] 200 mg PO DAILY 03/31/22 [History] Docusate [Colace] 100 mg PO BID cap 04/13/22 [Rx] Ferrous Sulfate [Iron (65 MG Elemental)] 325 mg PO BID-W/MEALS tab 04/13/22 [Rx] Pantoprazole [Protonix] 40 mg PO AC-BRKFST 30 Days #30 tab 04/13/22 [Rx] polyethylene glycoL 3350 [Miralax] 17 gm PO DAILY 30 Days #30 packet 04/13/22 [Rx] Follow up Appointment(s)/Referral(s): [facility],Equipment [NON-STAFF] - As Needed ([facility] will deliver extra portable tanks to your daughter's home on 04/14/22. Please call them if you have questions or you do not hear from them. Also, contact them anytime you need replacement oxygen tanks or supplies for the oxygen. ) Vernell Bernal DO [Primary Care Provider] - 1-2 days [facility], [NON-STAFF] - 1-2 Days ([facility] will call you to arrange a visit) Arnol Guerrero MD [STAFF PHYSICIAN] - 1 Week Patient Instructions/Handouts: [facility] Drain [facility] (DC) Activity/Diet/Wound Care/Special Instructions: No driving while taking [place] No lifting over 10 pounds You may shower. No soaking or tub baths for 2 weeks Very light activity until you are reevaluated at your follow up appointment with your surgeon Keep a log of ANTONY drain output and bring with you to your follow-up appointment Milk/strip drains 2-3 times a day Discharge Disposition: HOME WITH HOME HEALTH SERVICES
[2022-04-13 16:11] VITALS: PULSE 84
--- NOTE | 2022-04-15 11:30 | CDI ---
Documentation Clarification Form Date: 04/15/2022 11:12:18 AM From: Emy Penaloza Admit Date: 03/31/2022 4:52:00 PM Patient Name: Sheela Echeverria Visit Number: [id number] Discharge Date: 04/13/2022 4:43:00 PM ATTENTION: The Clinical Documentation Specialists (CDI) and [facility] Coding Staff appreciate your assistance in clarifying documentation. Please respond to the clarification below the line at the bottom and electronically sign. The CDI & [facility] Coding staff will review the response and follow-up if needed. Please note: Queries are made part of the Legal Health Record. If you have any questions, please contact the author of this message via ITS. Dr. Nataliia Bhat Per cardiology and pulmonary consults, PN's 04/02 through 04/13 sepsis with possible septic shock resolved is documented. This diagnosis is not carried to [facility] nor is there clear documentation of whether patient had sepsis/shock on admission or not. Additional clarification regarding if patient had sepsis/shock and please clarify if it was present on admission. History/Risk Factors: Influenza pneumonia, bacterial pneumonia, CHF, incarcerated hernia, Respiratory failure Clinical Indicators: WBC: 5.3 Lactic acid: 0.9 Blood cultures: No growth Vitals signs: 100.3 F, 133 bpm, 24, 146/70 dropping to 109/56, 100% NRB 8 Treatment: IV antibiotics and vasopressors ID Consult: febrile Illness Antibiotics: Rocephin, Zithromax, Tamiflu IV Bolus: Yes not bringing up BP so vasopressors administered. In your professional opinion, please clarify if these findings signify one of the following conditions: [* ] Septic shock POA [ ] Sepsis, Not POA [ ] Sepsis ruled out [ ] Other, please specify [ ] Unable to determine SIRS Criteria: 2 or more of the following may indicate SIRS -Temperature < 96.8F (36C) or > 101.0F (38.3C) -Heart Rate > 90 bpm -Respiratory Rate > 20 breaths/min or PaCO2 < 32 mmHg -White Blood Cell Count > 12,000 or < 4,000 cells/mm3 or > 10% bands MTDD
== END 2022-04-13 16:43 | disposition home health service (06) | DRG 853 ==
LOC: EC 12:00 → 2SICU 16:52 → 4SSUR 04-07 20:28
PROVIDERS: ADMIT Hospitalist; ATTEND Hospitalist
PROC: 0BH17EZ Insertion of Endotracheal Airway into Trachea, Via Natural or Artificial Opening (ICD-10-PCS; 2022-03-31)
PROC: 5A1945Z Respiratory Ventilation, 24-96 Consecutive Hours (ICD-10-PCS; 2022-03-31)
PROC: 0D9670Z Drainage of Stomach with Drainage Device, Via Natural or Artificial Opening (ICD-10-PCS; 2022-03-31)
PROC: 3E043XZ Introduction of Vasopressor into Central Vein, Percutaneous Approach (ICD-10-PCS; 2022-04-01)
PROC: 3E0G76Z Introduction of Nutritional Substance into Upper GI, Via Natural or Artificial Opening (ICD-10-PCS; 2022-04-01)
PROC: 0DH67UZ Insertion of Feeding Device into Stomach, Via Natural or Artificial Opening (ICD-10-PCS; 2022-04-01)
PROC: 5A09357 Assistance with Respiratory Ventilation, Less than 24 Consecutive Hours, Continuous Positive Airway Pressure (ICD-10-PCS; 2022-04-01)
PROC: 0WQF0ZZ Repair Abdominal Wall, Open Approach (ICD-10-PCS; principal; 2022-04-05 11:35)
PROC: 02HV33Z Insertion of Infusion Device into Superior Vena Cava, Percutaneous Approach (ICD-10-PCS; 2022-04-06)
PROC: 05HC33Z Insertion of Infusion Device into Left Basilic Vein, Percutaneous Approach (ICD-10-PCS; 2022-04-06)
PROC: 30233N1 Transfusion of Nonautologous Red Blood Cells into Peripheral Vein, Percutaneous Approach (ICD-10-PCS; 2022-04-06)
DX: A41.9 Sepsis, unspecified organism (principal); I21.A1 Myocardial infarction type 2; J10.00 Influenza due to other identified influenza virus with unspecified type of pneumonia; I50.33 Acute on chronic diastolic (congestive) heart failure; J96.21 Acute and chronic respiratory failure with hypoxia; J96.22 Acute and chronic respiratory failure with hypercapnia; R65.21 Severe sepsis with septic shock; J15.9 Unspecified bacterial pneumonia; I48.92 Unspecified atrial flutter; I47.1 Supraventricular tachycardia; J44.0 Chronic obstructive pulmonary disease with (acute) lower respiratory infection; J44.1 Chronic obstructive pulmonary disease with (acute) exacerbation; K42.0 Umbilical hernia with obstruction, without gangrene; K43.0 Incisional hernia with obstruction, without gangrene; K50.90 Crohn's disease, unspecified, without complications; Z68.43 Body mass index [BMI] 50.0-59.9, adult; E87.29 Other acidosis; I31.39 Other pericardial effusion (noninflammatory); J10.1 Influenza due to other identified influenza virus with other respiratory manifestations; E66.01 Morbid (severe) obesity due to excess calories; I08.2 Rheumatic disorders of both aortic and tricuspid valves; E11.9 Type 2 diabetes mellitus without complications; Z20.822 Contact with and (suspected) exposure to COVID-19; I11.0 Hypertensive heart disease with heart failure; T88.4XXA Failed or difficult intubation, initial encounter; D72.819 Decreased white blood cell count, unspecified; Z28.310 Unvaccinated for COVID-19; M19.90 Unspecified osteoarthritis, unspecified site; E83.42 Hypomagnesemia; E86.1 Hypovolemia; R79.1 Abnormal coagulation profile; Z71.3 Dietary counseling and surveillance; D64.9 Anemia, unspecified; Z79.02 Long term (current) use of antithrombotics/antiplatelets; Z79.82 Long term (current) use of aspirin; Z79.84 Long term (current) use of oral hypoglycemic drugs; Z79.899 Other long term (current) drug therapy; Z87.01 Personal history of pneumonia (recurrent); Z87.891 Personal history of nicotine dependence; Z86.14 Personal history of Methicillin resistant Staphylococcus aureus infection; Z88.0 Allergy status to penicillin; Z88.2 Allergy status to sulfonamides; Z91.040 Latex allergy status
CPT/HCPCS: 31500; 36410; 36415; 36573; 36600; 71045; 71046; 71275; 74018; 76937; 80048; 80053; 81001; 82805; 83036; 83605; 83735; 83880; 84145; 84484; 85025; 85027; 85379; 85610; 85730; 86850; 86900; 86901; 86920; 87040; 87070; 87205; 87502; 87635; 88305; 93005; 93306; 94002; 94003; 94640; 94660; 94760; 96365; 96366; 96375; 99291

== ENCOUNTER 2022-04-26 14:09 | Inpatient (IN) | payer MEDICARE ==
[2022-04-26 15:00] LABS: Anisocytosis Slight; Basophils % (A) 0 %; Eosinophils # (A) 0.1 k/uL (0-0.7); Eosinophils % (A) 1 %; HCT 24.9 % (34.0-46.0); HGB 7.7 gm/dL (11.4-16.0); Hypochromasia Moderate; Lymphocytes # (A) 0.3 k/uL (1.0-4.8); Lymphocytes % (A) 5 %; MCH 30.6 pg (25.0-35.0); MCHC 30.8 g/dL (31.0-37.0); MCV 99.3 fL (80.0-100.0); Macrocytosis Slight; Mean Platelet Volume 8.2; Monocytes # (A) 0.3 k/uL (0-1.0); Monocytes % (A) 4 %; Neutrophils % (A) 90 %; Platelet Count 215 k/uL (150-450); Poikilocytosis Marked; RBC 2.51 m/uL (3.80-5.40); RDW 18.4 % (11.5-15.5); WBC 6.7 k/uL (3.8-10.6)
[2022-04-26 15:20] LABS: Partial Thromboplastin Time 24.3 sec (22.0-30.0); Prothrombin Time 10.7 sec (9.0-12.0)
[2022-04-26] MEDS ORDERED: IPRATROPIUM-ALBUTEROL 3 ML NEB INHALATION STA (15:37)
--- NOTE | 2022-04-26 15:38 | ED ---
General Adult HPI - General Chief complaint: Shortness of Breath Stated complaint: SOB Time Seen by Provider: 04/26/22 15:17 Source: patient, RN notes reviewed Mode of arrival: wheelchair Limitations: no limitations - History of Present Illness Initial comments: Patient is a pleasant 62-year-old female presented to emergency department with concerns for difficulty breathing. Onset of symptoms just last day or so. Patient states breathing has progressively worsened. Patient denies cough. No leg pain or leg swelling. No fever. No congestion. Patient does have history of similar symptoms previously associated with COPD. Patient also has had d yspnea associated with pneumonia and CHF. - Related Data Home Medications Medication Instructions Recorded Confirmed Aspirin EC [Ecotrin Low Dose] 81 mg PO DAILY 03/31/22 04/26/22 Cholecalciferol [Vitamin D3 (25 25 mcg PO W/LUNCH 03/31/22 04/26/22 Mcg = 1000 Iu)] Cinnamon Bark [Cinnamon] 500 mg PO BID 03/31/22 04/26/22 Clopidogrel [Plavix] 75 mg PO DAILY 03/31/22 04/26/22 Cyclobenzaprine [Flexeril] 5 mg PO HS 03/31/22 04/26/22 Furosemide [Lasix] 40 mg PO BID@0900,1800 03/31/22 04/26/22 HYDROcodone/APAP 10-325MG [[place] 0.5 tab PO 5XD 03/31/22 04/26/22 10-325] Losartan [Cozaar] 25 mg PO DAILY@1400 03/31/22 04/26/22 Metoprolol Tartrate [Lopressor] 25 mg PO BID 03/31/22 04/26/22 [place]-3 Fatty Acids [[place]-3] 1,000 mg PO TID 03/31/22 04/26/22 Pioglitazone [Actos] 30 mg PO DAILY 03/31/22 04/26/22 glipiZIDE [Glucotrol] 5 mg PO QID 03/31/22 04/26/22 traMADol HCL [traMADol HCL ER] 200 mg PO DAILY 03/31/22 04/26/22 Blood Builder Supplement 1 tab PO BID 04/26/22 04/26/22 Nystatin [Nystop] 1 applic TOPICAL BID 04/26/22 04/26/22 Omeprazole [PriLOSEC] 20 mg PO DAILY 04/26/22 04/26/22 Wheat Dextrin [Benefiber] 1 packet PO DAILY PRN 04/26/22 04/26/22 Allergies Allergy/AdvReac Type Severity Reaction Status Date / Time latex Allergy Rash/Hives Verified 04/26/22 17:13 Penicillins Allergy Rash/Hives Verified 04/26/22 17:13 Sulfa (Sulfonamide Allergy Rash/Hives Verified 04/26/22 17:13 Antibiotics) Review of Systems ROS Statement: Those systems with pertinent positive or pertinent negative responses have been documented in the HPI. ROS Other: All systems not noted in ROS Statement are negative. Constitutional: Denies: fever Eyes: Denies: eye pain ENT: Denies: ear pain Respiratory: Reports: as per HPI, dyspnea Cardiovascular: Denies: chest pain Endocrine: Reports: fatigue Gastrointestinal: Denies: abdominal pain Genitourinary: Denies: dysuria Musculoskeletal: Denies: back pain Skin: Denies: rash Neurological: Denies: weakness Past Medical History Past Medical History: Heart Failure, COPD, Diabetes Mellitus, Hypertension, Osteoarthritis (OA), Skin Disorder Additional Past Medical History / Comment(s): CHF, Chrohn's Disease, Chronic Hives History of Any Multi-Drug Resistant Organisms: None Reported Additional Past Surgical History / Comment(s): Fistula in buttocks. Past Anesthesia/Blood Transfusion Reactions: No Reported Reaction Past Psychological History: No Psychological Hx Reported Smoking Status: Former smoker Past Alcohol Use History: None Reported Past Drug Use History: None Reported General Exam Limitations: no limitations General appearance: alert, in no apparent distress Head exam: Present: normocephalic Eye exam: Present: normal appearance Neck exam: Present: normal inspection Respiratory exam: Present: decreased breath sounds Cardiovascular Exam: Present: regular rate, normal rhythm GI/Abdominal exam: Present: soft. Absent: tenderness Extremities exam: Present: other (Lymphedema the patient states is chronic and unchanged). Absent: calf tenderness Neurological exam: Present: alert Psychiatric exam: Present: normal affect, normal mood Skin exam: Present: normal color Course Vital Signs 04/26/22 04/26/22 04/26/22 14:15 15:49 16:30 Temperature 98.7 F Pulse Rate 95 88 88 Respiratory 20 24 Rate Blood Pressure 123/75 129/77 O2 Sat by Pulse 100 100 Oximetry 04/26/22 04/26/22 16:42 17:35 Temperature Pulse Rate 88 92 Respiratory 18 Rate Blood Pressure 118/61 O2 Sat by Pulse 100 Oximetry - Reevaluation(s) Reevaluation #1: 04/26/22 15:42 Previous EKG reviewed with similar findings EKG Findings - EKG Results: EKG: interpreted by SHAQUILLED (Lateral T wave inversion), sinus rhythm, normal axis, normal QRS Medical Decision Making - Medical Decision Making Was pt. sent in by a medical professional or institution (, PA, MASTER LAY OUT SPECIALIST, urgent care, hospital, or long term...) When possible be specific @ -No Did you speak to anyone other than the patient for history (EMS, parent, family, police, friend...)? What history was obtained from this source @ -No Did you review nursing and triage notes (agree or disagree)? Why? @ -I reviewed and agree with nursing and triage notes Were old charts reviewed (outside hosp., previous admission, EMS record, old EKG, old radiological studies, urgent care reports/EKG's, long term records)? Report findings @ -No old charts were reviewed Differential Diagnosis (chest pain, altered mental status, abdominal pain women, abdominal pain men, vaginal bleeding, weakness, fever, dyspnea, syncope, headache, dizziness, GI bleed, back pain, seizure, CVA, palpatations, mental health)? @ -Differential Dyspnea: Coronary syndrome, arrhythmia, tamponade, asthma, COPD, pulmonary embolism, pneumonia, pneumothorax, pulmonary effusion, anaphylaxis, diabetic ketoacidosis, flailed chest, pulmonary contusion, diaphragmatic rupture, anemia, neuromuscular, this is not meant to be an all-inclusive list. EKG interpreted by me (3pts min.). @ -As above X-rays interpreted by me (1pt min.). @ -Chest x-ray shows interstitial changes CT interpreted by me (1pt min.). @ -None done U/S interpreted by me (1pt. min.). @ -None done What testing was considered but not performed or refused? (CT, X-rays, U/S, labs)? Why? @ -Consider V/Q scan or computed tomography scan however patient refuses both despite trying to encourage this twice. What meds were considered but not given or refused? Why? @ -Consider heparin however patient is postop and patient did have history of elevated d-dimer with negative CT chest. Did you discuss the management of the patient with other professionals (professionals i.e. DrFaye, PA, MASTER LAY OUT SPECIALIST, lab, RT, psych nurse, director social service, conveyancer, teacher, district resource officer, bilingual case manager)? Give summary @ -Case was discussed with practitioner Baylee, who will admit the ring Dr. Eduar mesa who did recently admit this patient. Was smoking cessation discussed for >3mins.? @ -No Was critical care preformed (if so, how long)? @ -No Were there social determinants of health that impacted care today? How? (Homelessness, low income, unemployed, alcoholism, drug addiction, transportation, low edu. Level, literacy, decrease access to med. care, alf, rehab)? @ -No Was there de-escalation of care discussed even if they declined (Discuss DNR or withdrawal of care, Hospice)? DNR status @ -No What co-morbidities impacted this encounter? (DM, HTN, Smoking, COPD, CAD, Cancer, CVA, ARF, Chemo, Hep., AIDS, mental health diagnosis, sleep apnea, morbid obesity)? @ -None Was patient admitted / discharged? Hospital course, mention meds given and route, prescriptions, significant lab abnormalities, going to OR and other pertinent info. @ -Patient reevaluated and somewhat improved. Patient will benefit from pulmonary evaluation and further treatments. Patient updated. Undiagnosed new problem with uncertain prognosis? @ -No Drug Therapy requiring intensive monitoring for toxicity (Heparin, Nitro, Insul in, Cardizem)? @ -No Were any procedures done? @ -No Diagnosis/symptom? @ -Acute COPD Acute, or Chronic, or Acute on Chronic? @ -Acute on chronic Uncomplicated (without systemic symptoms) or Complicated (systemic symptoms)? @ -Uncomplicated at this time Side effects of treatment? @ -No Exacerbation, Progression, or Severe Exacerbation? @ -Severe exacerbation Poses a threat to life or bodily function? How? (Chest pain, USA, MS, pneumonia, PE, COPD, DKA, ARF, appy, cholecystitis, CVA, Diverticulitis, Homicidal, Suicidal, threat to staff... and all critical care pts) @ -Poses a threat to life and bodily function through hypoxia - Lab Data Result diagrams: 04/26/22 14:30 04/26/22 14:30 Lab Results 04/26/22 04/26/22 04/26/22 Range/Units 14:30 14:30 14:30 WBC 6.7 (3.8-10.6) k/uL RBC 2.51 L (3.80-5.40) m/uL Hgb 7.7 L (11.4-16.0) gm/dL Hct 24.9 L (34.0-46.0) % MCV 99.3 (80.0-100.0) fL MCH 30.6 (25.0-35.0) pg MCHC 30.8 L (31.0-37.0) g/dL RDW 18.4 H (11.5-15.5) % Plt Count 215 (150-450) k/uL MPV 8.2 Neutrophils % 90 % Lymphocytes % 5 % Monocytes % 4 % Eosinophils % 1 % Basophils % 0 % Neutrophils # 6.0 (1.3-7.7) k/uL Lymphocytes # 0.3 L (1.0-4.8) k/uL Monocytes # 0.3 (0-1.0) k/uL Eosinophils # 0.1 (0-0.7) k/uL Basophils # 0.0 (0-0.2) k/uL Hypochromasia Moderate Poikilocytosis Marked Anisocytosis Slight Macrocytosis Slight PT 10.7 (9.0-12.0) sec INR 1.0 (<1.2) APTT 24.3 (22.0-30.0) sec D-Dimer (<0.60) mg/L FEU Sodium 141 (137-145) mmol/L Potassium 3.9 (3.5-5.1) mmol/L Chloride 95 L (98-107) mmol/L Carbon Dioxide 40 H (22-30) mmol/L Anion Gap 6 mmol/L BUN 20 H (7-17) mg/dL Creatinine 0.90 (0.52-1.04) mg/dL Est GFR (CKD-EPI)AfAm 79 (>60 ml/min/1.73 sqM) Est GFR (CKD-EPI)NonAf 69 (>60 ml/min/1.73 sqM) Glucose 164 H (74-99) mg/dL Calcium 8.8 (8.4-10.2) mg/dL Total Bilirubin 0.7 (0.2-1.3) mg/dL AST 18 (14-36) U/L ALT 13 (4-34) U/L Alkaline Phosphatase 75 (38-126) U/L Troponin I (0.000-0.034) ng/mL NT-Pro-B Natriuret Pep pg/mL Total Protein 6.5 (6.3-8.2) g/dL Albumin 3.4 L (3.5-5.0) g/dL Influenza Type A (PCR) (Not Detectd) Influenza Type B (PCR) (Not Detectd) RSV (PCR) (Not Detectd) SARS-CoV-2 (PCR) (Not Detectd) 04/26/22 04/26/22 04/26/22 Range/Units 14:30 14:30 15:49 WBC (3.8-10.6) k/uL RBC (3.80-5.40) m/uL Hgb (11.4-16.0) gm/dL Hct (34.0-46.0) % MCV (80.0-100.0) fL MCH (25.0-35.0) pg MCHC (31.0-37.0) g/dL RDW (11.5-15.5) % Plt Count (150-450) k/uL MPV Neutrophils % % Lymphocytes % % Monocytes % % Eosinophils % % Basophils % % Neutrophils # (1.3-7.7) k/uL Lymphocytes # (1.0-4.8) k/uL Monocytes # (0-1.0) k/uL Eosinophils # (0-0.7) k/uL Basophils # (0-0.2) k/uL Hypochromasia Poikilocytosis Anisocytosis Macrocytosis PT (9.0-12.0) sec INR (<1.2) APTT (22.0-30.0) sec D-Dimer 1.98 H (<0.60) mg/L FEU Sodium (137-145) mmol/L Potassium (3.5-5.1) mmol/L Chloride (98-107) mmol/L Carbon Dioxide (22-30) mmol/L Anion Gap mmol/L BUN (7-17) mg/dL Creatinine (0.52-1.04) mg/dL Est GFR (CKD-EPI)AfAm (>60 ml/min/1.73 sqM) Est GFR (CKD-EPI)NonAf (>60 ml/min/1.73 sqM) Glucose (74-99) mg/dL Calcium (8.4-10.2) mg/dL Total Bilirubin (0.2-1.3) mg/dL AST (14-36) U/L ALT (4-34) U/L Alkaline Phosphatase (38-126) U/L Troponin I 0.014 (0.000-0.034) ng/mL NT-Pro-B Natriuret Pep pg/mL Total Protein (6.3-8.2) g/dL Albumin (3.5-5.0) g/dL Influenza Type A (PCR) Not Detected (Not Detectd) Influenza Type B (PCR) Not Detected (Not Detectd) RSV (PCR) Not Detected (Not Detectd) SARS-CoV-2 (PCR) Not Detected (Not Detectd) 04/26/22 Range/Units 15:49 WBC (3.8-10.6) k/uL RBC (3.80-5.40) m/uL Hgb (11.4-16.0) gm/dL Hct (34.0-46.0) % MCV (80.0-100.0) fL MCH (25.0-35.0) pg MCHC (31.0-37.0) g/dL RDW (11.5-15.5) % Plt Count (150-450) k/uL MPV Neutrophils % % Lymphocytes % % Monocytes % % Eosinophils % % Basophils % % Neutrophils # (1.3-7.7) k/uL Lymphocytes # (1.0-4.8) k/uL Monocytes # (0-1.0) k/uL Eosinophils # (0-0.7) k/uL Basophils # (0-0.2) k/uL Hypochromasia Poikilocytosis Anisocytosis Macrocytosis PT (9.0-12.0) sec INR (<1.2) APTT (22.0-30.0) sec D-Dimer (<0.60) mg/L FEU Sodium (137-145) mmol/L Potassium (3.5-5.1) mmol/L Chloride (98-107) mmol/L Carbon Dioxide (22-30) mmol/L Anion Gap mmol/L BUN (7-17) mg/dL Creatinine (0.52-1.04) mg/dL Est GFR (CKD-EPI)AfAm (>60 ml/min/1.73 sqM) Est GFR (CKD-EPI)NonAf (>60 ml/min/1.73 sqM) Glucose (74-99) mg/dL Calcium (8.4-10.2) mg/dL Total Bilirubin (0.2-1.3) mg/dL AST (14-36) U/L ALT (4-34) U/L Alkaline Phosphatase (38-126) U/L Troponin I (0.000-0.034) ng/mL NT-Pro-B Natriuret Pep 1070 pg/mL Total Protein (6.3-8.2) g/dL Albumin (3.5-5.0) g/dL Influenza Type A (PCR) (Not Detectd) Influenza Type B (PCR) (Not Detectd) RSV (PCR) (Not Detectd) SARS-CoV-2 (PCR) (Not Detectd) - Radiology Data Interpreted by me: Chest x-ray does show some diffuse interstitial changes Disposition Clinical Impression: Acute exacerbation of chronic obstructive pulmonary disease, Dyspnea Disposition: ADMITTED IP TO THIS HOSP Is patient prescribed a controlled substance at d/c from ED?: No Referrals: Vernell Bernal DO [Primary Care Provider] - 1-2 days Time of Disposition: 18:03
--- NOTE | 2022-04-26 16:04 | XR ---
EXAMINATION TYPE: XR chest 2V DATE OF EXAM: 04/26/2022 3:59 PM COMPARISON: Chest radiographs from 04/06/2022 TECHNIQUE: XR chest 2V Frontal and lateral views of the chest. CLINICAL INDICATION:Female, 62 years old with history of difficulty breathing; FINDINGS: Lungs/Pleura: No focal consolidation or pneumothorax. Blunting of both costophrenic angles. Pulmonary vascularity: Pulmonary vascular congestion. Heart/mediastinum: Cardiomediastinal silhouette is enlarged and stable. Atherosclerotic calcificatio ns are seen in the aorta. Musculoskeletal: Multiple level degenerative disc disease changes seen throughout the spine. No acute osseous and amounted. IMPRESSION: Cardiomegaly, pulmonary vascular congestion and bilateral pleural effusions. Correlate with BNP for c ongestive heart failure.
[2022-04-26 16:12] LABS: Albumin 3.4 g/dL (3.5-5.0); Calcium 8.8 mg/dL (8.4-10.2); Potassium 3.9 mmol/L (3.5-5.1); Total Protein 6.5 g/dL (6.3-8.2)
[2022-04-26 16:13] LABS: Total Bilirubin 0.7 mg/dL (0.2-1.3)
[2022-04-26] MEDS ORDERED: methylPREDNISolone SOD SUCCI 125 MG/2 ML VIAL IV STA (18:03)
[2022-04-26] MEDS ORDERED: NALOXONE 0.4 MG/ML 1 ML VIAL IVP PRN (18:03)
[2022-04-26] MEDS ORDERED: IPRATROPIUM-ALBUTEROL 3 ML NEB INHALATION PRN (18:03)
[2022-04-26] MEDS ORDERED: ACETAMINOPHEN TAB 325 MG TAB PO PRN (18:03)
[2022-04-26] MEDS: HYDROcodone/APAP 5-325MG 1 EACH TAB PO PRN (18:43)
[2022-04-26] MEDS: IPRATROPIUM-ALBUTEROL 3 ML NEB INHALATION SCH (20:58)
[2022-04-26] MEDS: glipiZIDE 5 MG TAB PO SCH (22:46)
[2022-04-26] MEDS: METOPROLOL TARTRATE 25 MG TAB PO SCH (22:46)
[2022-04-26] MEDS: DOXYCYCLINE 100 MG CAP PO SCH (22:46)
[2022-04-26] MEDS: CYCLOBENZAPRINE 5 MG TAB PO SCH (22:46)
[2022-04-26] MEDS: methylPREDNISolone SOD SUCCI 125 MG/2 ML VIAL IV SCH (22:46)
[2022-04-27 05:58] LABS: Glucose,Whole Blood 262 mg/dL (70-110)
[2022-04-27] MEDS: methylPREDNISolone SOD SUCCI 125 MG/2 ML VIAL IV SCH ×4 (05:59→23:26)
[2022-04-27] MEDS: PANTOPRAZOLE 40 MG TABLET PO SCH (06:00)
[2022-04-27] MEDS: traMADol 50 MG TAB PO SCH ×4 (07:59→21:04)
[2022-04-27] MEDS: FUROSEMIDE 40 MG TAB PO SCH ×2 (07:59→17:49)
[2022-04-27] MEDS: DOXYCYCLINE 100 MG CAP PO SCH ×2 (08:00→21:02)
[2022-04-27] MEDS: ASPIRIN 81 MG PO SCH (08:00)
[2022-04-27] MEDS: CLOPIDOGREL 75 MG TAB PO SCH (08:00)
[2022-04-27] MEDS: HYDROcodone/APAP 5-325MG 1 EACH TAB PO PRN (08:00)
[2022-04-27] MEDS: IPRATROPIUM-ALBUTEROL 3 ML NEB INHALATION SCH ×4 (08:01→20:42)
[2022-04-27] MEDS: METOPROLOL TARTRATE 25 MG TAB PO SCH ×2 (08:01→21:03)
[2022-04-27] MEDS: glipiZIDE 5 MG TAB PO SCH ×4 (08:03→21:03)
--- NOTE | 2022-04-27 10:59 | P.CNPUL ---
History of Present Illness Consult date: 04/27/22 Requesting physician: Chuck Brown Reason for consult: dyspnea, cough, COPD, hypoxemia, pneumonia, abnormal CXR/CT Chief complaint: Shortness of breath, respiratory failure. History of present illness: Pulmonary consult dated 04/27/2022. 62-year-old female who presented to the emergency department on April 26, with complaints of shortness of breath. The patient had shortness of breath for about a day or so prior to admission. Her breathing worsened over that. A time, and was not improving, for that reason, she came in to be evaluated. The patient apparently was not having much in the way of cough or phlegm production. There is no chest pain or chest Discomfort. The patient denied any fever or chills. The patient has had recent multiple admissions to the hospital, including this one. She was hospitalized between March 31, and April 13, because of respiratory failure secondary to COPD, diastolic CHF, and influenza infection. She's also had admissions at [facility]. Currently, she is on home O2 at 3 L. She did smoke cigarettes for 47 years. She does not smoke currently. She is on 6 L of oxygen currently, which can be turned on the 4 L. She's not receiving any IV fluids. White count 6.7, hemoglobin 7.7, hematocrit 24.9, with a normal platelet count. D-dimer was 1.98. Sodium 141, potassium 3.9, chlorides 95, CO2 40, BUN 20, creatinine 0.90. N-terminal proBNP was 1070. Troponin was 0.014. Albumin 3.4. She tested negative for influenza, RSV, and coronavirus infections. Chest x-ray was consistent with fluid overload, and cardiomegaly. Review of Systems REVIEW OF SYSTEMS: CONSTITUTIONAL: [Negative.] NEUROLOGIC: [ Negative.] HEENT: [ Negative.] CARDIAC: Chronic lower extremity edema. PULMONARY: Shortness of breath, progressive. GI: [Negative.] : [Negative.] RHEUMATOLOGIC: [ Negative.] IMMUNOLOGIC: [ Negative.] ENDOCRINE: [Negative. ] DERMATOLOGIC: [Negative.] Past Medical History Past Medical History: Heart Failure, COPD, Diabetes Mellitus, Hypertension, Osteoarthritis (OA), Skin Disorder Additional Past Medical History / Comment(s): CHF, Chrohn's Disease, Chronic Hives History of Any Multi-Drug Resistant Organisms: None Reported Additional Past Surgical History / Comment(s): Fistula in buttocks. Past Anesthesia/Blood Transfusion Reactions: No Reported Reaction Smoking Status: Former smoker Medications and Allergies Home Medications Medication Instructions Recorded Confirmed Type Aspirin EC [Ecotrin Low Dose] 81 mg PO DAILY 03/31/22 04/26/22 History Cholecalciferol [Vitamin D3 (25 25 mcg PO W/LUNCH 03/31/22 04/26/22 History Mcg = 1000 Iu)] Cinnamon Bark [Cinnamon] 500 mg PO BID 03/31/22 04/26/22 History Clopidogrel [Plavix] 75 mg PO DAILY 03/31/22 04/26/22 History Cyclobenzaprine [Flexeril] 5 mg PO HS 03/31/22 04/26/22 History Furosemide [Lasix] 40 mg PO BID@0900,1800 03/31/22 04/26/22 History HYDROcodone/APAP 10-325MG [[place] 0.5 tab PO 5XD 03/31/22 04/26/22 History 10-325] Losartan [Cozaar] 25 mg PO DAILY@1400 03/31/22 04/26/22 History Metoprolol Tartrate [Lopressor] 25 mg PO BID 03/31/22 04/26/22 History [place]-3 Fatty Acids [[place]-3] 1,000 mg PO TID 03/31/22 04/26/22 History Pioglitazone [Actos] 30 mg PO DAILY 03/31/22 04/26/22 History glipiZIDE [Glucotrol] 5 mg PO QID 03/31/22 04/26/22 History traMADol HCL [traMADol HCL ER] 200 mg PO DAILY 03/31/22 04/26/22 History Blood Builder Supplement 1 tab PO BID 04/26/22 04/26/22 History Nystatin [Nystop] 1 applic TOPICAL BID 04/26/22 04/26/22 History Omeprazole [PriLOSEC] 20 mg PO DAILY 04/26/22 04/26/22 History Wheat Dextrin [Benefiber] 1 packet PO DAILY PRN 04/26/22 04/26/22 History Allergies Allergy/AdvReac Type Severity Reaction Status Date / Time latex Allergy Rash/Hives Verified 04/26/22 17:13 Penicillins Allergy Rash/Hives Verified 04/26/22 17:13 Sulfa (Sulfonamide Allergy Rash/Hives Verified 04/26/22 17:13 Antibiotics) Physical Exam Osteopathic Statement: *. No significant issues noted on an osteopathic structural exam other than those noted in the History and Physical/Consult. Vitals: Vital Signs Temp Pulse Pulse Resp BP BP Pulse Ox 04/27/22 10:17 95 04/27/22 08:53 14 04/27/22 08:17 88 04/27/22 08:01 84 04/27/22 06:46 98.4 F 81 14 128/66 100 04/27/22 02:00 98.3 F 81 14 134/76 100 04/26/22 21:56 91 15 121/68 98 04/26/22 21:11 103 H 04/26/22 20:58 100 04/26/22 18:37 110 H 20 119/56 95 04/26/22 17:35 92 18 118/61 100 04/26/22 16:42 88 04/26/22 16:30 88 04/26/22 15:49 88 24 129/77 100 04/26/22 14:15 98.7 F 95 20 123/75 100 Intake and Output 04/26/22 04/27/22 04/27/22 22:59 06:59 14:59 Other: Voiding Method Bedside Commode Bedside Commode # Voids 0 # Bowel Movements 0 Weight 152.861 kg No acute distress, oriented 3. No conversational dyspnea or use of accessory muscles. Currently on 6 L of oxygen. HEENT examination is grossly unremarkable. Neck supple. Full range of motion. No adenopathy thyromegaly or neck vein distention. Cardiovascular examination reveals regular rhythm rate. S1-S2 normal. No S3 or S4. No discernible murmur noted. Heart rate 88 bpm. Lungs reveal scattered bilateral rhonchi and basilar crackles. No wheezes. Breath sounds equal bilaterally but diminished throughout. Saturations are 95%. Abdomen soft bowel sounds are heard. No masses or tenderness. Extremities are intact. No cyanosis or clubbing. The patient does have si gnificant lower extremity edema. Skin is without rash or lesion. Neurologic examination is brief but nonfocal. Results - Laboratory Findings CBC and BMP: 04/26/22 14:30 04/26/22 14:30 PT/INR, D-dimer PT 10.7 sec (9.0-12.0) 04/26/22 14:30 INR 1.0 (<1.2) 04/26/22 14:30 D-Dimer 1.98 mg/L FEU (<0.60) H 04/26/22 15:49 Abnormal lab findings: Abnormal Labs 04/26/22 04/26/22 04/26/22 14:30 14:30 15:49 RBC 2.51 L Hgb 7.7 L Hct 24.9 L MCHC 30.8 L RDW 18.4 H Lymphocytes # 0.3 L D-Dimer 1.98 H Chloride 95 L Carbon Dioxide 40 H BUN 20 H Glucose 164 H POC Glucose (mg/dL) Albumin 3.4 L 04/27/22 05:57 RBC Hgb Hct MCHC RDW Lymphocytes # D-Dimer Chloride Carbon Dioxide BUN Glucose POC Glucose (mg/dL) 262 H Albumin - Diagnostic Findings Chest x-ray: image reviewed Assessment and Plan Assessment: Acute hypoxemic respiratory failure, likely secondary to both COPD exacerbation, and CHF. Recent admission to , between March 31 and April 13, for respiratory failure requiring intubation and mechanical ventilation. This was secondary to CHF, COPD, and influenza A. History of diastolic CHF. History of diabetes mellitus. History of hypertension. History of Crohn's disease. History of chronic urticaria. History of osteoarthritis. Morbid obesity, BMI 54.4. Prior history of heavy tobacco use. Plan: Plan dated 04/27/2022. The patient is seen, interviewed, and examined her. She's currently on 6 L. We will turn it down to 4 L/m. The patient was recently inpatient at this facility, between 03/31/2022, and 04/13/2022. At that time she was intubated for heart failure, COPD exacerbation, and influenza A. She does use home O2 at 3 L. Labs, x-rays, and medications prognosis is guarded. The patient will be maintained on albuterol sulfate and ipratropium bromide, formoterol, budesonide, and Solu-Medrol. Prognosis is guarded. Time with Patient: Greater than 30
[2022-04-27 12:06] LABS: Glucose,Whole Blood 338 mg/dL (70-110)
[2022-04-27] MEDS: NYSTATIN 100,000 UNIT/GM POWD 15 GM TOPICAL SCH ×2 (13:11→21:03)
[2022-04-27] MEDS: CHOLECALCIFEROL 25 MCG (1000 IU) TABLET PO SCH (13:11)
--- NOTE | 2022-04-27 13:49 | P.GSCN ---
History of Present Illness Consult date: 04/27/22 History of present illness: CHIEF COMPLAINT: Shortness of breath Reason for consult: Postop hernia repair HISTORY OF PRESENT ILLNESS: This is a 62-year-old female who presented to the hospital with shortness of breath and evidence of a COPD exacerbation and CHF exacerbation. She's followed by pulmonary service. Surgical consult requested regarding recent open repair of incarcerated ventral hernia on 04/05/2022. Patient was scheduled for outpatient follow-up but was unable to make the appointment time due to it being changed. She continues to still have her in cisional graciela. ANTONY drain output has been around 50. The output is serosanguineous in color. She denies any fever chills or sweats. Her pain is controlled. Patient seen and examined with Dr. solis PAST MEDICAL HISTORY: See below PAST SURGICAL HISTORY: See below MEDICATIONS: See below ALLERGIES: See below SOCIAL HISTORY: No illicit drug use. REVIEW OF SYSTEMS: CONSTITUTIONAL: Denies fever or chills. HEENT: Denies blurred vision, vision changes, or eye pain. Denies hemoptysis CARDIOVASCULAR: Denies chest pain or pressure. RESPIRATORY: No shortness of breath. GASTROINTESTINAL: See HPI for pertinent findings HEMATOLOGIC: Denies bleeding disorders. GENITOURINARY: Denies any blood in urine or increased urinary frequency. SKIN: Denies pruitis. Denies rash. PHYSICAL EXAM: VITAL SIGNS: Reviewed GENERAL: Well-developed in no acute distress. HEENT: No sclera icterus. Extraocular movements grossly intact. Moist buccal mucosa. Head is atraumatic, normocephalic. No nasal drainage. ABDOMEN: Soft. Obese. Nondistended. Nontender. Incision site clean dry and intact. ANTONY drain in place NEUROLOGIC: Alert and oriented. Cranial nerves II through XII grossly intact. LABORATORY DATA: WBC 6.7 Hgb 7.7 platelets 2:15 INR 1.0 D-dimer 1.98 Sodium 141 potassium 3.9 creatinine 0.90 BNP 1070 Influenza, RSV and COVID-19 not detected IMAGING: Chest x-ray cardiomegaly, pulmonary vascular congestion and bilateral pleural effusions ASSESSMENT: 1. History of incarcerated ventral hernia status post open repair of incarcerated ventral hernia with partial omentectomy on 04/05/2022 2. Acute COPD exacerbation and CHF exacerbation PLAN: -Discontinue incisional graciela -Continue ANTONY drain -Continue to monitor ANTONY drain outputs -Continue supportive care Thank you for this consultation Physician Recruitment Specialist note has been reviewed by physician. Signing provider agrees with the documented findings, assessment, and plan of care. Past Medical History Past Medical History: Heart Failure, COPD, Diabetes Mellitus, Hypertension, Oste oarthritis (OA), Skin Disorder Additional Past Medical History / Comment(s): CHF, Chrohn's Disease, Chronic Hives History of Any Multi-Drug Resistant Organisms: None Reported Additional Past Surgical History / Comment(s): Fistula in buttocks. Past Anesthesia/Blood Transfusion Reactions: No Reported Reaction Smoking Status: Former smoker Medications and Allergies Home Medications Medication Instructions Recorded Confirmed Type Aspirin EC [Ecotrin Low Dose] 81 mg PO DAILY 03/31/22 04/26/22 History Cholecalciferol [Vitamin D3 (25 25 mcg PO W/LUNCH 03/31/22 04/26/22 History Mcg = 1000 Iu)] Cinnamon Bark [Cinnamon] 500 mg PO BID 03/31/22 04/26/22 History Clopidogrel [Plavix] 75 mg PO DAILY 03/31/22 04/26/22 History Cyclobenzaprine [Flexeril] 5 mg PO HS 03/31/22 04/26/22 History Furosemide [Lasix] 40 mg PO BID@0900,1800 03/31/22 04/26/22 History HYDROcodone/APAP 10-325MG [[place] 0.5 tab PO 5XD 03/31/22 04/26/22 History 10-325] Losartan [Cozaar] 25 mg PO DAILY@1400 03/31/22 04/26/22 History Metoprolol Tartrate [Lopressor] 25 mg PO BID 03/31/22 04/26/22 History Otho-3 Fatty Acids [Otho-3] 1,000 mg PO TID 03/31/22 04/26/22 History Pioglitazone [Actos] 30 mg PO DAILY 03/31/22 04/26/22 History glipiZIDE [Glucotrol] 5 mg PO QID 03/31/22 04/26/22 History traMADol HCL [traMADol HCL ER] 200 mg PO DAILY 03/31/22 04/26/22 History Blood Builder Supplement 1 tab PO BID 04/26/22 04/26/22 History Nystatin [Nystop] 1 applic TOPICAL BID 04/26/22 04/26/22 History Omeprazole [PriLOSEC] 20 mg PO DAILY 04/26/22 04/26/22 History Wheat Dextrin [Benefiber] 1 packet PO DAILY PRN 04/26/22 04/26/22 History Allergies Allergy/AdvReac Type Severity Reaction Status Date / Time latex Allergy Rash/Hives Verified 04/26/22 17:13 Penicillins Allergy Rash/Hives Verified 04/26/22 17:13 Sulfa (Sulfonamide Allergy Rash/Hives Verified 04/26/22 17:13 Antibiotics) Surgical - Exam Vital Signs Temp Pulse Resp BP Pulse Ox 98.7 F 95 20 123/75 100 04/26/22 14:15 04/26/22 14:15 04/26/22 14:15 04/26/22 14:15 04/26/22 14:15 Results - Labs 04/26/22 14:30 04/26/22 14:30 Abnormal Lab Results - Last 24 Hours (Table) 04/26/22 04/26/22 04/26/22 Range/Units 14:30 14:30 15:49 RBC 2.51 L (3.80-5.40) m/uL Hgb 7.7 L (11.4-16.0) gm/dL Hct 24.9 L (34.0-46.0) % MCHC 30.8 L (31.0-37.0) g/dL RDW 18.4 H (11.5-15.5) % Lymphocytes # 0.3 L (1.0-4.8) k/uL D-Dimer 1.98 H (<0.60) mg/L FEU Chloride 95 L (98-107) mmol/L Carbon Dioxide 40 H (22-30) mmol/L BUN 20 H (7-17) mg/dL Glucose 164 H (74-99) mg/dL POC Glucose (mg/dL) (70-110) mg/dL Albumin 3.4 L (3.5-5.0) g/dL 04/27/22 04/27/22 Range/Units 05:57 11:46 RBC (3.80-5.40) m/uL Hgb (11.4-16.0) gm/dL Hct (34.0-46.0) % MCHC (31.0-37.0) g/dL RDW (11.5-15.5) % Lymphocytes # (1.0-4.8) k/uL D-Dimer (<0.60) mg/L FEU Chloride (98-107) mmol/L Carbon Dioxide (22-30) mmol/L BUN (7-17) mg/dL Glucose (74-99) mg/dL POC Glucose (mg/dL) 262 H 338 H (70-110) mg/dL Albumin (3.5-5.0) g/dL Diabetes panel 04/26/22 Range/Units 14:30 Sodium 141 (137-145) mmol/L Potassium 3.9 (3.5-5.1) mmol/L Chloride 95 L (98-107) mmol/L Carbon Dioxide 40 H (22-30) mmol/L BUN 20 H (7-17) mg/dL Creatinine 0.90 (0.52-1.04) mg/dL Glucose 164 H (74-99) mg/dL Calcium 8.8 (8.4-10.2) mg/dL AST 18 (14-36) U/L ALT 13 (4-34) U/L Alkaline Phosphatase 75 (38-126) U/L Total Protein 6.5 (6.3-8.2) g/dL Albumin 3.4 L (3.5-5.0) g/dL Calcium panel 04/26/22 Range/Units 14:30 Calcium 8.8 (8.4-10.2) mg/dL Albumin 3.4 L (3.5-5.0) g/dL Pituitary panel 04/26/22 Range/Units 14:30 Sodium 141 (137-145) mmol/L Potassium 3.9 (3.5-5.1) mmol/L Chloride 95 L (98-107) mmol/L Carbon Dioxide 40 H (22-30) mmol/L BUN 20 H (7-17) mg/dL Creatinine 0.90 (0.52-1.04) mg/dL Glucose 164 H (74-99) mg/dL Calcium 8.8 (8.4-10.2) mg/dL Adrenal panel 04/26/22 Range/Units 14:30 Sodium 141 (137-145) mmol/L Potassium 3.9 (3.5-5.1) mmol/L Chloride 95 L (98-107) mmol/L Carbon Dioxide 40 H (22-30) mmol/L BUN 20 H (7-17) mg/dL Creatinine 0.90 (0.52-1.04) mg/dL Glucose 164 H (74-99) mg/dL Calcium 8.8 (8.4-10.2) mg/dL Total Bilirubin 0.7 (0.2-1.3) mg/dL AST 18 (14-36) U/L ALT 13 (4-34) U/L Alkaline Phosphatase 75 (38-126) U/L Total Protein 6.5 (6.3-8.2) g/dL Albumin 3.4 L (3.5-5.0) g/dL
[2022-04-27] MEDS ORDERED: DEXTROSE 50% SYRINGE 50 ML IVP PRN ×2 (13:51)
--- NOTE | 2022-04-27 14:42 | P.HPIM ---
History of Present Illness H&P Date: 04/27/22 This is a 62-year-old female who presented to the emergency department with increased difficulty in breathing that had been ongoing for the last day or 2. Patient does have significant COPD along with CHF. Patient was recently hospitalized and discharged here for the same. Patient follows with Vernell Bernal outpatient with past medical history of heart failure, COPD, diabetes mellitus, hypertension, osteoarthritis, Crohn's disease, and reports to being a former smoker denies any other illicit drug or alcohol use. Chest x-ray in the ER showed cardiomegaly with pulmonary vascular congestion and bilateral pleural effusions correlate with a BMP for CHF. Labs reviewed in the ER did display a BNP mildly elevated of 1070, troponin 0.014, hemoglobin is 7.7, sodium is 141 with a potassium of 3.9, creatinine is 0.90. Patient did have a d-dimer that was elevated at 1.98 and pulmonary was placed on consult. She is currently on aspirin and Plavix and will consider a CTA to rule out PE. She does chronically take Lasix twice daily and this has been resumed by emergency department rena charles. Patient also with history of diabetes will add Accu-Cheks before meals and at bedtime and continue with close monitoring and use sliding scale. Patient admitted under observation for COPD exacerbation with pulmonary on consultation. Review Of Systems: Constitutional: No fever, no chills, no night sweats. No weight change. No weakness, fatigue or lethargy. No daytime sleepiness. EENT: No headache. No blurred vision or double vision, no loss of vision. No loss of Hearing, no ringing in the ears, no dizziness. No nasal drainage or congestion. No epistaxis. No sore throat. Lungs: Reports shortness of breath, cough, no sputum production. No wheezing. Cardiovascular: No chest pain, no lower extremity edema. No palpitations. No paroxysmal nocturnal dyspnea. No orthopnea. No lightheadedness or dizziness. No syncopal episodes. Abdominal: No abdominal pain. No nausea, vomiting. No diarrhea. No constipation. No bloody or tarry stools.. No loss of appetite. Genitourinary: No dysuria, increased frequency, urgency. No urinary retention. Musculoskeletal: No myalgias. No muscle weakness, no gait dysfunction, no frequent falls. No back pain. No neck pain. Integumentary: No wounds, no lesions. No rash or pruritus. No unusual bruising. No change in hair or nails. Neurologic: No aphasia. No facial droop. No change in mentation. No head injury. No headache. No paralysis. No paresthesia. Psychiatric: No depression. No anxiety. No mood swings. Endocrine: No abnormal blood sugars. No weight change. No excessive sweating or thirst. No cold intolerance. PHYSICAL EXAMINATION: GENERAL: The patient is alert and oriented x4, Well developed, well nourished. Morbidly obese HEENT: Pupils are round and equally reacting to light. EOMI. no scleral icterus. No conjunctival pallor. Normocephalic, atraumatic. No pharyngeal erythema. No thyromegaly. CARDIOVASCULAR: S1 and S2 muffled PULMONARY: diminished breath sounds bilaterally with no wheezing or rhonchi noted. ABDOMEN: soft. Nontender on exam. obese. non-distended, normoactive bowel sounds. No palpable organomegaly. MUSCULOSKELETAL: No joint swelling or deformity. EXTREMITIES: No cyanosis, clubbing, or pedal edema. NEUROLOGICAL: Gross neurological examination did not reveal any focal deficits. Diffuse weakness SKIN: No rashes. Assessment: Shortness of breath secondary to COPD exacerbation Acute on chronic hypoxic respiratory failure due to COPD as well as acute on chronic CHF exacerbation, chronically wears 3 L outpatient Acute on chronic CHF exacerbation with diastolic dysfunction History of recent admission with influenza infection History of incarcerated ventral hernia status post open repair of incarcerated ventral hernia with partial omentectomy on 04/05/2022, failure of outpatient treatment as patient continues with ANTONY drain and incisional graciela Diabetes mellitus, type II, uncontrolled with hyperglycemia Morbid obesity with a BMI of 54.4 Chronic lymphedema of lower extremities Hypertension Osteoarthritis History of Crohn's disease Former smoker GI prophylaxis DVT prophylaxis Full code Plan: Recommend to continue with current medications and management with pulmonary on consultation. Patient admitted for CHF/COPD exacerbation and chronically wears 3 L outpatient and continues on 3 L although extremely dyspneic with minimal exertion. Patient being started on IV steroids along with DuoNeb treatments Home medications have been reviewed and resumed including her by mouth Lasix and will continue with this Patient being started on doxycycline by the ER and will continue along with Pulmicort and Perforomist Patient did have an elevated d-dimer of 1.98 although patient refusing computed tomography scan and unable to tolerate lying down due to her extreme shortness of breath and body habitus. Patient is continued on aspirin and Plavix and will also add subcutaneous heparin Patient did have incisional hernia repair back on 04/05/2022 during last admission and unable to keep the appointment as it was changed and patient had no transportation and continues with the ANTONY drain along with graciela and surgery was consulted and evaluated recommending to continue with the ANTONY drain for now and graciela are being removed. Site appears clean and dry and intact of the lower abdomen. Encouraged to increase activity as tolerated and will have physical therapy evaluate the patient Patient with elevated blood sugars and uncontrolled recommend Accu-Cheks before meals and at bedtime will add sliding scale and resume her home Actos and will also add long-acting while hospitalized Due to multiple complex medical issues, prognosis is guarded The impression and plan of care has been dictated by Sarah Pruitt, nurse practitioner as directed. Dr. Ruth MD I have performed a history and examination and MDM of this patient, discussed the same with the dictator, and agree with the dictator's assessment and plan as written ,documented as a scribe. Based on total visit time, I have performed more than 50% of the visit. Any additional findings or plans will be noted. Past Medical History Past Medical History: Heart Failure, COPD, Diabetes Mellitus, Hypertension, Osteoarthritis (OA), Skin Disorder Additional Past Medical History / Comment(s): CHF, Chrohn's Disease, Chronic Hives History of Any Multi-Drug Resistant Organisms: None Reported Additional Past Surgical History / Comment(s): Fistula in buttocks. Past Anesthesia/Blood Transfusion Reactions: No Reported Reaction Past Psychological History: No Psychological Hx Reported Smoking Status: Former smoker Past Alcohol Use History: None Reported Past Drug Use History: None Reported Medications and Allergies Home Medications Medication Instructions Recorded Confirmed Type Aspirin EC [Ecotrin Low Dose] 81 mg PO DAILY 03/31/22 04/26/22 History Cholecalciferol [Vitamin D3 (25 25 mcg PO W/LUNCH 03/31/22 04/26/22 History Mcg = 1000 Iu)] Cinnamon Bark [Cinnamon] 500 mg PO BID 03/31/22 04/26/22 History Clopidogrel [Plavix] 75 mg PO DAILY 03/31/22 04/26/22 History Cyclobenzaprine [Flexeril] 5 mg PO HS 03/31/22 04/26/22 History Furosemide [Lasix] 40 mg PO BID@0900,1800 03/31/22 04/26/22 History HYDROcodone/APAP 10-325MG [[place] 0.5 tab PO 5XD 03/31/22 04/26/22 History 10-325] Losartan [Cozaar] 25 mg PO DAILY@1400 03/31/22 04/26/22 History Metoprolol Tartrate [Lopressor] 25 mg PO BID 03/31/22 04/26/22 History Bradford-3 Fatty Acids [[place]-3] 1,000 mg PO TID 03/31/22 04/26/22 History Pioglitazone [Actos] 30 mg PO DAILY 03/31/22 04/26/22 History glipiZIDE [Glucotrol] 5 mg PO QID 03/31/22 04/26/22 History traMADol HCL [traMADol HCL ER] 200 mg PO DAILY 03/31/22 04/26/22 History Blood Builder Supplement 1 tab PO BID 04/26/22 04/26/22 History Nystatin [Nystop] 1 applic TOPICAL BID 04/26/22 04/26/22 History Omeprazole [PriLOSEC] 20 mg PO DAILY 04/26/22 04/26/22 History Wheat Dextrin [Benefiber] 1 packet PO DAILY PRN 04/26/22 04/26/22 History Allergies Allergy/AdvReac Type Severity Reaction Status Date / Time latex Allergy Rash/Hives Verified 04/26/22 17:13 Penicillins Allergy Rash/Hives Verified 04/26/22 17:13 Sulfa (Sulfonamide Allergy Rash/Hives Verified 04/26/22 17:13 Antibiotics) Physical Exam Vitals: Vital Signs Temp Pulse Pulse Resp BP BP Pulse Ox 04/27/22 08:53 14 04/27/22 08:17 88 04/27/22 08:01 84 04/27/22 06:46 98.4 F 81 14 128/66 100 04/27/22 02:00 98.3 F 81 14 134/76 100 04/26/22 21:56 91 15 121/68 98 04/26/22 21:11 103 H 04/26/22 20:58 100 04/26/22 18:37 110 H 20 119/56 95 04/26/22 17:35 92 18 118/61 100 04/26/22 16:42 88 04/26/22 16:30 88 04/26/22 15:49 88 24 129/77 100 04/26/22 14:15 98.7 F 95 20 123/75 100 Intake and Output 04/26/22 04/27/22 04/27/22 22:59 06:59 14:59 Other: Voiding Method Bedside Commode Bedside Commode # Voids 0 # Bowel Movements 0 Weight 152.861 kg Results CBC & Chem 7: 04/26/22 14:30 04/26/22 14:30 Labs: Abnormal Lab Results - Last 24 Hours (Table) 04/26/22 04/26/22 04/26/22 Range/Units 14:30 14:30 15:49 RBC 2.51 L (3.80-5.40) m/uL Hgb 7.7 L (11.4-16.0) gm/dL Hct 24.9 L (34.0-46.0) % MCHC 30.8 L (31.0-37.0) g/dL RDW 18.4 H (11.5-15.5) % Lymphocytes # 0.3 L (1.0-4.8) k/uL D-Dimer 1.98 H (<0.60) mg/L FEU Chloride 95 L (98-107) mmol/L Carbon Dioxide 40 H (22-30) mmol/L BUN 20 H (7-17) mg/dL Glucose 164 H (74-99) mg/dL POC Glucose (mg/dL) (70-110) mg/dL Albumin 3.4 L (3.5-5.0) g/dL 04/27/22 Range/Units 05:57 RBC (3.80-5.40) m/uL Hgb (11.4-16.0) gm/dL Hct (34.0-46.0) % MCHC (31.0-37.0) g/dL RDW (11.5-15.5) % Lymphocytes # (1.0-4.8) k/uL D-Dimer (<0.60) mg/L FEU Chloride (98-107) mmol/L Carbon Dioxide (22-30) mmol/L BUN (7-17) mg/dL Glucose (74-99) mg/dL POC Glucose (mg/dL) 262 H (70-110) mg/dL Albumin (3.5-5.0) g/dL Thrombosis Risk Factor Assmnt - Choose All That Apply Each Risk Factor Represents 2 Points: Age 61-74 years Thrombosis Risk Factor Assessment Total Risk Factor Score: 2 Thrombosis Risk Factor Assessment Level: Low Risk Assessment and Plan Time with Patient: Greater than 30
[2022-04-27] MEDS: HYDROcodone/APAP 10-325MG 1 EACH TAB PO SCH ×2 (15:56→18:32)
[2022-04-27] MEDS: LOSARTAN 25 MG TAB PO SCH (15:56)
[2022-04-27] MEDS: PIOGLITAZONE 30 MG TAB PO SCH (15:56)
[2022-04-27] MEDS: INSULIN DETEMIR (LEVEMIR) 100 UNIT/ML SYR SQ SCH ×2 (15:57→22:11)
[2022-04-27] MEDS ORDERED: NON FORMULARY DRUG (Omega-3 Fatty Acids [Omega-3] 1,000 MG Capsule) PO SCH (16:00)
[2022-04-27 17:34] LABS: Glucose,Whole Blood 216 mg/dL (70-110)
[2022-04-27] MEDS: INSULIN ASPART (NovoLOG) 100 UNIT/ML VIAL SQ SCH ×2 (17:49→21:03)
[2022-04-27 19:59] LABS: Glucose,Whole Blood 310 mg/dL (70-110)
[2022-04-27] MEDS: BUDESONIDE 1 MG/2 ML NEBU INHALATION SCH (20:42)
[2022-04-27] MEDS: FORMOTEROL FUMARATE 20 MCG/2 ML NEBU INHALATION SCH (20:42)
[2022-04-27] MEDS ORDERED: NON FORMULARY DRUG (Cinnamon Bark [Cinnamon] 500 MG Capsule) PO SCH (21:00)
[2022-04-27] MEDS: CYCLOBENZAPRINE 5 MG TAB PO SCH (21:03)
[2022-04-27 21:57] LABS: Glucose,Whole Blood 339 mg/dL (70-110)
[2022-04-28] MEDS: HYDROcodone/APAP 10-325MG 1 EACH TAB PO SCH (02:47)
[2022-04-28 05:47] LABS: Glucose,Whole Blood 229 mg/dL (70-110)
[2022-04-28] MEDS: INSULIN DETEMIR (LEVEMIR) 100 UNIT/ML SYR SQ SCH ×2 (06:04→20:38)
[2022-04-28] MEDS: INSULIN ASPART (NovoLOG) 100 UNIT/ML VIAL SQ SCH ×4 (06:05→20:38)
[2022-04-28] MEDS: methylPREDNISolone SOD SUCCI 125 MG/2 ML VIAL IV SCH ×4 (06:05→23:44)
[2022-04-28] MEDS: PANTOPRAZOLE 40 MG TABLET PO SCH (06:05)
[2022-04-28] MEDS: HEPARIN SODIUM,PORCINE/PF 5,000 UNIT/0.5 ML SYRINGE SQ SCH ×2 (07:43→20:38)
[2022-04-28] MEDS: METOPROLOL TARTRATE 25 MG TAB PO SCH ×2 (07:43→20:39)
[2022-04-28] MEDS: CLOPIDOGREL 75 MG TAB PO SCH (07:43)
[2022-04-28] MEDS: traMADol 50 MG TAB PO SCH ×4 (07:44→20:39)
[2022-04-28] MEDS: FUROSEMIDE 40 MG TAB PO SCH ×2 (07:45→18:07)
[2022-04-28] MEDS: ASPIRIN 81 MG PO SCH (07:45)
[2022-04-28] MEDS: DOXYCYCLINE 100 MG CAP PO SCH ×2 (07:46→20:40)
[2022-04-28] MEDS: PIOGLITAZONE 30 MG TAB PO SCH (07:46)
[2022-04-28] MEDS: glipiZIDE 5 MG TAB PO SCH ×4 (07:46→20:40)
[2022-04-28] MEDS: HYDROcodone/APAP 10-325MG 1 EACH TAB PO PRN ×3 (07:54→20:41)
[2022-04-28] MEDS: IPRATROPIUM-ALBUTEROL 3 ML NEB INHALATION SCH ×4 (08:39→19:12)
[2022-04-28] MEDS: FORMOTEROL FUMARATE 20 MCG/2 ML NEBU INHALATION SCH ×2 (08:39→19:11)
[2022-04-28] MEDS: BUDESONIDE 1 MG/2 ML NEBU INHALATION SCH ×2 (08:39→19:12)
--- NOTE | 2022-04-28 10:38 | P.PN ---
Subjective Progress Note Date: 04/28/22 Principal diagnosis: Acute hypoxic respiratory failure secondary to COPD exacerbation versus CHF 62-year-old female who presented to the emergency department on April 26, with complaints of shortness of breath. The patient had shortness of breath for about a day or so prior to admission. Her breathing worsened over that. A time, and was not improving, for that reason, she came in to be evaluated. The patient apparently was not having much in the way of cough or phlegm production. There is no chest pain or chest Discomfort. The patient denied any fever or chills. The patient has had recent multiple admissions to the hospital, including this one. She was hospitalized between March 31, and April 13, because of respiratory failure secondary to COPD, diastolic CHF, and influenza infection. She's also had admissions at [facility]. Currently, becca kirkpatrick is on home O2 at 3 L. She did smoke cigarettes for 47 years. She does not smoke currently. She is on 6 L of oxygen currently, which can be turned on the 4 L. She's not receiving any IV fluids. White count 6.7, hemoglobin 7.7, hematocrit 24.9, with a normal platelet count. D-dimer was 1.98. Sodium 141, potassium 3.9, chlorides 95, CO2 40, BUN 20, creatinine 0.90. N-terminal proBNP was 1070. Troponin was 0.014. Albumin 3.4. She tested negative for influenza, RSV, and coronavirus infections. Chest x-ray was consistent with fluid overload, and cardiomegaly. I'm evaluating this patient today 04/28/2022 in follow-up on a general medical floor. Patient is currently sitting up in the chair, on 4 L nasal cannula, in no acute distress. Patient is reporting that she feels like her breathing is better this morning. No new x-ray to review today. No new labs to review today. She is maintained on DuoNeb inhalation, budesonide inhalation, formoterol inhalation, and IV Solu Medrol. She is also being diuresed with Lasix 40 mg by mouth twice a day. No accurate intake and output recorded. Patient remains afebrile. Vital signs remain stable. Objective - Vital Signs Vital signs: Vital Signs Temp 97.9 F 04/28/22 07:45 Pulse 91 04/28/22 09:00 Resp 20 04/28/22 07:45 BP 136/71 04/28/22 07:45 Pulse Ox 100 04/28/22 08:41 FiO2 Intake & Output 04/27/22 04/28/22 04/28/22 18:59 06:59 18:59 Intake Total 600 480 Output Total 200 27 Balance 400 -27 480 Intake: Oral 600 480 Output: Drainage 27 Anterior Medial Abdomen 27 Urine 200 Emesis 0 Other: Voiding Method Bedside Commode Bedside Commode - Exam A 62-year-old female, morbidly obese, alert, no acute distress. HEENT examination is grossly unremarkable. Neck supple. Full range of motion. No adenopathy thyromegaly or neck vein distention. Cardiovascular examination reveals regular rhythm rate. S1-S2 normal. No S3 or S4. No discernible murmur noted. Heart rate 82 bpm. Lungs reveal equal air entry with fine bibasilar crackles posteriorly. No wheezes or rhonchi. On 4 L nasal cannula. No conversational dyspnea or accessory muscle use. Obese abdomen, bowel sounds are active on auscultation. soft on palpation. No masses or tenderness. Extremities are intact. No cyanosis or clubbing. The patient does have significant lower extremity edema. Skin is without rash or lesion. Neurologic examination is brief but nonfocal. Oriented 3 - Labs CBC & Chem 7: 04/26/22 14:30 04/26/22 14:30 Labs: Abnormal Lab Results - Last 24 Hours (Table) 04/27/22 04/27/22 04/27/22 Range/Units 11:46 17:25 19:57 POC Glucose (mg/dL) 338 H 216 H 310 H (70-110) mg/dL 04/27/22 04/28/22 Range/Units 21:55 05:46 POC Glucose (mg/dL) 339 H 229 H (70-110) mg/dL Assessment and Plan Assessment: Acute hypoxemic respiratory failure, likely secondary to both COPD exacerbation and CHF. Recent admission to [facility], between March 31 and April 13, for respiratory failure requiring intubation and mechanical ventilation. This was secondary to CHF, COPD, and influenza A. History of diastolic CHF. History of diabetes mellitus. History of hypertension. History of Crohn's disease. History of chronic urticaria. History of osteoarthritis. Morbid obesity, BMI 54.4. Prior history of heavy tobacco use. Plan: Patient's medications were reviewed Continue DuoNeb inhalation, formoterol inhalation, budesonide inhalation, IV Solu-Medrol. Continue supplemental oxygen to maintain oxygen saturation between 90 and 92%. Continue diuresis with Lasix Accurate intake and output Continue heparin for DVT prophylaxis and Protonix for GI prophylaxis. Overall prognosis is guarded. We will continue to follow I have personally seen and examined the patient, performed the documentation and the assessment and plan as written. Number of minutes spent on the visit: 10. Time with Patient: Less than 30
--- NOTE | 2022-04-28 12:08 | P.PN ---
Subjective Progress Note Date: 04/28/22 CHIEF COMPLAINT: Shortness of breath HISTORY OF PRESENT ILLNESS: Patient with history of open repair of incarcerated ventral hernia on 04/05/2022. Ananda from incision removed yesterday. Patient has ANTNOY drain with dark sanguinous output of 27 mL. Denies abdominal pain. She is followed by pulmonary service regarding her COPD and CHF exacerbation. Patient still reports shortness of breath. Afebrile. No new labs. Patient seen and examined with Dr. solis PHYSICAL EXAM: VITAL SIGNS: Reviewed. GENERAL: Well-developed in no acute distress. HEENT: No sclera icterus. Extraocular movements grossly intact. Moist buccal mucosa. Head is atraumatic, normocephalic. ABDOMEN: Soft. Nondistended. Nontender. NEUROLOGIC: Alert and oriented. Cranial nerves II through XII grossly intact. ASSESSMENT: 1. History of incarcerated ventral hernia status post open repair of incarcerated ventral hernia with partial omentectomy on 04/05/2022 2. Acute COPD exacerbation and CHF exacerbation PLAN: -Continue monitor ANTONY drain output -Continue supportive care Physician Field Administrator note has been reviewed by physician. Signing provider agrees with the documented findings, assessment, and plan of care. Objective - Vital Signs Vital signs: Vital Signs Temp 97.9 F 04/28/22 07:45 Pulse 83 04/28/22 11:58 Resp 20 04/28/22 07:45 BP 136/71 04/28/22 07:45 Pulse Ox 100 04/28/22 08:41 FiO2 Intake & Output 04/27/22 04/28/22 04/28/22 18:59 06:59 18:59 Intake Total 600 480 Output Total 200 27 Balance 400 -27 480 Intake: Oral 600 480 Output: Drainage 27 Anterior Medial Abdomen 27 Urine 200 Emesis 0 Other: Voiding Method Bedside Commode Bedside Commode - Labs CBC & Chem 7: 04/26/22 14:30 04/26/22 14:30 Labs: Abnormal Lab Results - Last 24 Hours (Table) 04/27/22 04/27/22 04/27/22 Range/Units 11:46 17:25 19:57 POC Glucose (mg/dL) 338 H 216 H 310 H (70-110) mg/dL 04/27/22 04/28/22 Range/Units 21:55 05:46 POC Glucose (mg/dL) 339 H 229 H (70-110) mg/dL
[2022-04-28 12:18] LABS: Glucose,Whole Blood 220 mg/dL (70-110)
[2022-04-28] MEDS: CHOLECALCIFEROL 25 MCG (1000 IU) TABLET PO SCH (12:41)
[2022-04-28] MEDS: DOCUSATE 100 MG CAP PO SCH ×2 (12:42→20:39)
[2022-04-28] MEDS: NYSTATIN 100,000 UNIT/GM POWD 15 GM TOPICAL SCH ×2 (14:19→20:40)
[2022-04-28] MEDS: LOSARTAN 25 MG TAB PO SCH (14:20)
[2022-04-28 17:12] LABS: Glucose,Whole Blood 201 mg/dL (70-110)
[2022-04-28 20:11] LABS: Glucose,Whole Blood 237 mg/dL (70-110)
[2022-04-28] MEDS: CYCLOBENZAPRINE 5 MG TAB PO SCH (20:54)
[2022-04-29 02:46] VITALS: TEMP 97.6
[2022-04-29 05:49] LABS: Glucose,Whole Blood 178 mg/dL (70-110)
[2022-04-29] MEDS: INSULIN ASPART (NovoLOG) 100 UNIT/ML VIAL SQ SCH ×2 (05:55→13:19)
[2022-04-29] MEDS: INSULIN DETEMIR (LEVEMIR) 100 UNIT/ML SYR SQ SCH (05:56)
[2022-04-29] MEDS: PANTOPRAZOLE 40 MG TABLET PO SCH (05:56)
[2022-04-29] MEDS: methylPREDNISolone SOD SUCCI 125 MG/2 ML VIAL IV SCH (05:56)
--- NOTE | 2022-04-29 05:59 | P.PN ---
Subjective Progress Note Date: 04/28/22 This is a 62-year-old female who presented to the emergency department with increased difficulty in breathing that had been ongoing for the last day or 2. Patient does have significant COPD along with CHF. Patient was recently hospitalized and discharged here for the same. Patient follows with Vernell Bernal outpatient with past medical history of heart failure, COPD, diabetes mellitus, hypertension, osteoarthritis, Crohn's disease, and reports to being a former smoker denies any other illicit drug or alcohol use. Chest x-ray in the ER showed cardiomegaly with pulmonary vascular congestion and bilateral pleural effusions correlate with a BMP for CHF. Labs reviewed in the ER did display a BNP mildly elevated of 1070, troponin 0.014, hemoglobin is 7.7, sodium is 141 with a potassium of 3.9, creatinine is 0.90. Patient did have a d-dimer that was elevated at 1.98 and pulmonary was placed on consult. She is currently on aspirin and Plavix and will consider a CTA to rule out PE. She does chronically take Lasix twice daily and this has been resumed by emergency department physician. Patient also with history of diabetes will add Accu-Cheks before meals and at bedtime and continue with close monitoring and use sliding scale. Patient admitted under observation for COPD exacerbation with pulmonary on consultation. 04/28/2022 Patient is seen and evaluated in follow-up today currently sitting up in the chair. Patient reports she had a rough night with difficulty and shortness of breath although feels somewhat improved today. Exam reports improved variation and continued on 4 L. Patient chronically wears 3-4 L outpatient. Patient is continued on IV steroids along with DuoNeb treatments and will continue. General surgery also following as patient had retained graciela and continued J P drain recommending continue with the drain and graciela were removed. Site appea rs dry and intact with no surrounding redness some scant amount of clear drainage noted and some scabbing as well. Patient is afebrile denies chest pain or palpitations. Patient's blood sugars have been elevated and home medications have been resumed and will continue with current insulin regimen as well recommending consistent carb diet as patient is also continued on IV steroids. Review of systems: Constitutional: No reports of fatigue, fever, or chills Cardiovascular: No reports of chest pain or palpitations Respiratory: reports of shortness of breath with minimal improvement GI: No reports of nausea, vomiting, or diarrhea : No reports of dysuria or retention Neurovascular: reports of generalized weakness and reports chronic pain All medications have been reviewed PHYSICAL EXAMINATION: GENERAL: The patient is alert and oriented x4, Well developed, well nourished. Morbidly obese HEENT: Pupils are round and equally reacting to light. EOMI. no scleral icterus. No conjunctival pallor. Normocephalic, atraumatic. No pharyngeal erythema. No thyromegaly. CARDIOVASCULAR: S1 and S2 muffled PULMONARY: diminished breath sounds bilaterally with some faint expiratory wheezing and scattered rhonchi noted. ABDOMEN: soft. Nontender on exam. obese. non-distended, normoactive bowel sounds. No palpable organomegaly. Surgical graciela were removed and site is intact with no surrounding redness or purulence noted. Some crusting where the graciela were removed noted MUSCULOSKELETAL: No joint swelling or deformity. EXTREMITIES: No cyanosis, clubbing, chronic lower extremity edema with lymphedema noted NEUROLOGICAL: Gross neurological examination did not reveal any focal deficits. Diffuse weakness SKIN: No rashes. Assessment: Shortness of breath secondary to COPD exacerbation Acute on chronic hypoxic respiratory failure due to COPD as well as acute on chronic CHF exacerbation, chronically wears 3 L outpatient Acute on chronic CHF exacerbation with diastolic dysfunction History of recent admission with influenza infection History of incarcerated ventral hernia status post open repair of incarcerated ventral hernia with partial omentectomy on 04/05/2022, failure of outpatient treatment as patient continues with ANTONY drain and incisional graciela, post staple removal on 04/27/2022 Diabetes mellitus, type II, uncontrolled with hyperglycemia, possible component of steroid-induced Morbid obesity with a BMI of 54.4 Chronic lymphedema of lower extremities Hypertension Osteoarthritis History of Crohn's disease Former smoker GI prophylaxis DVT prophylaxis Full code Plan: Recommend to continue with current medications and management with pulmonary following Patient admitted for CHF/COPD exacerbation and chronically wears 3 L outpatient and continues on 3 L although extremely dyspneic with minimal exertion. Patient is continued on IV steroids along with DuoNeb treatments Home medications have been reviewed and resumed including her by mouth Lasix and will continue with this Patient is on doxycycline by the ER and will continue along with Pulmicort and Perforomist Patient did have an elevated d-dimer of 1.98 although patient refusing computed tomography scan and unable to tolerate lying down due to her extreme shortness of breath and body habitus. Patient is continued on aspirin and Plavix and will continue subcutaneous heparin Patient did have incisional hernia repair back on 04/05/2022 during last admission and unable to keep the appointment as it was changed and patient had no transportation and continues with the ANTONY drain . Surgery evaluated and had graciela removed with some crusting noted and scant amount of clear drainage otherwise appears intact with no surrounding redness or swelling noted. Surgery recommends to continue with the ANTONY drain for now and monitor for output Encouraged to increase activity as tolerated and will have physical therapy evaluate the patient Patient with elevated blood sugars and uncontrolled recommend Accu-Cheks before meals and at bedtime will add sliding scale and resume her home Actos and will also add long-acting while hospitalized, better controlled today Follow-up with a chest x-ray in a.m. and repeat labs Due to multiple complex medical issues, prognosis is guarded The impression and plan of care has been dictated by Sarah Pruitt, nurse practitioner as directed. Dr. Ruth MD I have performed a history and examination and MDM of this patient, discussed the same with the dictator, and agree with the dictator's assessment and plan as written ,documented as a scribe. Based on total visit time, I have performed more than 50% of the visit. Any additional findings or plans will be noted. Objective - Vital Signs Vital signs: Vital Signs Temp 97.9 F 04/28/22 07:45 Pulse 98 04/28/22 15:42 Resp 20 04/28/22 07:45 BP 136/71 04/28/22 07:45 Pulse Ox 100 04/28/22 08:41 FiO2 Intake & Output 04/27/22 04/28/22 04/28/22 18:59 06:59 18:59 Intake Total 600 720 Output Total 200 27 Balance 400 -27 720 Intake: Oral 600 720 Output: Drainage 27 Anterior Medial Abdomen 27 Urine 200 Emesis 0 Other: Voiding Method Bedside Commode Bedside Commode # Voids 3 - Labs CBC & Chem 7: 04/26/22 14:30 04/26/22 14:30 Labs: Abnormal Lab Results - Last 24 Hours (Table) 04/27/22 04/27/22 04/27/22 Range/Units 17:25 19:57 21:55 POC Glucose (mg/dL) 216 H 310 H 339 H (70-110) mg/dL 04/28/22 04/28/22 Range/Units 05:46 12:17 POC Glucose (mg/dL) 229 H 220 H (70-110) mg/dL
[2022-04-29] MEDS: FORMOTEROL FUMARATE 20 MCG/2 ML NEBU INHALATION SCH (07:09)
[2022-04-29] MEDS: IPRATROPIUM-ALBUTEROL 3 ML NEB INHALATION SCH ×3 (07:09→15:15)
[2022-04-29] MEDS: BUDESONIDE 1 MG/2 ML NEBU INHALATION SCH (07:09)
[2022-04-29 07:24] LABS: Anisocytosis Slight; Basophils % (A) 0 %; Eosinophils % (A) 0 %; HCT 23.9 % (34.0-46.0); HGB 7.7 gm/dL (11.4-16.0); Hypochromasia Marked; Lymphocytes # (A) 0.2 k/uL (1.0-4.8); Lymphocytes % (A) 3 %; MCH 32.2 pg (25.0-35.0); MCHC 32.1 g/dL (31.0-37.0); MCV 100.2 fL (80.0-100.0); Macrocytosis Moderate; Mean Platelet Volume 7.6; Monocytes # (A) 0.2 k/uL (0-1.0); Monocytes % (A) 3 %; Neutrophils # (A) 7.8 k/uL (1.3-7.7); Neutrophils % (A) 94 %; Platelet Count 231 k/uL (150-450); Poikilocytosis Moderate; RBC 2.39 m/uL (3.80-5.40); RDW 17.8 % (11.5-15.5); WBC 8.2 k/uL (3.8-10.6)
[2022-04-29 07:42] LABS: African American GFR (CKD) 60 (>60 ml/min/1.73 sqM); Anion Gap 6 mmol/L; Blood Urea Nitrogen 43 mg/dL (7-17); Calcium 9.1 mg/dL (8.4-10.2); Chloride 89 mmol/L (98-107); Glucose 159 mg/dL (74-99); Non-African American GFR(CKD) 52 (>60 ml/min/1.73 sqM); Potassium 4.8 mmol/L (3.5-5.1); Sodium 135 mmol/L (137-145)
[2022-04-29] MEDS ORDERED: SYMBICORT 160-4.5 MCG INHALER INHALATION SCH ×2 (08:00→20:00)
[2022-04-29 08:01] VITALS: BP 136/68; RESP 16
[2022-04-29] MEDS: ASPIRIN 81 MG PO SCH (08:06)
[2022-04-29] MEDS: HEPARIN SODIUM,PORCINE/PF 5,000 UNIT/0.5 ML SYRINGE SQ SCH (08:06)
[2022-04-29] MEDS: CLOPIDOGREL 75 MG TAB PO SCH (08:06)
[2022-04-29] MEDS: FUROSEMIDE 40 MG TAB PO SCH (08:06)
[2022-04-29 08:07] LABS: Carbon Dioxide 40 mmol/L (22-30)
[2022-04-29] MEDS: DOXYCYCLINE 100 MG CAP PO SCH (08:07)
[2022-04-29] MEDS: METOPROLOL TARTRATE 25 MG TAB PO SCH (08:07)
[2022-04-29] MEDS: DOCUSATE 100 MG CAP PO SCH (08:07)
[2022-04-29] MEDS: PIOGLITAZONE 30 MG TAB PO SCH (08:07)
[2022-04-29] MEDS: glipiZIDE 5 MG TAB PO SCH ×2 (08:07→13:18)
[2022-04-29] MEDS: NYSTATIN 100,000 UNIT/GM POWD 15 GM TOPICAL SCH (08:08)
[2022-04-29] MEDS: traMADol 50 MG TAB PO SCH ×2 (08:08→13:19)
[2022-04-29] MEDS: HYDROcodone/APAP 10-325MG 1 EACH TAB PO PRN ×2 (08:13→14:41)
--- NOTE | 2022-04-29 08:30 | XR ---
EXAMINATION TYPE: XR chest 1V portable DATE OF EXAM: 04/29/2022 Comparison: 04/26/2022 Clinical History: 62-year-old female shortness of breath, copd Findings: Heart remains moderately enlarged with diffuse interstitial density in small pleural effusions. Effus ions may be minimally worsened. Impression: Moderate cardiomegaly with ongoing mild interstitial edema. Small pleural effusions with adjacent ate lectasis or consolidation may be slightly increased.
[2022-04-29] MEDS ORDERED: predniSONE 20 MG TAB PO SCH ×2 (09:00)
[2022-04-29 11:36] VITALS: PULSE 90
[2022-04-29 12:36] LABS: Glucose,Whole Blood 197 mg/dL (70-110)
--- NOTE | 2022-04-29 12:48 | CA ---
Transthoracic Echo Report Name: Sheela Echeverria Age: 62 Gender: F : 1960 Exam Date: 04/29/2022 09:18 Exam Location: [facility] Ht (in): 66 Wt (lb): 337 Ordering Physician: Agustin Nolasco Attending/Referring Phys: Engine Lathe Tender Mily Mitchell RDCS Procedure CPT: Indications: evaluate LV function; murmur Cardiac Hx: pt supine Technical Quality: Fair Contrast 1: Total Dose (mL): Contrast 2: Total Dose (mL): MEASUREMENTS (Male / Female) Normal Values 2D ECHO LV Diastolic Diameter PLAX 4.6 cm 4.2 - 5.9 / 3.9 - 5.3 cm LV Systolic Diameter PLAX 3.2 cm IVS Diastolic Thickness 1.4 cm 0.6 - 1.0 / 0.6 - 0.9 cm LVPW Diastolic Thickness 1.8 cm 0.6 - 1.0 / 0.6 - 0.9 cm LV Relative Wall Thickness 0.7 RV Internal Dim ED PLAX 3.3 cm LVOT Diameter 1.8 cm LV Diastolic Volume MOD 4C 149.4 cm??? LV Systolic Volume MOD 4C 57.7 cm??? LV Ejection Fraction MOD 4C 61.4 % LV Diastolic Length 4C 8.4 cm LV Systolic Length 4C 6.6 cm M-MODE Aortic Root Diameter MM 3.2 cm LA Systolic Diameter MM 5.5 cm LA Ao Ratio MM 1.7 MV E Point Septal Separation 1.0 cm AV Cusp Separation MM 0.9 cm DOPPLER AV Peak Velocity 327.0 cm/s AV Peak Gradient 42.8 mmHg AV Mean Velocity 261.2 cm/s AV Mean Gradient 29.4 mmHg AV Velocity Time Integral 75.9 cm LVOT Peak Velocity 114.2 cm/s LVOT Peak Gradient 5.2 mmHg AV Area Cont Eq pk 0.9 cm??? MV Peak Velocity 226.3 cm/s MV Peak Gradient 20.5 mmHg MV Mean Velocity 184.8 cm/s MV Mean Gradient 14.5 mmHg MV Velocity Time Integral 52.4 cm MV Area PHT 3.4 cm??? MR Peak Velocity 530.1 cm/s MR Peak Gradient 112.4 mmHg Mitral E Point Velocity 199.0 cm/s Mitral A Point Velocity 167.9 cm/s Mitral E to A Ratio 1.2 MV Deceleration Time 111.4 ms TR Peak Velocity 353.9 cm/s TR Peak Gradient 50.1 mmHg Right Atrial Pressure 15.0 mmHg Pulmonary Artery Systolic Pressu 65.1 mmHg Right Ventricular Systolic Press 65.1 mmHg PV Peak Velocity 128.2 cm/s PV Peak Gradient 6.6 mmHg FINDINGS Left Ventricle Moderately increased septal wall thickness. Severely increased posterior wall thickness. Severe concentric left ventricular hypertrophy. Left ventricular ejection fraction is estimated at 60-65 %. Right Ventricle Right ventricle systolic dysfunction. Mild right ventricular dilatation. Severe pulmonary hypertension. Right ventricular systolic pressure estimated at 66mm hg. Right Atrium Normal right atrial size. Left Atrium Severe left atrial dilatation. Mitral Valve [id number] mitral regurgitation. Aortic Valve Mild to moderate aortic stenosis with a peak gradient of 42 mmHg and a mean gradient of 29 mmHg. Tricuspid Valve Moderate tricuspid regurgitation. Pulmonic Valve Moderate pulmonic regurgitation. Pulmonary artery dilated. Pericardium Small pericardial effusion. Aorta Normal size aortic root and proximal ascending aorta. CONCLUSIONS LVH with preserved systolic function Moderate aortic stenosis Previewed by: Dr. Darrick Ureña MD (Electronically Signed) Final Date: 29 April 2022 12:47
--- NOTE | 2022-04-29 12:49 | P.PN ---
Subjective Progress Note Date: 04/29/22 Principal diagnosis: Acute hypoxic respiratory failure secondary to COPD exacerbation versus CHF 62-year-old female who presented to the emergency department on April 26, with complaints of shortness of breath. The patient had shortness of breath for about a day or so prior to admission. Her breathing worsened over that. A time, and was not improving, for that reason, she came in to be evaluated. The patient apparently was not having much in the way of cough or phlegm production. There is no chest pain or chest Discomfort. The patient denied any fever or chills. The patient has had recent multiple admissions to the hospital, including this one. She was hospitalized between March 31, and April 13, because of respiratory failure secondary to COPD, diastolic CHF, and influenza infection. She's also had admissions at [facility]. Currently, becca kirkpatrick is on home O2 at 3 L. She did smoke cigarettes for 47 years. She does not smoke currently. She is on 6 L of oxygen currently, which can be turned on the 4 L. She's not receiving any IV fluids. White count 6.7, hemoglobin 7.7, hematocrit 24.9, with a normal platelet count. D-dimer was 1.98. Sodium 141, potassium 3.9, chlorides 95, CO2 40, BUN 20, creatinine 0.90. N-terminal proBNP was 1070. Troponin was 0.014. Albumin 3.4. She tested negative for influenza, RSV, and coronavirus infections. Chest x-ray was consistent with fluid overload, and cardiomegaly. I'm evaluating this patient today 04/28/2022 in follow-up on a general medical floor. Patient is currently sitting up in the chair, on 4 L nasal cannula, in no acute distress. Patient is reporting that she feels like her breathing is better this morning. No new x-ray to review today. No new labs to review today. She is maintained on DuoNeb inhalation, budesonide inhalation, formoterol inhalation, and IV Solu Medrol. She is also being diuresed with Lasix 40 mg by mouth twice a day. No accurate intake and output recorded. Patient remains afebrile. Vital signs remain stable. I'm reevaluating this patient today 04/29/2022 in follow-up on a general medical floor. Patient is currently sitting up in the chair, on 4 L nasal cannula, in no acute distress. Patient is oxygenating at 100% on 4 L and this can be weaned down. Patient feels that her breathing is back to baseline. Patient's chest x- ray from today continues to show some moderate cardiomegaly with ongoing mild interstitial edema, bilateral small pleural effusions with adjacent atelectasis which may be slightly increased. Patient continues to receive 40 mg of Lasix by mouth twice a day. Patient's CBC from today shows a WBC count 8.2, hemoglobin 7.7, hematocrit of 23.9, platelets of 231,000. Patient's BMP from today shows a sodium of 135, potassium 4.8, chloride of 89, a chronically high serum CO2 of 40, BUN 43, creatinine 1.12, glucose 159. Patient has no IV maintenance fluids infusing. Patient continues to be maintained on empiric doxycycline. She has remained afebrile. She is also receiving DuoNeb inhalation, budesonide inhalat ion, formoterol inhalation, and IV Solu-Medrol. Patient's vital signs remain stable. Objective - Vital Signs Vital signs: Vital Signs Temp 97.6 F 04/29/22 08:00 Pulse 90 04/29/22 11:36 Resp 16 04/29/22 08:00 BP 136/68 04/29/22 08:00 Pulse Ox 100 04/29/22 08:00 FiO2 Intake & Output 04/28/22 04/29/22 04/29/22 18:59 06:59 18:59 Intake Total 960 118 Output Total 0 10 Balance 960 0 108 Intake: Oral 960 118 Output: Drainage 10 Anterior Medial Abdomen 10 Emesis 0 Other: Voiding Method Bedside Commode Bedside Commode Bedside Commode # Voids 2 2 - Exam A 62-year-old female, morbidly obese, alert, no acute distress. HEENT examination is grossly unremarkable. Neck supple. Full range of motion. No adenopathy thyromegaly or neck vein distention. Cardiovascular examination reveals regular rhythm rate. S1-S2 normal. No S3 or S4. A soft systolic murmur auscultated at the left cardiac border. Heart rate 84 bpm. Lungs reveal equal air entry with scattered fine bibasilar crackles posteriorly. No wheezes or rhonchi. On 4 L nasal cannula. No conversational dyspnea or accessory muscle use. Obese abdomen, bowel sounds are active on auscultation. soft on palpation. No masses or tenderness. Extremities are intact. No cyanosis or clubbing. Mild bilateral nonpitting edema lower extremities Skin is without rash or lesion. Neurologic examination is brief but nonfocal. Oriented 3 - Labs CBC & Chem 7: 04/29/22 06:36 04/29/22 06:36 Labs: Abnormal Lab Results - Last 24 Hours (Table) 04/28/22 04/28/22 04/29/22 Range/Units 17:11 20:09 05:47 RBC (3.80-5.40) m/uL Hgb (11.4-16.0) gm/dL Hct (34.0-46.0) % MCV (80.0-100.0) fL RDW (11.5-15.5) % Neutrophils # (1.3-7.7) k/uL Lymphocytes # (1.0-4.8) k/uL Sodium (137-145) mmol/L Chloride (98-107) mmol/L Carbon Dioxide (22-30) mmol/L BUN (7-17) mg/dL Creatinine (0.52-1.04) mg/dL Glucose (74-99) mg/dL POC Glucose (mg/dL) 201 H 237 H 178 H (70-110) mg/dL 04/29/22 04/29/22 04/29/22 Range/Units 06:36 06:36 12:35 RBC 2.39 L (3.80-5.40) m/uL Hgb 7.7 L (11.4-16.0) gm/dL Hct 23.9 L (34.0-46.0) % MCV 100.2 H (80.0-100.0) fL RDW 17.8 H (11.5-15.5) % Neutrophils # 7.8 H (1.3-7.7) k/uL Lymphocytes # 0.2 L (1.0-4.8) k/uL Sodium 135 L (137-145) mmol/L Chloride 89 L (98-107) mmol/L Carbon Dioxide 40 H (22-30) mmol/L BUN 43 H (7-17) mg/dL Creatinine 1.12 H (0.52-1.04) mg/dL Glucose 159 H (74-99) mg/dL POC Glucose (mg/dL) 197 H (70-110) mg/dL Assessment and Plan Assessment: Acute hypoxemic respiratory failure, likely secondary to both COPD exacerbation and CHF. Recent admission to [facility], between March 31 and April 13, for respiratory failure requiring intubation and mechanical ventilation. This was secondary to CHF, COPD, and influenza A. History of diastolic CHF. History of diabetes mellitus. History of hypertension. History of Crohn's disease. History of chronic urticaria. History of osteoarthritis. Morbid obesity, BMI 54.4. Prior history of heavy tobacco use. Plan: Patient's medications were reviewed Continue DuoNeb inhalation We'll stop formoterol and budesonide inhalation; start Symbicort inhaler We'll start prednisone taper in preparation for discharge Continue oral doxycycline for empiric therapy Continue supplemental oxygen to maintain oxygen saturation between 90 and 92%. Continue diuresis with Lasix From a pulmonary standpoint, patient is cleared for discharge. The patient needs to follow-up in our office. I have personally seen and examined the patient, performed the documentation and the assessment and plan as written. Number of minutes spent on the visit: 10. Time with Patient: Less than 30
[2022-04-29] MEDS: LOSARTAN 25 MG TAB PO SCH (13:18)
[2022-04-29] MEDS: CHOLECALCIFEROL 25 MCG (1000 IU) TABLET PO SCH (13:18)
--- NOTE | 2022-04-29 15:01 | P.PN ---
Subjective Progress Note Date: 04/29/22 CHIEF COMPLAINT: Shortness of breath HISTORY OF PRESENT ILLNESS: Patient with history of open repair of incarcerated ventral hernia on 04/05/2022. Ananda from incision removed. ANTONY drain with 10 mL serosanguineous output. She is followed by pulmonary service regarding her COPD and CHF exacerbation. Patient still reports shortness of breath. Afebrile. No new labs. Patient seen and examined with Dr. solis PHYSICAL EXAM: VITAL SIGNS: Reviewed. GENERAL: Well-developed in no acute distress. HEENT: No sclera icterus. Extraocular movements grossly intact. Moist buccal mucosa. Head is atraumatic, normocephalic. ABDOMEN: Soft. Nondistended. Nontender. Incision site clean dry and intact and healing nicely NEUROLOGIC: Alert and oriented. Cranial nerves II through XII grossly intact. ASSESSMENT: 1. History of incarcerated ventral hernia status post open repair of incarcerated ventral hernia with partial omentectomy on 04/05/2022 2. Acute COPD exacerbation and CHF exacerbation PLAN: -Discontinue ANTONY drain -Continue supportive care -Surgical service will sign off. Please call with any questions or concerns. Physician Offset Press Assistant note has been reviewed by physician. Signing provider agrees with the documented findings, assessment, and plan of care. Objective - Vital Signs Vital signs: Vital Signs Temp 97.6 F 04/29/22 08:00 Pulse 90 04/29/22 11:36 Resp 16 04/29/22 08:00 BP 136/68 04/29/22 08:00 Pulse Ox 100 04/29/22 08:00 FiO2 Intake & Output 04/28/22 04/29/22 04/29/22 18:59 06:59 18:59 Intake Total 960 236 Output Total 0 10 Balance 960 0 226 Intake: Oral 960 236 Output: Drainage 10 Anterior Medial Abdomen 10 Emesis 0 Other: Voiding Method Bedside Commode Bedside Commode Bedside Commode # Voids 2 2 - Labs CBC & Chem 7: 04/29/22 06:36 04/29/22 06:36 Labs: Abnormal Lab Results - Last 24 Hours (Table) 04/28/22 04/28/22 04/29/22 Range/Units 17:11 20:09 05:47 RBC (3.80-5.40) m/uL Hgb (11.4-16.0) gm/dL Hct (34.0-46.0) % MCV (80.0-100.0) fL RDW (11.5-15.5) % Neutrophils # (1.3-7.7) k/uL Lymphocytes # (1.0-4.8) k/uL Sodium (137-145) mmol/L Chloride (98-107) mmol/L Carbon Dioxide (22-30) mmol/L BUN (7-17) mg/dL Creatinine (0.52-1.04) mg/dL Glucose (74-99) mg/dL POC Glucose (mg/dL) 201 H 237 H 178 H (70-110) mg/dL 04/29/22 04/29/22 04/29/22 Range/Units 06:36 06:36 12:35 RBC 2.39 L (3.80-5.40) m/uL Hgb 7.7 L (11.4-16.0) gm/dL Hct 23.9 L (34.0-46.0) % MCV 100.2 H (80.0-100.0) fL RDW 17.8 H (11.5-15.5) % Neutrophils # 7.8 H (1.3-7.7) k/uL Lymphocytes # 0.2 L (1.0-4.8) k/uL Sodium 135 L (137-145) mmol/L Chloride 89 L (98-107) mmol/L Carbon Dioxide 40 H (22-30) mmol/L BUN 43 H (7-17) mg/dL Creatinine 1.12 H (0.52-1.04) mg/dL Glucose 159 H (74-99) mg/dL POC Glucose (mg/dL) 197 H (70-110) mg/dL
--- NOTE | 2022-04-30 18:06 | P.DS ---
Providers Date of admission: 04/28/22 12:21 Expected date of discharge: 04/29/22 Attending physician: Chuck Brown Consults: 04/26/22 18:03 Consult Physician Routine Consulting Provider: Yousuf Gabriel Consult Reason/Comments: dyspnea Do you want consulting provider notified?: Yes 04/27/22 10:12 Consult Physician Routine Consulting Provider: Arnol Guerrero Consult Reason/Comments: post hernia repair Do you want consulting provider notified?: Yes Primary care physician: Vernell Bernal DO Hospital Course: Final diagnosis Shortness of breath secondary to COPD exacerbation Acute on chronic hypoxic respiratory failure due to COPD as well as acute on chronic CHF exacerbation, chronically wears 3 L outpatient Acute on chronic CHF exacerbation with diastolic dysfunction History of recent admission with influenza infection History of incarcerated ventral hernia status post open repair of incarcerated ventral hernia with partial omentectomy on 04/05/2022, failure of outpatient treatment as patient continues with ANTONY drain and incisional graciela, post staple removal on 04/27/2022 Diabetes mellitus, type II, uncontrolled with hyperglycemia, possible component of steroid-induced Morbid obesity with a BMI of 54.4 Chronic lymphedema of lower extremities Hypertension Osteoarthritis History of Crohn's disease Former smoker GI prophylaxis DVT prophylaxis Full code Discharge disposition Patient is being discharged in a stable condition with guarded prognosis to home with home care. Patient will follow-up with Dr. Bernal in the outpatient setting upon discharge. Patient is to continue on oral doxycycline for a few more doses to complete the course along with a prednisone taper and close outpatient follow-up with pulmonary. Total time taken is greater than 35 minutes. Hospital course This is a 62-year-old female who was recently admitted with COPD exacerbation. Patient was treated with continue duo nebs and IV steroids and transitioned oral prednisone and recommend strongly medication and outpatient follow-up compliance. Patient has been cleared by pulmonary for discharge and will follow-up in the office in a week. Patient to continue oral doxycycline twice a day for the next 3 days to complete the course along with a prednisone taper. Patient was seen and evaluated by surgery during hospitalization as patient was unable to follow-up outpatient for staple removal and ANTONY drain removal from surgery on 04/05/2022. [place] and ANTONY drain removed and will follow-up with surgery in the outpatient setting. Currently no reports of chest pain, shortness of breath, or palpitations. Patient is afebrile. No reports of nausea or vomiting and patient is tolerating diet. Patient will be discharged home today today. Guarded prognosis. Physical exam: Gen: This is a 62-year-old female who is awake, alert and oriented 3, well- developed, well-nourished, morbidly obese. HEENT: Head is atraumatic, normocephalic. Pupils equal, round. Sclerae is anicteric. NECK: Supple. No JVD. No lymphadenopathy. No thyromegaly. LUNGS: Diminished breath sounds bilaterally with some coarse rhonchi noted. No intercostal retractions. HEART: Regular rate and rhythm. No murmur. ABDOMEN: Soft. Obese Bowel sounds are present. No masses. Mild tenderness. ANTONY drained and graciela were removed and sites appear dry and intact EXTREMITIES: Lower extremity edema. No calf tenderness. NEUROLOGICAL: Patient is awake, alert and oriented x3. Cranial nerves 2 through 12 are grossly intact. Please refer to medication reconciliation sheet for a list of medications. The impression and plan of care has been dictated by Sarah Pruitt, Nurse Practitioner as directed. MD Marina I have performed a history and examination and MDM of this patient, discussed the same with the dictator, and agree with the dictator's assessment and plan as written ,documented as a scribe. Based on total visit time, I have performed more than 50% of the visit. Patient Condition at Discharge: Stable Plan - Discharge Summary New Discharge Prescriptions: New predniSONE [Deltasone] 20 mg PO DAILY 8 Days #6 tab Ipratropium-Albuterol Nebulize [Duoneb 0.5 mg-3 mg/3 ml Soln] 3 ml INHALATION RT-Q2H PRN each PRN Reason: Shortness Of Breath Or Wheezing Budesonide-Formot 160-4.5 Mcg [Symbicort 160-4.5 Mcg Inhaler] 2 puff INHALATION RT-BID 30 Days #1 each Ipratropium-Albuterol Nebulize [Duoneb 0.5 mg-3 mg/3 ml Soln] 3 ml INHALATION RT-QID 30 Days #120 each Doxycycline [Vibramycin] 100 mg PO BID 3 Days #6 cap Continue Cholecalciferol [Vitamin D3 (25 Mcg = 1000 Iu)] 25 mcg PO W/LUNCH Losartan [Cozaar] 25 mg PO DAILY@1400 Furosemide [Lasix] 40 mg PO BID@0900,1800 Cyclobenzaprine [Flexeril] 5 mg PO HS Cinnamon Bark [Cinnamon] 500 mg PO BID Wheat Dextrin [Benefiber] 1 packet PO DAILY PRN PRN Reason: Constipation Omeprazole [PriLOSEC] 20 mg PO DAILY [place]-3 Fatty Acids [[place]-3] 1,000 mg PO TID traMADol HCL [traMADol HCL ER] 200 mg PO DAILY Aspirin EC [Ecotrin Low Dose] 81 mg PO DAILY glipiZIDE [Glucotrol] 5 mg PO QID Pioglitazone [Actos] 30 mg PO DAILY Metoprolol Tartrate [Lopressor] 25 mg PO BID HYDROcodone/APAP 10-325MG [[place] 10-325] 0.5 tab PO 5XD Clopidogrel [Plavix] 75 mg PO DAILY Blood Builder Supplement 1 tab PO BID Nystatin [Nystop] 1 applic TOPICAL BID Discharge Medication List Aspirin EC [Ecotrin Low Dose] 81 mg PO DAILY 03/31/22 [History] Cholecalciferol [Vitamin D3 (25 Mcg = 1000 Iu)] 25 mcg PO W/LUNCH 03/31/22 [History] Cinnamon Bark [Cinnamon] 500 mg PO BID 03/31/22 [History] Clopidogrel [Plavix] 75 mg PO DAILY 03/31/22 [History] Cyclobenzaprine [Flexeril] 5 mg PO HS 03/31/22 [History] Furosemide [Lasix] 40 mg PO BID@0900,1800 03/31/22 [History] HYDROcodone/APAP 10-325MG [[place] 10-325] 0.5 tab PO 5XD 03/31/22 [History] Losartan [Cozaar] 25 mg PO DAILY@1400 03/31/22 [History] Metoprolol Tartrate [Lopressor] 25 mg PO BID 03/31/22 [History] [place]-3 Fatty Acids [[place]-3] 1,000 mg PO TID 03/31/22 [History] Pioglitazone [Actos] 30 mg PO DAILY 03/31/22 [History] glipiZIDE [Glucotrol] 5 mg PO QID 03/31/22 [History] traMADol HCL [traMADol HCL ER] 200 mg PO DAILY 03/31/22 [History] Blood Builder Supplement 1 tab PO BID 04/26/22 [History] Nystatin [Nystop] 1 applic TOPICAL BID 04/26/22 [History] Omeprazole [PriLOSEC] 20 mg PO DAILY 04/26/22 [History] Wheat Dextrin [Benefiber] 1 packet PO DAILY PRN 04/26/22 [History] Budesonide-Formot 160-4.5 Mcg [Symbicort 160-4.5 Mcg Inhaler] 2 puff INHALATION RT-BID 30 Days #1 each 04/29/22 [Rx] Doxycycline [Vibramycin] 100 mg PO BID 3 Days #6 cap 04/29/22 [Rx] Ipratropium-Albuterol Nebulize [Duoneb 0.5 mg-3 mg/3 ml Soln] 3 ml INHALATION RT-Q2H PRN each 04/29/22 [Rx] Ipratropium-Albuterol Nebulize [Duoneb 0.5 mg-3 mg/3 ml Soln] 3 ml INHALATION RT-QID 30 Days #120 each 04/29/22 [Rx] predniSONE [Deltasone] 20 mg PO DAILY 8 Days #6 tab 04/29/22 [Rx] Follow up Appointment(s)/Referral(s): Vernell Bernal DO [Primary Care Provider] - 1-2 days Yousuf Gabriel DO [Doctor of Osteopathic Medicine] - 1 Week Activity/Diet/Wound Care/Special Instructions: Activity Limited until follow-up Follow-up primary care provider on discharge Follow-up pulmonary outpatient in 1-2 weeks Continue taking medications as prescribed Continue with inhalers and nebulized treatments Discharge Disposition: HOME WITH HOME HEALTH SERVICES
== END 2022-04-29 15:58 | disposition home health service (06) | DRG 291 ==
LOC: EC 14:09 → 6NMEDSUR 18:04 → OBSVTOIN 04-28 12:21
PROVIDERS: ADMIT Hospitalist; ATTEND Hospitalist
PROC: 3E0F7SF Introduction of Other Gas into Respiratory Tract, Via Natural or Artificial Opening (ICD-10-PCS; principal; 2022-04-28)
DX: I11.0 Hypertensive heart disease with heart failure (principal); I50.33 Acute on chronic diastolic (congestive) heart failure; J96.21 Acute and chronic respiratory failure with hypoxia; J44.1 Chronic obstructive pulmonary disease with (acute) exacerbation; Z68.43 Body mass index [BMI] 50.0-59.9, adult; K50.90 Crohn's disease, unspecified, without complications; J98.11 Atelectasis; Z20.822 Contact with and (suspected) exposure to COVID-19; E66.01 Morbid (severe) obesity due to excess calories; I89.0 Lymphedema, not elsewhere classified; I08.1 Rheumatic disorders of both mitral and tricuspid valves; M19.90 Unspecified osteoarthritis, unspecified site; Z79.02 Long term (current) use of antithrombotics/antiplatelets; Z79.82 Long term (current) use of aspirin; Z79.899 Other long term (current) drug therapy; Z88.0 Allergy status to penicillin; Z88.2 Allergy status to sulfonamides; Z91.040 Latex allergy status; Z87.19 Personal history of other diseases of the digestive system; Z87.891 Personal history of nicotine dependence
CPT/HCPCS: 36415; 71045; 71046; 80048; 80053; 83036; 83880; 84145; 84484; 85025; 85379; 85610; 85730; 87636; 93005; 93306; 94640; 94760; 96374; 99285

== ENCOUNTER 2022-05-09 13:04 | Emergency (ER) | payer MEDICARE ==
[2022-05-09 13:16] VITALS: TEMP 97.8
--- NOTE | 2022-05-09 14:03 | ED ---
General Adult HPI - General Chief complaint: Skin/Abscess/Foreign Body Stated complaint: umblical hernia bleeding/post surg Time Seen by Provider: 05/09/22 13:20 Source: patient, EMS, RN notes reviewed Mode of arrival: EMS Limitations: no limitations - History of Present Illness Initial comments: Patient is a pleasant 62-year-old female presenting to the emergency department with concerns for bleeding. Patient did have umbilical hernia repair done 1 month ago here with Dr. Guerrero. Patient states since yesterday she has had some bleeding from the incision site. Patient states no increase in pain. Patient states it is more of oozing and dark. No new trauma. No redness or fever. - Related Data Home Medications Medication Instructions Recorded Confirmed Aspirin EC [Ecotrin Low Dose] 81 mg PO DAILY 03/31/22 04/26/22 Cholecalciferol [Vitamin D3 (25 25 mcg PO W/LUNCH 03/31/22 04/26/22 Mcg = 1000 Iu)] Cinnamon Bark [Cinnamon] 500 mg PO BID 03/31/22 04/26/22 Clopidogrel [Plavix] 75 mg PO DAILY 03/31/22 04/26/22 Cyclobenzaprine [Flexeril] 5 mg PO HS 03/31/22 04/26/22 Furosemide [Lasix] 40 mg PO BID@0900,1800 03/31/22 04/26/22 HYDROcodone/APAP 10-325MG [[place] 0.5 tab PO 5XD 03/31/22 04/26/22 10-325] Losartan [Cozaar] 25 mg PO DAILY@1400 03/31/22 04/26/22 Metoprolol Tartrate [Lopressor] 25 mg PO BID 03/31/22 04/26/22 [place]-3 Fatty Acids [[place]-3] 1,000 mg PO TID 03/31/22 04/26/22 Pioglitazone [Actos] 30 mg PO DAILY 03/31/22 04/26/22 glipiZIDE [Glucotrol] 5 mg PO QID 03/31/22 04/26/22 traMADol HCL [traMADol HCL ER] 200 mg PO DAILY 03/31/22 04/26/22 Blood Builder Supplement 1 tab PO BID 04/26/22 04/26/22 Nystatin [Nystop] 1 applic TOPICAL BID 04/26/22 04/26/22 Omeprazole [PriLOSEC] 20 mg PO DAILY 04/26/22 04/26/22 Wheat Dextrin [Benefiber] 1 packet PO DAILY PRN 04/26/22 04/26/22 Previous Rx's Medication Instructions Recorded Budesonide-Formot 160-4.5 Mcg 2 puff INHALATION RT-BID 30 Days 04/29/22 [Symbicort 160-4.5 Mcg Inhaler] #1 each Doxycycline [Vibramycin] 100 mg PO BID 3 Days #6 cap 04/29/22 Ipratropium-Albuterol Nebulize 3 ml INHALATION RT-Q2H PRN each 04/29/22 [Duoneb 0.5 mg-3 mg/3 ml Soln] Ipratropium-Albuterol Nebulize 3 ml INHALATION RT-QID 30 Days 04/29/22 [Duoneb 0.5 mg-3 mg/3 ml Soln] #120 each predniSONE [Deltasone] 20 mg PO DAILY 8 Days #6 tab 04/29/22 Allergies Allergy/AdvReac Type Severity Reaction Status Date / Time latex Allergy Rash/Hives Verified 05/09/22 13:16 Penicillins Allergy Rash/Hives Verified 05/09/22 13:16 Sulfa (Sulfonamide Allergy Rash/Hives Verified 05/09/22 13:16 Antibiotics) Review of Systems ROS Statement: Those systems with pertinent positive or pertinent negative responses have been documented in the HPI. ROS Other: All systems not noted in ROS Statement are negative. Constitutional: Denies: fever Eyes: Denies: eye pain ENT: Denies: ear pain Respiratory: Denies: cough Cardiovascular: Denies: chest pain Past Medical History Past Medical History: Heart Failure, COPD, Diabetes Mellitus, Hypertension, Osteoarthritis (OA), Skin Disorder Additional Past Medical History / Comment(s): CHF, Chrohn's Disease, Chronic Hives History of Any Multi-Drug Resistant Organisms: None Reported Past Surgical History: Hernia Repair Additional Past Surgical History / Comment(s): Fistula in buttocks. Past Anesthesia/Blood Transfusion Reactions: No Reported Reaction Past Psychological History: No Psychological Hx Reported Smoking Status: Former smoker Past Alcohol Use History: None Reported Past Drug Use History: None Reported General Exam Limitations: no limitations General appearance: alert, in no apparent distress Head exam: Present: atraumatic Eye exam: Present: normal appearance Respiratory exam: Present: normal lung sounds bilaterally Cardiovascular Exam: Present: regular rate, normal rhythm GI/Abdominal exam: Present: other (Umbilical incision with minimal amount of dark blood oozing. This is able to be expressed with suspected underlying hematoma) Neurological exam: Present: alert Psychiatric exam: Present: normal affect, normal mood Skin exam: Present: normal color Course Vital Signs 05/09/22 13:09 Temperature 97.8 F Pulse Rate 76 Respiratory 17 Rate Blood Pressure 122/58 O2 Sat by Pulse 100 Oximetry Medical Decision Making - Medical Decision Making Was pt. sent in by a medical professional or institution (, PA, ICE GUARD TESTER, urgent care, hospital, or half-way...) When possible be specific @ -No Did you speak to anyone other than the patient for history (EMS, parent, family, police, friend...)? What history was obtained from this source @ -No Did you review nursing and triage notes (agree or disagree)? Why? @ -I reviewed and agree with nursing and triage notes Were old charts reviewed (outside hosp., previous admission, EMS record, old EKG, old radiological studies, urgent care reports/EKG's, half-way records)? Report findings @ -No old charts were reviewed Differential Diagnosis (chest pain, altered mental status, abdominal pain women, abdominal pain men, vaginal bleeding, weakness, fever, dyspnea, syncope, headache, dizziness, GI bleed, back pain, seizure, CVA, palpatations, mental health)? @ -Differential Abdominal Pain Women: Appendicitis, Cholecystitis, diverticulosis, ischemic bowel, pancreatitis, hepatitis, UTI, gastroenteritis, AAA, incarcerated hernia, bowel obstruction, constipation, inflammatory bowel, hepatitis, peptic ulcer disease, splenic infarction, perforated viscus, vulvitis, ovarian torsion, PID, kidney stone, placenta abruption, this is not meant to be an all-inclusive list EKG interpreted by me (3pts min.). @ - X-rays interpreted by me (1pt min.). @ -None done CT interpreted by me (1pt min.). @ -None done U/S interpreted by me (1pt. min.). @ -None done What testing was considered but not performed or refused? (CT, X-rays, U/S, labs)? Why? @ -None What meds were considered but not given or refused? Why? @ -None Did you discuss the management of the patient with other professionals (professionals i.e. Dr., PA, ICE GUARD TESTER, lab, RT, psych nurse, child protective services social worker, correctional treatment specialist, teacher, trust officer, case monitor)? Give summary @ -Case was discussed with Dr. Guerrero who is familiar with this patient. He does not recommend anything further as he does have agreed likely diagnosis of underlying hematoma that is leaking. He does not recommend suturing. He will follow up with patient this week. Was smoking cessation discussed for >3mins.? @ -No Was critical care preformed (if so, how long)? @ -No Were there social determinants of health that impacted care today? How? (Homelessness, low income, unemployed, alcoholism, drug addiction, transportation, low edu. Level, literacy, decrease access to med. care, [facility], rehab)? @ -No Was there de-escalation of care discussed even if they declined (Discuss DNR or withdrawal of care, Hospice)? DNR status @ -No What co-morbidities impacted this encounter? (DM, HTN, Smoking, COPD, CAD, Cancer, CVA, ARF, Chemo, Hep., AIDS, mental health diagnosis, sleep apnea, morbid obesity)? @ -None Was patient admitted / discharged? Hospital course, mention meds given and route, prescriptions, significant lab abnormalities, going to OR and other pertinent info. @ -Patient reevaluated and updated. Patient will be discharged with follow-up with Dr. Guerrero. Undiagnosed new problem with uncertain prognosis? @ - Drug Therapy requiring intensive monitoring for toxicity (Heparin, Nitro, Insulin, Cardizem)? @ -No Were any procedures done? @ -No Diagnosis/symptom? @ -Hematoma Acute, or Chronic, or Acute on Chronic? @ -Acute Uncomplicated (without systemic symptoms) or Complicated (systemic symptoms)? @ -default Side effects of treatment? @ -No Exacerbation, Progression, or Severe Exacerbation? @ -No Poses a threat to life or bodily function? How? (Chest pain, [place], [place], pneumonia, PE, COPD, DKA, ARF, appy, cholecystitis, CVA, Diverticulitis, Homicidal, Suicidal, threat to staff... and all critical care pts) @ -No Disposition Clinical Impression: Postoperative hematoma Disposition: HOME SELF-CARE Condition: Stable Instructions (If sedation given, give patient instructions): Hematoma (ED), Postoperative Bleeding (ED) Additional Instructions: Please do follow-up this week with Dr. Guerrero. Return for increased bleeding, change of color of blood to bright red, pain, worsening symptoms or other concerns. Is patient prescribed a controlled substance at d/c from ED?: No Referrals: Vernell Bernal DO [Primary Care Provider] - 1-2 days Arnol Guerrero MD [STAFF PHYSICIAN] - 1-2 days Time of Disposition: 14:03
[2022-05-09 14:30] VITALS: BP 123/55; PULSE 80; RESP 20
== END 2022-05-09 14:34 | disposition home or self-care (01) ==
LOC: EC 13:04
DX: K91.870 Postprocedural hematoma of a digestive system organ or structure following a digestive system procedure (principal); E11.9 Type 2 diabetes mellitus without complications; I11.0 Hypertensive heart disease with heart failure; I50.9 Heart failure, unspecified; J44.9 Chronic obstructive pulmonary disease, unspecified; M19.90 Unspecified osteoarthritis, unspecified site; Z79.84 Long term (current) use of oral hypoglycemic drugs; Z79.82 Long term (current) use of aspirin; Z79.02 Long term (current) use of antithrombotics/antiplatelets; Z87.891 Personal history of nicotine dependence; Z88.0 Allergy status to penicillin; Z88.1 Allergy status to other antibiotic agents; Z88.2 Allergy status to sulfonamides; Z91.040 Latex allergy status
CPT/HCPCS: 99283